=== PATIENT | female | born 1980 | race Caucasian/White ===

== ENCOUNTER → 2020-03-27 15:02 | Outpatient (BNVA) | payer MEDICAID, SELFPAY | PROVIDERS: PCP Registered Nurse; Referring Provider Registered Nurse; Visit Provider Surgery | DX: R22.31 Localized swelling, mass and lump, right upper limb (principal) | CPT/HCPCS: 99203 ==

== ENCOUNTER 2020-04-21 09:45 | Day surgery (SDC) | payer MEDICAID, SELFPAY ==
[2020-04-19 09:33] VITALS: BMI 31.5
--- NOTE | 2020-04-20 09:10 | HO.ANESPROP2 ---
Documented by User: Lakisha Haywood 04/20/20 09:10 HPI - Anesthesia Eval Consult details Narrative: 39yo F for RUE nodule excision PMFSH Past Medical History Medical History History of sleep disturbance Hx of anxiety disorder Surgical History Surgical History History of colposcopy History of tubal ligation Hx of dilation and curettage Hx of excision of mass Social History Social History Alcohol intake: current Alcohol intake frequency: a few times a month Smoking Status: Current every day smoker Advance Directives Information Provided: No Meds Allergies Allergy/AdvReac Type Severity Reaction Status Date / Time naproxen Allergy Intermediate nausea and Verified 04/19/20 09:37 vomiting Motrin Allergy Intermediate nausea and Uncoded 04/19/20 09:37 vomiting Home Medications Medication Instructions Recorded Confirmed Type gabapentin 100 mg capsule 100 mg PO TID 03/27/20 04/19/20 History hydroxyzine pamoate 25 mg capsule 25 mg PO TID 03/27/20 04/19/20 History tizanidine 2 mg capsule 2 mg PO TID PRN 03/27/20 04/19/20 History Exam Exam Date and Time: April 20, 2020 0910 Height,Weight and Vital Signs: Height 4 ft 11 in Weight 70.76 kg Assessment and Plan Assessment Anesthesia Assessment: Chart Reviewed Documented by User: Fara Ponce 04/21/20 09:54 PMFSH Past Medical History Medical History History of sleep disturbance Hx of anxiety disorder Surgical History Surgical History History of colposcopy History of tubal ligation Hx of dilation and curettage Hx of excision of mass Social History Social History Alcohol intake: current Alcohol intake frequency: a few times a month Smoking Status: Current every day smoker Advance Directives Information Provided: No Meds Allergies Allergy/AdvReac Type Severity Reaction Status Date / Time naproxen Allergy Intermediate nausea and Verified 04/19/20 09:37 vomiting Motrin Allergy Intermediate nausea and Uncoded 04/19/20 09:37 vomiting Home Medications Medication Instructions Recorded Confirmed Type gabapentin 100 mg capsule 100 mg PO TID 03/27/20 04/19/20 History hydroxyzine pamoate 25 mg capsule 25 mg PO TID 03/27/20 04/19/20 History tizanidine 2 mg capsule 2 mg PO TID PRN 03/27/20 04/19/20 History Assessment and Plan Final Anesthetic Review ASA Class: II Final Preanesthetic Review: No Changes in Pt Med Stat, Meds/Allgs Chart Reviewed and Consent Obtained/Reviewed Patient Risk: Low Procedure Risk: Low Anesthetic Plan Anesthetic Plan: MAC: Disposition: Standard PACU
[2020-04-21] VITALS (8 sets, daily range): BP systolic 121–144; BP diastolic 65–100; PULSE 81–102; RESP 16–20; TEMP 35.9–36.4; O2SAT 98–100
--- NOTE | 2020-04-21 09:54 | P.CONAN_ITS ---
[facility] Past Medical History Medical History History of sleep disturbance Hx of anxiety disorder Surgical History Surgical History History of colposcopy History of tubal ligation Hx of dilation and curettage Hx of excision of mass Social History Social History Alcohol intake: current Alcohol intake frequency: a few times a month Smoking Status: Current every day smoker Advance Directives Information Provided: No Meds Allergies Allergy/AdvReac Type Severity Reaction Status Date / Time naproxen Allergy Intermediate nausea and Verified 04/19/20 09:37 vomiting Motrin Allergy Intermediate nausea and Uncoded 04/19/20 09:37 vomiting Home Medications Medication Instructions Recorded Confirmed Type gabapentin 100 mg capsule 100 mg PO TID 03/27/20 04/19/20 History hydroxyzine pamoate 25 mg capsule 25 mg PO TID 03/27/20 04/19/20 History tizanidine 2 mg capsule 2 mg PO TID PRN 03/27/20 04/19/20 History Exam Exam Date and Time: April 21, 2020 0954 Height,Weight and Vital Signs: Height 4 ft 11 in Weight 70.76 kg Airway Mallampati Class: III TM Dist: >3cm Neck ROM: Full Heart: RRR Lungs: CTA
[2020-04-21] MEDS: Lactated Ringers 1,000 ML 100 ML IVCONT (10:12)
[2020-04-21] MEDS: ceFAZolin Sodium/Dextrose,Iso 2 GM/50 ML PIGGYBACK IV (10:12)
--- NOTE | 2020-04-21 10:12 | MHC.SHP ---
Pre-Procedural Eval Section B Chief Complaint: Localized Swelling, Mass and Lump, unspecified Allergies: Allergies Allergy/AdvReac Type Severity Reaction Status Date / Time naproxen Allergy Intermediate nausea and Verified 04/19/20 09:37 vomiting Motrin Allergy Intermediate nausea and Uncoded 04/19/20 09:37 vomiting Plan Patient has been examined and remains a candidate for the planned procedure
--- NOTE | 2020-04-21 11:06 | P.BOP_ITS ---
Brief Operative Note Date of procedure: 04/21/20 Pre-op diagnosis: subcutaneous nodules, right upper arm x 2 Post-op diagnosis: same Procedure: exc of subcutaneous nodules right upper arm x 2 Surgeon: Case Frias MD Anesthesia: MAC Insurance Adjuster: Soraida Bass Estimated blood loss (mL): 20 Pathology: other (subq nodules) Condition: stable Disposition: PACU
[2020-04-21] MEDS: oxyCODONE HCl Immed Release 5 MG TABLET 10 MG PO (11:39)
[2020-04-21] MEDS: Acetaminophen 325 MG TABLET 650 MG PO (11:39)
--- NOTE | 2020-04-21 12:12 | OP_ITS ---
SURGEON: Case Frias MD INDICATIONS: The patient is a 39-year-old female, with rheumatoid arthritis, referred to me because of 2 subcutaneous nodules in right upper arm. These were both about 1 cm in size. There were vague indurations and they were not well defined. However, in view of discomfort, she wanted to proceed with excision. She wanted this done under anesthesia because of severe anxiety. She understood the technique of the procedure as well as the risks, benefits, and alternatives and she had given consent. PREOPERATIVE DIAGNOSIS: Subcutaneous nodules x2, right upper arm. POSTOPERATIVE DIAGNOSIS: Subcutaneous nodules x2, right upper arm. PROCEDURE PERFORMED: Excision of subcutaneous nodules x2, right upper arm. ESTIMATED BLOOD LOSS: COMPLICATIONS: ANESTHESIA: ASSISTANTS: Soraida Bass PA-C. SPECIMENS: DESCRIPTION OF PROCEDURE: She was brought to the operating room, placed in supine position with the right arm abducted on an arm table. She was placed under monitored anesthesia care. The right upper arm was prepped and draped in usual sterile fashion. A surgical time-out was done. One nodule was on the anterior aspect of the right upper arm. The other one was on the posterior aspect. I infiltrated both areas with lidocaine 1%. I made an incision on the skin overlying the nodule on the right upper arm using blade #15, it was carried down to full-thickness skin and subcutaneous fat. We used Metzenbaum scissors to gently dissect the subcutaneous tissue away from this fully defined indurated nodule until it was completely delivered and sent as specimen. There was note of a small defect in the fascia of the muscle that was adherent to the nodule and we had to close this with a [id number] Dexon 3-0 sutures. We reapposed subcutaneous layer with Dexon 3-0 interrupted sutures. We observed for hemostasis. Once hemostasis was ensured, proceeded to then close the skin with subcuticular running 4-0 Dexon stitch. Dressings were applied. The same procedure was duplicated on the nodule in the posterior aspect of the upper arm. Again, this area was infiltrated with lidocaine 1%. A small incision was made in the skin overlying this using blade #15, it was extended down to this subcutaneous layer. We then proceeded to excise this vague induration with electrocautery as well as Metzenbaum scissors until this was delivered. We observed for hemostasis. We then closed the subcutaneous layer with Dexon 3-0 interrupted sutures. Skin closure was achieved with Dexon 4-0 subcuticular running stitch. Steri-Strips and dressings were applied. The patient tolerated procedure well. There were no complications noted. I wrapped the arm with Kerlix afterwards. She was given postop instructions. There was blood loss about 20 mL. MD HARMEET Albarado/RUTH / [id number]
--- NOTE | 2020-04-21 12:28 | HO.POSTANES ---
Post Anesthesia Evaluation Post Anesthesia Evaluation Vital Signs: Vital Signs Temp Pulse Resp BP Pulse Ox 04/21/20 11:51 98.1 F 84 18 139/88 100 04/21/20 11:36 81 19 124/98 H 99 04/21/20 11:34 90 16 124/98 H 100 04/21/20 11:24 99 16 144/100 H 100 04/21/20 11:19 93 16 132/65 100 04/21/20 11:14 92 16 127/77 99 04/21/20 11:09 96.7 F L 89 16 121/82 100 04/21/20 10:06 97.5 F 102 H 20 135/88 98 Anesthesia: General (TIVA) Mental Status: Awake Pain Control: Satisfactory Nausea/Vomiting: None Hydration: Adequate Anesthesia-Related Issues: No Anes. Related Issues
== END 2020-04-21 12:40 | disposition home or self-care (01) ==
PROVIDERS: PCP Registered Nurse; Visit Provider Surgery
PROC: (CPT 11403; principal; 2020-04-21 10:40)
DX: R22.31 Localized swelling, mass and lump, right upper limb (principal); M06.9 Rheumatoid arthritis, unspecified; M79.3 Panniculitis, unspecified; Z88.8 Allergy status to other drugs, medicaments and biological substances; Z79.899 Other long term (current) drug therapy
CPT/HCPCS: 11403; 11402; 12032; 88305; 88312; J0690; J2250; J3010

== ENCOUNTER → 2020-05-10 15:52 | Outpatient (BNVA) | payer MEDICAID, SELFPAY | PROVIDERS: PCP Registered Nurse; Visit Provider Surgery | DX: Z09 Encounter for follow-up examination after completed treatment for conditions other than malignant neoplasm (principal) | CPT/HCPCS: 99212 ==

== ENCOUNTER 2020-09-13 09:39 | Outpatient (REF) | payer MEDICAID, SELFPAY ==
--- NOTE | ~2020-09-13 | US_ITS ---
EXAMINATION: US ABDOMEN COMPLETE CLINICAL INFORMATION: GERD. COMPARISON: CT abdomen pelvis 11/19/2015. MR abdomen 04/19/2013. Ultrasound abdomen 04/13/2013. TECHNIQUE: Real-time imaging of the abdominal viscera. FINDINGS: PANCREAS: Normal. ABDOMINAL AORTA: The proximal, mid, and distal segments are normal in caliber. INFERIOR VENA CAVA: Visualized portions are normal. LIVER: There is a 2.6 x 1.5 x 1.5 cm hypoechoic lesion in the left lobe of the liver. This is stable from previous exams and when compared with previous MRI March 2013 likely corresponds to a hemangioma. Liver echotexture is increased. There is a hypoechoic area adjacent to the gallbladder, a characteristic location of focal fatty sparing. No other focal liver lesion is seen. The liver is normal in size and contour. There is no intrahepatic biliary duct dilatation. GALLBLADDER: Normal. The gallbladder is physiologically distended without evidence of stones, sludge, polyps, wall thickening or pericholecystic fluid. COMMON BILE DUCT: Normal in caliber measuring 0.4 cm in diameter. RIGHT KIDNEY: There are multiple small echogenic foci with twinkle artifact suggestive of small stones. No hydronephrosis or focal parenchymal lesions. The kidney measures 10.9 cm in maximum dimension. LEFT KIDNEY: There are multiple echogenic foci with twinkle artifact suggestive of small stones in No hydronephrosis or focal parenchymal lesions. The kidney measures 11.6 cm in maximum dimension. SPLEEN: Normal. The spleen measures 10.7 cm in maximum dimension. FREE FLUID: None. US/US abdomen complete IMPRESSION: Fatty liver. Stable lesion in the left lobe of the liver likely representing a benign hemangioma. Small bilateral renal stones.
== END 2020-09-13 09:40 | disposition home or self-care (01) ==
LOC: HO.US 09:39
PROVIDERS: PCP Registered Nurse; Visit Provider Registered Nurse
DX: R10.0 Acute abdomen (principal); K21.9 Gastro-esophageal reflux disease without esophagitis
CPT/HCPCS: 76700

== ENCOUNTER 2020-10-17 16:33 | Emergency (ER) | payer MEDICAID, SELFPAY ==
[2020-10-17 16:43] VITALS: BP 159/87; BP 200/110; PULSE 104; PULSE 130; RESP 18; TEMP 37.2; O2SAT 99; BMI 31.7
--- NOTE | 2020-10-17 16:46 | PC.NURSE ---
pt very animated and dramatic during triage, explaining long stories about calls with doctors offices of late, tearful.
--- NOTE | 2020-10-17 16:46 | ED.GENADULT ---
HPI - General Adult General Chief complaint: General Medical Stated complaint: STROKE ALERT/CVA Time Seen by Provider: 10/17/20 16:44 Source: patient Mode of arrival: EMS Limitations: no limitations History of Present Illness HPI narrative: Patient history of anxiety/panic attack met with EMS outside her house walking complaining of left-sided weakness to sting her face and his left hand is also weak started at 07:00 but able to ambulate well on arrival in the ER patient was able to use her left hand there is no facial asymmetry symmetric noticed but when she is trying to talk she tried to twist her lower lip to left side crying in the ER very anxious saying the left lower lip is numb and tingling Related Data Home Medications Medication Instructions Recorded Confirmed gabapentin 100 mg capsule 100 mg PO TID 03/27/20 04/19/20 hydroxyzine pamoate 25 mg capsule 25 mg PO TID 03/27/20 04/19/20 tizanidine 2 mg capsule 2 mg PO TID PRN 03/27/20 04/19/20 Previous Rx's Medication Instructions Recorded tramadol 50 mg PO Q6H PRN #20 tab 04/21/20 acetaminophen 300 mg-codeine 15 mg 1 tab PO BID PRN #10 tab 06/27/20 tablet prednisone 40 mg PO DAILY #10 tab 10/17/20 Allergies Allergy/AdvReac Type Severity Reaction Status Date / Time naproxen Allergy Intermediate nausea and Verified 04/19/20 09:37 vomiting Motrin Allergy Intermediate nausea and Uncoded 04/19/20 09:37 vomiting Review of Systems Review of Systems: Constitutional : No Weight loss, No Fever, No Chills ENT/Mouth : No sore throat, No Rhinorrhea Eyes: No Eye Pain, No Swelling Cardiovascular : No Chest Pain, no palpitations Respiratory : No Cough, No Sputum, no shortness of breath Gastrointestinal : no Nausea, No Vomiting, No Diarrhea, No abdominal Pain, no black stools Genitourinary : No Dysuria, No Urinary Frequency Musculoskeletal : No joint pain, No Myalgias, No Joint Swelling Skin : No Skin Lesions, No rash Neuro : No Weakness, No Numbness, No Dizziness, No Headache Psych : ++ Anxiety/Panic, ++ Depression Heme/Lymph: No Bruising, No Lymphadenopathy Endocrine : No Polyuria, No Polydipsia All other systems reviewed and are negative PMFSH Past Medical History Medical History History of sleep disturbance Hx of anxiety disorder Surgical History History of colposcopy History of tubal ligation Hx of dilation and curettage Hx of excision of mass Social History Social History Alcohol intake: current Alcohol intake frequency: a few times a month Smoking Status: Current every day smoker Advance Directives: No Advance Directives Information Provided: No Physical Exam Vital Signs: Vital Signs: Last Vital Signs Temp 99.0 F 10/17/20 16:43 Pulse 104 H 10/17/20 16:43 Resp 18 10/17/20 16:43 BP 159/87 H 10/17/20 16:43 Pulse Ox 99 10/17/20 16:43 Body Mass Index 31.7 Appearance: Alert. Oriented X3. No acute distress. Crying Eyes: PERRLA, No Nystagmus ENT: Pharynx normal. Oral Mucosa moist Neck: Normal inspection. Neck supple. CVS: Normal heart rate and rhythm. Pulses normal. Respiratory: No respiratory distress. Equal air entry bilateral, no wheezing/rales/rhonchi Abdomen: Soft and nontender. Bowel sounds are present, no mass palpable, no CVA tenderness Skin: Skin warm and dry. Normal skin color. Normal skin turgor. Extremities: No lower extremity edema. No calf tenderness Neuro: Oriented X 3. No motor deficit. No sensory deficit.No cerebellar signs , cranial nerves II-XII intact testing of left lower lip to the left side when patient tries to talk? Somatization?? patient complaining of tingling pain on the left face now seeing on the right lip also trigger-point negative for 8 days not spared able to close her eyes tight no other focal deficit Medical Decision Making MDM Narrative Medical decision making narrative: Patient very anxious on arrival just complaining of lower lip twisting to the left side which she does state when she tried to speak otherwise is back to normal. No other findings of any Roman's palsy noticed but patient showing her phone stating that she has Roman's palsy in asking for medication is possible she may have early Roman's palsy as there is no other findingseye can be well closed and there is no sparing of the forehead will give her a course of prednisone advised to follow with PCP Discharge Plan Discharge Clinical Impression: Roman's palsy, Anxiety Patient Disposition: Home, Self-Care Instructions: Roman Palsy (ED), Anxiety (ED) Additional Instructions: You do not have a typical findings of Roman's palsy at this time only lower lip is twisting which is possibly from somatization. Take prednisone as prescribed and follow with PCP Prescriptions: New prednisone 20 mg tablet 40 mg PO DAILY Qty: 10 RF: 0 No Action acetaminophen-codeine 300-15 mg tablet 1 tab PO BID PRN (Reason: pain) Qty: 10 RF: 0 tramadol 50 mg tablet 50 mg PO Q6H PRN (Reason: pain) Qty: 20 RF: 0 gabapentin 100 mg capsule 100 mg PO TID RF: 0 hydroxyzine pamoate 25 mg capsule 25 mg PO TID RF: 0 tizanidine 2 mg capsule 2 mg PO TID PRN (Reason: Muscle Spasm) RF: 0
[2020-10-17] MEDS: predniSONE 20 MG TABLET 40 MG PO (18:22)
--- NOTE | 2020-10-17 18:53 | PC.NURSE ---
PT UPRIGHT AMBULATING IN ROOM W/ EVEN STEADY GAIT. PT C/O L SIDED FACIAL DROOP STARTING OVER LAST 2-3 DAYS, NO NEURO DEFICITS NOTED. 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 PT HYPERVERBAL, C/O NUMEROUS CHRONIC ISSUES WHICH HAVE BEEN ADDRESSED BY PCP AND ER PROVIDERS. PT IN NAD, C/O INCREASED LIFE STRESSORS AND ANXIETY. PT DENIES SI/HI, NO SELF HARM THOUGHTS, REPORTS HAS RESOURCES WHICH SHE UTILIZES, STS SHE IS READY FOR D/C.
== END 2020-10-17 18:55 | disposition home or self-care (01) ==
PROVIDERS: Emergency Provider Internal Medicine
DX: G51.0 Bell's palsy (principal); F41.9 Anxiety disorder, unspecified; E78.5 Hyperlipidemia, unspecified
CPT/HCPCS: 96374; 99283; 99284

== ENCOUNTER 2021-02-13 09:59 | Outpatient (REF) | payer MEDICAID, SELFPAY ==
--- NOTE | ~2021-02-13 | XR_ITS ---
EXAMINATION: XR CHEST CLINICAL INFORMATION: Abnormal immunological findings. COMPARISON: Chest 04/29/2019 TECHNIQUE: 2 views of the chest were obtained. FINDINGS: No significant abnormality is noted involving the heart, lungs, mediastinum, bony thorax or soft tissues. XR/XR chest 2V IMPRESSION: Unremarkable chest examination.
[2021-02-13 12:16] LABS: MANUAL DIFF FLAG NO
[2021-02-13 12:19] LABS: Basophils Percent Auto 0.6 % (0-2); Eosinophils Absolute Auto 0.2 X10*3/uL (0.0-0.4); Eosinophils Percent Auto 2.8 % (0-4); Hematocrit 35.1 % (37-47); Hemoglobin 10.8 g/dl (12.0-16.0); Imm Gran Abs Auto 0.01 X10*3/uL (0.00-0.03); Imm Gran Pct Auto 0.2 % (0.0-0.4); Lymphocytes Absolute Auto 2.2 X10*3/uL (1.2-4.9); Lymphocytes Percent Auto 40.9 % (20-40); Mean Corpuscular HGB Conc 30.8 g/dl (31.0-35.0); Mean Corpuscular Hemoglobin 26.2 pg (27.0-33.0); Mean Platelet Volume 9.5 fL (9.4-12.3); Monocytes Absolute Auto 0.4 X10*3/uL (0.1-1.2); Monocytes Percent Auto 7.9 % (2-11); Neutrophils Absolute Auto 2.6 X10*3/uL (2.0-8.3); Neutrophils Percent Auto 47.6 % (45-73); Platelet Count 365 X10*3/uL (160-400); Red Blood Count 4.13 X10*6/uL (4.20-5.50); White Blood Count 5.4 X10*3/uL (4.8-10.8)
[2021-02-13 12:36] LABS: Anion Gap 10 (12-20); Blood Urea Nitrogen 7 mg/dL (9-16); Calcium 9.4 mg/dL (8.4-10.2); Carbon Dioxide 25 mmol/L (22-29); Chloride 107 mmol/L (96-108); Estimated Glomerular Filt Rate > 60; Glucose Random 105 mg/dL (60-115); Potassium 4.2 mmol/L (3.3-5.1); Sodium 138 mmol/L (135-145)
[2021-02-13 13:10] LABS: Erythrocyte Sedimentation Rate 38 MM/HR (0-20)
[2021-02-14 12:16] LABS: Anti DNA DS Antibody 10 IU/mL
[2021-02-15 15:57] LABS: Cyclic Citrullinated Peptide <16 UNITS
[2021-02-16 09:26] LABS: Immunoglobulin A 727
[2021-02-16 09:27] LABS: Transglutaminase IgA 1
[2021-02-16 13:06] LABS: Anti Nuclear Antibody Pattern Nuclear, Homogeneous; Anti Nuclear Antibody Screen POSITIVE (NEGATIVE)
[2021-02-18 22:11] LABS: Angiotensin Converting Enzyme 7 U/L (9-67)
== END 2021-02-13 10:00 | disposition home or self-care (01) ==
LOC: HO.XRAY 09:59
PROVIDERS: PCP Registered Nurse; Visit Provider Hospitalist
DX: R76.8 Other specified abnormal immunological findings in serum (principal); J45.909 Unspecified asthma, uncomplicated; R06.00 Dyspnea, unspecified
CPT/HCPCS: 36415; 71046; 80048; 82164; 82784; 82785; 83516; 85025; 85652; 86003; 86038; 86039; 86200; 86225; 99202

== ENCOUNTER → 2021-02-21 09:35 | Outpatient (REF) | payer MEDICAID, SELFPAY ==
--- NOTE | ~2021-02-21 | NM_ITS ---
Myocardial perfusion study Indication: Chest pain to evaluate for myocardial ischemia Technique: The patient was brought in for a Lexiscan perfusion study on 02/21/2021. Patient performed low-level exercise and was injected 0.4 mg of Lexiscan intravenously. Within a minute of injection, 25 mCi of sestamibi was given intravenously. Images were obtained using the SPECT gamma camera interlaced with the gating device. Images were obtained in supine position. Resting perfusion study was performed on 02/22/2021. Patient was administered 25 mCi of sestamibi intravenously at rest. Images were then obtained in supine position. Images obtained with and without CT attenuation. Total DLP 92 mGy-cm. Images were processed with the software and compared side to side in short axis, horizontal long axis and vertical long axis views. Findings: The stress perfusion study showed nonattenuated images show normal uptake of radiotracer in all segments of LV myocardium. Attenuation corrected images show mildly reduced uptake in the distal anterior and apical wall of the LV myocardium.. The gated study shows normal LV systolic function with visually estimated LVEF of greater than 60 %. LV cavity is normal in size. The gated study shows normal systolic wall thickening and contraction of segments. Resting study shows no change in perfusion pattern compared to stress perfusion study. Gating at rest reveals normal systolic wall motion with ejection fraction at greater than 60%. The findings are consistent with likely normal myocardial perfusion. NM/NM leonor perf SPECT rest & str Impression: 1. Myocardial perfusion imaging study shows likely normal myocardial perfusion 2. Gated LVEF is greater than 60% 3. Transient ischemic dilatation not present EKG is nondiagnostic for ischemia
--- NOTE | 2021-02-21 10:00 | CA_ITS ---
Acquisition Time: 2021-02-21 10:02:38 Total Exercise Time: 00:02:00 Test Indications: Dyspnea Medications: LISINOPRIL VERAPAMIL Protocol: LEXISCAN Max HR: 129 BPM 72% of Pred: 179 BPM Max BP: 130/070 mmHG Max Work Load: 1.0 METS [employer] stress test with Lexiscan injection, while sitting and kicking her legs, with report of sob, chest pressure post injection, without arrythmia, with normotensive response to injection, with nondiagnostic EKG for ischemia. In recovery she continued to have symptoms, including body tingling, that was treated with Aminophylline 75mg IVP to reverse Lesxiscan with resolution of symptoms. Nuclear images pending. Test reviewed with Dr Santa. Referred By: Leonardo Pastor Overread By: YFN DANIELS
== END ==
LOC: HO.CARD 09:35
PROVIDERS: Visit Provider Internal Medicine Cardiovascular Disease
DX: R07.9 Chest pain, unspecified (principal)
CPT/HCPCS: 78452; 93017; A9500; J0280; J2785

== ENCOUNTER 2021-03-06 08:22 | Outpatient (REF) | payer MEDICAID, SELFPAY ==
--- NOTE | 2021-03-06 | PFT_ITS ---
FLOWS: FEV1 96% of predicted at 2.41 L. FVC 92% of predicted at 2.81 L. FEV1 to FVC ratio of 0.86. No bronchodilator response. LUNG VOLUMES: Total lung capacity 86% of predicted at 3.72 L. Residual volume 72% of predicted at 1 L. Slow vital capacity 92% of predicted at 2.72 L. Expiratory reserve volume of predicted at 0.57 L. Diffusion capacity is mildly decreased, diffusion capacity adjusted to normal after correction for alveolar ventilation. In comparison to pulmonary function test in December of 2017, FEV1, FVC, SVC have been without significant changes; total lung capacity has increased by 0.30 L; residual volume has increased by 0.38 L; expiratory reserve volume has decreased by 0.24 L; diffusion capacity has decreased by 1.09 mL/minute per mmHg. IMPRESSION: No obstructive or restrictive ventilatory defect. No bronchodilator response. Decreased expiratory reserve volume suggests extrathoracic restriction, likely secondary to abdominal obesity. MD FLORINDA Cruz/MODL / [id number]
== END 2021-03-06 08:23 | disposition home or self-care (01) ==
LOC: HO.RESP 08:22
PROVIDERS: PCP Registered Nurse; Visit Provider Hospitalist
DX: J45.909 Unspecified asthma, uncomplicated (principal)
CPT/HCPCS: 94060; 94727; 94729

== ENCOUNTER → 2021-05-01 08:52 | Outpatient (BNVA) | payer MEDICAID, SELFPAY | PROVIDERS: PCP Registered Nurse; Referring Provider Registered Nurse; Visit Provider Nurse Practitioner | DX: R13.10 Dysphagia, unspecified (principal); K21.9 Gastro-esophageal reflux disease without esophagitis; R49.0 Dysphonia | CPT/HCPCS: 99202 ==

== ENCOUNTER 2021-06-06 20:51 | Emergency (ER) | payer MEDICAID, SELFPAY ==
[2021-06-06 21:01] VITALS: BP 145/72; PULSE 72; RESP 18; TEMP 36.6; O2SAT 99; BMI 35.4
--- NOTE | 2021-06-06 21:35 | ED.ANXIETY ---
HPI - Anxiety General Chief Complaint: Anxiety Stated Complaint: anxiety/drug use Time Seen by Provider: 06/06/21 21:25 Source: patient and EMS Mode of arrival: EMS Limitations: no limitations History of Present Illness HPI narrative: Patient comes to the emergency room complaining of anxiety. Patient is very tearful, states that she has a lot of family issues. Patient states that no one in her family cares about her when she has been caring about all of them. Patient states that she used to do drugs, stopped but today she started using heroin again. Patient requesting detox. Patient denies suicidal or homicidal ideation. Patient reporting depression and anxiety. Related Data Home Medications Medication Instructions Recorded Confirmed gabapentin 100 mg capsule 100 mg PO TID 03/27/20 05/01/21 hydroxyzine pamoate 25 mg capsule 25 mg PO TID 03/27/20 05/01/21 tizanidine 2 mg capsule 2 mg PO TID PRN 03/27/20 05/01/21 cholecalciferol (vitamin D3) 50 50 mcg PO DAILY 02/13/21 05/01/21 mcg (2,000 unit) capsule cyclobenzaprine 10 mg tablet 10 mg PO BEDTIME 02/13/21 05/01/21 lisinopril 5 mg tablet 5 mg PO DAILY 02/13/21 05/01/21 loratadine 10 mg tablet 10 mg PO DAILY 02/13/21 05/01/21 verapamil 120 mg 24 hr 120 mg PO DAILY 02/13/21 05/01/21 capsule,extended release pantoprazole 40 mg tablet,delayed 40 mg PO DAILY 05/01/21 05/01/21 release (Protonix) Previous Rx's Medication Instructions Recorded tramadol 50 mg tablet 50 mg PO Q6H PRN #20 tab 04/21/20 acetaminophen 300 mg-codeine 15 mg 1 tab PO BID PRN #10 tab 06/27/20 tablet fluticasone furoate 200 1 inh INHALATION DAILY 30 Days #60 02/13/21 mcg-vilanterol 25 mcg/dose ea inhalation powder (Breo Ellipta) budesonide-formoterol HFA 160 2 puff INHALATION BID 30 Days 03/05/21 mcg-4.5 mcg/actuation aerosol #10.2 g inhaler (Symbicort) Allergies Allergy/AdvReac Type Severity Reaction Status Date / Time naproxen Allergy Intermediate nausea and Verified 05/01/21 09:57 vomiting Motrin Allergy Intermediate nausea and Uncoded 02/13/21 10:20 vomiting Review of Systems Review of Systems: Constitutional : No Weight loss, No Fever, No Chills, No Night Sweats, No Fatigue, No Malaise ENT/Mouth : No Hearing loss, No Ear Pain, No Nasal Congestion, No Sinus Pain, No Hoarseness, No sore throat, No Rhinorrhea, No Swallowing Difficulty Eyes: No Eye Pain, No Swelling, No Redness, No Foreign Body, No Discharge, No Vision Changes Cardiovascular : No Chest Pain, No SOB, No Dyspnea on Exertion, No Orthopnea, No Edema, No Palpitations Respiratory : No Cough, No Sputum, No Wheezing, No Smoke Exposure, No Dyspnea Gastrointestinal : No Nausea, No Vomiting, No Diarrhea, No Constipation, No abdominal Pain, No Hematochezia, No Melena Genitourinary : no irregular bleeding, No Dysuria, No Urinary Frequency, No Hematuria, No Urinary Incontinence, No Urgency, No Flank Pain, No Urinary Flow Changes, No Hesitancy Musculoskeletal : No joint pain, No Myalgias, No Joint Swelling Skin : No Skin Lesions, No rash Neuro : No Weakness, No Numbness, No Paresthesias, No Loss of Consciousness, No Dizziness, No Headache Psych : Complaining of anxiety and depression No SI/HI/AH/VH, No Social Issues, Heme/Lymph: No Bruising, No Bleeding,No Lymphadenopathy Endocrine : No Polyuria, No Polydipsia, No Temperature Intolerance PMFSH Past Medical History Medical History BRIE positive Asthma Dyspnea History of sleep disturbance Hx of anxiety disorder Surgical History History of colposcopy History of tubal ligation Hx of dilation and curettage Hx of excision of mass Social History Social History Alcohol intake: current Alcohol intake frequency: a few times a month Patient Tobacco Use Status: Current someday Tobacco user Tobacco use type: Cigarette Cigarettes Per Day: 2 Physical Exam Vital Signs: Vital Signs: Last Vital Signs Temp 98 F 06/06/21 21:01 Pulse 72 06/06/21 21:01 Resp 18 06/06/21 21:01 BP 145/72 H 06/06/21 21:01 Pulse Ox 99 06/06/21 21:01 BMI result Body Mass Index 35.4 Const: Other: Appearance: Alert. Oriented X3. Tearful Eyes: Pupils equal, round and reactive to light. ENT: Pharynx normal. Neck: Normal inspection. Neck supple. No lymph nodes noted. No crepitus CVS: Normal heart rate and rhythm. Pulses normal. Normal S1 and S2 Respiratory: No respiratory distress. Breath sounds normal. No Wheezing. No rales Abdomen: Soft and nontender. No rigidity. No distention. good BS x4 Skin: Skin warm and dry. Normal skin color. Normal skin turgor. Extremities: No lower extremity edema. No lower extremity edema. No Lacerations. No Rash Neuro: Oriented X 3. No motor deficit. No sensory deficit. Moving all extermities. No slurred speech, cranial nerves 2-12 grossly intact Psych: Alert, tearful, throwing things at her nurse Course Course Course Narrative: Care team consult pending. Physician observation started at 21:40, vitals are stable. Discharge Plan Discharge Clinical Impression: Anxiety Prescriptions: No Action acetaminophen-codeine 300-15 mg tablet 1 tab PO BID PRN (Reason: pain) Qty: 10 RF: 0 budesonide-formoterol [Symbicort] 160-4.5 mcg/actuation HFA aerosol inhaler 2 puff inhalation BID 30 Days Qty: 10.2 RF: 11 tramadol 50 mg tablet 50 mg PO Q6H PRN (Reason: pain) Qty: 20 RF: 0 gabapentin 100 mg capsule 100 mg PO TID RF: 0 hydroxyzine pamoate 25 mg capsule 25 mg PO TID RF: 0 tizanidine 2 mg capsule 2 mg PO TID PRN (Reason: Muscle Spasm) RF: 0 verapamil 120 mg capsule,ext rel. pellets 24 hr 120 mg PO DAILY RF: 0 loratadine 10 mg tablet 10 mg PO DAILY RF: 0 cyclobenzaprine 10 mg tablet 10 mg PO BEDTIME RF: 0 lisinopril 5 mg tablet 5 mg PO DAILY RF: 0 cholecalciferol (vitamin D3) 50 mcg (2,000 unit) capsule 50 mcg PO DAILY RF: 0 Breo Ellipta 200-25 mcg/dose blister with device 1 inh inhalation DAILY 30 Days Qty: 60 RF: 11 pantoprazole [Protonix] 40 mg tablet,delayed release (DR/EC) 40 mg PO DAILY RF: 0
[2021-06-06 21:37] LABS: Appearance Urine CLEAR; Color Urine YELLOW; Glucose Urine UA NEG (NEG); Leukocyte Esterase Urine NEG (NEG); Nitrite Urine NEG (NEG); PH 6.5 (5.0-8.0); UACC Culture Trigger NO; Urine Blood TRACE (NEG); Urine Ketones NEG (NEG); Urine Protein TRACE MG/DL (NEG-TRACE)
[2021-06-06 21:39] LABS: UPreg QC Valid YES; Urine Pregnancy NEGATIVE (NEGATIVE)
[2021-06-06 21:42] LABS: Squamous Epithelial Cell Urine 2+ /LPF
[2021-06-06 21:43] LABS: Bacteria Urine 1+ /LPF
[2021-06-06 21:45] LABS: RBC Urine 0-2 /HPF (0); WBC Urine 0 /HPF (0-4)
[2021-06-06 21:46] LABS: COVID-19 Test Negative (Negative)
[2021-06-06] MEDS: LORazepam 1 MG TABLET 2 MG PO (21:46)
[2021-06-06 21:50] LABS: Amphetamine Screen Urine Not Detected (Not Detect); Barbiturates, Urine Not Detected (Not Detect); Benzodiazepines Screen Urine POSITIVE (Not Detect); Cannabinoid Screen Urine POSITIVE (Not Detect); Cocaine Screen Urine POSITIVE (Not Detect); Fentanyl, urine POSITIVE (Not Detect); Opiate Screen Urine POSITIVE (Not Detect); Phencyclidine Screen Urine Not Detected (Not Detect)
--- NOTE | 2021-06-06 22:44 | MHC.CARE ---
CARE team support requested for pt in the pod with complaints of anxiety secondary to substance use. Pt was distraught and ruminating on life experiences and relationships, her physical health, and her mental health. She endorsed passive thoughts of and reported that she used heroin today after having been in recovery. Unsure if her use today was a relapse. She denied other substance use. Given her current level of dysregulation and being under the influence of substances, she would benefit from a clinical assessment in the morning once she is more appropriate for evaluation. ED attending physician Harleen Garcia updated re: recommendation.
[2021-06-07 01:10] VITALS: BP 127/79; PULSE 96; RESP 16; TEMP 36.4; O2SAT 100
--- NOTE | 2021-06-07 06:56 | PC.NURSE ---
Patient did not sleep well, no distress observed/reported, care team evaluated briefly recommended full BHN evaluation, BHN evaluated the patient, disposition is d/c home and follow up with provider, vss, d/c paper work ready, will continue to monitor.
== END 2021-06-07 07:16 | disposition home or self-care (01) ==
PROVIDERS: Emergency Provider Emergency Medicine
DX: F41.9 Anxiety disorder, unspecified (principal); J45.909 Unspecified asthma, uncomplicated; Z20.822 Contact with and (suspected) exposure to COVID-19
CPT/HCPCS: 36415; 80307; 81001; 81025; 87635; 99283; 99284

== ENCOUNTER 2021-07-02 10:01 | Emergency (ER) | payer MEDICAID, SELFPAY ==
--- NOTE | ~2021-07-02 | XR_ITS ---
EXAMINATION: XR CHEST CLINICAL INFORMATION: Chest pain and shortness of breath COMPARISON: Previous chest x-ray January 2021 TECHNIQUE: 2 views of the chest were obtained. FINDINGS: No significant abnormality is noted involving the heart, lungs, mediastinum, bony thorax or soft tissues. XR/XR chest 2V IMPRESSION: Unremarkable examination.
[2021-07-02 10:57] VITALS: BP 175/96; PULSE 95; RESP 18; TEMP 36.6; O2SAT 100; BMI 30.2
[2021-07-02 16:45] LABS: COVID-19 Test Negative (Negative)
[2021-07-02 20:00] VITALS: BP 138/93; PULSE 84; RESP 20; TEMP 35.6; O2SAT 100
--- NOTE | 2021-07-02 22:36 | ED_ITS ---
HPI - General Adult General Chief complaint: Psychiatric Symptoms Stated complaint: dif breathing chest pain panic attacks Time Seen by Provider: 07/02/21 10:40 Source: patient Mode of arrival: ambulatory History of Present Illness HPI narrative: 41-year-old female with history hypertension, rheumatoid arthritis, prediabetes presents with having used cocaine and heroin yesterday and states she wants to stop doing the drugs, but the holidays are difficult. She denies suicidal ideation but is noticeably agitated. She complains of heada madhav, chest discomfort, and states that she is feeling very anxious. Related Data Home Medications Medication Instructions Recorded Confirmed cyclobenzaprine 5 mg tablet 1 tab PO TID PRN 06/06/21 07/02/21 gabapentin 100 mg capsule 100 mg PO TID 06/06/21 07/02/21 lisinopril 5 mg tablet 1 tab PO DAILY 06/06/21 07/02/21 pantoprazole 40 mg tablet,delayed 1 tab PO DAILY 06/06/21 07/02/21 release cholecalciferol (vitamin D3) 50 1 tab PO DAILY 07/02/21 07/02/21 mcg (2,000 unit) tablet verapamil 180 mg tablet,extended 1 tab PO DAILY 07/02/21 07/02/21 release Previous Rx's Medication Instructions Recorded clonidine HCl 0.1 mg tablet 0.1 mg PO TID PRN #6 tab 07/03/21 hydroxyzine HCl 25 mg tablet 25 mg PO TID PRN #7 tab 07/03/21 loperamide 2 mg capsule 2 mg PO Q6H PRN #6 cap 07/03/21 Allergies Allergy/AdvReac Type Severity Reaction Status Date / Time naproxen Allergy Intermediate nausea and Verified 05/01/21 09:57 vomiting Motrin Allergy Intermediate nausea and Uncoded 02/13/21 10:20 vomiting Review of Systems Review of Systems: Pertinent positives and negatives as stated in HPI 10 point review of systems is otherwise negative. [facility] Past Medical History Source: nursing notes reviewed Medical History BRIE positive Asthma Dyspnea History of sleep disturbance Hx of anxiety disorder Surgical History History of colposcopy History of tubal ligation Hx of dilation and curettage Hx of excision of mass Social History Social History Alcohol intake: current Alcohol intake frequency: a few times a month Patient Tobacco Use Status: Current someday Tobacco user Tobacco use type: Cigarette Cigarettes Per Day: 2 Advance Directives: No Advance Directives Information Provided: Yes Patient : No Physical Exam Vital Signs: Vital Signs: Last Vital Signs Temp 98.2 F 07/02/21 22:54 Pulse 88 07/02/21 22:54 Resp 16 07/02/21 22:54 BP 140/93 H 07/02/21 22:54 Pulse Ox 99 07/02/21 22:54 BMI result Body Mass Index 30.2 VITAL SIGNS: Reviewed. GENERAL: Well developed, well nourished, in no acute distress. HEAD: Normocephalic/atraumatic EYES: PERRLA, EOMI OROPHARYNX: no oral lesions noted, posterior pharynx clear LUNGS: Normal breath sounds. No adventitious sounds or accessory muscle use. SpO2<100> CARDIOVASCULAR: Regular rate and rhythm without noted murmurs ABDOMEN: Soft, non-tender, non-distended with bowel sounds. MUSCULOSKELETAL: No tenderness, deformities, or effusions noted on gross inspection. EXTREMITIES: No cyanosis, clubbing or edema, bruising across bilateral upper extremities at prior injection sites without noted erythema/induration SKIN: Inspection of the skin reveals no rashes, ulcerations, jaundice, pallor, or petechiae. NEUROLOGIC: Alert and oriented x 4. Strength and sensation to light touch were grossly intact x 4, cranial nerves 2-12 are grossly intact. PSYCH: Anxious, tremulous Course Course Course Narrative: 41-year-old female with history and clinical presentation consistent with substance use and dependence presenting for detox but otherwise denies suicidal ideation. Review of all investigations negative for acute findings other than noted elevated transaminases consistent with recent drug use. Patient reports her use was today, on COWs scoring she is a 6, she was provided with an anxiolytic, prescriptions for withdrawal were sent to her pharmacy, and she was provided with information regarding [place] withdrawal clinic. At this time, patient does not qualify for the 1 time dose of methadone. She was discharged with home Narcan. Medical Decision Making Lab Data Result diagrams: 07/02/21 22:38 07/02/21 22:38 Labs: Lab Results 07/02/21 07/02/21 07/02/21 Range/Units 16:03 22:38 22:38 WBC 5.9 (4.8-10.8) X10*3/uL RBC 4.26 (4.20-5.50) X10*6/uL Hgb 11.1 L (12.0-16.0) g/dl Hct 34.4 L (37.0-47.0) % MCV 80.8 (80.0-98.0) fL MCH 26.1 L (27.0-33.0) pg MCHC 32.3 (31.0-35.0) g/dl RDW 17.2 H (11.0-16.0) % Plt Count 371 (160-400) X10*3/uL MPV 10.0 (9.4-12.3) fL Immature Gran % (Auto) 0.2 (0.0-0.4) % Neut % (Auto) 35.5 L (45-73) % Lymph % (Auto) 54.2 H (20-40) % [place] % (Auto) 7.5 (2-11) % Eos % (Auto) 2.4 (0-4) % Baso % (Auto) 0.2 (0-2) % Lymph # (Auto) 3.2 (1.2-4.9) X10*3/uL [place] # (Auto) 0.4 (0.1-1.2) X10*3/uL Eos # (Auto) 0.1 (0.0-0.4) X10*3/uL Baso # (Auto) 0.0 (0.0-0.2) X10*3/uL Abs Immat Gran (auto) 0.01 (0.00-0.03) X10*3/uL Absolute Neuts (auto) 2.1 (2.0-8.3) x10*3/uL Absolute Nucleated RBC 0.000 (0.0-0.012) X10*3/uL Nucleated RBC % (auto) 0.0 (0.0-0.2) /100WBC Smear Tech's Comments VERIFIED Sodium 136 (135-145) mmol/L Potassium 3.7 (3.3-5.1) mmol/L Chloride 102 (96-108) mmol/L Carbon Dioxide 26 (22-29) mmol/L Anion Gap 12 (12-20) BUN 3 L (9-16) mg/dL Creatinine 0.74 (0.5-1.4) mg/dL Estim Creat Clear Calc 83.0 Estimated GFR > 60 Random Glucose 100 (60-115) mg/dL Calcium 9.5 (8.4-10.2) mg/dL Total Bilirubin 0.9 (0.0-1.0) mg/dL AST 157 H (5-31) U/L ALT 84 H (0-31) U/L Alkaline Phosphatase 125 H (39-117) U/L Total Protein 8.3 H (6.5-8.0) g/dL Albumin 3.9 (3.5-5.0) g/dL Urine Color Urine Appearance Urine pH (5.0-8.0) Ur Specific [place] (1.005-1.025) Urine Protein (NEG-TRACE) MG/DL Urine Glucose (UA) (NEG) MG/DL Urine Ketones (NEG) MG/DL Urine Blood (NEG) Urine Nitrite (NEG) Ur Leukocyte Esterase (NEG) Urine RBC (0) /HPF Urine WBC (0-4) /HPF Ur Squamous Epith Cells /LPF Urine Bacteria /LPF Urine Test (NEGATIVE) Urine Opiates Screen (Not Detect) Urine Fentanyl Screen (Not Detect) Ur Barbiturates Screen (Not Detect) Ur Phencyclidine Scrn (Not Detect) Ur Amphetamines Screen (Not Detect) U Benzodiazepines Scrn (Not Detect) Urine Cocaine Screen (Not Detect) U Marijuana (THC) Screen (Not Detect) Ethyl Alcohol mg/dL COVID-19 (JOE) Negative (Negative) COVID-19 Clin Com See Note 07/02/21 07/02/21 07/02/21 Range/Units 22:38 23:16 23:16 WBC (4.8-10.8) X10*3/uL RBC (4.20-5.50) X10*6/uL Hgb (12.0-16.0) g/dl Hct (37.0-47.0) % MCV (80.0-98.0) fL MCH (27.0-33.0) pg MCHC (31.0-35.0) g/dl RDW (11.0-16.0) % Plt Count (160-400) X10*3/uL MPV (9.4-12.3) fL Immature Gran % (Auto) (0.0-0.4) % Neut % (Auto) (45-73) % Lymph % (Auto) (20-40) % [place] % (Auto) (2-11) % Eos % (Auto) (0-4) % Baso % (Auto) (0-2) % Lymph # (Auto) (1.2-4.9) X10*3/uL [place] # (Auto) (0.1-1.2) X10*3/uL Eos # (Auto) (0.0-0.4) X10*3/uL Baso # (Auto) (0.0-0.2) X10*3/uL Abs Immat Gran (auto) (0.00-0.03) X10*3/uL Absolute Neuts (auto) (2.0-8.3) x10*3/uL Absolute Nucleated RBC (0.0-0.012) X10*3/uL Nucleated RBC % (auto) (0.0-0.2) /100WBC Smear Tech's Comments Sodium (135-145) mmol/L Potassium (3.3-5.1) mmol/L Chloride (96-108) mmol/L Carbon Dioxide (22-29) mmol/L Anion Gap (12-20) BUN (9-16) mg/dL Creatinine (0.5-1.4) mg/dL Estim Creat Clear Calc Estimated GFR Random Glucose (60-115) mg/dL Calcium (8.4-10.2) mg/dL Total Bilirubin (0.0-1.0) mg/dL AST (5-31) U/L ALT (0-31) U/L Alkaline Phosphatase (39-117) U/L Total Protein (6.5-8.0) g/dL Albumin (3.5-5.0) g/dL Urine Color YELLOW Urine Appearance CLEAR Urine pH 6.0 (5.0-8.0) Ur Specific [place] <= 1.005 (1.005-1.025) Urine Protein NEG (NEG-TRACE) MG/DL Urine Glucose (UA) NEG (NEG) MG/DL Urine Ketones NEG (NEG) MG/DL Urine Blood 3+ H (NEG) Urine Nitrite NEG (NEG) Ur Leukocyte Esterase NEG (NEG) Urine RBC 10-14 H (0) /HPF Urine WBC 0-2 (0-4) /HPF Ur Squamous Epith Cells 1+ /LPF Urine Bacteria TRACE /LPF Urine Test NEGATIVE (NEGATIVE) Urine Opiates Screen (Not Detect) Urine Fentanyl Screen (Not Detect) Ur Barbiturates Screen (Not Detect) Ur Phencyclidine Scrn (Not Detect) Ur Amphetamines Screen (Not Detect) U Benzodiazepines Scrn (Not Detect) Urine Cocaine Screen (Not Detect) U Marijuana (THC) Screen (Not Detect) Ethyl Alcohol < 10 mg/dL COVID-19 (JOE) (Negative) COVID-19 Clin Com 07/02/21 Range/Units 23:16 WBC (4.8-10.8) X10*3/uL RBC (4.20-5.50) X10*6/uL Hgb (12.0-16.0) g/dl Hct (37.0-47.0) % MCV (80.0-98.0) fL MCH (27.0-33.0) pg MCHC (31.0-35.0) g/dl RDW (11.0-16.0) % Plt Count (160-400) X10*3/uL MPV (9.4-12.3) fL Immature Gran % (Auto) (0.0-0.4) % Neut % (Auto) (45-73) % Lymph % (Auto) (20-40) % [place] % (Auto) (2-11) % Eos % (Auto) (0-4) % Baso % (Auto) (0-2) % Lymph # (Auto) (1.2-4.9) X10*3/uL [place] # (Auto) (0.1-1.2) X10*3/uL Eos # (Auto) (0.0-0.4) X10*3/uL Baso # (Auto) (0.0-0.2) X10*3/uL Abs Immat Gran (auto) (0.00-0.03) X10*3/uL Absolute Neuts (auto) (2.0-8.3) x10*3/uL Absolute Nucleated RBC (0.0-0.012) X10*3/uL Nucleated RBC % (auto) (0.0-0.2) /100WBC Smear Tech's Comments Sodium (135-145) mmol/L Potassium (3.3-5.1) mmol/L Chloride (96-108) mmol/L Carbon Dioxide (22-29) mmol/L Anion Gap (12-20) BUN (9-16) mg/dL Creatinine (0.5-1.4) mg/dL Estim Creat Clear Calc Estimated GFR Random Glucose (60-115) mg/dL Calcium (8.4-10.2) mg/dL Total Bilirubin (0.0-1.0) mg/dL AST (5-31) U/L ALT (0-31) U/L Alkaline Phosphatase (39-117) U/L Total Protein (6.5-8.0) g/dL Albumin (3.5-5.0) g/dL Urine Color Urine Appearance Urine pH (5.0-8.0) Ur Specific [place] (1.005-1.025) Urine Protein (NEG-TRACE) MG/DL Urine Glucose (UA) (NEG) MG/DL Urine Ketones (NEG) MG/DL Urine Blood (NEG) Urine Nitrite (NEG) Ur Leukocyte Esterase (NEG) Urine RBC (0) /HPF Urine WBC (0-4) /HPF Ur Squamous Epith Cells /LPF Urine Bacteria /LPF Urine Test (NEGATIVE) Urine Opiates Screen Not Detected (Not Detect) Urine Fentanyl Screen POSITIVE H (Not Detect) Ur Barbiturates Screen Not Detected (Not Detect) Ur Phencyclidine Scrn Not Detected (Not Detect) Ur Amphetamines Screen Not Detected (Not Detect) U Benzodiazepines Scrn Not Detected (Not Detect) Urine Cocaine Screen POSITIVE H (Not Detect) U Marijuana (THC) Screen POSITIVE H (Not Detect) Ethyl Alcohol mg/dL COVID-19 (JOE) (Negative) COVID-19 Clin Com Discharge Plan Discharge Clinical Impression: Substance use disorder, Anxiety Patient Disposition: Home, Self-Care Instructions: Polysubstance Abuse (ED) Additional Instructions: 1. Resume your home medications as prescribed. 2. Medications to help you with your withdrawal symptoms have been sent to your pharmacy. 3. You have been given paperwork for the detox programs that are available here at [facility]. Call the number in the morning and they have walk-in hours. 4. Also follow-up with your primary care provider. Return to the ER for worsening symptoms. Prescriptions: New clonidine HCl 0.1 mg tablet 0.1 mg PO TID PRN (Reason: Wihtdrawal) Qty: 6 RF: 0 hydroxyzine HCl 25 mg tablet 25 mg PO TID PRN (Reason: anxiety) Qty: 7 RF: 0 loperamide 2 mg capsule 2 mg PO Q6H PRN (Reason: loose stool) Qty: 6 RF: 0 No Action pantoprazole 40 mg tablet,delayed release (DR/EC) 1 tab PO DAILY RF: 0 gabapentin 100 mg capsule 100 mg PO TID RF: 0 cyclobenzaprine 5 mg tablet 1 tab PO TID PRN (Reason: Muscle Spasm) RF: 0 lisinopril 5 mg tablet 1 tab PO DAILY RF: 0 cholecalciferol (vitamin D3) 50 mcg (2,000 unit) tablet 1 tab PO DAILY RF: 0 verapamil 180 mg tablet extended release 1 tab PO DAILY RF: 0
[2021-07-02 22:45] LABS: Basophils Percent Auto 0.2 % (0-2); Eosinophils Absolute Auto 0.1 X10*3/uL (0.0-0.4); Eosinophils Percent Auto 2.4 % (0-4); Hematocrit 34.4 % (37.0-47.0); Hemoglobin 11.1 g/dl (12.0-16.0); Imm Gran Abs Auto 0.01 X10*3/uL (0.00-0.03); Imm Gran Pct Auto 0.2 % (0.0-0.4); Lymphocytes Absolute Auto 3.2 X10*3/uL (1.2-4.9); Lymphocytes Percent Auto 54.2 % (20-40); MANUAL DIFF FLAG SCAN; Mean Corpuscular HGB Conc 32.3 g/dl (31.0-35.0); Mean Corpuscular Hemoglobin 26.1 pg (27.0-33.0); Mean Corpuscular Volume 80.8 fL (80.0-98.0); Monocytes Absolute Auto 0.4 X10*3/uL (0.1-1.2); Monocytes Percent Auto 7.5 % (2-11); Neutrophils Absolute Auto 2.1 x10*3/uL (2.0-8.3); Neutrophils Percent Auto 35.5 % (45-73); Platelet Count 371 X10*3/uL (160-400); Red Blood Count 4.26 X10*6/uL (4.20-5.50); Red Cell Distribution Width 17.2 % (11.0-16.0); SCAN SMEAR FLAG 1; White Blood Count 5.9 X10*3/uL (4.8-10.8)
[2021-07-02 22:54] VITALS: BP 140/93; PULSE 88; RESP 16; TEMP 36.8; O2SAT 99
[2021-07-02 22:58] LABS: Ethanol < 10 mg/dL
[2021-07-02] MEDS: Acetaminophen 325 MG TABLET 975 MG PO (22:58)
[2021-07-02] MEDS: LORazepam 0.5 MG TABLET PO (22:58)
[2021-07-02 23:02] LABS: Alanine Aminotransferase 84 U/L (0-31); Albumin Level 3.9 g/dL (3.5-5.0); Alkaline Phosphatase 125 U/L (39-117); Anion Gap 12 (12-20); Aspartate Amino Transferase 157 U/L (5-31); Bilirubin Total 0.9 mg/dL (0.0-1.0); Blood Urea Nitrogen 3 mg/dL (9-16); Calcium 9.5 mg/dL (8.4-10.2); Carbon Dioxide 26 mmol/L (22-29); Chloride 102 mmol/L (96-108); Estimated Glomerular Filt Rate > 60; Glucose Random 100 mg/dL (60-115); Potassium 3.7 mmol/L (3.3-5.1); Sodium 136 mmol/L (135-145); Total Protein 8.3 g/dL (6.5-8.0)
[2021-07-02 23:04] LABS: SLIDE REVIEW VERIFIED
[2021-07-02 23:23] LABS: Appearance Urine CLEAR; Color Urine YELLOW; Glucose Urine UA NEG (NEG); Leukocyte Esterase Urine NEG (NEG); Nitrite Urine NEG (NEG); Specific Gravity - Urine <= 1.005 (1.005-1.025); UACC Culture Trigger NO; Urine Blood 3+ (NEG); Urine Ketones NEG (NEG); Urine Protein NEG (NEG-TRACE)
[2021-07-02 23:25] LABS: UPreg QC Valid YES; Urine Pregnancy NEGATIVE (NEGATIVE)
[2021-07-02 23:31] LABS: Bacteria Urine TRACE /LPF; Squamous Epithelial Cell Urine 1+ /LPF; WBC Urine 0-2 /HPF (0-4)
[2021-07-02 23:39] LABS: Amphetamine Screen Urine Not Detected (Not Detect); Barbiturates, Urine Not Detected (Not Detect); Benzodiazepines Screen Urine Not Detected (Not Detect); Cannabinoid Screen Urine POSITIVE (Not Detect); Cocaine Screen Urine POSITIVE (Not Detect); Fentanyl, urine POSITIVE (Not Detect); Opiate Screen Urine Not Detected (Not Detect); Phencyclidine Screen Urine Not Detected (Not Detect)
--- NOTE | 2021-07-03 01:23 | PC.NURSE ---
Reviewed Narcan education and proper use of medications. Reviewed discharge instructions. pt verbalized understanding.
[2021-07-03] MEDS: Naloxone HCl Nasal TAKE HOME 4 MG SPRAY NOSTRILALT (01:26)
== END 2021-07-03 01:30 | disposition home or self-care (01) ==
PROVIDERS: Emergency Provider Student in an Organized Health Care Education/Training Program
DX: F19.980 Other psychoactive substance use, unspecified with psychoactive substance-induced anxiety disorder (principal); R45.1 Restlessness and agitation; F14.90 Cocaine use, unspecified, uncomplicated; F19.90 Other psychoactive substance use, unspecified, uncomplicated; F12.90 Cannabis use, unspecified, uncomplicated; I10 Essential (primary) hypertension; F17.200 Nicotine dependence, unspecified, uncomplicated; Z20.822 Contact with and (suspected) exposure to COVID-19
CPT/HCPCS: 36415; 71046; 80053; 80307; 81001; 81025; 82077; 85025; 87635; 99285

== ENCOUNTER 2021-07-09 19:03 | Emergency (ER) | payer MEDICAID, SELFPAY ==
--- NOTE | 2021-07-09 | ECG_ITS ---
Test Reason : SOB Blood Pressure : / mmHG Vent. Rate : 099 BPM Atrial Rate : 099 BPM P-R Int : 132 ms QRS Dur : 080 ms QT Int : 354 ms P-R-T Axes : 062 043 048 degrees QTc Int : 454 ms Normal sinus rhythm Normal ECG When compared with ECG of 11-APR-2018 17:24, No significant change was found Referred By: Generic ED Physician Electronically Signed By:Herminio Santa
--- NOTE | ~2021-07-09 | XR_ITS ---
EXAMINATION: XR CHEST CLINICAL INFORMATION: Shortness of breath COMPARISON: 07/02/2021 TECHNIQUE: Frontal view of the chest was obtained. FINDINGS: The lungs are well expanded. There is no focal consolidation, edema, or effusion. No pneumothorax. The cardiomediastinal silhouette is within normal limits. No acute osseous abnormality. XR/XR chest 1V IMPRESSION: Clear lungs.
[2021-07-09 20:28] VITALS: BP 150/88; PULSE 90; RESP 20; TEMP 37; O2SAT 100; BMI 24.2
[2021-07-09 23:31] VITALS: BP 138/94; PULSE 92; RESP 20; O2SAT 98
[2021-07-09 23:44] LABS: Basophils Percent Auto 0.3 % (0-2); Eosinophils Percent Auto 0.7 % (0-4); Hematocrit 36.2 % (37.0-47.0); Hemoglobin 11.5 g/dl (12.0-16.0); Imm Gran Abs Auto 0.01 X10*3/uL (0.00-0.03); Imm Gran Pct Auto 0.2 % (0.0-0.4); Lymphocytes Absolute Auto 2.6 X10*3/uL (1.2-4.9); Lymphocytes Percent Auto 43.9 % (20-40); MANUAL DIFF FLAG NO; Mean Corpuscular HGB Conc 31.8 g/dl (31.0-35.0); Mean Corpuscular Hemoglobin 26.1 pg (27.0-33.0); Mean Corpuscular Volume 82.1 fL (80.0-98.0); Mean Platelet Volume 10.3 fL (9.4-12.3); Monocytes Absolute Auto 0.7 X10*3/uL (0.1-1.2); Monocytes Percent Auto 11.5 % (2-11); Neutrophils Absolute Auto 2.5 x10*3/uL (2.0-8.3); Neutrophils Percent Auto 43.4 % (45-73); Platelet Count 370 X10*3/uL (160-400); Red Blood Count 4.41 X10*6/uL (4.20-5.50); Red Cell Distribution Width 17.5 % (11.0-16.0); White Blood Count 5.9 X10*3/uL (4.8-10.8)
[2021-07-10 00:01] LABS: COVID-19 Test Negative (Negative); IDNOW Serial# 9DD0AD1C
[2021-07-10 00:02] LABS: Alanine Aminotransferase 78 U/L (0-31); Albumin Level 3.8 g/dL (3.5-5.0); Alkaline Phosphatase 106 U/L (39-117); Anion Gap 13 (12-20); Aspartate Amino Transferase 107 U/L (5-31); Bilirubin Total 0.7 mg/dL (0.0-1.0); Blood Urea Nitrogen 2 mg/dL (9-16); Calcium 9.5 mg/dL (8.4-10.2); Carbon Dioxide 26 mmol/L (22-29); Chloride 102 mmol/L (96-108); Creatinine Clr Calc Pharmacy 82.3; Estimated Glomerular Filt Rate > 60; Glucose Random 96 mg/dL (60-115); Potassium 3.8 mmol/L (3.3-5.1); Sodium 137 mmol/L (135-145); Total Protein 8.1 g/dL (6.5-8.0)
--- NOTE | 2021-07-10 01:24 | ED.GENADULT ---
HPI - General Adult General Chief complaint: General Medical Stated complaint: sob Time Seen by Provider: 07/09/21 19:57 History of Present Illness HPI narrative: Patient is a 41-year-old female with a history of heroin and Street methadone use. Complaining of generalized malaise. Complaining of weakness. Complaining of signs of withdrawal complaining of signs of potential panic attack. Patient has been trying to get in detox but was unable to get into detox. She stated she has all the phone numbers and she does not need any additional help to get into detox programs. Feels very achy all over. She is from home. Last used heroin and Street methadone early yesterday morning. Patient used cocaine in the past. Denies using cocaine since the last visit to the emergency department. Related Data Home Medications Medication Instructions Recorded Confirmed cyclobenzaprine 5 mg tablet 1 tab PO TID PRN 06/06/21 07/02/21 gabapentin 100 mg capsule 100 mg PO TID 06/06/21 07/02/21 lisinopril 5 mg tablet 1 tab PO DAILY 06/06/21 07/02/21 pantoprazole 40 mg tablet,delayed 1 tab PO DAILY 06/06/21 07/02/21 release cholecalciferol (vitamin D3) 50 1 tab PO DAILY 07/02/21 07/02/21 mcg (2,000 unit) tablet verapamil 180 mg tablet,extended 1 tab PO DAILY 07/02/21 07/02/21 release Previous Rx's Medication Instructions Recorded clonidine HCl 0.1 mg tablet 0.1 mg PO TID PRN #6 tab 07/03/21 hydroxyzine HCl 25 mg tablet 25 mg PO TID PRN #7 tab 07/03/21 loperamide 2 mg capsule 2 mg PO Q6H PRN #6 cap 07/03/21 clonidine HCl 0.1 mg tablet 0.1 mg PO Q8H #5 tab 07/10/21 ondansetron 4 mg disintegrating 4 mg PO TID PRN 5 Days #10 tab 07/10/21 tablet Allergies Allergy/AdvReac Type Severity Reaction Status Date / Time naproxen Allergy Intermediate nausea and Verified 05/01/21 09:57 vomiting Motrin Allergy Intermediate nausea and Uncoded 02/13/21 10:20 vomiting Review of Systems Review of Systems: Positive generalized malaise Positive diffuse body ache Positive palpitation All system reviewed otherwise negative PMFSH Past Medical History Attestation statement: The following information was validated with the patient. Medical History BRIE positive Asthma Dyspnea History of sleep disturbance Hx of anxiety disorder Surgical History History of colposcopy History of tubal ligation Hx of dilation and curettage Hx of excision of mass Social History Social History Alcohol intake: current Alcohol intake frequency: a few times a month Patient Tobacco Use Status: Current someday Tobacco user Tobacco use type: Cigarette Cigarettes Per Day: 2 Advance Directives: No Physical Exam Vital Signs: Vital Signs: Last Vital Signs Temp 98.6 F 07/09/21 20:28 Pulse 92 07/09/21 23:31 Resp 20 07/09/21 23:31 BP 138/94 H 07/09/21 23:31 Pulse Ox 98 07/09/21 23:31 BMI result Body Mass Index 24.2 Appearance: Alert. Oriented X3. No acute distress. Eyes: Pupils equal, round and reactive to light. ENT: Pharynx normal. Neck: Normal inspection. Neck supple. No lymph nodes noted. No crepitus CVS: Normal heart rate and rhythm. Pulses normal. Normal S1 and S2 Respiratory: No respiratory distress. Breath sounds normal. No Wheezing. No rales Abdomen: Soft and nontender. No rigidity. No distention. good BS x4 Skin: Skin warm and dry. Normal skin color. Normal skin turgor. Extremities: No lower extremity edema. Neurovascular intact to all extremities. No Lacerations. No Rash Neuro: Oriented X 3. No motor deficit. No sensory deficit. Moving all extermities. No slurred speech Medical Decision Making MDM Narrative Medical decision making narrative: Well-appearing no acute distress. Patient's EKG showed a sinus pattern heart rate was 120 ID QRS QTC within normal limits is no acute ST segment elevation. Patient's white count is normal. Hemoglobin is baseline. Electrolytes unremarkable. LFTs baseline. Patient's COVID test was negative. Chest x-ray showed no focal infiltrate. Discussed with patient at length the need to stop using heroin and also Street methadone. Will refer patient to [facility] for possible Suboxone treatment. Patient given clonidine. In stable condition. Lab Data Result diagrams: 07/09/21 23:36 07/09/21 23:36 Labs: Lab Results 07/09/21 07/09/21 07/09/21 Range/Units 23:36 23:36 23:36 WBC 5.9 (4.8-10.8) X10*3/uL RBC 4.41 (4.20-5.50) X10*6/uL Hgb 11.5 L (12.0-16.0) g/dl Hct 36.2 L (37.0-47.0) % MCV 82.1 (80.0-98.0) fL MCH 26.1 L (27.0-33.0) pg MCHC 31.8 (31.0-35.0) g/dl RDW 17.5 H (11.0-16.0) % Plt Count 370 (160-400) X10*3/uL MPV 10.3 (9.4-12.3) fL Immature Gran % (Auto) 0.2 (0.0-0.4) % Neut % (Auto) 43.4 L (45-73) % Lymph % (Auto) 43.9 H (20-40) % [place] % (Auto) 11.5 H (2-11) % Eos % (Auto) 0.7 (0-4) % Baso % (Auto) 0.3 (0-2) % Lymph # (Auto) 2.6 (1.2-4.9) X10*3/uL [place] # (Auto) 0.7 (0.1-1.2) X10*3/uL Eos # (Auto) 0.0 (0.0-0.4) X10*3/uL Baso # (Auto) 0.0 (0.0-0.2) X10*3/uL Abs Immat Gran (auto) 0.01 (0.00-0.03) X10*3/uL Absolute Neuts (auto) 2.5 (2.0-8.3) x10*3/uL Absolute Nucleated RBC 0.000 (0.0-0.012) X10*3/uL Nucleated RBC % (auto) 0.0 (0.0-0.2) /100WBC Sodium 137 (135-145) mmol/L Potassium 3.8 (3.3-5.1) mmol/L Chloride 102 (96-108) mmol/L Carbon Dioxide 26 (22-29) mmol/L Anion Gap 13 (12-20) BUN 2 L (9-16) mg/dL Creatinine 0.67 (0.5-1.4) mg/dL Estim Creat Clear Calc 82.3 Estimated GFR > 60 Random Glucose 96 (60-115) mg/dL Calcium 9.5 (8.4-10.2) mg/dL Total Bilirubin 0.7 (0.0-1.0) mg/dL AST 107 H (5-31) U/L ALT 78 H (0-31) U/L Alkaline Phosphatase 106 (39-117) U/L Total Protein 8.1 H (6.5-8.0) g/dL Albumin 3.8 (3.5-5.0) g/dL COVID-19 (JOE) Negative (Negative) COVID-19 Clin Com See Note Discharge Plan Discharge Clinical Impression: Anxiety, Heroin abuse Patient Disposition: Home, Self-Care Instructions: Anxiety (ED), Narcotic Use Disorder (ED) Prescriptions: New ondansetron 4 mg tablet,disintegrating 4 mg PO TID PRN (Reason: nausea and vomiting) 5 Days Qty: 10 RF: 0 clonidine HCl 0.1 mg tablet 0.1 mg PO Q8H Qty: 5 RF: 0 No Action pantoprazole 40 mg tablet,delayed release (DR/EC) 1 tab PO DAILY RF: 0 gabapentin 100 mg capsule 100 mg PO TID RF: 0 cyclobenzaprine 5 mg tablet 1 tab PO TID PRN (Reason: Muscle Spasm) RF: 0 lisinopril 5 mg tablet 1 tab PO DAILY RF: 0 cholecalciferol (vitamin D3) 50 mcg (2,000 unit) tablet 1 tab PO DAILY RF: 0 verapamil 180 mg tablet extended release 1 tab PO DAILY RF: 0 clonidine HCl 0.1 mg tablet 0.1 mg PO TID PRN (Reason: Wihtdrawal) Qty: 6 RF: 0 hydroxyzine HCl 25 mg tablet 25 mg PO TID PRN (Reason: anxiety) Qty: 7 RF: 0 loperamide 2 mg capsule 2 mg PO Q6H PRN (Reason: loose stool) Qty: 6 RF: 0 Referrals: [facility] Carty, SATURNINO [Nurse Practitioner] - 1 day
[2021-07-10] MEDS: Naloxone HCl Nasal TAKE HOME 4 MG SPRAY NOSTRILALT (02:17)
[2021-07-10] MEDS: cloNIDine HCL 0.1 MG TABLET PO (02:17)
--- NOTE | 2021-07-10 02:24 | PC.NURSE ---
pt is medicated per Mar, resourced given for out patient detox. Reviewed discharge instructions. Pt verbalized understanding. pt a&o, no sob or chest pain. pt able to ambulated well. No sign of distress at this time
[2021-07-10 02:27] VITALS: BP 147/79; PULSE 94; O2SAT 98
== END 2021-07-10 02:29 | disposition home or self-care (01) ==
PROVIDERS: Emergency Provider Emergency Medicine Emergency Medical Services
DX: F41.9 Anxiety disorder, unspecified (principal); F11.20 Opioid dependence, uncomplicated; Z20.822 Contact with and (suspected) exposure to COVID-19; F17.200 Nicotine dependence, unspecified, uncomplicated; Z79.899 Other long term (current) drug therapy
CPT/HCPCS: 36415; 71045; 80053; 85025; 87635; 93005; 99284

== ENCOUNTER → 2021-07-13 11:14 | Outpatient (BNVA) | payer MEDICAID, SELFPAY | PROVIDERS: Visit Provider Nurse Practitioner Psychiatric/Mental Health | DX: Z51.81 Encounter for therapeutic drug level monitoring (principal); F11.20 Opioid dependence, uncomplicated; F14.10 Cocaine abuse, uncomplicated | CPT/HCPCS: 80305; 99211 ==

== ENCOUNTER 2021-07-17 11:10 | Outpatient (REF) | payer MEDICAID, SELFPAY ==
[2021-07-17 17:51] LABS: Fentanyl, urine POSITIVE (Not Detect)
== END 2021-07-17 11:11 | disposition home or self-care (01) ==
LOC: HO.LNP 11:10
PROVIDERS: Visit Provider Internal Medicine
DX: F11.20 Opioid dependence, uncomplicated (principal); Z51.81 Encounter for therapeutic drug level monitoring; Z79.899 Other long term (current) drug therapy
CPT/HCPCS: 80305; 80307; 99212

== ENCOUNTER 2021-07-23 11:14 | Outpatient (REF) | payer MEDICAID, SELFPAY ==
[2021-07-23 17:48] LABS: Fentanyl, urine POSITIVE (Not Detect)
== END 2021-07-23 11:15 | disposition home or self-care (01) ==
LOC: HO.LNP 11:14
PROVIDERS: Visit Provider Internal Medicine
DX: F11.20 Opioid dependence, uncomplicated (principal); F17.200 Nicotine dependence, unspecified, uncomplicated; Z71.6 Tobacco abuse counseling; Z79.899 Other long term (current) drug therapy
CPT/HCPCS: 80305; 80307; 99212

== ENCOUNTER 2021-07-26 16:46 | Emergency (ER) | payer MEDICAID, SELFPAY ==
--- NOTE | ~2021-07-26 | XR_ITS ---
EXAMINATION: XR CHEST CLINICAL INFORMATION: Chest pain, cough, COVID negative. COMPARISON: Chest radiograph dated from 07/10/2021. TECHNIQUE: 2 views of the chest were obtained. FINDINGS: No significant abnormality is noted involving the heart, lungs, mediastinum, bony thorax or soft tissues. XR/XR chest 2V IMPRESSION: Unremarkable examination.
[2021-07-26 16:55] VITALS: BP 147/96; PULSE 116; RESP 16; TEMP 36.6; O2SAT 95; BMI 27.8
--- NOTE | 2021-07-26 17:01 | ECG_ITS ---
Test Reason : CHEST PAIN Blood Pressure : / mmHG Vent. Rate : 103 BPM Atrial Rate : 103 BPM P-R Int : 130 ms QRS Dur : 078 ms QT Int : 330 ms P-R-T Axes : 057 027 028 degrees QTc Int : 432 ms Sinus tachycardia Otherwise normal ECG When compared with ECG of 09-JUL-2021 23:26, No significant change was found Referred By: Generic ED Physician Electronically Signed By:TRENT COFFEY
[2021-07-26 17:30] LABS: COVID-19 Test Negative (Negative)
--- NOTE | 2021-07-26 20:12 | ED_ITS ---
HPI - General Adult General Chief complaint: General Medical Stated complaint: COVID?, withdrawal, increased pulse Time Seen by Provider: 07/26/21 18:37 Source: patient Mode of arrival: ambulatory Limitations: no limitations History of Present Illness HPI narrative: 41-year-old female who presents emergency department for evaluation headache, vomiting x1, myalgias, abdominal cramping, fever, chest pain, shortness of breath. The patient has a history heroin use. She states that she uses 4 bags of heroin day and she gives herself small doses every 2 hours. She has been injecting into her right arm. She states she last used several hours prior to coming to the emergency department. She states that her whole body hurts, she states that all of her muscles and joints are painful. She states that her she is having headache and abdominal cramping. She has had nausea with 1 episode of vomiting. She complains of fatigue and weakness. denied diarrhea. She states she has had no bowel movement in 4 days. The patient states that her son is COVID positive and she is concerned that she may have COVID. She states she has received the [place] vaccine x2 doses. The patient had similar complaints on an emergency department visit on 07/10/2021. Patient's laboratory evaluation was unremarkable. She states that she received clonidine and hydroxyzine with improvement. The patient's diagnosis at that time was heroin abuse and anxiety. She was referred to for Suboxone. She states she took 1 dose of Suboxone I did not make her feel well and she did not pursue further treatment. She does not want detox at this time. Related Data Home Medications Medication Instructions Recorded Confirmed cyclobenzaprine 5 mg tablet 1 tab PO TID PRN 06/06/21 07/02/21 gabapentin 100 mg capsule 100 mg PO TID 06/06/21 07/02/21 lisinopril 5 mg tablet 1 tab PO DAILY 06/06/21 07/02/21 pantoprazole 40 mg tablet,delayed 1 tab PO DAILY 06/06/21 07/02/21 release cholecalciferol (vitamin D3) 50 1 tab PO DAILY 07/02/21 07/02/21 mcg (2,000 unit) tablet verapamil 180 mg tablet,extended 1 tab PO DAILY 07/02/21 07/02/21 release Previous Rx's Medication Instructions Recorded clonidine HCl 0.1 mg tablet 0.1 mg PO TID PRN #6 tab 07/03/21 hydroxyzine HCl 25 mg tablet 25 mg PO TID PRN #7 tab 07/03/21 loperamide 2 mg capsule 2 mg PO Q6H PRN #6 cap 07/03/21 clonidine HCl 0.1 mg tablet 0.1 mg PO Q8H #5 tab 07/10/21 ondansetron 4 mg disintegrating 4 mg PO TID PRN 5 Days #10 tab 07/10/21 tablet buprenorphine 8 mg-naloxone 2 mg 1 film SUBLINGUAL DAILY 7 Days #7 07/23/21 sublingual film (Suboxone) ea ibuprofen 800 mg tablet 800 mg PO TID PRN 10 Days #30 tab 07/23/21 clonidine HCl 0.2 mg tablet 0.2 mg PO Q6H PRN #20 tab 07/26/21 omeprazole 20 mg capsule,delayed 20 mg PO DAILY 30 Days #30 cap 07/26/21 release sennosides 17.2 mg tablet (Senokot 17.2 mg PO BID PRN #20 tab 07/26/21 Extra Strength) Allergies Allergy/AdvReac Type Severity Reaction Status Date / Time naproxen Allergy Intermediate nausea and Verified 07/23/21 11:17 vomiting Motrin Allergy Intermediate nausea and Uncoded 02/13/21 10:20 vomiting Review of Systems Verdana 4l Review of Systems: Yes all other systems are reviewed and Verdana 4d are negative [facility] Past Medical History [facility] Narrative: Social history: She does smoke cigarettes, 1 pack per day times many years. She denies alcohol use. She states she uses 4 bags of heroin today, she states she gives herself small injections every 2 hours. Medical History BRIE positive Asthma Dyspnea History of sleep disturbance Hx of anxiety disorder Opioid use disorder Surgical History History of colposcopy History of tubal ligation Hx of dilation and curettage Hx of excision of mass Social History Social History Alcohol intake: current Alcohol intake frequency: a few times a month Patient Tobacco Use Status: Current someday Tobacco user Tobacco use type: Cigarette Cigarettes Per Day: 2 Advance Directives: No Advance Directives Information Provided: Yes Physical Exam Verdana 4l Vital Signs: Verdana 4d Verdana 4d Vital Signs: Verdana 4d Verdana 4Bd Last Vital Signs Verdana 4d [employer] New 4d [employer] New 4d Temp 97.6 F 07/26/21 20:59 [employer] New 4d Pulse 95 07/26/21 20:59 [employer] New 4d Resp 18 07/26/21 20:59 BP 133/85 07/26/21 20:59 Pulse Ox 97 07/26/21 20:59 BMI result Body Mass Index 27.8 Const: Other: Awake, alert, female patient, she appears to be very anxious, she appears to be upset, she does answer questions appropriately. HENMT: Head: Yes normal to inspection, Yes normocephalic and Yes atraumatic Ears: external ears normal General nose exam: Normal external nose present Face and sinus: Yes normal facial exam Mouth: Normal oral and palatal mucosa present Throat: Yes posterior oropharynx normal Eyes: General: appearance normal, both eyes and all related structures Pupils: Equal, round and reactive pupils present Neck: Neck: Yes normal visual inspection, Yes no lymphadenopathy, Yes trachea midline and Yes supple Chest: Chest palpation & inspection: normal inspection of the chest and normal palpation of entire chest wall Resp: Effort & Inspection: normal respiratory effort and able to speak in complete sentences Auscultation: clear to auscultation bilaterally Cardio: Rate: regular rate Rhythm: regular rhythm Heart sounds: S1 normal heart s ound present, S2 normal heart sound present and no murmurs GI: Inspection: Yes normal to inspection Palpation (GI): Soft to palpation, Tenderness to palpation present (GI) (Diffuse abdominal tenderness) and no guarding Auscultation: normal bowel sounds : General: Yes no CVA tenderness Back/Spine/Pelvis: Back: no CVA tenderness Skin: Other: The patient does have bruising to her right forearm in areas where she has injected, there is no erythema, increased warmth or evidence for an abscess over the injection sites General skin exam: no rashes or lesions noted Neuro: Cranial nerves: Yes CN's II-XII intact bilaterally and Yes Equal, round and reactive pupils present Cognition (Neuro): normal cognition Motor exam (neuro): 5/5 motor strength present throughout Extrem: General: Yes normal to inspection Psych: Appearance: grossly normal Speech and movement: Normal speech and movement present Affect: Sad affect present and Anxious affect present Attitude: cooperative Thought process: Normal thought process present Thought content: Normal thought content present Course Course Course Narrative: 41-year-old female who presents emergency department for evaluation of multiple complaints including headache, myalgias, nausea with vomiting x1, subjective fever, chest pain, shortness of breath. The patient has been exposed to COVID- 19 she has been vaccinated with 2 Pfizer vaccines. She continues to use 4 bags of heroin a day, injecting herself every 2 hours with small amounts. Initial vital signs revealed an elevated blood pressure of 147/96 and elevated pulse of 116. O2 saturation was 95% on room air and her temperature was normal at 97.9? F. the patient's examination did reveal that she was anxious and sad, she had diffuse abdominal tenderness and evidence IV injections into her right forearm which do not appear infected. The patient's COVID-19 test was negative. I did order laboratory evaluation to include CBC, CMP, lactate, blood cultures, urinalysis and urine test. A two view chest x-ray will also be obtained. The patient was ordered to get clonidine 0.2 mg orally and hydroxyzine 50 mg orally. Patient will also be treated with a GI cocktail of viscous lidocaine 10 mL, 10 mL and Maalox 30 mL orally. 2136: The patient did feel better after the above treatment. Patient's laboratory evaluation revealed a normal WBC with slight anemia with an H&H of 11 and 36.4, this is chronic. CMP revealed elevated AST and ALT of 74 in 40, she has had similar elevations in the past and she does have hepatitis C. urinalysis was negative. Chest x-ray was unremarkable. Patient's presentation is consistent with anxiety opiate withdrawal. She may also have gastritis and constipation. The patient was given another dose of clonidine 0.2 mg orally. Patient will be discharged home with a prescription for Senokot laxative, omeprazole and clonidine. The patient does not want crisis counseling and is not interested in getting into detox. I did offer to send her home with and intranasal Narcan spray but she states she has several at home and does not need anymore. Medical Decision Making Lab Data Result diagrams: 07/26/21 20:55 07/26/21 20:55 Labs: Lab Results 07/26/21 07/26/21 07/26/21 Range/Units 17:04 20:55 20:55 WBC 5.8 (4.8-10.8) X10*3/uL RBC 4.45 (4.20-5.50) X10*6/uL Hgb 11.6 L (12.0-16.0) g/dl Hct 36.4 L (37.0-47.0) % MCV 81.8 (80.0-98.0) fL MCH 26.1 L (27.0-33.0) pg MCHC 31.9 (31.0-35.0) g/dl RDW 17.2 H (11.0-16.0) % Plt Count 309 (160-400) X10*3/uL MPV 10.1 (9.4-12.3) fL Immature Gran % (Auto) 0.2 (0.0-0.4) % Neut % (Auto) 63.5 (45-73) % Lymph % (Auto) 28.8 (20-40) % [place] % (Auto) 7.0 (2-11) % Eos % (Auto) 0.3 (0-4) % Baso % (Auto) 0.2 (0-2) % Lymph # (Auto) 1.7 (1.2-4.9) X10*3/uL [place] # (Auto) 0.4 (0.1-1.2) X10*3/uL Eos # (Auto) 0.0 (0.0-0.4) X10*3/uL Baso # (Auto) 0.0 (0.0-0.2) X10*3/uL Abs Immat Gran (auto) 0.01 (0.00-0.03) X10*3/uL Absolute Neuts (auto) 3.7 (2.0-8.3) x10*3/uL Absolute Nucleated RBC 0.000 (0.0-0.012) X10*3/uL Nucleated RBC % (auto) 0.0 (0.0-0.2) /100WBC Sodium 134 L (135-145) mmol/L Potassium 4.0 (3.3-5.1) mmol/L Chloride 101 (96-108) mmol/L Carbon Dioxide 25 (22-29) mmol/L Anion Gap 12 (12-20) BUN 3 L (9-16) mg/dL Creatinine 0.69 (0.5-1.4) mg/dL Estim Creat Clear Calc 85.4 Estimated GFR > 60 Random Glucose 107 (60-115) mg/dL Lactic Acid (0.5-2.0) mmol/L Calcium 9.5 (8.4-10.2) mg/dL Total Bilirubin 0.7 (0.0-1.0) mg/dL AST 74 H (5-31) U/L ALT 40 H (0-31) U/L Alkaline Phosphatase 110 (39-117) U/L Troponin I High Sens (<3.5-17.0) ng/L Total Protein 8.4 H (6.5-8.0) g/dL Albumin 4.1 (3.5-5.0) g/dL Lipase 40 (8-78) U/L Urine Color Urine Appearance Urine pH (5.0-8.0) Ur Specific [place] (1.005-1.025) Urine Protein (NEG-TRACE) MG/DL Urine Glucose (UA) (NEG) MG/DL Urine Ketones (NEG) MG/DL Urine Blood (NEG) Urine Nitrite (NEG) Ur Leukocyte Esterase (NEG) Urine Test (NEGATIVE) COVID-19 (JOE) Negative (Negative) COVID-19 Clin Com See Note 07/26/21 07/26/21 07/26/21 Range/Units 20:55 20:55 20:55 WBC (4.8-10.8) X10*3/uL RBC (4.20-5.50) X10*6/uL Hgb (12.0-16.0) g/dl Hct (37.0-47.0) % MCV (80.0-98.0) fL MCH (27.0-33.0) pg MCHC (31.0-35.0) g/dl RDW (11.0-16.0) % Plt Count (160-400) X10*3/uL MPV (9.4-12.3) fL Immature Gran % (Auto) (0.0-0.4) % Neut % (Auto) (45-73) % Lymph % (Auto) (20-40) % [place] % (Auto) (2-11) % Eos % (Auto) (0-4) % Baso % (Auto) (0-2) % Lymph # (Auto) (1.2-4.9) X10*3/uL [place] # (Auto) (0.1-1.2) X10*3/uL Eos # (Auto) (0.0-0.4) X10*3/uL Baso # (Auto) (0.0-0.2) X10*3/uL Abs Immat Gran (auto) (0.00-0.03) X10*3/uL Absolute Neuts (auto) (2.0-8.3) x10*3/uL Absolute Nucleated RBC (0.0-0.012) X10*3/uL Nucleated RBC % (auto) (0.0-0.2) /100WBC Sodium (135-145) mmol/L Potassium (3.3-5.1) mmol/L Chloride (96-108) mmol/L Carbon Dioxide (22-29) mmol/L Anion Gap (12-20) BUN (9-16) mg/dL Creatinine (0.5-1.4) mg/dL Estim Creat Clear Calc Estimated GFR Random Glucose (60-115) mg/dL Lactic Acid 1.4 (0.5-2.0) mmol/L Calcium (8.4-10.2) mg/dL Total Bilirubin (0.0-1.0) mg/dL AST (5-31) U/L ALT (0-31) U/L Alkaline Phosphatase (39-117) U/L Troponin I High Sens < 3.5 (<3.5-17.0) ng/L Total Protein (6.5-8.0) g/dL Albumin (3.5-5.0) g/dL Lipase (8-78) U/L Urine Color STRAW Urine Appearance CLEAR Urine pH 6.5 (5.0-8.0) Ur Specific [place] <= 1.005 (1.005-1.025) Urine Protein NEG (NEG-TRACE) MG/DL Urine Glucose (UA) NEG (NEG) MG/DL Urine Ketones NEG (NEG) MG/DL Urine Blood NEG (NEG) Urine Nitrite NEG (NEG) Ur Leukocyte Esterase NEG (NEG) Urine Test (NEGATIVE) COVID-19 (JOE) (Negative) COVID-19 Clin Com 07/26/21 Range/Units 20:55 WBC (4.8-10.8) X10*3/uL RBC (4.20-5.50) X10*6/uL Hgb (12.0-16.0) g/dl Hct (37.0-47.0) % MCV (80.0-98.0) fL MCH (27.0-33.0) pg MCHC (31.0-35.0) g/dl RDW (11.0-16.0) % Plt Count (160-400) X10*3/uL MPV (9.4-12.3) fL Immature Gran % (Auto) (0.0-0.4) % Neut % (Auto) (45-73) % Lymph % (Auto) (20-40) % [place] % (Auto) (2-11) % Eos % (Auto) (0-4) % Baso % (Auto) (0-2) % Lymph # (Auto) (1.2-4.9) X10*3/uL [place] # (Auto) (0.1-1.2) X10*3/uL Eos # (Auto) (0.0-0.4) X10*3/uL Baso # (Auto) (0.0-0.2) X10*3/uL Abs Immat Gran (auto) (0.00-0.03) X10*3/uL Absolute Neuts (auto) (2.0-8.3) x10*3/uL Absolute Nucleated RBC (0.0-0.012) X10*3/uL Nucleated RBC % (auto) (0.0-0.2) /100WBC Sodium (135-145) mmol/L Potassium (3.3-5.1) mmol/L Chloride (96-108) mmol/L Carbon Dioxide (22-29) mmol/L Anion Gap (12-20) BUN (9-16) mg/dL Creatinine (0.5-1.4) mg/dL Estim Creat Clear Calc Estimated GFR Random Glucose (60-115) mg/dL Lactic Acid (0.5-2.0) mmol/L Calcium (8.4-10.2) mg/dL Total Bilirubin (0.0-1.0) mg/dL AST (5-31) U/L ALT (0-31) U/L Alkaline Phosphatase (39-117) U/L Troponin I High Sens (<3.5-17.0) ng/L Total Protein (6.5-8.0) g/dL Albumin (3.5-5.0) g/dL Lipase (8-78) U/L Urine Color Urine Appearance Urine pH (5.0-8.0) Ur Specific [place] (1.005-1.025) Urine Protein (NEG-TRACE) MG/DL Urine Glucose (UA) (NEG) MG/DL Urine Ketones (NEG) MG/DL Urine Blood (NEG) Urine Nitrite (NEG) Ur Leukocyte Esterase (NEG) Urine Test NEGATIVE (NEGATIVE) COVID-19 (JOE) (Negative) COVID-19 Clin Com ECG Data Attestation: I personally reviewed and interpreted this ECG as follows: Interpretation: 1704: Sinus tachycardia with a rate of 103, normal TN interval QRS duration and QTC interval, no ST segment elevation, no ST segment depression, inverted T-wave in V1, no PACs, no PVCs, except for the tachycardia this is a normal EKG Discharge Plan Discharge Clinical Impression: Anxiety, Opiate withdrawal, Constipation, Gastritis Patient Disposition: Home, Self-Care Instructions: Gastritis (DC), Constipation (DC), Narcotic Withdrawal (ED) Additional Instructions: Your chest x-ray was normal. Your COVID-19 test was negative. Your laboratory evaluation did reveal a slight elevation in your liver tests, you have had similar elevations in the past and this may be related to your hepatitis-C. Your stomach pain is most likely secondary to inflammation of your stomach (gastritis). I am prescribing a medication that shuts off your acid production called Prilosec (omeprazole) take 20 mg once a day for 1 month and that should help her stomach heal. I am also prescribing a medication for your constipation, extra-strength Senokot, take 1 pill twice a day for 4 days. Do not take this for more than 4 days in a row. You should increase your fluid intake in the amount of fiber that you eat in your diet while you taking this medication. I am also prescribing clonidine 0.2 mg, take 1 pill 3 times a day as needed for withdrawal symptoms. Follow-up with your doctor in 2 days. Please return to the emergency department if your symptoms get worse or if you develop any symptoms that are concerning to you. Prescriptions: New omeprazole 20 mg capsule,delayed release(DR/EC) 20 mg PO DAILY 30 Days Qty: 30 0RF clonidine HCl 0.2 mg tablet 0.2 mg PO Q6H PRN (Reason: opiate withdrawal) Qty: 20 0RF Senokot Extra Strength 17.2 mg tablet 17.2 mg PO BID PRN (Reason: constipation) Qty: 20 0RF No Action ibuprofen 800 mg tablet 800 mg PO TID PRN (Reason: pain) 10 Days Qty: 30 0RF buprenorphine-naloxone [Suboxone] 8-2 mg film 1 film sublingual DAILY 7 Days Qty: 7 0RF ondansetron 4 mg tablet,disintegrating 4 mg PO TID PRN (Reason: nausea and vomiting) 5 Days Qty: 10 0RF clonidine HCl 0.1 mg tablet 0.1 mg PO Q8H Qty: 5 0RF pantoprazole 40 mg tablet,delayed release (DR/EC) 1 tab PO DAILY 0RF gabapentin 100 mg capsule 100 mg PO TID 0RF cyclobenzaprine 5 mg tablet 1 tab PO TID PRN (Reason: Muscle Spasm) 0RF lisinopril 5 mg tablet 1 tab PO DAILY 0RF cholecalciferol (vitamin D3) 50 mcg (2,000 unit) tablet 1 tab PO DAILY 0RF verapamil 180 mg tablet extended release 1 tab PO DAILY 0RF clonidine HCl 0.1 mg tablet 0.1 mg PO TID PRN (Reason: Wihtdrawal) Qty: 6 0RF hydroxyzine HCl 25 mg tablet 25 mg PO TID PRN (Reason: anxiety) Qty: 7 0RF loperamide 2 mg capsule 2 mg PO Q6H PRN (Reason: loose stool) Qty: 6 0RF
[2021-07-26] MEDS: cloNIDine HCL 0.2 MG TABLET PO (20:23)
[2021-07-26] MEDS: hydrOXYzine HCL 50 MG TABLET PO (20:23)
[2021-07-26] MEDS: Magnesium Hydrox/Alum Hydrox 30 ML ORAL.SUSP PO (20:33)
[2021-07-26] MEDS: Lidocaine HCl Viscous 2 % 15 ML SOLUTION 10 ML PO (20:34)
[2021-07-26] MEDS: PHENobarb/Hyoscy/Atropine/Scop 10 ML ELIXIR PO (20:34)
[2021-07-26 20:59] VITALS: BP 133/85; PULSE 95; RESP 18; TEMP 36.4; O2SAT 97
[2021-07-26 21:02] LABS: MANUAL DIFF FLAG NO
[2021-07-26 21:04] LABS: Appearance Urine CLEAR; Basophils Percent Auto 0.2 % (0-2); Color Urine STRAW; Eosinophils Percent Auto 0.3 % (0-4); Glucose Urine UA NEG (NEG); Hematocrit 36.4 % (37.0-47.0); Hemoglobin 11.6 g/dl (12.0-16.0); Imm Gran Abs Auto 0.01 X10*3/uL (0.00-0.03); Imm Gran Pct Auto 0.2 % (0.0-0.4); Leukocyte Esterase Urine NEG (NEG); Lymphocytes Absolute Auto 1.7 X10*3/uL (1.2-4.9); Lymphocytes Percent Auto 28.8 % (20-40); Mean Corpuscular HGB Conc 31.9 g/dl (31.0-35.0); Mean Corpuscular Hemoglobin 26.1 pg (27.0-33.0); Mean Corpuscular Volume 81.8 fL (80.0-98.0); Mean Platelet Volume 10.1 fL (9.4-12.3); Monocytes Absolute Auto 0.4 X10*3/uL (0.1-1.2); Neutrophils Absolute Auto 3.7 x10*3/uL (2.0-8.3); Neutrophils Percent Auto 63.5 % (45-73); Nitrite Urine NEG (NEG); PH 6.5 (5.0-8.0); Platelet Count 309 X10*3/uL (160-400); Red Blood Count 4.45 X10*6/uL (4.20-5.50); Red Cell Distribution Width 17.2 % (11.0-16.0); Specific Gravity - Urine <= 1.005 (1.005-1.025); Urine Blood NEG (NEG); Urine Ketones NEG (NEG); Urine Protein NEG (NEG-TRACE); White Blood Count 5.8 X10*3/uL (4.8-10.8)
[2021-07-26 21:06] LABS: UPreg QC Valid YES; Urine Pregnancy NEGATIVE (NEGATIVE)
[2021-07-26 21:18] LABS: Lactic Acid 1.4 mmol/L (0.5-2.0)
[2021-07-26 21:23] LABS: Alanine Aminotransferase 40 U/L (0-31); Albumin Level 4.1 g/dL (3.5-5.0); Alkaline Phosphatase 110 U/L (39-117); Anion Gap 12 (12-20); Aspartate Amino Transferase 74 U/L (5-31); Bilirubin Total 0.7 mg/dL (0.0-1.0); Blood Urea Nitrogen 3 mg/dL (9-16); Calcium 9.5 mg/dL (8.4-10.2); Carbon Dioxide 25 mmol/L (22-29); Chloride 101 mmol/L (96-108); Creatinine Clr Calc Pharmacy 85.4; Estimated Glomerular Filt Rate > 60; Glucose Random 107 mg/dL (60-115); Lipase 40 U/L (8-78); Sodium 134 mmol/L (135-145); Total Protein 8.4 g/dL (6.5-8.0)
[2021-07-26 21:28] LABS: Troponin-I High Sensitivity < 3.5 ng/L (<3.5-17.0)
[2021-07-26 21:40] VITALS: BP 102/70; PULSE 103; RESP 16
== END 2021-07-26 22:01 | disposition home or self-care (01) ==
PROVIDERS: Emergency Provider Emergency Medicine Emergency Medical Services
DX: F41.9 Anxiety disorder, unspecified (principal); F11.93 Opioid use, unspecified with withdrawal; K59.00 Constipation, unspecified; K29.70 Gastritis, unspecified, without bleeding; F17.200 Nicotine dependence, unspecified, uncomplicated; Z20.822 Contact with and (suspected) exposure to COVID-19; Z79.899 Other long term (current) drug therapy
CPT/HCPCS: 36415; 71046; 80053; 81003; 81025; 83605; 83690; 84484; 85025; 87040; 87635; 93005; 99284

== ENCOUNTER 2021-07-28 03:52 | Emergency (ER) | payer MEDICAID, SELFPAY ==
--- NOTE | ~2021-07-28 | XR_ITS ---
EXAMINATION: XR CHEST XR KUB CLINICAL INFORMATION: Constipation. COMPARISON: Chest radiograph done on 07/26/2021. TECHNIQUE: 2 views of the chest and single frontal view of the abdomen and pelvis were obtained. FINDINGS: Chest: Both lungs are symmetrically expanded and are clear. The cardiac mediastinal silhouette is within normal limit. No evidence of pleural effusion or pneumothorax. No significant change. KUB: Multiple radiopaque stones densities are seen projecting over the inferior medial aspect of the left renal outline, the largest measures approximately 0.5 cm at its maximum dimension. Solitary tiny 2 mm radiopaque density is also noted in the mid outer aspect of the right renal outline. The findings are suspicious for bilateral renal calculi. Extensive fecal residual is noted within the rectum and the sigmoid:. No evidence of any bowel distention. XR/XR chest 2V IMPRESSION: 1. The chest radiograph shows no radiographic evidence of acute cardiopulmonary disease. 2. The radiograph of the abdomen shows features suspicious for bilateral radiopaque renal calculi, the largest seen on the left and measures 0.5 cm. 3. Extensive fecal residual is noted within the rectum and sigmoid colon.
--- NOTE | ~2021-07-28 | XR_ITS ---
EXAMINATION: XR CHEST XR KUB CLINICAL INFORMATION: Constipation. COMPARISON: Chest radiograph done on 07/26/2021. TECHNIQUE: 2 views of the chest and single frontal view of the abdomen and pelvis were obtained. FINDINGS: Chest: Both lungs are symmetrically expanded and are clear. The cardiac mediastinal silhouette is within normal limit. No evidence of pleural effusion or pneumothorax. No significant change. KUB: Multiple radiopaque stones densities are seen projecting over the inferior medial aspect of the left renal outline, the largest measures approximately 0.5 cm at its maximum dimension. Solitary tiny 2 mm radiopaque density is also noted in the mid outer aspect of the right renal outline. The findings are suspicious for bilateral renal calculi. Extensive fecal residual is noted within the rectum and the sigmoid:. No evidence of any bowel distention. XR/XR abdomen 1V IMPRESSION: 1. The chest radiograph shows no radiographic evidence of acute cardiopulmonary disease. 2. The radiograph of the abdomen shows features suspicious for bilateral radiopaque renal calculi, the largest seen on the left and measures 0.5 cm. 3. Extensive fecal residual is noted within the rectum and sigmoid colon.
[2021-07-28 03:58] VITALS: BP 115/67; PULSE 91; RESP 16; TEMP 36.7; O2SAT 99; BMI 27.8
--- NOTE | 2021-07-28 07:24 | ED_ITS ---
HPI - General Adult General Chief complaint: General Medical Stated complaint: body aches abd pain Time Seen by Provider: 07/28/21 07:17 Source: patient Limitations: no limitations History of Present Illness HPI narrative: this is a 41 years old of female with history of IVDA /opioid abuse disorder presented to the emergency department ambulatory with multiple somatic complaints which include nausea, body aches, constipation. She was seen in the emergency room 2 days ago as well. Patient is acting drug user she just uses heroin prior to the arrival. She denies any fever, chills, vomiting. Onset (ago): week(s) (1) Radiation: non-radiation Severity: moderate Quality: burning Pain Consistency: constant Relieving factors: none Related Data Home Medications Medication Instructions Recorded Confirmed cyclobenzaprine 5 mg tablet 1 tab PO TID PRN 06/06/21 07/02/21 gabapentin 100 mg capsule 100 mg PO TID 06/06/21 07/02/21 lisinopril 5 mg tablet 1 tab PO DAILY 06/06/21 07/02/21 pantoprazole 40 mg tablet,delayed 1 tab PO DAILY 06/06/21 07/02/21 release cholecalciferol (vitamin D3) 50 1 tab PO DAILY 07/02/21 07/02/21 mcg (2,000 unit) tablet verapamil 180 mg tablet,extended 1 tab PO DAILY 07/02/21 07/02/21 release Previous Rx's Medication Instructions Recorded clonidine HCl 0.1 mg tablet 0.1 mg PO TID PRN #6 tab 07/03/21 hydroxyzine HCl 25 mg tablet 25 mg PO TID PRN #7 tab 07/03/21 loperamide 2 mg capsule 2 mg PO Q6H PRN #6 cap 07/03/21 clonidine HCl 0.1 mg tablet 0.1 mg PO Q8H #5 tab 07/10/21 ondansetron 4 mg disintegrating 4 mg PO TID PRN 5 Days #10 tab 07/10/21 tablet buprenorphine 8 mg-naloxone 2 mg 1 film SUBLINGUAL DAILY 7 Days #7 07/23/21 sublingual film (Suboxone) ea ibuprofen 800 mg tablet 800 mg PO TID PRN 10 Days #30 tab 07/23/21 clonidine HCl 0.2 mg tablet 0.2 mg PO Q6H PRN #20 tab 07/26/21 omeprazole 20 mg capsule,delayed 20 mg PO DAILY 30 Days #30 cap 07/26/21 release sennosides 17.2 mg tablet (Senokot 17.2 mg PO BID PRN #20 tab 07/26/21 Extra Strength) polyethylene glycol 3350 17 17 g PO DAILY #119 g 07/28/21 gram/dose oral powder (Miralax) Allergies Allergy/AdvReac Type Severity Reaction Status Date / Time naproxen Allergy Intermediate nausea and Verified 07/23/21 11:17 vomiting Motrin Allergy Intermediate nausea and Uncoded 02/13/21 10:20 vomiting Review of Systems Verdana 4l Review of Systems: Yes all other systems are reviewed and Verdana 4d are negative Verdana 4l ENT: Verdana 4d Reports system reviewed and no additional complaints, except as documented Verdana 4l Cardiovascular: Verdana 4d Cardiovascular: Verdana 4d Verdana 4d Denies chest pain, Denies chest pain at rest and Denies chest pain with activity Verdana 4l Respiratory: Verdana 4d Verdana 4d Respiratory: Verdana 4d Reports no additional respiratory complaints Verdana 4l Musculoskeletal: Verdana 4d Musculoskeletal: Verdana 4d Verdana 4d Reports no additional musculoskeletal complaints Verdana 4l Neurologic: Verdana 4d Reports system reviewed and no additional complaints, except as documented PMFSH Past Medical History Medical History BRIE positive Asthma Dyspnea History of sleep disturbance Hx of anxiety disorder Opioid use disorder Surgical History History of colposcopy History of tubal ligation Hx of dilation and curettage Hx of excision of mass Social History Social History Alcohol intake: current Alcohol intake frequency: a few times a month Patient Tobacco Use Status: Current someday Tobacco user Tobacco use type: Cigarette Cigarettes Per Day: 2 Advance Directives: No Advance Directives Information Provided: Yes Patient : No Physical Exam Verdana 4l Vital Signs: Verdana 4d Verdana 4d Vital Signs: Verdana 4d Verdana 4Bd Last Vital Signs Verdana 4d Ski Guide New 4d Ski Guide New 4d Temp 98.1 F 07/28/21 03:58 Ski Guide New 4d Pulse 80 07/28/21 13:06 Ski Guide New 4d Resp 15 07/28/21 13:06 BP 138/78 07/28/21 13:06 Pulse Ox 97 07/28/21 13:06 BMI result Body Mass Index 27.8 Const: General: cooperative, no acute distress and well developed Nutritional Appearance: average body habitus Orientation/consciousness: patient oriented x3 Limitations: no limitations HENMT: Head: Yes normal to inspection Face and sinus: Yes normal facial exam Mouth: Normal oral and palatal mucosa present Neck: Neck: Yes normal visual inspection Chest: Chest palpation & inspection: normal inspection of the chest Resp: Effort & Inspection: normal respiratory effort Auscultation: clear to auscultation bilaterally Cardio: Rate: regular rate GI: Inspection: Yes normal to inspection Palpation (GI): Soft to palpation, nontender, no guarding and not rigid Percussion: Yes normal to percussion Auscultation: normal bowel sounds : General: Yes no CVA tenderness Back/Spine/Pelvis: Back: no CVA tenderness Thoracic/Lumbar Spine: thoracic and lumbar spine normal to inspection Skin: General skin exam: no rashes or lesions noted, elasticity normal and turgor normal Rashes: no rashes Neuro: General: patient oriented x3 Course Reevaluation(s) Reevaluation #1: labs are essentially normal, she is hemodynamically stable, she was seen in consultation by the care team appropriate referral for detox given to the patient Reevaluation #2: seen again by [facility] care team pt wants only local detox,she does not want to go far,local detox not available Today but she is detox waiting list and [facility] will call pt when detox available,pt does not want suboxome,she tried and states she had a reaction Medical Decision Making MDM Narrative Medical decision making narrative: This is a 41 years old patient seen 2 days ago history of IVDA she has stable vital signs she is afebrile and nontoxic identification as endocarditis but and were going to get some baseline blood work and do a couple of blood culture. I do not think these symptoms are due to withdrawal because she just use prior to the arrival Lab Data Result diagrams: 07/28/21 07:48 07/28/21 07:48 Labs: Lab Results 02/05/22 02/05/22 02/05/22 Range/Units 07:48 07:48 07:48 WBC 4.6 L (4.8-10.8) X10*3/uL RBC 3.99 L (4.20-5.50) X10*6/uL Hgb 10.3 L (12.0-16.0) g/dl Hct 32.5 L (37.0-47.0) % MCV 81.5 (80.0-98.0) fL MCH 25.8 L (27.0-33.0) pg MCHC 31.7 (31.0-35.0) g/dl RDW 17.1 H (11.0-16.0) % Plt Count 299 (160-400) X10*3/uL MPV 10.4 (9.4-12.3) fL Immature Gran % (Auto) 0.2 (0.0-0.4) % Neut % (Auto) 39.7 L (45-73) % Lymph % (Auto) 46.2 H (20-40) % [place] % (Auto) 11.3 H (2-11) % Eos % (Auto) 2.2 (0-4) % Baso % (Auto) 0.4 (0-2) % Lymph # (Auto) 2.1 (1.2-4.9) X10*3/uL [place] # (Auto) 0.5 (0.1-1.2) X10*3/uL Eos # (Auto) 0.1 (0.0-0.4) X10*3/uL Baso # (Auto) 0.0 (0.0-0.2) X10*3/uL Abs Immat Gran (auto) 0.01 (0.00-0.03) X10*3/uL Absolute Neuts (auto) 1.8 L (2.0-8.3) x10*3/uL Absolute Nucleated RBC 0.000 (0.0-0.012) X10*3/uL Nucleated RBC % (auto) 0.0 (0.0-0.2) /100WBC ESR 40 H (0-20) MM/HR Sodium 137 (135-145) mmol/L Potassium 4.6 (3.3-5.1) mmol/L Chloride 104 (96-108) mmol/L Carbon Dioxide 26 (22-29) mmol/L Anion Gap 12 (12-20) BUN 4 L (9-16) mg/dL Creatinine 0.63 (0.5-1.4) mg/dL Estim Creat Clear Calc 93.5 Estimated GFR > 60 Random Glucose 101 (60-115) mg/dL Calcium 9.3 (8.4-10.2) mg/dL Total Bilirubin 0.7 (0.0-1.0) mg/dL AST 78 H (5-31) U/L ALT 41 H (0-31) U/L Alkaline Phosphatase 97 (39-117) U/L Total Protein 7.3 (6.5-8.0) g/dL Albumin 3.5 (3.5-5.0) g/dL Urine Color Urine Appearance Urine pH (5.0-8.0) Ur Specific Morris (1.005-1.025) Urine Protein (NEG-TRACE) MG/DL Urine Glucose (UA) (NEG) MG/DL Urine Ketones (NEG) MG/DL Urine Blood (NEG) Urine Nitrite (NEG) Ur Leukocyte Esterase (NEG) Urine RBC (0) /HPF Urine WBC (0-4) /HPF Ur Squamous Epith Cells /LPF Urine Bacteria /LPF Urine Opiates Screen (Not Detect) Urine Fentanyl Screen (Not Detect) Ur Barbiturates Screen (Not Detect) Ur Phencyclidine Scrn (Not Detect) Ur Amphetamines Screen (Not Detect) U Benzodiazepines Scrn (Not Detect) Urine Cocaine Screen (Not Detect) U Marijuana (THC) Screen (Not Detect) COVID-19 (JOE) (Negative) COVID-19 Clin Com 07/28/21 07/28/21 07/28/21 Range/Units 07:48 08:42 08:42 WBC (4.8-10.8) X10*3/uL RBC (4.20-5.50) X10*6/uL Hgb (12.0-16.0) g/dl Hct (37.0-47.0) % MCV (80.0-98.0) fL MCH (27.0-33.0) pg MCHC (31.0-35.0) g/dl RDW (11.0-16.0) % Plt Count (160-400) X10*3/uL MPV (9.4-12.3) fL Immature Gran % (0.0-0.4) % (Auto) Neut % (Auto) (45-73) % Lymph % (Auto) (20-40) % [place] % (Auto) (2-11) % Eos % (Auto) (0-4) % Baso % (Auto) (0-2) % Lymph # (Auto) (1.2-4.9) X10*3/uL [place] # (Auto) (0.1-1.2) X10*3/uL Eos # (Auto) (0.0-0.4) X10*3/uL Baso # (Auto) (0.0-0.2) X10*3/uL Abs Immat Gran (auto) (0.00-0.03) X10*3/uL Absolute Neuts (auto) (2.0-8.3) x10*3/uL Absolute Nucleated (0.0-0.012) RBC X10*3/uL Nucleated RBC % (0.0-0.2) /100WBC (auto) ESR (0-20) MM/HR Sodium (135-145) mmol/L Potassium (3.3-5.1) mmol/L Chloride (96-108) mmol/L Carbon Dioxide (22-29) mmol/L Anion Gap (12-20) BUN (9-16) mg/dL Creatinine (0.5-1.4) mg/dL Estim Creat Clear Calc Estimated GFR Random Glucose (60-115) mg/dL Calcium (8.4-10.2) mg/dL Total Bilirubin (0.0-1.0) mg/dL AST (5-31) U/L ALT (0-31) U/L Alkaline Phosphatase (39-117) U/L Total Protein (6.5-8.0) g/dL Albumin (3.5-5.0) g/dL Urine Color STRAW Urine Appearance CLEAR Urine pH 8.0 (5.0-8.0) Ur Specific Morris 1.010 (1.005-1.025) Urine Protein NEG (NEG-TRACE) MG/DL Urine Glucose (UA) NEG (NEG) MG/DL Urine Ketones NEG (NEG) MG/DL Urine Blood 3+ H (NEG) Urine Nitrite NEG (NEG) Ur Leukocyte Esterase NEG (NEG) Urine RBC 5-9 H (0) /HPF Urine WBC 0 (0-4) /HPF Ur Squamous Epith TRACE /LPF Cells Urine Bacteria NONE /LPF Urine Opiates Screen POSITIVE H (Not Detect) Urine Fentanyl Screen POSITIVE H (Not Detect) Ur Barbiturates POSITIVE H (Not Detect) Screen Ur Phencyclidine Scrn Not Detected (Not Detect) Ur Amphetamines Not Detected (Not Detect) Screen U Benzodiazepines Not Detected (Not Detect) Scrn Urine Cocaine Screen Not Detected (Not Detect) U Marijuana (THC) Not Detected (Not Detect) Screen COVID-19 (JOE) Negative (Negative) COVID-19 Clin Com See Note Imaging Data Chest x-ray: Radiologist's impression: est measures approximately 0.5 cm at its maximum dimension. Solitary tiny 2 mm radiopaque density is also noted in the mid outer aspect of the right renal outline. The findings are suspicious for bilateral renal calculi. Extensive fecal residual is noted within the rectum and the sigmoid:. No evidence of any bowel distention. ? XR/XR chest 2V IMPRESSION: ? 1. The chest radiograph shows no radiographic evidence of acute cardiopulmonary disease. 2. The radiograph of the abdomen shows features suspicious for bilateral radiopaque renal calculi, the largest seen on the left and measures 0.5 cm. 3. Extensive fecal residual is noted within the rectum and sigmoid colon.? Dictated By: ANDRE CHAMBERS MD Signed By: <Electronically signed by ANDRE CHAMBERS MD in OV> 07/28/21 1134 Discharge Plan Discharge Clinical Impression: Opioid use disorder, Constipation Patient Disposition: Home, Self-Care Instructions: Constipation (ED), Opioid Use Disorder (ED) Additional Instructions: follow-up with your primary care physician and call detox as we discussed Prescriptions: New polyethylene glycol 3350 [Miralax] 17 gram/dose powder 17 g PO DAILY Qty: 119 0RF No Action ibuprofen 800 mg tablet 800 mg PO TID PRN (Reason: pain) 10 Days Qty: 30 0RF buprenorphine-naloxone [Suboxone] 8-2 mg film 1 film sublingual DAILY 7 Days Qty: 7 0RF ondansetron 4 mg tablet,disintegrating 4 mg PO TID PRN (Reason: nausea and vomiting) 5 Days Qty: 10 0RF clonidine HCl 0.1 mg tablet 0.1 mg PO Q8H Qty: 5 0RF pantoprazole 40 mg tablet,delayed release (DR/EC) 1 tab PO DAILY 0RF gabapentin 100 mg capsule 100 mg PO TID 0RF cyclobenzaprine 5 mg tablet 1 tab PO TID PRN (Reason: Muscle Spasm) 0RF lisinopril 5 mg tablet 1 tab PO DAILY 0RF cholecalciferol (vitamin D3) 50 mcg (2,000 unit) tablet 1 tab PO DAILY 0RF verapamil 180 mg tablet extended release 1 tab PO DAILY 0RF clonidine HCl 0.1 mg tablet 0.1 mg PO TID PRN (Reason: Wihtdrawal) Qty: 6 0RF hydroxyzine HCl 25 mg tablet 25 mg PO TID PRN (Reason: anxiety) Qty: 7 0RF loperamide 2 mg capsule 2 mg PO Q6H PRN (Reason: loose stool) Qty: 6 0RF omeprazole 20 mg capsule,delayed release(DR/EC) 20 mg PO DAILY 30 Days Qty: 30 0RF clonidine HCl 0.2 mg tablet 0.2 mg PO Q6H PRN (Reason: opiate withdrawal) Qty: 20 0RF Senokot Extra Strength 17.2 mg tablet 17.2 mg PO BID PRN (Reason: constipation) Qty: 20 0RF
[2021-07-28 07:54] LABS: MANUAL DIFF FLAG NO
[2021-07-28] MEDS: LORazepam 1 MG TABLET 2 MG PO (07:54)
[2021-07-28 07:59] LABS: Basophils Percent Auto 0.4 % (0-2); Eosinophils Absolute Auto 0.1 X10*3/uL (0.0-0.4); Eosinophils Percent Auto 2.2 % (0-4); Hematocrit 32.5 % (37.0-47.0); Hemoglobin 10.3 g/dl (12.0-16.0); Imm Gran Abs Auto 0.01 X10*3/uL (0.00-0.03); Imm Gran Pct Auto 0.2 % (0.0-0.4); Lymphocytes Absolute Auto 2.1 X10*3/uL (1.2-4.9); Lymphocytes Percent Auto 46.2 % (20-40); Mean Corpuscular HGB Conc 31.7 g/dl (31.0-35.0); Mean Corpuscular Hemoglobin 25.8 pg (27.0-33.0); Mean Corpuscular Volume 81.5 fL (80.0-98.0); Mean Platelet Volume 10.4 fL (9.4-12.3); Monocytes Absolute Auto 0.5 X10*3/uL (0.1-1.2); Monocytes Percent Auto 11.3 % (2-11); Neutrophils Absolute Auto 1.8 x10*3/uL (2.0-8.3); Neutrophils Percent Auto 39.7 % (45-73); Platelet Count 299 X10*3/uL (160-400); Red Blood Count 3.99 X10*6/uL (4.20-5.50); Red Cell Distribution Width 17.1 % (11.0-16.0); White Blood Count 4.6 X10*3/uL (4.8-10.8)
[2021-07-28 08:23] LABS: COVID-19 Test Negative (Negative); IDNOW Serial# 9DD0AD1C
[2021-07-28 08:25] LABS: Alanine Aminotransferase 41 U/L (0-31); Albumin Level 3.5 g/dL (3.5-5.0); Alkaline Phosphatase 97 U/L (39-117); Anion Gap 12 (12-20); Aspartate Amino Transferase 78 U/L (5-31); Bilirubin Total 0.7 mg/dL (0.0-1.0); Blood Urea Nitrogen 4 mg/dL (9-16); Calcium 9.3 mg/dL (8.4-10.2); Carbon Dioxide 26 mmol/L (22-29); Chloride 104 mmol/L (96-108); Creatinine Clr Calc Pharmacy 93.5; Estimated Glomerular Filt Rate > 60; Glucose Random 101 mg/dL (60-115); Potassium 4.6 mmol/L (3.3-5.1); Sodium 137 mmol/L (135-145); Total Protein 7.3 g/dL (6.5-8.0)
[2021-07-28 08:51] LABS: Appearance Urine CLEAR; Color Urine STRAW; Glucose Urine UA NEG (NEG); Leukocyte Esterase Urine NEG (NEG); Nitrite Urine NEG (NEG); UACC Culture Trigger NO; Urine Blood 3+ (NEG); Urine Ketones NEG (NEG); Urine Protein NEG (NEG-TRACE)
[2021-07-28 09:02] LABS: Squamous Epithelial Cell Urine TRACE /LPF; WBC Urine 0 /HPF (0-4)
[2021-07-28 09:05] LABS: Erythrocyte Sedimentation Rate 40 MM/HR (0-20)
[2021-07-28 09:14] LABS: Amphetamine Screen Urine Not Detected (Not Detect); Barbiturates, Urine POSITIVE (Not Detect); Benzodiazepines Screen Urine Not Detected (Not Detect); Cannabinoid Screen Urine Not Detected (Not Detect); Cocaine Screen Urine Not Detected (Not Detect); Fentanyl, urine POSITIVE (Not Detect); Opiate Screen Urine POSITIVE (Not Detect); Phencyclidine Screen Urine Not Detected (Not Detect)
--- NOTE | 2021-07-28 10:52 | MHC.RECOVSUP ---
Recovery Support note: Patient is a 41 year old Sammarinese speaking female who presented to [facility] due to body aches and heroin use. This customs entry writer met with patient to discuss recovery and treatment options. Patient reports using heroin daily, IV, about 4 bags a day. Patient states she does not want to keep using and feels trapped in a cycle of using to prevent feeling sick. Patient reports she does not think her body can handle withdrawal and that she has panic attacks. Discuss medications for opiate use disorder and withdrawal management with patient. Patient reports she tried Suboxone however stated she had a bad reaction and that she felt a tingling sensation going up her face and she spit it out. Patient expressed interest in going to detox however would like to stay locally. Plan for patient to be referred to [facility] ATS to be placed on waitlist. Patient will follow up with [facility] after discharge and they will contact patient directly if a bed becomes available. Explained ATS and informed patient of what to expect. Patient provided with information to contact [facility] and contact information for this customs entry writer. Discussed case with ED provider.
[2021-07-28] MEDS: Lactulose 20 GM/30 ML SOLUTION PO (12:11)
[2021-07-28] MEDS: polyethylene glycoL 3350 17 GM POWD.PACK PO (12:11)
[2021-07-28 13:06] VITALS: BP 138/78; PULSE 80; RESP 15; O2SAT 97
[2021-07-28] MEDS: Sodium Phosphate,Mono-Dibasic 133 ML ENEMA PR (13:35)
== END 2021-07-28 14:20 | disposition home or self-care (01) ==
PROVIDERS: Emergency Provider Emergency Medicine
DX: F11.188 Opioid abuse with other opioid-induced disorder (principal); K59.03 Drug induced constipation; Z20.822 Contact with and (suspected) exposure to COVID-19; F19.10 Other psychoactive substance abuse, uncomplicated; F11.10 Opioid abuse, uncomplicated; F17.200 Nicotine dependence, unspecified, uncomplicated
CPT/HCPCS: 36415; 71046; 74018; 80053; 80307; 81001; 85025; 85652; 87040; 87635; 96361; 96374; 96375; 99284

== ENCOUNTER 2021-07-30 18:55 | Emergency (ER) | payer MEDICAID, SELFPAY ==
[2021-07-30 19:55] VITALS: BP 120/93; PULSE 100; RESP 18; TEMP 36.6; O2SAT 97; BMI 27.8
[2021-07-30 20:38] LABS: COVID-19 Test Negative (Negative); IDNOW Serial# 08D9AD1C
--- NOTE | 2021-07-30 21:02 | ED_ITS ---
HPI - General Adult General Chief complaint: General Medical Stated complaint: COVID symptoms Time Seen by Provider: 07/30/21 21:02 Source: patient Mode of arrival: ambulatory Limitations: no limitations History of Present Illness HPI narrative: Patient IVDA heroin user with anxiety been followed by detox department at [facility] tried Suboxone in work came with her boyfriend who drove her to the hospital for COVID like symptoms along with her kids patient does not drive and by friend drives patient been he had 2 more times 2/3 and 2/ which were negative for COVID her kids are positive with COVID patient vaccinated against COVID has not taken the booster Patient was drowsy had to repeat the questions for answers at this time patient is alert and awake and making sense Related Data Home Medications Medication Instructions Recorded Confirmed cyclobenzaprine 5 mg tablet 1 tab PO TID PRN 06/06/21 07/02/21 gabapentin 100 mg capsule 100 mg PO TID 06/06/21 07/02/21 lisinopril 5 mg tablet 1 tab PO DAILY 06/06/21 07/02/21 pantoprazole 40 mg tablet,delayed 1 tab PO DAILY 06/06/21 07/02/21 release cholecalciferol (vitamin D3) 50 1 tab PO DAILY 07/02/21 07/02/21 mcg (2,000 unit) tablet verapamil 180 mg tablet,extended 1 tab PO DAILY 07/02/21 07/02/21 release Previous Rx's Medication Instructions Recorded clonidine HCl 0.1 mg tablet 0.1 mg PO TID PRN #6 tab 07/03/21 hydroxyzine HCl 25 mg tablet 25 mg PO TID PRN #7 tab 07/03/21 loperamide 2 mg capsule 2 mg PO Q6H PRN #6 cap 07/03/21 clonidine HCl 0.1 mg tablet 0.1 mg PO Q8H #5 tab 07/10/21 ondansetron 4 mg disintegrating 4 mg PO TID PRN 5 Days #10 tab 07/10/21 tablet buprenorphine 8 mg-naloxone 2 mg 1 film SUBLINGUAL DAILY 7 Days #7 07/23/21 sublingual film (Suboxone) ea ibuprofen 800 mg tablet 800 mg PO TID PRN 10 Days #30 tab 07/23/21 clonidine HCl 0.2 mg tablet 0.2 mg PO Q6H PRN #20 tab 07/26/21 omeprazole 20 mg capsule,delayed 20 mg PO DAILY 30 Days #30 cap 07/26/21 release sennosides 17.2 mg tablet (Senokot 17.2 mg PO BID PRN #20 tab 07/26/21 Extra Strength) polyethylene glycol 3350 17 17 g PO DAILY #119 g 07/28/21 gram/dose oral powder (Miralax) Allergies Allergy/AdvReac Type Severity Reaction Status Date / Time naproxen Allergy Intermediate nausea and Verified 07/30/21 19:55 vomiting Motrin Allergy Intermediate nausea and Uncoded 07/30/21 19:55 vomiting PMFSH Past Medical History Medical History BRIE positive Asthma Dyspnea History of sleep disturbance Hx of anxiety disorder Opioid use disorder Surgical History History of colposcopy History of tubal ligation Hx of dilation and curettage Hx of excision of mass Social History Social History Alcohol intake: current Alcohol intake frequency: a few times a month Patient Tobacco Use Status: Current someday Tobacco user Tobacco use type: Cigarette Cigarettes Per Day: 2 Advance Directives: No Advance Directives Information Provided: Yes Physical Exam Vital Signs: Vital Signs: Last Vital Signs Temp 98 F 07/30/21 19:55 Pulse 100 07/30/21 19:55 Resp 18 07/30/21 19:55 BP 120/93 H 07/30/21 19:55 Pulse Ox 97 07/30/21 19:55 BMI result Body Mass Index 27.8 Appearance: Alert. Oriented X3. No acute distress. Anxious Eyes: PERRLA, No Nystagmus ENT: Pharynx normal. Oral Mucosa moist Neck: Normal inspection. Neck supple. CVS: Normal heart rate and rhythm. Pulses normal. Respiratory: No respiratory distress. Equal air entry bilateral, no wheezing/rales/rhonchi Abdomen: Soft and nontender. Bowel sounds are present, no mass palpable, no CVA tenderness Skin: Skin warm and dry. Normal skin color. Normal skin turgor. Extremities: No lower extremity edema. No calf tenderness Neuro: Oriented X 3. No motor deficit. No sensory deficit.No cerebellar signs , cranial nerves II-XII intact Medical Decision Making MDM Narrative Medical decision making narrative: Patient gets were positive for COVID at this time patient alert awake but when was triaged was sleepy and tired says that she took Ativan and she took heroin also but came with her boyfriend would drove them to the hospital DCF case was filed by the nurse. Patient eloped from the ER without waiting for the discharge paper Lab Data Lab results reviewed: Yes I reviewed the patient's lab results. Labs: Lab Results 07/30/21 Range/Units 20:01 COVID-19 (JOE) Negative (Negative) COVID-19 Clin Com See Note Discharge Plan Discharge Clinical Impression: Close exposure to COVID-19 virus, Heroin abuse Patient Disposition: Home, Self-Care Instructions: Opioid Use Disorder (ED), COVID-19 (Coronavirus Disease 2019) (ED) Additional Instructions: Stop using heroin Follow with detox as planned Prescriptions: No Action ibuprofen 800 mg tablet 800 mg PO TID PRN (Reason: pain) 10 Days Qty: 30 0RF buprenorphine-naloxone [Suboxone] 8-2 mg film 1 film sublingual DAILY 7 Days Qty: 7 0RF ondansetron 4 mg tablet,disintegrating 4 mg PO TID PRN (Reason: nausea and vomiting) 5 Days Qty: 10 0RF clonidine HCl 0.1 mg tablet 0.1 mg PO Q8H Qty: 5 0RF pantoprazole 40 mg tablet,delayed release (DR/EC) 1 tab PO DAILY 0RF gabapentin 100 mg capsule 100 mg PO TID 0RF cyclobenzaprine 5 mg tablet 1 tab PO TID PRN (Reason: Muscle Spasm) 0RF lisinopril 5 mg tablet 1 tab PO DAILY 0RF cholecalciferol (vitamin D3) 50 mcg (2,000 unit) tablet 1 tab PO DAILY 0RF verapamil 180 mg tablet extended release 1 tab PO DAILY 0RF clonidine HCl 0.1 mg tablet 0.1 mg PO TID PRN (Reason: Wihtdrawal) Qty: 6 0RF hydroxyzine HCl 25 mg tablet 25 mg PO TID PRN (Reason: anxiety) Qty: 7 0RF loperamide 2 mg capsule 2 mg PO Q6H PRN (Reason: loose stool) Qty: 6 0RF omeprazole 20 mg capsule,delayed release(DR/EC) 20 mg PO DAILY 30 Days Qty: 30 0RF clonidine HCl 0.2 mg tablet 0.2 mg PO Q6H PRN (Reason: opiate withdrawal) Qty: 20 0RF Senokot Extra Strength 17.2 mg tablet 17.2 mg PO BID PRN (Reason: constipation) Qty: 20 0RF polyethylene glycol 3350 [Miralax] 17 gram/dose powder 17 g PO DAILY Qty: 119 0RF Interventions: ED Discharge Assessment Last Done: 07/30/21 21:15 Discharge Date/Time: 07/30/21 21:15
== END 2021-07-30 21:15 | disposition home or self-care (01) ==
PROVIDERS: Emergency Provider Internal Medicine; PCP Nurse Practitioner Primary Care
DX: F19.10 Other psychoactive substance abuse, uncomplicated (principal); Z20.822 Contact with and (suspected) exposure to COVID-19; F17.200 Nicotine dependence, unspecified, uncomplicated
CPT/HCPCS: 87635; 99283

== ENCOUNTER 2021-08-07 03:51 | Emergency (ER) | payer MEDICAID, SELFPAY ==
--- NOTE | ~2021-08-07 | XR_ITS ---
EXAMINATION: XR CHEST CLINICAL INFORMATION: Fever COMPARISON: Previous chest x-ray 07/28/2021 TECHNIQUE: Frontal view of the chest was obtained. FINDINGS: No significant abnormality is noted involving the heart, lungs, mediastinum, bony thorax or soft tissues. XR/XR chest 1V IMPRESSION: Unremarkable examination.
[2021-08-07 03:56] VITALS: BP 120/80; PULSE 109; RESP 18; TEMP 37.4; O2SAT 100; BMI 27.8
[2021-08-07 04:32] LABS: COVID-19 Test Negative (Negative); IDNOW Serial# 9DD0AD1C
--- NOTE | 2021-08-07 04:44 | PC.NURSE ---
security informed pt has used herion prior to arrival and that she has a backpack with her. pt states she has been using just enough herion so that she can get into detox. pt visable
[2021-08-07 05:33] VITALS: BP 129/91; PULSE 122; RESP 20; TEMP 38.1; O2SAT 100
--- NOTE | 2021-08-07 05:42 | ECG_ITS ---
Test Reason : PALPITATIONS Blood Pressure : / mmHG Vent. Rate : 101 BPM Atrial Rate : 101 BPM P-R Int : 136 ms QRS Dur : 080 ms QT Int : 308 ms P-R-T Axes : 056 022 027 degrees QTc Int : 399 ms Sinus tachycardia Otherwise normal ECG When compared with ECG of 26-JUL-2021 17:04, No significant change was found Referred By: Isaias Del Rosario Electronically Signed By:JOI FOX MD
[2021-08-07 06:09] LABS: Basophils Percent Auto 0.1 % (0-2); Eosinophils Absolute Auto 0.1 X10*3/uL (0.0-0.4); Hematocrit 31.7 % (37.0-47.0); Hemoglobin 10.3 g/dl (12.0-16.0); Imm Gran Abs Auto 0.02 X10*3/uL (0.00-0.03); Imm Gran Pct Auto 0.3 % (0.0-0.4); Lymphocytes Absolute Auto 1.5 X10*3/uL (1.2-4.9); Lymphocytes Percent Auto 20.8 % (20-40); MANUAL DIFF FLAG NO; Mean Corpuscular HGB Conc 32.5 g/dl (31.0-35.0); Mean Corpuscular Hemoglobin 26.4 pg (27.0-33.0); Mean Corpuscular Volume 81.3 fL (80.0-98.0); Mean Platelet Volume 9.7 fL (9.4-12.3); Monocytes Absolute Auto 0.6 X10*3/uL (0.1-1.2); Monocytes Percent Auto 8.1 % (2-11); Neutrophils Absolute Auto 4.9 x10*3/uL (2.0-8.3); Neutrophils Percent Auto 69.7 % (45-73); Platelet Count 340 X10*3/uL (160-400); Red Cell Distribution Width 17.2 % (11.0-16.0); White Blood Count 7.1 X10*3/uL (4.8-10.8)
--- NOTE | 2021-08-07 06:24 | ED_ITS ---
HPI - General Adult General Chief complaint: General Medical Stated complaint: HR 186? fever, heroine withdrawal Time Seen by Provider: 08/07/21 05:42 Source: patient Mode of arrival: ambulatory Limitations: no limitations History of Present Illness HPI narrative: 41 years old female IV drug abuser came in for evaluation of chest pain , palpitation, and generalized body ache. patient last use heroin IV at 01:00 today then shortly after patient started feel palpitation and anterior chest discomfort, pain is localized to the anterior chest with no radiation, pain is associated with generalized body ache and fever and palpitation, no relieving factor, no aggravating factor. No SI or HI. Patient also seeking detox from heroin, patient declined Suboxone offer because she did not like it in the past. Related Data Home Medications Medication Instructions Recorded Confirmed cyclobenzaprine 5 mg tablet 1 tab PO TID PRN 06/06/21 07/02/21 gabapentin 100 mg capsule 100 mg PO TID 06/06/21 07/02/21 lisinopril 5 mg tablet 1 tab PO DAILY 06/06/21 07/02/21 pantoprazole 40 mg tablet,delayed 1 tab PO DAILY 06/06/21 07/02/21 release cholecalciferol (vitamin D3) 50 1 tab PO DAILY 07/02/21 07/02/21 mcg (2,000 unit) tablet verapamil 180 mg tablet,extended 1 tab PO DAILY 07/02/21 07/02/21 release Previous Rx's Medication Instructions Recorded clonidine HCl 0.1 mg tablet 0.1 mg PO TID PRN #6 tab 07/03/21 hydroxyzine HCl 25 mg tablet 25 mg PO TID PRN #7 tab 07/03/21 loperamide 2 mg capsule 2 mg PO Q6H PRN #6 cap 07/03/21 clonidine HCl 0.1 mg tablet 0.1 mg PO Q8H #5 tab 07/10/21 ondansetron 4 mg disintegrating 4 mg PO TID PRN 5 Days #10 tab 07/10/21 tablet buprenorphine 8 mg-naloxone 2 mg 1 film SUBLINGUAL DAILY 7 Days #7 07/23/21 sublingual film (Suboxone) ea ibuprofen 800 mg tablet 800 mg PO TID PRN 10 Days #30 tab 07/23/21 clonidine HCl 0.2 mg tablet 0.2 mg PO Q6H PRN #20 tab 07/26/21 omeprazole 20 mg capsule,delayed 20 mg PO DAILY 30 Days #30 cap 07/26/21 release sennosides 17.2 mg tablet (Senokot 17.2 mg PO BID PRN #20 tab 07/26/21 Extra Strength) polyethylene glycol 3350 17 17 g PO DAILY #119 g 07/28/21 gram/dose oral powder (Miralax) Allergies Allergy/AdvReac Type Severity Reaction Status Date / Time naproxen Allergy Intermediate nausea and Verified 07/30/21 19:55 vomiting Motrin Allergy Intermediate nausea and Uncoded 07/30/21 19:55 vomiting Review of Systems Review of Systems: All other systems are reviewed and are negative Constitutional: Reports as per HPI and Reports no additional constitutional complaints Eyes: Reports as per HPI and Reports no additional eye complaints Reports system reviewed and no additional complaints, except as documented Cardiovascular: Reports as per HPI and Reports no additional cardiovascular complaints Respiratory: Reports as per HPI and Reports no additional respiratory complaints Gastrointestinal: Reports as per HPI and Reports no additional gastrointestinal complaints Genitourinary: Reports no additional female genitourinary complaints Musculoskeletal: Reports no additional musculoskeletal complaints Skin/Breast: Reports system reviewed and no additional complaints, except as docu Psychiatric: Reports no additional psychiatric complaints Endocrine: Reports no additional endocrine complaints Hematologic/Lymphatic: Reports no additional hematologic/lymphatic complaints Allergic/Immunologic: Reports no additional allergic/immunologic complaints Reports system reviewed and no additional complaints, except as documented and Reports Abnormal speech present [facility] Past Medical History Medical History BRIE positive Asthma Dyspnea History of sleep disturbance Hx of anxiety disorder Opioid use disorder Surgical History History of colposcopy History of tubal ligation Hx of dilation and curettage Hx of excision of mass Social History Social History Alcohol intake: current Alcohol intake frequency: a few times a month Patient Tobacco Use Status: Current someday Tobacco user Tobacco use type: Cigarette Cigarettes Per Day: 2 Advance Directives: No Patient : No Physical Exam ED Vital Signs: Vital Signs - 24 hr 08/07/21 03:56 08/07/21 05:33 Temperature 99.3 F 100.6 F H Pulse Rate 109 H 122 H Respiratory Rate 18 20 Blood Pressure 120/80 129/91 H Pulse Oximetry 100 100 BMI result Body Mass Index 27.8 vital signs have been reviewed as appeared to be correct. Blood pressure normal. Heart rate normal. Respiration rate normal. Temperature normal. Oxygen saturation normal. Appearance: Alert. Oriented X3. No acute distress. anxious Head: Normal external exam. Normocephalic. Atraumatic. No Lopez signs noted. No raccoon eyes noted Eyes: PERRLA. EOMI. Conjunctiva and sclera normal. Eyelids normal. ENT: TM's Normal. Pharynx normal. Uvula midline. Moist mucous membranes. No tr ismus noted. No drooling noted. No muffled voice noted. Neck: Normal inspection. Neck supple. FROM. No adenopathy. Thyroid Normal. No meningeal signs. No neck mass noted. CVS: Normal heart rate and rhythm. Heart sound normal. No murmurs noted. Pulses normal throughout. Respiratory: No respiratory distress. Painless inspiration. Breath sounds normal. No wheezes/rales/rhonchi noted. Chest nontender. No accessory muscle usage noted or decreased air movement noted. Abdomen: Soft and nontender. Bowel sounds normal in all 4 quadrants. No distention noted. No organomegaly noted. No visible injury noted. Back: No CVA tenderness. Full range of motion noted. Skin: diffuse IV mariah scars, no area of cellulitis or infection is appreciated. Extremities: No lower extremity edema. Extremities exhibit normal range of motion. Extremities nontender. Neuro: Oriented X 3. Cranial nerve exam: II-XII are grossly intact No motor deficit. No sensory deficit. Reflexes normal. Course Course Course Narrative: Assessment and plan. 41 years old female history of IV drug abuser came in with chest pain and seeking detox. Case signed out to Dr. Koo to check labs and troponin x2, care team consultation for rehab Medical Decision Making Lab Data Result diagrams: 08/07/21 06:04 08/07/21 06:04 Labs: Lab Results 08/07/21 08/07/21 08/07/21 Range/Units 04:09 06:04 06:04 WBC 7.1 (4.8-10.8) X10*3/uL RBC 3.90 L (4.20-5.50) X10*6/uL Hgb 10.3 L (12.0-16.0) g/dl Hct 31.7 L (37.0-47.0) % MCV 81.3 (80.0-98.0) fL MCH 26.4 L (27.0-33.0) pg MCHC 32.5 (31.0-35.0) g/dl RDW 17.2 H (11.0-16.0) % Plt Count 340 (160-400) X10*3/uL MPV 9.7 (9.4-12.3) fL Immature Gran % (Auto) 0.3 (0.0-0.4) % Neut % (Auto) 69.7 (45-73) % Lymph % (Auto) 20.8 (20-40) % [place] % (Auto) 8.1 (2-11) % Eos % (Auto) 1.0 (0-4) % Baso % (Auto) 0.1 (0-2) % Lymph # (Auto) 1.5 (1.2-4.9) X10*3/uL [place] # (Auto) 0.6 (0.1-1.2) X10*3/uL Eos # (Auto) 0.1 (0.0-0.4) X10*3/uL Baso # (Auto) 0.0 (0.0-0.2) X10*3/uL Abs Immat Gran (auto) 0.02 (0.00-0.03) X10*3/uL Absolute Neuts (auto) 4.9 (2.0-8.3) x10*3/uL Absolute Nucleated RBC 0.000 (0.0-0.012) X10*3/uL Nucleated RBC % (auto) 0.0 (0.0-0.2) /100WBC Sodium 132 L (135-145) mmol/L Potassium 4.2 (3.3-5.1) mmol/L Chloride 99 (96-108) mmol/L Carbon Dioxide 25 (22-29) mmol/L Anion Gap 12 (12-20) BUN 3 L (9-16) mg/dL Creatinine 0.69 (0.5-1.4) mg/dL Estim Creat Clear Calc 85.4 Estimated GFR > 60 Random Glucose 111 (60-115) mg/dL Calcium 9.5 (8.4-10.2) mg/dL Total Bilirubin 0.6 (0.0-1.0) mg/dL Direct Bilirubin 0.3 (0.0-0.5) mg/dL AST 40 H D (5-31) U/L ALT 28 (0-31) U/L Alkaline Phosphatase 100 (39-117) U/L Troponin I High Sens (<3.5-17.0) ng/L Total Protein 8.0 (6.5-8.0) g/dL Albumin 3.8 (3.5-5.0) g/dL Lipase 66 (8-78) U/L COVID-19 (JOE) Negative (Negative) COVID-19 Clin Com See Note 08/07/21 Range/Units 06:04 WBC (4.8-10.8) X10*3/uL RBC (4.20-5.50) X10*6/uL Hgb (12.0-16.0) g/dl Hct (37.0-47.0) % MCV (80.0-98.0) fL MCH (27.0-33.0) pg MCHC (31.0-35.0) g/dl RDW (11.0-16.0) % Plt Count (160-400) X10*3/uL MPV (9.4-12.3) fL Immature Gran % (Auto) (0.0-0.4) % Neut % (Auto) (45-73) % Lymph % (Auto) (20-40) % [place] % (Auto) (2-11) % Eos % (Auto) (0-4) % Baso % (Auto) (0-2) % Lymph # (Auto) (1.2-4.9) X10*3/uL [place] # (Auto) (0.1-1.2) X10*3/uL Eos # (Auto) (0.0-0.4) X10*3/uL Baso # (Auto) (0.0-0.2) X10*3/uL Abs Immat Gran (auto) (0.00-0.03) X10*3/uL Absolute Neuts (auto) (2.0-8.3) x10*3/uL Absolute Nucleated RBC (0.0-0.012) X10*3/uL Nucleated RBC % (auto) (0.0-0.2) /100WBC Sodium (135-145) mmol/L Potassium (3.3-5.1) mmol/L Chloride (96-108) mmol/L Carbon Dioxide (22-29) mmol/L Anion Gap (12-20) BUN (9-16) mg/dL Creatinine (0.5-1.4) mg/dL Estim Creat Clear Calc Estimated GFR Random Glucose (60-115) mg/dL Calcium (8.4-10.2) mg/dL Total Bilirubin (0.0-1.0) mg/dL Direct Bilirubin (0.0-0.5) mg/dL AST (5-31) U/L ALT (0-31) U/L Alkaline Phosphatase (39-117) U/L Troponin I High Sens < 3.5 (<3.5-17.0) ng/L Total Protein (6.5-8.0) g/dL Albumin (3.5-5.0) g/dL Lipase (8-78) U/L COVID-19 (JOE) (Negative) COVID-19 Clin Com Discharge Plan Discharge Clinical Impression: Substance abuse, Palpitation Prescriptions: No Action ibuprofen 800 mg tablet 800 mg PO TID PRN (Reason: pain) 10 Days Qty: 30 0RF buprenorphine-naloxone [Suboxone] 8-2 mg film 1 film sublingual DAILY 7 Days Qty: 7 0RF ondansetron 4 mg tablet,disintegrating 4 mg PO TID PRN (Reason: nausea and vomiting) 5 Days Qty: 10 0RF clonidine HCl 0.1 mg tablet 0.1 mg PO Q8H Qty: 5 0RF pantoprazole 40 mg tablet,delayed release (DR/EC) 1 tab PO DAILY 0RF gabapentin 100 mg capsule 100 mg PO TID 0RF cyclobenzaprine 5 mg tablet 1 tab PO TID PRN (Reason: Muscle Spasm) 0RF lisinopril 5 mg tablet 1 tab PO DAILY 0RF cholecalciferol (vitamin D3) 50 mcg (2,000 unit) tablet 1 tab PO DAILY 0RF verapamil 180 mg tablet extended release 1 tab PO DAILY 0RF clonidine HCl 0.1 mg tablet 0.1 mg PO TID PRN (Reason: Wihtdrawal) Qty: 6 0RF hydroxyzine HCl 25 mg tablet 25 mg PO TID PRN (Reason: anxiety) Qty: 7 0RF loperamide 2 mg capsule 2 mg PO Q6H PRN (Reason: loose stool) Qty: 6 0RF omeprazole 20 mg capsule,delayed release(DR/EC) 20 mg PO DAILY 30 Days Qty: 30 0RF clonidine HCl 0.2 mg tablet 0.2 mg PO Q6H PRN (Reason: opiate withdrawal) Qty: 20 0RF Senokot Extra Strength 17.2 mg tablet 17.2 mg PO BID PRN (Reason: constipation) Qty: 20 0RF polyethylene glycol 3350 [Miralax] 17 gram/dose powder 17 g PO DAILY Qty: 119 0RF
[2021-08-07 06:28] LABS: Troponin-I High Sensitivity < 3.5 ng/L (<3.5-17.0)
[2021-08-07 06:29] LABS: Alanine Aminotransferase 28 U/L (0-31); Albumin Level 3.8 g/dL (3.5-5.0); Alkaline Phosphatase 100 U/L (39-117); Anion Gap 12 (12-20); Aspartate Amino Transferase 40 U/L (5-31); Bilirubin Direct 0.3 mg/dL (0.0-0.5); Bilirubin Total 0.6 mg/dL (0.0-1.0); Blood Urea Nitrogen 3 mg/dL (9-16); Calcium 9.5 mg/dL (8.4-10.2); Carbon Dioxide 25 mmol/L (22-29); Chloride 99 mmol/L (96-108); Creatinine Clr Calc Pharmacy 85.4; Estimated Glomerular Filt Rate > 60; Glucose Random 111 mg/dL (60-115); Lipase 66 U/L (8-78); Potassium 4.2 mmol/L (3.3-5.1); Sodium 132 mmol/L (135-145)
[2021-08-07] MEDS: Ketorolac Tromethamine 30 MG/ML VIAL IVPUSH (07:56)
[2021-08-07 08:05] LABS: Lactic Acid 1.4 mmol/L (0.5-2.0)
--- NOTE | 2021-08-07 08:11 | PC.NURSE ---
report taken from lance mckeon pt here for potential detox, found to have a fever and generalized aches. has admitted ivda hx. vss, no obvious distress. iv established, cultures and labs obtained and sent. medicated per emar. awaiting cxr. wctm for dc needs.
[2021-08-07 08:12] LABS: Appearance Urine CLEAR; Color Urine YELLOW; Glucose Urine UA NEG (NEG); Leukocyte Esterase Urine NEG (NEG); Nitrite Urine NEG (NEG); Specific Gravity - Urine <= 1.005 (1.005-1.025); Urine Blood NEG (NEG); Urine Ketones NEG (NEG); Urine Protein NEG (NEG-TRACE)
[2021-08-07 08:14] LABS: UPreg QC Valid YES; Urine Pregnancy NEGATIVE (NEGATIVE)
[2021-08-07 08:18] LABS: C Reactive Protein 3.66 mg/dL (< or = 0.50)
[2021-08-07 08:20] LABS: Amphetamine Screen Urine Not Detected (Not Detect); Barbiturates, Urine Not Detected (Not Detect); Benzodiazepines Screen Urine Not Detected (Not Detect); Cannabinoid Screen Urine Not Detected (Not Detect); Cocaine Screen Urine Not Detected (Not Detect); Fentanyl, urine POSITIVE (Not Detect); Opiate Screen Urine POSITIVE (Not Detect); Phencyclidine Screen Urine Not Detected (Not Detect)
[2021-08-07 08:26] LABS: Troponin-I High Sensitivity < 3.5 ng/L (<3.5-17.0)
[2021-08-07 08:36] VITALS: BP 113/68; PULSE 88; RESP 14; O2SAT 97
[2021-08-07 08:50] LABS: IDNOW Serial# 08D9AD1C; Influenza A Negative (Negative); Influenza B2 Negative (Negative)
[2021-08-07] MEDS: Acetaminophen 325 MG TABLET 650 MG PO (09:36)
--- NOTE | 2021-08-07 09:52 | PC.NURSE ---
recovery team consulting w pt att.
--- NOTE | 2021-08-07 10:44 | MHC.RECOVSUP ---
? Reason for consult:Recovery Support o Current location: ED-12 o Identified substance use concern:Heroin - Withdrawal - Seeking ATS (detox) - Support ? Intervention: o ATS bed search started/completed/in process o MAT started or to be started o Community resources provided o Harm reduction discussion ? Plan: o Patient to follow up with HF after discharge ? Additional information:Patient seeking detox locally, unable to procure a bed locally. Patient refused to go to [place]. Gave patient community resources.
== END 2021-08-07 10:59 | disposition home or self-care (01) ==
PROVIDERS: Emergency Medicine; Emergency Provider Emergency Medicine; PCP Nurse Practitioner Primary Care
DX: F11.23 Opioid dependence with withdrawal (principal); R50.9 Fever, unspecified; R07.89 Other chest pain; R00.2 Palpitations; F17.210 Nicotine dependence, cigarettes, uncomplicated; Z71.6 Tobacco abuse counseling; Z20.822 Contact with and (suspected) exposure to COVID-19; Z79.899 Other long term (current) drug therapy
CPT/HCPCS: 36415; 71045; 80048; 80076; 80307; 81003; 81025; 83605; 83690; 84484; 85025; 86140; 87040; 87502; 87635; 93005; 96374; 99284; 99285; J1885

== ENCOUNTER 2021-08-08 01:21 | Emergency (ER) | payer MEDICAID, SELFPAY ==
[2021-08-08 01:26] VITALS: BP 149/93; PULSE 107; RESP 20; TEMP 37.2; O2SAT 98; BMI 27.2
--- NOTE | 2021-08-08 01:46 | ED.GENADULT ---
HPI - General Adult General Chief complaint: General Medical Stated complaint: withdrawal? sob, fever, lips tingling Time Seen by Provider: 08/08/21 01:27 Source: patient Mode of arrival: ambulatory Limitations: no limitations History of Present Illness HPI narrative: Patient comes to the emergency room seeking detox. Patient was seen here yesterday, August 07. Patient refused detox, TRAINING AND DEVELOPMENT OFFICER Guerline Carty attempted speaking to the patient as well. Patient did not want to stay and left. Patient is here again seeking detox. Patient states that she refuses blood work done. Patient is agreeable for urine test and COVID test. Patient states that she feels that she is withdrawing from opiates, however her last dose of heroin per patient was approximately 2 hours ago. Patient denies suicidal or homicidal ideation. Related Data Home Medications Medication Instructions Recorded Confirmed cyclobenzaprine 5 mg tablet 1 tab PO TID PRN 06/06/21 07/02/21 gabapentin 100 mg capsule 100 mg PO TID 06/06/21 07/02/21 lisinopril 5 mg tablet 1 tab PO DAILY 06/06/21 07/02/21 pantoprazole 40 mg tablet,delayed 1 tab PO DAILY 06/06/21 07/02/21 release cholecalciferol (vitamin D3) 50 1 tab PO DAILY 07/02/21 07/02/21 mcg (2,000 unit) tablet verapamil 180 mg tablet,extended 1 tab PO DAILY 07/02/21 07/02/21 release Previous Rx's Medication Instructions Recorded clonidine HCl 0.1 mg tablet 0.1 mg PO TID PRN #6 tab 07/03/21 hydroxyzine HCl 25 mg tablet 25 mg PO TID PRN #7 tab 07/03/21 loperamide 2 mg capsule 2 mg PO Q6H PRN #6 cap 07/03/21 clonidine HCl 0.1 mg tablet 0.1 mg PO Q8H #5 tab 07/10/21 ondansetron 4 mg disintegrating 4 mg PO TID PRN 5 Days #10 tab 07/10/21 tablet buprenorphine 8 mg-naloxone 2 mg 1 film SUBLINGUAL DAILY 7 Days #7 07/23/21 sublingual film (Suboxone) ea ibuprofen 800 mg tablet 800 mg PO TID PRN 10 Days #30 tab 07/23/21 clonidine HCl 0.2 mg tablet 0.2 mg PO Q6H PRN #20 tab 02/03/22 omeprazole 20 mg capsule,delayed 20 mg PO DAILY 30 Days #30 cap 07/26/21 release sennosides 17.2 mg tablet (Senokot 17.2 mg PO BID PRN #20 tab 07/26/21 Extra Strength) polyethylene glycol 3350 17 17 g PO DAILY #119 g 07/28/21 gram/dose oral powder (Miralax) lactulose 20 gram/30 mL oral 20 g (30 mL) PO DAILY PRN #120 ml 08/07/21 solution Allergies Allergy/AdvReac Type Severity Reaction Status Date / Time naproxen Allergy Intermediate nausea and Verified 08/08/21 01:33 vomiting Motrin Allergy Intermediate nausea and Uncoded 08/08/21 01:33 vomiting Review of Systems Review of Systems: Constitutional : Complaining of diffuse body aches ENT/Mouth : No Hearing loss, No Ear Pain, No Nasal Congestion, No Sinus Pain, No Hoarseness, No sore throat, No Rhinorrhea, No Swallowing Difficulty Eyes: No Eye Pain, No Swelling, No Redness, No Foreign Body, No Discharge, No Vision Changes Cardiovascular : No Chest Pain, No SOB, No Dyspnea on Exertion, No Orthopnea, No Edema, No Palpitations Respiratory : No Cough, No Sputum, No Wheezing, No Smoke Exposure, No Dyspnea Gastrointestinal : No Nausea, No Vomiting, No Diarrhea, No Constipation, No abdominal Pain, No Hematochezia, No Melena Genitourinary : no irregular bleeding, No Dysuria, No Urinary Frequency, No Hematuria, No Urinary Incontinence, No Urgency, No Flank Pain, No Urinary Flow Changes, No Hesitancy Musculoskeletal : No joint pain, No Myalgias, No Joint Swelling Skin : No Skin Lesions, No rash Neuro : No Weakness, No Numbness, No Paresthesias, No Loss of Consciousness, No Dizziness, No Headache Psych : Denies SI or HI, seeking detox Heme/Lymph: No Bruising, No Bleeding,No Lymphadenopathy Endocrine : No Polyuria, No Polydipsia, No Temperature Intolerance PMFSH Past Medical History Medical History BRIE positive Asthma Dyspnea History of sleep disturbance Hx of anxiety disorder Opioid use disorder Surgical History History of colposcopy History of tubal ligation Hx of dilation and curettage Hx of excision of mass Social History Social History Alcohol intake: never Patient Tobacco Use Status: Current someday Tobacco user Tobacco use type: Cigarette Cigarettes Per Day: 2 Substance Use Type: Heroin Advance Directives: No Patient : No Physical Exam ED Vital Signs: Vital Signs - 24 hr 08/08/21 01:26 Temperature 98.9 F Pulse Rate 107 H Respiratory Rate 20 Blood Pressure 149/93 H Pulse Oximetry 98 BMI result Body Mass Index 27.2 Const Other: Appearance: Alert. Oriented X3. Eyes: Pupils equal, round and reactive to light. ENT: Pharynx normal. Neck: Normal inspection. Neck supple. No lymph nodes noted. No crepitus CVS: Normal heart rate and rhythm. Pulses normal. Normal S1 and S2 Respiratory: No respiratory distress. Breath sounds normal. No Wheezing. No rales Abdomen: Soft and nontender. No rigidity. No distention. Skin: Skin warm and dry. Normal skin color. Normal skin turgor. Extremities: No lower extremity edema. Neuro: Oriented X 3. No motor deficit. No sensory deficit. Moving all extermities. No slurred speech. Cranial nerves 2-12 grossly intact Psych: Angry, belligerent to triage nurse Course Course Course Narrative: Patient refuses blood work. Patient had blood work done yesterday. Patient complaining chest pain. Patient declined EKG. Troponin from yesterday negative. Patient already had chest pain since the time she was evaluated yesterday. Pain is reproducible. Care team has been consulted. Physician of starvation started at 01:52 CARE team evaluated the patient, pt was given information for detox facilities Medical Decision Making Lab Data Labs: Lab Results 08/08/21 08/08/21 08/08/21 Range/Units 01:50 01:55 01:55 Urine Test NEGATIVE (NEGATIVE) Urine Opiates Screen POSITIVE H (Not Detect) Urine Fentanyl Screen POSITIVE H (Not Detect) Ur Barbiturates Screen Not Detected (Not Detect) Ur Phencyclidine Scrn Not Detected (Not Detect) Ur Amphetamines Screen Not Detected (Not Detect) U Benzodiazepines Scrn Not Detected (Not Detect) Urine Cocaine Screen POSITIVE H (Not Detect) U Marijuana (THC) Screen Not Detected (Not Detect) COVID-19 (JOE) Negative (Negative) COVID-19 Clin Com See Note Discharge Plan Discharge Clinical Impression: Opioid use disorder Patient Disposition: Home, Self-Care Instructions: Narcotic Use Disorder (ED) Additional Instructions: Please follow-up with your primary care physician tomorrow. If you have any worsening or new symptoms, please return to the emergency room or call 911 Prescriptions: No Action ibuprofen 800 mg tablet 800 mg PO TID PRN (Reason: pain) 10 Days Qty: 30 0RF buprenorphine-naloxone [Suboxone] 8-2 mg film 1 film sublingual DAILY 7 Days Qty: 7 0RF ondansetron 4 mg tablet,disintegrating 4 mg PO TID PRN (Reason: nausea and vomiting) 5 Days Qty: 10 0RF clonidine HCl 0.1 mg tablet 0.1 mg PO Q8H Qty: 5 0RF lactulose 20 gram/30 mL solution 20 g PO DAILY PRN (Reason: constipation) Qty: 120 0RF pantoprazole 40 mg tablet,delayed release (DR/EC) 1 tab PO DAILY 0RF gabapentin 100 mg capsule 100 mg PO TID 0RF cyclobenzaprine 5 mg tablet 1 tab PO TID PRN (Reason: Muscle Spasm) 0RF lisinopril 5 mg tablet 1 tab PO DAILY 0RF cholecalciferol (vitamin D3) 50 mcg (2,000 unit) tablet 1 tab PO DAILY 0RF verapamil 180 mg tablet extended release 1 tab PO DAILY 0RF clonidine HCl 0.1 mg tablet 0.1 mg PO TID PRN (Reason: Wihtdrawal) Qty: 6 0RF hydroxyzine HCl 25 mg tablet 25 mg PO TID PRN (Reason: anxiety) Qty: 7 0RF loperamide 2 mg capsule 2 mg PO Q6H PRN (Reason: loose stool) Qty: 6 0RF omeprazole 20 mg capsule,delayed release(DR/EC) 20 mg PO DAILY 30 Days Qty: 30 0RF clonidine HCl 0.2 mg tablet 0.2 mg PO Q6H PRN (Reason: opiate withdrawal) Qty: 20 0RF Senokot Extra Strength 17.2 mg tablet 17.2 mg PO BID PRN (Reason: constipation) Qty: 20 0RF polyethylene glycol 3350 [Miralax] 17 gram/dose powder 17 g PO DAILY Qty: 119 0RF
[2021-08-08] MEDS: cloNIDine HCL 0.2 MG TABLET PO (02:08)
[2021-08-08] MEDS: Ondansetron ODT 4 MG TAB.RAPDIS TRANSLINGU (02:08)
[2021-08-08] MEDS: Loperamide HCl 2 MG CAPSULE PO (02:08)
[2021-08-08 02:10] LABS: UPreg QC Valid YES; Urine Pregnancy NEGATIVE (NEGATIVE)
[2021-08-08 02:15] LABS: COVID-19 Test Negative (Negative)
[2021-08-08 02:24] LABS: Amphetamine Screen Urine Not Detected (Not Detect); Barbiturates, Urine Not Detected (Not Detect); Benzodiazepines Screen Urine Not Detected (Not Detect); Cannabinoid Screen Urine Not Detected (Not Detect); Cocaine Screen Urine POSITIVE (Not Detect); Fentanyl, urine POSITIVE (Not Detect); Opiate Screen Urine POSITIVE (Not Detect); Phencyclidine Screen Urine Not Detected (Not Detect)
--- NOTE | 2021-08-08 02:35 | MHC.CARE ---
CARE team consult received for pt who self presented to the ED requesting detox placement. Pt was seen in the ED < 24 hrs ago for same. Pt was difficult to redirect in conversation. She expressed her concerns about a heart condition that she has and how going through withdrawal may impact this heart condition. Pt stated that she doesn't want to be put in a room and not be checked on at a detox. Despite several attempts at reassuring the pt that detox facilities are staffed with nurses and other vice president medical affairs that are trained in how to support individuals through withdrawal, she continued to insist that she needs to go through the hospital first because of her condition. This medical technical writer reviewed pt's recent visits with her, discussing when she came, which hospital/recovery staff she met with, and what the treatment recommendations have been. Pt reported that she is not willing to go to a detox that isn't local and that she doesn't want to go unless she is able to walk right in and not have to wait for a bed to be available. This medical technical writer discussed with pt that the ED staff are only able to do so much to help her and that she will need to accept what we can offer to her. She was given information for [facility] and the list of detox facilities and was encouraged to either call [facility] first thing in the morning or to present to [facility] by 7am.
--- NOTE | 2021-08-08 02:42 | PC.NURSE ---
living coach in room with pt. pt medicated as per emar. pt d/c with instructions given to pt. pt to ed wr in nad.
== END 2021-08-08 03:02 | disposition home or self-care (01) ==
PROVIDERS: Emergency Provider Emergency Medicine; PCP Nurse Practitioner Primary Care
DX: F11.29 Opioid dependence with unspecified opioid-induced disorder (principal); Z20.822 Contact with and (suspected) exposure to COVID-19
CPT/HCPCS: 80307; 81025; 87635; 99283

== ENCOUNTER 2021-08-18 01:21 | Emergency (ER) | payer MEDICAID, SELFPAY ==
--- NOTE | ~2021-08-18 | XR_ITS ---
EXAMINATION: XR CHEST CLINICAL INFORMATION: Rule out pneumonia COMPARISON: 08/07/2021 TECHNIQUE: Frontal view of the chest was obtained. FINDINGS: The lungs are well expanded. There is no focal consolidation, edema, or effusion. No pneumothorax. The cardiomediastinal silhouette is within normal limits. No acute osseous abnormality. XR/XR chest 1V IMPRESSION: No acute pulmonary finding.
[2021-08-18 01:28] VITALS: BP 125/77; PULSE 109; RESP 24; TEMP 37.3; O2SAT 98; BMI 27.2
--- NOTE | 2021-08-18 02:21 | ECG_ITS ---
Test Reason : CP Blood Pressure : / mmHG Vent. Rate : 097 BPM Atrial Rate : 097 BPM P-R Int : 140 ms QRS Dur : 080 ms QT Int : 342 ms P-R-T Axes : 054 022 028 degrees QTc Int : 434 ms Normal sinus rhythm Normal ECG When compared with ECG of 07-AUG-2021 05:46, No significant change was found Referred By: Harleen Garcia Electronically Signed By:TRENT COFFEY
--- NOTE | 2021-08-18 02:23 | ED.GENADULT ---
HPI - General Adult General Chief complaint: General Medical Stated complaint: chest pain, SoB Time Seen by Provider: 08/18/21 01:42 Source: patient Mode of arrival: ambulatory Limitations: no limitations History of Present Illness HPI narrative: Patient comes to the emergency room with multiple complaints including diffuse body ache, intermittent episodes of vomiting, constipation, headache, cough with nasal discharge, sore throat, subjective fever. Patient admits to using drugs prior to coming to the emergency room. Related Data Home Medications Medication Instructions Recorded Confirmed cyclobenzaprine 5 mg tablet 1 tab PO TID PRN 06/06/21 07/02/21 gabapentin 100 mg capsule 100 mg PO TID 06/06/21 07/02/21 lisinopril 5 mg tablet 1 tab PO DAILY 06/06/21 07/02/21 pantoprazole 40 mg tablet,delayed 1 tab PO DAILY 06/06/21 07/02/21 release cholecalciferol (vitamin D3) 50 1 tab PO DAILY 07/02/21 07/02/21 mcg (2,000 unit) tablet verapamil 180 mg tablet,extended 1 tab PO DAILY 07/02/21 07/02/21 release Previous Rx's Medication Instructions Recorded clonidine HCl 0.1 mg tablet 0.1 mg PO TID PRN #6 tab 07/03/21 hydroxyzine HCl 25 mg tablet 25 mg PO TID PRN #7 tab 07/03/21 loperamide 2 mg capsule 2 mg PO Q6H PRN #6 cap 07/03/21 clonidine HCl 0.1 mg tablet 0.1 mg PO Q8H #5 tab 07/10/21 ondansetron 4 mg disintegrating 4 mg PO TID PRN 5 Days #10 tab 07/10/21 tablet buprenorphine 8 mg-naloxone 2 mg 1 film SUBLINGUAL DAILY 7 Days #7 07/23/21 sublingual film (Suboxone) ea ibuprofen 800 mg tablet 800 mg PO TID PRN 10 Days #30 tab 07/23/21 clonidine HCl 0.2 mg tablet 0.2 mg PO Q6H PRN #20 tab 07/26/21 omeprazole 20 mg capsule,delayed 20 mg PO DAILY 30 Days #30 cap 07/26/21 release sennosides 17.2 mg tablet (Senokot 17.2 mg PO BID PRN #20 tab 07/26/21 Extra Strength) polyethylene glycol 3350 17 17 g PO DAILY #119 g 07/28/21 gram/dose oral powder (Miralax) lactulose 20 gram/30 mL oral 20 g (30 mL) PO DAILY PRN #120 ml 08/07/21 solution Allergies Allergy/AdvReac Type Severity Reaction Status Date / Time naproxen Allergy Intermediate nausea and Verified 08/08/21 01:33 vomiting Motrin Allergy Intermediate nausea and Uncoded 08/08/21 01:33 vomiting Review of Systems Review of Systems: Constitutional : No Weight loss, complaining of subjective fever, No Chills, No Night Sweats, complaining of fatigue and generalized malaise ENT/Mouth : No Hearing loss, No Ear Pain, complaining of nasal congestion, sinus pain, green mucousy nasal discharge Eyes: No Eye Pain, No Swelling, No Redness, No Foreign Body, No Discharge, No Vision Changes Cardiovascular : Complaining of chronic Chest Pain, No SOB, No Dyspnea on Exertion, No Orthopnea, No Edema, No Palpitations Respiratory : Complaining of Cough, No Sputum, No Wheezing, No Smoke Exposure, No Dyspnea Gastrointestinal : Complaining of intermittent episodes of vomiting, No Diarrhea, complaining of Constipation, No abdominal Pain, No Hematochezia, No Melena Genitourinary : no irregular bleeding, No Dysuria, No Urinary Frequency, No Hematuria, No Urinary Incontinence, No Urgency, No Flank Pain, No Urinary Flow Changes, No Hesitancy Musculoskeletal : No joint pain, complaining of diffuse myalgias No Joint Swelling Skin : No Skin Lesions, No rash Neuro : No Weakness, No Numbness, No Paresthesias, No Loss of Consciousness, No Dizziness, No Headache Psych : No Anxiety/Panic, No Depression, No SI/HI/AH/VH, No Social Issues, Heme/Lymph: No Bruising, No Bleeding,No Lymphadenopathy Endocrine : No Polyuria, No Polydipsia, No Temperature Intolerance PMFSH Past Medical History Medical History BRIE positive Asthma Dyspnea History of sleep disturbance Hx of anxiety disorder Opioid use disorder Surgical History History of colposcopy History of tubal ligation Hx of dilation and curettage Hx of excision of mass Social History Social History Alcohol intake: never Patient Tobacco Use Status: Current someday Tobacco user Tobacco use type: Cigarette Cigarettes Per Day: 2 Substance Use Type: Heroin Advance Directives: No Advance Directives Information Provided: Yes Physical Exam ED Vital Signs: Vital Signs - 24 hr 08/18/21 01:28 Temperature 99.1 F Pulse Rate 109 H Respiratory Rate 24 H Blood Pressure 125/77 Pulse Oximetry 98 BMI result Body Mass Index 27.2 Const Other: Appearance: Alert. Oriented X3. No acute distress. Patient is sleeping but when waking up she gets very anxious Eyes: Pupils equal, round and reactive to light. ENT: Pharynx normal. No exudates, no abscess is visualized Neck: Normal inspection. Neck supple. No lymph nodes noted. No crepitus CVS: Tachycardic approximately 110, Pulses normal. Normal S1 and S2, no murmurs Respiratory: No respiratory distress. Breath sounds normal. No Wheezing. No rales Abdomen: Soft and nontender. No rigidity. No distention. Skin: Skin warm and dry. Multiple needle track hardin in upper extremities Extremities: No lower extremity edema. Normal gait Neuro: Oriented X 3. No motor deficit. No sensory deficit. Moving all extermities. No slurred speech. No tremor visualized when the patient is talking and distracted, when the patient talks about her tremors they become obvious Course Course Course Narrative: I discussed labs patient opted follows with at this time, patient is resting comfortably, no tremors. Patient likely has a viral syndrome. However, if gentle patient's complains a very similar to her last visit. Possibly related to opiate withdrawal. Medical Decision Making Lab Data Result diagrams: 08/18/21 02:55 08/18/21 03:37 Labs: Lab Results 08/18/21 08/18/21 08/18/21 Range/Units 02:55 02:55 02:55 WBC 6.6 (4.8-10.8) X10*3/uL RBC 3.97 L (4.20-5.50) X10*6/uL Hgb 10.2 L (12.0-16.0) g/dl Hct 32.5 L (37.0-47.0) % MCV 81.9 (80.0-98.0) fL MCH 25.7 L (27.0-33.0) pg MCHC 31.4 (31.0-35.0) g/dl RDW 16.6 H (11.0-16.0) % Plt Count 386 (160-400) X10*3/uL MPV 9.6 (9.4-12.3) fL Immature Gran % (Auto) 0.5 H (0.0-0.4) % Neut % (Auto) 60.6 (45-73) % Lymph % (Auto) 30.5 (20-40) % [place] % (Auto) 5.8 (2-11) % Eos % (Auto) 2.1 (0-4) % Baso % (Auto) 0.5 (0-2) % Lymph # (Auto) 2.0 (1.2-4.9) X10*3/uL [place] # (Auto) 0.4 (0.1-1.2) X10*3/uL Eos # (Auto) 0.1 (0.0-0.4) X10*3/uL Baso # (Auto) 0.0 (0.0-0.2) X10*3/uL Abs Immat Gran (auto) 0.03 (0.00-0.03) X10*3/uL Absolute Neuts (auto) 4.0 (2.0-8.3) x10*3/uL Absolute Nucleated RBC 0.000 (0.0-0.012) X10*3/uL Nucleated RBC % (auto) 0.0 (0.0-0.2) /100WBC Sodium (135-145) mmol/L Potassium (3.3-5.1) mmol/L Chloride (96-108) mmol/L Carbon Dioxide (22-29) mmol/L Anion Gap (12-20) BUN (9-16) mg/dL Creatinine (0.5-1.4) mg/dL Estim Creat Clear Calc Estimated GFR Random Glucose (60-115) mg/dL Lactic Acid 0.7 (0.5-2.0) mmol/L Calcium (8.4-10.2) mg/dL Magnesium (1.6-2.6) mg/dL Total Bilirubin (0.0-1.0) mg/dL Direct Bilirubin (0.0-0.5) mg/dL AST (5-31) U/L ALT (0-31) U/L Alkaline Phosphatase (39-117) U/L Troponin I High Sens < 3.5 (<3.5-17.0) ng/L Total Protein (6.5-8.0) g/dL Albumin (3.5-5.0) g/dL Urine Color Urine Appearance Urine pH (5.0-8.0) Ur Specific [place] (1.005-1.025) Urine Protein (NEG-TRACE) MG/DL Urine Glucose (UA) (NEG) MG/DL Urine Ketones (NEG) MG/DL Urine Blood (NEG) Urine Nitrite (NEG) Ur Leukocyte Esterase (NEG) Urine Opiates Screen (Not Detect) Urine Fentanyl Screen (Not Detect) Ur Barbiturates Screen (Not Detect) Ur Phencyclidine Scrn (Not Detect) Ur Amphetamines Screen (Not Detect) U Benzodiazepines Scrn (Not Detect) Urine Cocaine Screen (Not Detect) U Marijuana (THC) Screen (Not Detect) Ethyl Alcohol mg/dL COVID-19 (JOE) (Negative) COVID-19 Clin Com S. pyogenes GrpA TONIA (Negative) 08/18/21 08/18/21 08/18/21 Range/Units 02:58 02:58 03:37 WBC (4.8-10.8) X10*3/uL RBC (4.20-5.50) X10*6/uL Hgb (12.0-16.0) g/dl Hct (37.0-47.0) % MCV (80.0-98.0) fL MCH (27.0-33.0) pg MCHC (31.0-35.0) g/dl RDW (11.0-16.0) % Plt Count (160-400) X10*3/uL MPV (9.4-12.3) fL Immature Gran % (Auto) (0.0-0.4) % Neut % (Auto) (45-73) % Lymph % (Auto) (20-40) % [place] % (Auto) (2-11) % Eos % (Auto) (0-4) % Baso % (Auto) (0-2) % Lymph # (Auto) (1.2-4.9) X10*3/uL [place] # (Auto) (0.1-1.2) X10*3/uL Eos # (Auto) (0.0-0.4) X10*3/uL Baso # (Auto) (0.0-0.2) X10*3/uL Abs Immat Gran (auto) (0.00-0.03) X10*3/uL Absolute Neuts (auto) (2.0-8.3) x10*3/uL Absolute Nucleated RBC (0.0-0.012) X10*3/uL Nucleated RBC % (auto) (0.0-0.2) /100WBC Sodium 136 (135-145) mmol/L Potassium 3.7 (3.3-5.1) mmol/L Chloride 103 (96-108) mmol/L Carbon Dioxide 27 (22-29) mmol/L Anion Gap 10 L (12-20) BUN 4 L (9-16) mg/dL Creatinine 0.65 (0.5-1.4) mg/dL Estim Creat Clear Calc 89.7 Estimated GFR > 60 Random Glucose 94 (60-115) mg/dL Lactic Acid (0.5-2.0) mmol/L Calcium 9.1 (8.4-10.2) mg/dL Magnesium 2.1 (1.6-2.6) mg/dL Total Bilirubin 0.6 (0.0-1.0) mg/dL Direct Bilirubin 0.2 (0.0-0.5) mg/dL AST 63 H (5-31) U/L ALT 36 H (0-31) U/L Alkaline Phosphatase 93 (39-117) U/L Troponin I High Sens (<3.5-17.0) ng/L Total Protein 7.6 (6.5-8.0) g/dL Albumin 3.5 (3.5-5.0) g/dL Urine Color Urine Appearance Urine pH (5.0-8.0) Ur Specific [place] (1.005-1.025) Urine Protein (NEG-TRACE) MG/DL Urine Glucose (UA) (NEG) MG/DL Urine Ketones (NEG) MG/DL Urine Blood (NEG) Urine Nitrite (NEG) Ur Leukocyte Esterase (NEG) Urine Opiates Screen (Not Detect) Urine Fentanyl Screen (Not Detect) Ur Barbiturates Screen (Not Detect) Ur Phencyclidine Scrn (Not Detect) Ur Amphetamines Screen (Not Detect) U Benzodiazepines Scrn (Not Detect) Urine Cocaine Screen (Not Detect) U Marijuana (THC) Screen (Not Detect) Ethyl Alcohol mg/dL COVID-19 (JOE) Negative (Negative) COVID-19 Clin Com See Note S. pyogenes GrpA TONIA Negative (Negative) 08/18/21 08/18/21 08/18/21 Range/Units 03:37 04:26 04:26 WBC (4.8-10.8) X10*3/uL RBC (4.20-5.50) X10*6/uL Hgb (12.0-16.0) g/dl Hct (37.0-47.0) % MCV (80.0-98.0) fL MCH (27.0-33.0) pg MCHC (31.0-35.0) g/dl RDW (11.0-16.0) % Plt Count (160-400) X10*3/uL MPV (9.4-12.3) fL Immature Gran % (Auto) (0.0-0.4) % Neut % (Auto) (45-73) % Lymph % (Auto) (20-40) % [place] % (Auto) (2-11) % Eos % (Auto) (0-4) % Baso % (Auto) (0-2) % Lymph # (Auto) (1.2-4.9) X10*3/uL [place] # (Auto) (0.1-1.2) X10*3/uL Eos # (Auto) (0.0-0.4) X10*3/uL Baso # (Auto) (0.0-0.2) X10*3/uL Abs Immat Gran (auto) (0.00-0.03) X10*3/uL Absolute Neuts (auto) (2.0-8.3) x10*3/uL Absolute Nucleated RBC (0.0-0.012) X10*3/uL Nucleated RBC % (auto) (0.0-0.2) /100WBC Sodium (135-145) mmol/L Potassium (3.3-5.1) mmol/L Chloride (96-108) mmol/L Carbon Dioxide (22-29) mmol/L Anion Gap (12-20) BUN (9-16) mg/dL Creatinine (0.5-1.4) mg/dL Estim Creat Clear Calc Estimated GFR Random Glucose (60-115) mg/dL Lactic Acid (0.5-2.0) mmol/L Calcium (8.4-10.2) mg/dL Magnesium (1.6-2.6) mg/dL Total Bilirubin (0.0-1.0) mg/dL Direct Bilirubin (0.0-0.5) mg/dL AST (5-31) U/L ALT (0-31) U/L Alkaline Phosphatase (39-117) U/L Troponin I High Sens (<3.5-17.0) ng/L Total Protein (6.5-8.0) g/dL Albumin (3.5-5.0) g/dL Urine Color STRAW Urine Appearance CLEAR Urine pH 7.0 (5.0-8.0) Ur Specific [place] <= 1.005 (1.005-1.025) Urine Protein NEG (NEG-TRACE) MG/DL Urine Glucose (UA) NEG (NEG) MG/DL Urine Ketones NEG (NEG) MG/DL Urine Blood NEG (NEG) Urine Nitrite NEG (NEG) Ur Leukocyte Esterase NEG (NEG) Urine Opiates Screen POSITIVE H (Not Detect) Urine Fentanyl Screen POSITIVE H (Not Detect) Ur Barbiturates Screen Not Detected (Not Detect) Ur Phencyclidine Scrn Not Detected (Not Detect) Ur Amphetamines Screen Not Detected (Not Detect) U Benzodiazepines Scrn Not Detected (Not Detect) Urine Cocaine Screen Not Detected (Not Detect) U Marijuana (THC) Screen Not Detected (Not Detect) Ethyl Alcohol < 10 mg/dL COVID-19 (JOE) (Negative) COVID-19 Clin Com S. pyogenes GrpA TONIA (Negative) Imaging Data Chest x-ray: Radiologist's impression: The lungs are well expanded. There is no focal consolidation, edema, or effusion. No pneumothorax. The cardiomediastinal silhouette is within normal limits. No acute osseous abnormality. XR/XR chest 1V IMPRESSION: No acute pulmonary finding. Discharge Plan Discharge Clinical Impression: Acute viral syndrome Patient Disposition: Home, Self-Care Instructions: Acute Nausea and Vomiting (ED) Additional Instructions: Please follow-up with your primary care physician tomorrow. If you have any worsening or new symptoms, please return to the emergency room or call 911 Prescriptions: No Action ibuprofen 800 mg tablet 800 mg PO TID PRN (Reason: pain) 10 Days Qty: 30 0RF buprenorphine-naloxone [Suboxone] 8-2 mg film 1 film sublingual DAILY 7 Days Qty: 7 0RF ondansetron 4 mg tablet,disintegrating 4 mg PO TID PRN (Reason: nausea and vomiting) 5 Days Qty: 10 0RF clonidine HCl 0.1 mg tablet 0.1 mg PO Q8H Qty: 5 0RF lactulose 20 gram/30 mL solution 20 g PO DAILY PRN (Reason: constipation) Qty: 120 0RF pantoprazole 40 mg tablet,delayed release (DR/EC) 1 tab PO DAILY 0RF gabapentin 100 mg capsule 100 mg PO TID 0RF cyclobenzaprine 5 mg tablet 1 tab PO TID PRN (Reason: Muscle Spasm) 0RF lisinopril 5 mg tablet 1 tab PO DAILY 0RF cholecalciferol (vitamin D3) 50 mcg (2,000 unit) tablet 1 tab PO DAILY 0RF verapamil 180 mg tablet extended release 1 tab PO DAILY 0RF clonidine HCl 0.1 mg tablet 0.1 mg PO TID PRN (Reason: Wihtdrawal) Qty: 6 0RF hydroxyzine HCl 25 mg tablet 25 mg PO TID PRN (Reason: anxiety) Qty: 7 0RF loperamide 2 mg capsule 2 mg PO Q6H PRN (Reason: loose stool) Qty: 6 0RF omeprazole 20 mg capsule,delayed release(DR/EC) 20 mg PO DAILY 30 Days Qty: 30 0RF clonidine HCl 0.2 mg tablet 0.2 mg PO Q6H PRN (Reason: opiate withdrawal) Qty: 20 0RF Senokot Extra Strength 17.2 mg tablet 17.2 mg PO BID PRN (Reason: constipation) Qty: 20 0RF polyethylene glycol 3350 [Miralax] 17 gram/dose powder 17 g PO DAILY Qty: 119 0RF
[2021-08-18] MEDS: 0.9 % Sodium Chloride 1,000 ML 999 ML IVCONT (03:04)
[2021-08-18 03:05] LABS: MANUAL DIFF FLAG NO
[2021-08-18 03:08] LABS: Basophils Percent Auto 0.5 % (0-2); Eosinophils Absolute Auto 0.1 X10*3/uL (0.0-0.4); Eosinophils Percent Auto 2.1 % (0-4); Hematocrit 32.5 % (37.0-47.0); Hemoglobin 10.2 g/dl (12.0-16.0); Imm Gran Abs Auto 0.03 X10*3/uL (0.00-0.03); Imm Gran Pct Auto 0.5 % (0.0-0.4); Lymphocytes Percent Auto 30.5 % (20-40); Mean Corpuscular HGB Conc 31.4 g/dl (31.0-35.0); Mean Corpuscular Hemoglobin 25.7 pg (27.0-33.0); Mean Corpuscular Volume 81.9 fL (80.0-98.0); Mean Platelet Volume 9.6 fL (9.4-12.3); Monocytes Absolute Auto 0.4 X10*3/uL (0.1-1.2); Monocytes Percent Auto 5.8 % (2-11); Neutrophils Percent Auto 60.6 % (45-73); Platelet Count 386 X10*3/uL (160-400); Red Blood Count 3.97 X10*6/uL (4.20-5.50); Red Cell Distribution Width 16.6 % (11.0-16.0); White Blood Count 6.6 X10*3/uL (4.8-10.8)
[2021-08-18 03:16] LABS: IDNOW Serial# 55D5AD1C; Strep A Nucleic Acid Negative (Negative)
[2021-08-18 03:23] LABS: COVID-19 Test Negative (Negative)
[2021-08-18 03:36] LABS: Lactic Acid 0.7 mmol/L (0.5-2.0)
--- NOTE | 2021-08-18 03:39 | PC.NURSE ---
in room for eval. pt refusing to chg into gown and wants to leave on shirt. IV inserted to LAC, labs drawn. Pt c/o pain to LAC and insisted IV be removed. IV inserted to RAC, NS up and running w/o site intact.
[2021-08-18 03:45] LABS: Troponin-I High Sensitivity < 3.5 ng/L (<3.5-17.0)
[2021-08-18 03:56] LABS: Ethanol < 10 mg/dL
[2021-08-18 04:05] LABS: Alanine Aminotransferase 36 U/L (0-31); Albumin Level 3.5 g/dL (3.5-5.0); Alkaline Phosphatase 93 U/L (39-117); Anion Gap 10 (12-20); Aspartate Amino Transferase 63 U/L (5-31); Bilirubin Direct 0.2 mg/dL (0.0-0.5); Bilirubin Total 0.6 mg/dL (0.0-1.0); Blood Urea Nitrogen 4 mg/dL (9-16); Calcium 9.1 mg/dL (8.4-10.2); Carbon Dioxide 27 mmol/L (22-29); Chloride 103 mmol/L (96-108); Creatinine Clr Calc Pharmacy 89.7; Estimated Glomerular Filt Rate > 60; Glucose Random 94 mg/dL (60-115); Magnesium 2.1 mg/dL (1.6-2.6); Potassium 3.7 mmol/L (3.3-5.1); Sodium 136 mmol/L (135-145); Total Protein 7.6 g/dL (6.5-8.0)
--- NOTE | 2021-08-18 04:24 | PC.NURSE ---
pt up to restroom with steady even gait.
[2021-08-18 04:31] LABS: Appearance Urine CLEAR; Color Urine STRAW; Glucose Urine UA NEG (NEG); Leukocyte Esterase Urine NEG (NEG); Nitrite Urine NEG (NEG); Specific Gravity - Urine <= 1.005 (1.005-1.025); Urine Blood NEG (NEG); Urine Ketones NEG (NEG); Urine Protein NEG (NEG-TRACE)
[2021-08-18 04:46] LABS: Amphetamine Screen Urine Not Detected (Not Detect); Barbiturates, Urine Not Detected (Not Detect); Benzodiazepines Screen Urine Not Detected (Not Detect); Cannabinoid Screen Urine Not Detected (Not Detect); Cocaine Screen Urine Not Detected (Not Detect); Fentanyl, urine POSITIVE (Not Detect); Opiate Screen Urine POSITIVE (Not Detect); Phencyclidine Screen Urine Not Detected (Not Detect)
== END 2021-08-18 05:17 | disposition home or self-care (01) ==
PROVIDERS: Emergency Provider Emergency Medicine
DX: B34.9 Viral infection, unspecified (principal); Z20.822 Contact with and (suspected) exposure to COVID-19; M79.10 Myalgia, unspecified site; F17.200 Nicotine dependence, unspecified, uncomplicated; F11.20 Opioid dependence, uncomplicated
CPT/HCPCS: 36415; 71045; 80048; 80076; 80307; 81003; 82077; 83605; 83735; 84484; 85025; 87040; 87635; 87651; 93005; 96360; 99283; 99284

== ENCOUNTER 2021-08-26 13:35 | Emergency (ER) | payer MEDICAID, SELFPAY ==
--- NOTE | 2021-08-26 | ECG_ITS ---
Test Reason : chest pain/ diff swallowing Blood Pressure : / mmHG Vent. Rate : 089 BPM Atrial Rate : 089 BPM P-R Int : 136 ms QRS Dur : 086 ms QT Int : 370 ms P-R-T Axes : 055 027 019 degrees QTc Int : 450 ms Normal sinus rhythm Normal ECG When compared with ECG of 18-AUG-2021 03:07, No significant change was found Referred By: Generic ED Physician Electronically Signed By:JOI FOX MD
--- NOTE | ~2021-08-26 | XR_ITS ---
EXAMINATION: XR CHEST CLINICAL INFORMATION: Chest pain COMPARISON: 08/18/2021 TECHNIQUE: Frontal view of the chest was obtained. FINDINGS: No significant abnormality is noted involving the heart, lungs, mediastinum, bony thorax or soft tissues. XR/XR chest 1V IMPRESSION: Unremarkable examination.
--- NOTE | ~2021-08-26 | XR_ITS ---
EXAMINATION: XR SOFT TISSUE NECK CLINICAL INDICATION: Difficulty swallowing. COMPARISON: Radiograph dated 12/10/2017 TECHNIQUE: 2 views of the soft tissue neck were obtained. FINDINGS: Soft tissue films of the neck demonstrate a normal larynx, pharynx and upper trachea. Epiglottis is normal in appearance. No soft tissue swelling or opaque foreign body is demonstrated. Prevertebral soft tissues are normal. Degenerative disc disease is evident at C5-C6. XR/XR soft tissue neck IMPRESSION: Normal radiographic assessment of the cervical soft tissues.
[2021-08-26 13:40] VITALS: BP 121/80; PULSE 104; RESP 22; TEMP 36.8; O2SAT 100; BMI 26.3
[2021-08-26 15:20] LABS: MANUAL DIFF FLAG NO
[2021-08-26 15:21] LABS: Basophils Percent Auto 0.3 % (0-2); Eosinophils Absolute Auto 0.1 X10*3/uL (0.0-0.4); Hematocrit 30.5 % (37.0-47.0); Hemoglobin 9.5 g/dl (12.0-16.0); Imm Gran Abs Auto 0.02 X10*3/uL (0.00-0.03); Imm Gran Pct Auto 0.3 % (0.0-0.4); Lymphocytes Absolute Auto 2.1 X10*3/uL (1.2-4.9); Lymphocytes Percent Auto 36.4 % (20-40); Mean Corpuscular HGB Conc 31.1 g/dl (31.0-35.0); Mean Corpuscular Volume 83.3 fL (80.0-98.0); Mean Platelet Volume 9.1 fL (9.4-12.3); Monocytes Absolute Auto 0.5 X10*3/uL (0.1-1.2); Monocytes Percent Auto 8.8 % (2-11); Neutrophils Absolute Auto 3.1 x10*3/uL (2.0-8.3); Neutrophils Percent Auto 53.2 % (45-73); Platelet Count 311 X10*3/uL (160-400); Red Blood Count 3.66 X10*6/uL (4.20-5.50); Red Cell Distribution Width 16.9 % (11.0-16.0); White Blood Count 5.8 X10*3/uL (4.8-10.8)
[2021-08-26 15:34] LABS: Anion Gap 10 (12-20); Blood Urea Nitrogen 5 mg/dL (9-16); Calcium 9.3 mg/dL (8.4-10.2); Carbon Dioxide 30 mmol/L (22-29); Chloride 100 mmol/L (96-108); Creatinine Clr Calc Pharmacy 76.4; Estimated Glomerular Filt Rate > 60; Glucose Random 92 mg/dL (60-115); Potassium 4.2 mmol/L (3.3-5.1); Sodium 136 mmol/L (135-145)
[2021-08-26 15:41] LABS: Troponin-I High Sensitivity < 3.5 ng/L (<3.5-17.0)
--- NOTE | 2021-08-26 20:10 | ED_ITS ---
HPI - Chest Pain General Chief Complaint: Chest Pain Stated Complaint: FEVER DIFF SWALLOWING Time Seen by Provider: 08/26/21 20:10 Source: patient Mode of arrival: ambulatory Limitations: no limitations History of Present Illness HPI narrative: This is a 41-year-old female past medical history significant for asthma, opiate use disorder presenting to the emergency department with multiple complaints. Today she is complaining of body aches and pains chest pain x1 day and difficulty swallowing x1 year. Patient tells me she feels slightly jittery. She has substernal chest pain that is intermittent lasting a few seconds, nonradiating, described as sharp. She tells me it is very uncomfortable. She also tells me that she is on methadone in today she used 2 bags of heroin IV. She tells me that chest pain started after she has the heroin. She tells me she feels terrible. She denies shortness of breath, nausea, vomiting, abdominal pain, fevers, chills. MD complaint: chest pain Onset (ago): day(s) (1) Timing of current episode: episodic Prior episodes: No Onset: associated with drug use (Her own) Pain location: substernal Pain radiation: none Severity: severe Quality: other ( stabbing ) Relieving factors: nothing Exacerbating factors: nothing Treatment prior to arrival: none Related Data Home Medications Medication Instructions Recorded Confirmed cholecalciferol (vitamin D3) 50 1 tab PO DAILY 07/02/21 08/26/21 mcg (2,000 unit) tablet ascorbic acid (vitamin C) 500 mg 1 tab PO DAILY 08/26/21 08/26/21 tablet (Vitamin C) clonidine HCl 0.1 mg tablet 1 tab PO BEDTIME PRN 08/26/21 08/26/21 cyclobenzaprine 5 mg tablet 1 tab PO TID PRN 08/26/21 08/26/21 docusate sodium 100 mg capsule 1 cap PO BID 08/26/21 08/26/21 ferrous sulfate 325 mg (65 mg 1 tab PO DAILY 08/26/21 08/26/21 iron) tablet nicotine (polacrilex) 4 mg gum 2 mg PO Q2H PRN 08/26/21 08/26/21 Previous Rx's Medication Instructions Recorded hydroxyzine HCl 25 mg tablet 25 mg PO TID PRN #7 tab 07/03/21 sennosides 17.2 mg tablet (Senokot 17.2 mg PO BID PRN #20 tab 07/26/21 Extra Strength) Allergies Allergy/AdvReac Type Severity Reaction Status Date / Time naproxen Allergy Intermediate nausea and Verified 08/08/21 01:33 vomiting Motrin Allergy Intermediate nausea and Uncoded 08/08/21 01:33 vomiting Review of Systems 2 Review of Systems: Constitutional : No Weight loss, No Fever, No Chills, No Fatigue, No Malaise ENT/Mouth : No sore throat, No Rhinorrhea, + difficulty swallowing Eyes: No Eye Pain, No Swelling, No Redness Cardiovascular : + Chest Pain, No SOB, No Dyspnea on Exertion, No Orthopnea, No Edema, No Palpitations Respiratory : No Cough, No Sputum, No Wheezing Gastrointestinal : No Nausea, No Vomiting, No Diarrhea, No Constipation, No abdominal Pain, No Hematochezia, No Melena Genitourinary : No Dysuria, No Urinary Frequency, No Hematuria, Musculoskeletal : No joint pain, No Myalgias, No Joint Swelling Skin : No Skin Lesions, No rash Neuro : No Weakness, No Numbness, No Dizziness, No Headache Psych : No Anxiety/Panic, No Depression All other systems reviewed and are negative Yes all other systems are reviewed and are negative [facility] Past Medical History Attestation statement: The following information was validated with the patient. Source: old records reviewed and nursing notes reviewed Medical History BRIE positive Asthma Dyspnea History of sleep disturbance Hx of anxiety disorder Opioid use disorder Surgical History History of colposcopy History of tubal ligation Hx of dilation and curettage Hx of excision of mass Social History Social History Alcohol intake: never Patient Tobacco Use Status: Current someday Tobacco user Tobacco use type: Cigarette Cigarettes Per Day: 2 Substance Use Type: Heroin Advance Directives: No Advance Directives Information Provided: No Patient : No Physical Exam 2 Vital Signs: Vital Signs: Last Vital Signs Temp 98.2 F 08/26/21 13:40 Pulse 95 08/26/21 20:18 Resp 16 08/26/21 20:18 BP 139/85 08/26/21 20:18 Pulse Ox 98 08/26/21 20:18 BMI result Body Mass Index 26.3 VSS Appearance: Alert.? Oriented X3.? No acute distress.? Head: Normocephalic, atraumatic, no step-offs or deformities Eyes: Pupils equal, round and reactive to light.? ENT: Pharynx normal.? Neck: Normal inspection.? Neck supple.? CVS: Normal heart rate and rhythm.? Pulses normal.? Respiratory: No respiratory distress.? Breath sounds normal.? Abdomen: Soft and nontender.? Skin: Skin warm and dry.? Normal skin color.? Normal skin turgor.? Extremities: No lower extremity edema.? No calf ttp. 5/5 strength to bilateral upper and lower extremities Back: No midline tenderness, no C-spine tenderness, full range of motion, no CVA tenderness bilaterally Neuro: Oriented X 3.? No motor deficit.? No sensory deficit. CN 2-12 intact Course Reevaluation(s) Reevaluation #1: Patient's CBC at baseline. No acute electrolyte abnormalities. Trop negative x2, ekg non ischmic. Ethanol negative. UA and urine tox pending. COVID pending. Time: 00:09 Reevaluation #2: Urine toxicology positive for opiates and fentanyl. Patient reports using opiates and methadone likely precipitated withdrawal. Patient also reported to pharmacy that she has not been taking her rapid [place] lisinopril in months and was asking if she could start taking them. They advised her to follow-up with her PCP since she has not been taking them for such a long time. I agree with this. Patient has been drinking fluids with no issues. Will have her follow-up with GI. At this time patient will be placed in physician observation to allow more time to be evaluated by the behavioral health team. At time the observation was started patient, cooperative no acute distress. Vital signs are stable. Time: 00:11 MDM - Chest Pain MDM Narrative Medical decision making narrative: 2021 41 yo female presents w/ chest pain, body ache x1 day and difficulty swallowing x1 year. To know while obtaining patient's history she is drinking orange juice with no issues. Physical examination benign Plan at this time is basic labs, imaging. Medical Records Data Attestation: I reviewed the patient's medical records. Lab Data Attestation: I reviewed the patient's lab results. Result diagrams: 08/26/21 15:14 08/26/21 15:14 Labs: Lab Results 08/26/21 08/26/21 08/26/21 Range/Units 15:14 15:14 15:14 WBC 5.8 (4.8-10.8) X10*3/uL RBC 3.66 L (4.20-5.50) X10*6/uL Hgb 9.5 L (12.0-16.0) g/dl Hct 30.5 L (37.0-47.0) % MCV 83.3 (80.0-98.0) fL MCH 26.0 L (27.0-33.0) pg MCHC 31.1 (31.0-35.0) g/dl RDW 16.9 H (11.0-16.0) % Plt Count 311 (160-400) X10*3/uL MPV 9.1 L (9.4-12.3) fL Immature Gran % (Auto) 0.3 (0.0-0.4) % Neut % (Auto) 53.2 (45-73) % Lymph % (Auto) 36.4 (20-40) % [place] % (Auto) 8.8 (2-11) % Eos % (Auto) 1.0 (0-4) % Baso % (Auto) 0.3 (0-2) % Lymph # (Auto) 2.1 (1.2-4.9) X10*3/uL [place] # (Auto) 0.5 (0.1-1.2) X10*3/uL Eos # (Auto) 0.1 (0.0-0.4) X10*3/uL Baso # (Auto) 0.0 (0.0-0.2) X10*3/uL Abs Immat Gran (auto) 0.02 (0.00-0.03) X10*3/uL Absolute Neuts (auto) 3.1 (2.0-8.3) x10*3/uL Absolute Nucleated RBC 0.000 (0.0-0.012) X10*3/uL Nucleated RBC % (auto) 0.0 (0.0-0.2) /100WBC Sodium 136 (135-145) mmol/L Potassium 4.2 (3.3-5.1) mmol/L Chloride 100 (96-108) mmol/L Carbon Dioxide 30 H (22-29) mmol/L Anion Gap 10 L (12-20) BUN 5 L (9-16) mg/dL Creatinine 0.75 (0.5-1.4) mg/dL Estim Creat Clear Calc 76.4 Estimated GFR > 60 Random Glucose 92 (60-115) mg/dL Calcium 9.3 (8.4-10.2) mg/dL Troponin I High Sens < 3.5 (<3.5-17.0) ng/L Urine Opiates Screen (Not Detect) Urine Fentanyl Screen (Not Detect) Ur Barbiturates Screen (Not Detect) Ur Phencyclidine Scrn (Not Detect) Ur Amphetamines Screen (Not Detect) U Benzodiazepines Scrn (Not Detect) Urine Cocaine Screen (Not Detect) U Marijuana (THC) Screen (Not Detect) Ethyl Alcohol mg/dL 08/26/21 08/26/21 08/26/21 Range/Units 20:26 20:46 23:16 WBC (4.8-10.8) X10*3/uL RBC (4.20-5.50) X10*6/uL Hgb (12.0-16.0) g/dl Hct (37.0-47.0) % MCV (80.0-98.0) fL MCH (27.0-33.0) pg MCHC (31.0-35.0) g/dl RDW (11.0-16.0) % Plt Count (160-400) X10*3/uL MPV (9.4-12.3) fL Immature Gran % (Auto) (0.0-0.4) % Neut % (Auto) (45-73) % Lymph % (Auto) (20-40) % [place] % (Auto) (2-11) % Eos % (Auto) (0-4) % Baso % (Auto) (0-2) % Lymph # (Auto) (1.2-4.9) X10*3/uL [place] # (Auto) (0.1-1.2) X10*3/uL Eos # (Auto) (0.0-0.4) X10*3/uL Baso # (Auto) (0.0-0.2) X10*3/uL Abs Immat Gran (auto) (0.00-0.03) X10*3/uL Absolute Neuts (auto) (2.0-8.3) x10*3/uL Absolute Nucleated RBC (0.0-0.012) X10*3/uL Nucleated RBC % (auto) (0.0-0.2) /100WBC Sodium (135-145) mmol/L Potassium (3.3-5.1) mmol/L Chloride (96-108) mmol/L Carbon Dioxide (22-29) mmol/L Anion Gap (12-20) BUN (9-16) mg/dL Creatinine (0.5-1.4) mg/dL Estim Creat Clear Calc Estimated GFR Random Glucose (60-115) mg/dL Calcium (8.4-10.2) mg/dL Troponin I High Sens < 3.5 (<3.5-17.0) ng/L Urine Opiates Screen POSITIVE H (Not Detect) Urine Fentanyl Screen POSITIVE H (Not Detect) Ur Barbiturates Screen Not Detected (Not Detect) Ur Phencyclidine Scrn Not Detected (Not Detect) Ur Amphetamines Screen Not Detected (Not Detect) U Benzodiazepines Scrn Not Detected (Not Detect) Urine Cocaine Screen Not Detected (Not Detect) U Marijuana (THC) Screen Not Detected (Not Detect) Ethyl Alcohol < 10 mg/dL ECG Data ECG #1: Attestation: I personally reviewed and interpreted this ECG as follows: ECG interpretation date: 08/27/21 ECG interpretation time: 00:09 Prior ECG tracings: available for review Interpretation: Ventricular rate of 89 WA normal, QRS normal, QT/QTC normal. EKG shows normal sinus rhythm no ST elevations or inversions concerning for ischemia. No changes when compared to 08/18/2021. Critical Care Time Critical Care Time Critical Care Time: No Discharge Plan Discharge Clinical Impression: Opiate dependence, Anxiety, Depression, Chest pain not due to acute coronary syndrome Patient Disposition: Still a Patient Prescriptions: No Action clonidine HCl 0.1 mg tablet 1 tab PO BEDTIME PRN (Reason: Insomnia) 0RF ascorbic acid (vitamin C) [Vitamin C] 500 mg tablet 1 tab PO DAILY 0RF nicotine (polacrilex) 4 mg gum 2 mg PO Q2H PRN (Reason: Nicotine Cravings) 0RF ferrous sulfate 325 mg (65 mg iron) tablet 1 tab PO DAILY 0RF docusate sodium 100 mg capsule 1 cap PO BID 0RF cyclobenzaprine 5 mg tablet 1 tab PO TID PRN (Reason: muscle pain) 0RF cholecalciferol (vitamin D3) 50 mcg (2,000 unit) tablet 1 tab PO DAILY 0RF hydroxyzine HCl 25 mg tablet 25 mg PO TID PRN (Reason: anxiety) Qty: 7 0RF Senokot Extra Strength 17.2 mg tablet 17.2 mg PO BID PRN (Reason: constipation) Qty: 20 0RF Referrals: Wan Cisneros [Physician] - 2 days Physician,Cheko Holloway [Primary Care Provider] - 2 days
[2021-08-26 20:18] VITALS: BP 139/85; PULSE 95; RESP 16; O2SAT 98
[2021-08-26 21:04] LABS: Ethanol < 10 mg/dL
[2021-08-26 21:06] LABS: Troponin-I High Sensitivity < 3.5 ng/L (<3.5-17.0)
[2021-08-26] MEDS: LORazepam 0.5 MG TABLET PO (21:36)
[2021-08-26] MEDS: diphenhydrAMINE HCL 25 MG TABLET PO (21:36)
--- NOTE | 2021-08-26 22:35 | PHA.MEDREC ---
Pharmacy Consult ? Medication Reconciliation Pharmacy has completed the medication reconciliation. Reviewed medications with patient. She hasnt taken her verapamil or lisinopril in months. I suggested following up with PCP tomorrow to figure out if she should still be taking those as well as sorting out her other medications. I also suggested once her meds are sorted out to visit her closest pharmacy and they can help her with best administration times and managing side effects.
[2021-08-26 23:37] LABS: Amphetamine Screen Urine Not Detected (Not Detect); Barbiturates, Urine Not Detected (Not Detect); Benzodiazepines Screen Urine Not Detected (Not Detect); Cannabinoid Screen Urine Not Detected (Not Detect); Cocaine Screen Urine Not Detected (Not Detect); Fentanyl, urine POSITIVE (Not Detect); Opiate Screen Urine POSITIVE (Not Detect); Phencyclidine Screen Urine Not Detected (Not Detect)
[2021-08-27] VITALS: RESP 16
--- NOTE | 2021-08-27 06:13 | PC.NURSE ---
Patient did not want to be woken up for vitals in the hours of 2am, 4am and 6am. Staff did attempt to take vitals.
[2021-08-27 07:36] VITALS: BP 127/83; PULSE 84; RESP 16; O2SAT 96
--- NOTE | 2021-08-27 08:01 | PC.NURSE ---
OK FOR DC PER PRIMARY RN. [PT AWAKE, ALERT AND ORIENTED X 3. SKIN WARM AND DRY. RESP UNLABORED. DENIES PAIN. WATCHING TV, TOLERATING PO FLUIDS/FOOD. PLAN IS FOR DC HOME.
== END 2021-08-27 08:02 | disposition home or self-care (01) ==
PROVIDERS: Physician Assistant; Emergency Provider Internal Medicine
DX: F11.24 Opioid dependence with opioid-induced mood disorder (principal); R07.89 Other chest pain; R50.9 Fever, unspecified; F41.1 Generalized anxiety disorder; R13.10 Dysphagia, unspecified; F43.0 Acute stress reaction; F17.210 Nicotine dependence, cigarettes, uncomplicated; Z71.6 Tobacco abuse counseling; Z79.899 Other long term (current) drug therapy; Z71.89 Other specified counseling
CPT/HCPCS: 36415; 70360; 71045; 80048; 80307; 82077; 84484; 85025; 93005; 99284; 99285; Q0163

== ENCOUNTER 2021-08-31 17:58 | Emergency (ER) | payer MEDICAID, SELFPAY ==
--- NOTE | 2021-08-31 | ECG_ITS ---
Test Reason : CHEST PAIN Blood Pressure : / mmHG Vent. Rate : 096 BPM Atrial Rate : 096 BPM P-R Int : 134 ms QRS Dur : 082 ms QT Int : 370 ms P-R-T Axes : 058 041 035 degrees QTc Int : 467 ms Normal sinus rhythm Normal ECG When compared with ECG of 26-AUG-2021 13:44, No significant change was found Referred By: Generic ED Physician Electronically Signed By:JOI FOX MD
--- NOTE | ~2021-08-31 | XR_ITS ---
EXAMINATION: PORTABLE CHEST 1 VIEW CLINICAL INFORMATION: CP/SOB . COMPARISON: 08/26/2021. TECHNIQUE: Portable frontal view of the chest was obtained. FINDINGS: The lungs are well expanded. No focal infiltrate, effusion, edema, or pneumothorax. Cardiac and mediastinal silhouettes are within normal limits for technique. No acute bony abnormality seen. XR/XR chest 1V IMPRESSION: No evidence of acute disease.
[2021-08-31 18:45] VITALS: BP 128/78; BP 140/92; PULSE 100; PULSE 97; RESP 18; TEMP 37.3; O2SAT 97; O2SAT 98; BMI 25.2
[2021-08-31 19:12] LABS: Hemoglobin 9.7 g/dl (12.0-16.0); Lymphocytes Absolute Auto 1.5 X10*3/uL (1.2-4.9); Mean Corpuscular Volume 82.6 fL (80.0-98.0); SCAN SMEAR FLAG 1
[2021-08-31 19:29] LABS: Anion Gap 11 (12-20); Blood Urea Nitrogen 4 mg/dL (9-16); Calcium 9.3 mg/dL (8.4-10.2); Carbon Dioxide 30 mmol/L (22-29); Chloride 98 mmol/L (96-108); Creatinine Clr Calc Pharmacy 82.6; Estimated Glomerular Filt Rate > 60; Glucose Random 75 mg/dL (60-115); Potassium 4.4 mmol/L (3.3-5.1); Sodium 135 mmol/L (135-145)
[2021-08-31 19:32] LABS: Basophils Percent Auto 0.2 % (0-2); Eosinophils Percent Auto 0.7 % (0-4); Hematocrit 31.3 % (37.0-47.0); Imm Gran Abs Auto 0.03 X10*3/uL (0.00-0.03); Imm Gran Pct Auto 0.5 % (0.0-0.4); Lymphocytes Percent Auto 26.2 % (20-40); MANUAL DIFF FLAG SCAN; Mean Corpuscular Hemoglobin 25.6 pg (27.0-33.0); Mean Platelet Volume 10.1 fL (9.4-12.3); Monocytes Absolute Auto 0.4 X10*3/uL (0.1-1.2); Monocytes Percent Auto 7.1 % (2-11); Neutrophils Absolute Auto 3.6 x10*3/uL (2.0-8.3); Neutrophils Percent Auto 65.3 % (45-73); Platelet Count 292 X10*3/uL (160-400); Red Blood Count 3.79 X10*6/uL (4.20-5.50); Red Cell Distribution Width 16.9 % (11.0-16.0); White Blood Count 5.5 X10*3/uL (4.8-10.8)
[2021-08-31 19:35] LABS: SLIDE REVIEW VERIFIED
--- NOTE | 2021-08-31 20:44 | HO.SUDE ---
CARE Team met with pt to offer SUDE and pt declined. Pt indicated that she would be interested in detox, substance use resources, and meeting with a call or contact centre coach.
[2021-08-31 20:51] LABS: Troponin-I High Sensitivity < 3.5 ng/L (<3.5-17.0)
[2021-08-31 23:09] VITALS: BP 137/87; PULSE 102; RESP 16; TEMP 36.8; O2SAT 98
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
[2021-08-31] MEDS: LORazepam 2 MG/ML VIAL 1 MG IVPUSH (23:26)
[2021-08-31] MEDS: ondansetron HCL 4 MG/2 ML VIAL IVPUSH (23:26)
[2021-08-31] MEDS: cloNIDine HCL 0.1 MG TABLET PO (23:26)
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
[2021-09-01 00:16] VITALS: BP 96/57; PULSE 87; RESP 14; O2SAT 94
[2021-09-01 01:30] VITALS: BP 100/62; PULSE 91; RESP 16; O2SAT 98
== END 2021-09-01 01:53 | disposition home or self-care (01) ==
PROVIDERS: Emergency Provider Emergency Medicine
DX: F41.9 Anxiety disorder, unspecified (principal); F11.20 Opioid dependence, uncomplicated; F17.200 Nicotine dependence, unspecified, uncomplicated
CPT/HCPCS: 36415; 71045; 80048; 84484; 85025; 93005; 96374; 96375; 99284; 99285; J2060; J2405

== ENCOUNTER 2021-09-02 15:55 | Emergency (ER) | payer MEDICAID, SELFPAY ==
--- NOTE | 2021-09-02 | ECG_ITS ---
Test Reason : CHEST PAIN Blood Pressure : / mmHG Vent. Rate : 095 BPM Atrial Rate : 095 BPM P-R Int : 134 ms QRS Dur : 080 ms QT Int : 362 ms P-R-T Axes : 063 032 020 degrees QTc Int : 454 ms Normal sinus rhythm Possible Left atrial enlargement Borderline ECG When compared with ECG of 31-AUG-2021 18:50, No significant change was found Referred By: Generic ED Physician Electronically Signed By:TRENT COFFEY
[2021-09-02 15:56] VITALS: BP 134/87; PULSE 100; RESP 19; TEMP 37.6; O2SAT 98; BMI 25.2
--- NOTE | 2021-09-02 18:53 | ED.GENADULT ---
HPI - General Adult General Chief complaint: ETOH/Substance Use Stated complaint: withdraw Time Seen by Provider: 09/02/21 18:45 History of Present Illness HPI narrative: Patient is a 41-year-old female with a history of heroin abuse. Patient is also on methadone program. She elected to stop using the heroin 2 days ago. Now as she is exclusively getting her methadone. Patient claims she is on 35 mg. She feels palpitation. No fever no chills is able to tolerate fluids. Patient claims she is now going through withdrawal and wants help. Patient also wants detox. No cough no congestion or upper respiratory symptoms no diaphoresis. Related Data Home Medications Medication Instructions Recorded Confirmed cholecalciferol (vitamin D3) 50 1 tab PO DAILY 07/02/21 08/26/21 mcg (2,000 unit) tablet ascorbic acid (vitamin C) 500 mg 1 tab PO DAILY 08/26/21 08/26/21 tablet (Vitamin C) clonidine HCl 0.1 mg tablet 1 tab PO BEDTIME PRN 08/26/21 08/26/21 cyclobenzaprine 5 mg tablet 1 tab PO TID PRN 08/26/21 08/26/21 docusate sodium 100 mg capsule 1 cap PO BID 08/26/21 08/26/21 ferrous sulfate 325 mg (65 mg 1 tab PO DAILY 08/26/21 08/26/21 iron) tablet nicotine (polacrilex) 4 mg gum 2 mg PO Q2H PRN 08/26/21 08/26/21 Previous Rx's Medication Instructions Recorded hydroxyzine HCl 25 mg tablet 25 mg PO TID PRN #7 tab 07/03/21 sennosides 17.2 mg tablet (Senokot 17.2 mg PO BID PRN #20 tab 07/26/21 Extra Strength) naloxone 4 mg/actuation nasal 4 mg INTRANASAL Q2M PRN #2 ea 09/01/21 spray (Narcan) Allergies Allergy/AdvReac Type Severity Reaction Status Date / Time naproxen Allergy Intermediate nausea and Verified 08/31/21 18:45 vomiting Motrin Allergy Intermediate nausea and Uncoded 08/08/21 01:33 vomiting Review of Systems Review of Systems: Positive achy all over No fever no chills No vomiting tolerating fluid Yes all other systems are reviewed and are negative [facility] Past Medical History Attestation statement: The following information was validated with the patient. Medical History BRIE positive Asthma Dyspnea History of sleep disturbance Hx of anxiety disorder Opioid use disorder Surgical History History of colposcopy History of tubal ligation Hx of dilation and curettage Hx of excision of mass Social History Social History Alcohol intake: never Patient Tobacco Use Status: Current someday Tobacco user Tobacco use type: Cigarette Cigarettes Per Day: 2 Substance Use Type: Opiates Advance Directives: No Advance Directives Information Provided: No Physical Exam ED Vital Signs: Vital Signs - 24 hr 09/02/21 15:56 Temperature 99.6 F Pulse Rate 100 Respiratory Rate 19 Blood Pressure 134/87 Pulse Oximetry 98 BMI result Body Mass Index 25.2 Appearance: Alert. Oriented X3. No acute distress. Eyes: Pupils equal, round and reactive to light. ENT: Pharynx normal. Neck: Normal inspection. Neck supple. No lymph nodes noted. No crepitus CVS: Normal heart rate and rhythm. Pulses normal. Normal S1 and S2 Respiratory: No respiratory distress. Breath sounds normal. No Wheezing. No rales Abdomen: Soft and nontender. No rigidity. No distention. good BS x4 Skin: Skin warm and dry. Normal skin color. Normal skin turgor. Extremities: No lower extremity edema. Neurovascular intact to all extremities. No Lacerations. No Rash Neuro: Oriented X 3. No motor deficit. No sensory deficit. Moving all extermities. No slurred speech Medical Decision Making MDM Narrative Medical decision making narrative: Patient's EKG showed a sinus pattern heart rate was 100 RI QRS QT within normal limits there is no acute ST segment elevation noted. She has a long history of heroin abuse now is on methadone. Periodically still using heroin despite being on the methadone. Patient claims she did not skip her dose of methadone. Will as substance abuse project manager/team coach to evaluate patient for possible detox program. Explained to patient the need to stop using heroin encourage sugar and acknowledges fact that she stopped for 2 days which is a good start. However she needs to continually stop using heroin. The fact that she is on methadone will alleviate some of the withdrawal symptoms. Patient is currently in stable condition. Patient evaluated by care team and also substance abuse coaching. Will discharge patient home. She is in stable condition. Discharge Plan Discharge Clinical Impression: Opioid use disorder Patient Disposition: Home, Self-Care Instructions: Narcotic Withdrawal (ED), Opioid Use Disorder (ED) Prescriptions: No Action clonidine HCl 0.1 mg tablet 1 tab PO BEDTIME PRN (Reason: Insomnia) 0RF ascorbic acid (vitamin C) [Vitamin C] 500 mg tablet 1 tab PO DAILY 0RF nicotine (polacrilex) 4 mg gum 2 mg PO Q2H PRN (Reason: Nicotine Cravings) 0RF ferrous sulfate 325 mg (65 mg iron) tablet 1 tab PO DAILY 0RF docusate sodium 100 mg capsule 1 cap PO BID 0RF cyclobenzaprine 5 mg tablet 1 tab PO TID PRN (Reason: muscle pain) 0RF naloxone [Narcan] 4 mg/actuation spray,non-aerosol 4 mg intranasal Q2M PRN (Reason: opioid overdose) Qty: 2 0RF Rx Instructions: spray 1 dose into ONE nostril; alternate nostrils w each dose until help arrives cholecalciferol (vitamin D3) 50 mcg (2,000 unit) tablet 1 tab PO DAILY 0RF hydroxyzine HCl 25 mg tablet 25 mg PO TID PRN (Reason: anxiety) Qty: 7 0RF Senokot Extra Strength 17.2 mg tablet 17.2 mg PO BID PRN (Reason: constipation) Qty: 20 0RF Referrals: Physician,Unknown J [Primary Care Provider] - 2 days (Please go to detox. Please stop using heroin. Using heroin can kill you.)
--- NOTE | 2021-09-02 19:15 | MHC.RECOVSUP ---
? Reason for consult Recovery Support o Current location: [facility]04 o Identified substance use concern: Heroin - Withdrawal - Seeking ATS (detox) - Support ? Intervention: <del>o</del> <del>ATS</del> <del>bed</del> <del>search</del> <del>started/completed/in</del> <del>process</del> <del>o</del> <del>MAT</del> <del>started</del> <del>or</del> <del>to</del> <del>be</del> <del>started</del> o Community resources provided o Harm reduction discussion ? Plan: o <del>Referral</del> <del>to</del> <del>[facility]</del> <del>o</del> <del>Bed</del> <del>search</del> <del>in</del> <del>progress</del> <del>to</del> <del>o</del> <del>Follow</del> <del>up</del> <del>tomorrow</del> <del>o</del> <del>Patient</del> <del>awaiting</del> <del>crisis</del> <del>evaluation</del> o Patient to follow up with [facility] after discharge ? Additional information: Met with patient and she ask for Help.. When I ask her what can i do to help her.. She stated that Her Chest Hurts, and that she is depressed.. Checked Detox just in case and there are no beds at the moment.. They said([facility] and [facility]) in the morning..Patient is asking for comfort meds
[2021-09-02 19:32] VITALS: BP 134/87; PULSE 100; RESP 19; TEMP 37; O2SAT 98
== END 2021-09-02 19:50 | disposition home or self-care (01) ==
PROVIDERS: Emergency Provider Emergency Medicine Emergency Medical Services
DX: F11.13 Opioid abuse with withdrawal (principal); R00.2 Palpitations; F17.210 Nicotine dependence, cigarettes, uncomplicated; Z71.6 Tobacco abuse counseling; Z71.51 Drug abuse counseling and surveillance of drug abuser; Z79.899 Other long term (current) drug therapy
CPT/HCPCS: 93005; 99285

== ENCOUNTER 2021-09-08 19:43 | Emergency (ER) | payer MEDICAID, SELFPAY ==
--- NOTE | 2021-09-08 | ECG_ITS ---
Test Reason : chest pain Blood Pressure : / mmHG Vent. Rate : 094 BPM Atrial Rate : 094 BPM P-R Int : 134 ms QRS Dur : 084 ms QT Int : 364 ms P-R-T Axes : 053 018 023 degrees QTc Int : 455 ms Normal sinus rhythm Normal ECG When compared with ECG of 02-SEP-2021 16:03, No significant change was found Referred By: Generic ED Physician Electronically Signed By:TRENT COFFEY
[2021-09-08 20:34] VITALS: BP 139/96; PULSE 114; RESP 20; TEMP 37.1; O2SAT 99; BMI 25.2
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
[2021-09-08] MEDS: LORazepam 1 MG TABLET 2 MG PO (21:36)
[2021-09-08 21:42] LABS: COVID-19 Test Negative (Negative); IDNOW Serial# 16C4AD1C
[2021-09-08 21:50] LABS: MANUAL DIFF FLAG NO
[2021-09-08 21:52] LABS: Basophils Percent Auto 0.5 % (0-2); Eosinophils Absolute Auto 0.2 X10*3/uL (0.0-0.4); Eosinophils Percent Auto 2.9 % (0-4); Imm Gran Abs Auto 0.02 X10*3/uL (0.00-0.03); Imm Gran Pct Auto 0.2 % (0.0-0.4); Lymphocytes Absolute Auto 2.9 X10*3/uL (1.2-4.9); Lymphocytes Percent Auto 36.4 % (20-40); Mean Corpuscular HGB Conc 30.6 g/dl (31.0-35.0); Mean Corpuscular Hemoglobin 25.9 pg (27.0-33.0); Mean Corpuscular Volume 84.7 fL (80.0-98.0); Mean Platelet Volume 9.5 fL (9.4-12.3); Monocytes Absolute Auto 0.6 X10*3/uL (0.1-1.2); Monocytes Percent Auto 7.6 % (2-11); Neutrophils Absolute Auto 4.2 x10*3/uL (2.0-8.3); Neutrophils Percent Auto 52.4 % (45-73); Platelet Count 406 X10*3/uL (160-400); Red Blood Count 4.25 X10*6/uL (4.20-5.50); Red Cell Distribution Width 17.4 % (11.0-16.0); SCAN SMEAR FLAG 1; White Blood Count 8.1 X10*3/uL (4.8-10.8)
[2021-09-08 21:53] LABS: Appearance Urine HAZY; Color Urine YELLOW; Glucose Urine UA NEG (NEG); Leukocyte Esterase Urine NEG (NEG); Nitrite Urine NEG (NEG); PH 6.5 (5.0-8.0); Specific Gravity - Urine <= 1.005 (1.005-1.025); Urine Blood NEG (NEG); Urine Ketones NEG (NEG); Urine Protein NEG (NEG-TRACE)
[2021-09-08 21:55] LABS: UPreg QC Valid YES; Urine Pregnancy NEGATIVE (NEGATIVE)
[2021-09-08 22:02] LABS: Amphetamine Screen Urine Not Detected (Not Detect); Barbiturates, Urine Not Detected (Not Detect); Benzodiazepines Screen Urine Not Detected (Not Detect); Cannabinoid Screen Urine Not Detected (Not Detect); Cocaine Screen Urine POSITIVE (Not Detect); Fentanyl, urine POSITIVE (Not Detect); Opiate Screen Urine POSITIVE (Not Detect); Phencyclidine Screen Urine Not Detected (Not Detect)
[2021-09-08 22:04] LABS: Ethanol < 10 mg/dL
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
[2021-09-08 22:06] LABS: Alanine Aminotransferase 45 U/L (0-31); Albumin Level 4.2 g/dL (3.5-5.0); Alkaline Phosphatase 96 U/L (39-117); Anion Gap 13 (12-20); Aspartate Amino Transferase 56 U/L (5-31); Bilirubin Direct 0.2 mg/dL (0.0-0.5); Bilirubin Total 0.4 mg/dL (0.0-1.0); Blood Urea Nitrogen 7 mg/dL (9-16); Calcium 9.8 mg/dL (8.4-10.2); Carbon Dioxide 28 mmol/L (22-29); Chloride 101 mmol/L (96-108); Estimated Glomerular Filt Rate > 60; Glucose Random 82 mg/dL (60-115); Magnesium 2.3 mg/dL (1.6-2.6); Potassium 4.5 mmol/L (3.3-5.1); Sodium 137 mmol/L (135-145); Total Protein 8.9 g/dL (6.5-8.0)
[2021-09-08 22:11] LABS: Troponin-I High Sensitivity 3.9 ng/L (<3.5-17.0)
[2021-09-09 00:20] VITALS: BP 130/83; PULSE 91; RESP 15; TEMP 37.4; O2SAT 100
[2021-09-09] MEDS: Cyclobenzaprine HCl 5 MG TABLET PO (01:43)
[2021-09-09] MEDS: diphenhydrAMINE HCL 25 MG TABLET 50 MG PO (01:44)
[2021-09-09] MEDS: Acetaminophen 325 MG TABLET 975 MG PO (01:44)
--- NOTE | 2021-09-09 05:14 | PC.NURSE ---
Patient slept through the night, patient was up once due to back pain, Tylenol 975 mg po administered with positive effect, patient met with classroom technology coach expressed disinterest for detox help, no disposition at this time, care team will see the patient in the morning, behavior non concerning, med rec completed/pending provider's approval, will continue to monitor
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
== END 2021-09-09 08:28 | disposition home or self-care (01) ==
PROVIDERS: Emergency Provider Emergency Medicine
DX: F41.9 Anxiety disorder, unspecified (principal); F19.10 Other psychoactive substance abuse, uncomplicated; F11.20 Opioid dependence, uncomplicated; F17.200 Nicotine dependence, unspecified, uncomplicated; Z20.822 Contact with and (suspected) exposure to COVID-19; Z72.89 Other problems related to lifestyle; Z69.11 Encounter for mental health services for victim of spousal or partner abuse; Z79.899 Other long term (current) drug therapy
CPT/HCPCS: 36415; 80048; 80076; 80307; 81003; 81025; 82077; 83735; 84484; 85025; 87635; 93005; 99284; Q0163

== ENCOUNTER 2021-09-09 20:26 | Emergency (ER) | payer MEDICAID, SELFPAY ==
[2021-09-09 20:39] VITALS: BP 130/100; PULSE 110; RESP 20; TEMP 36.8; O2SAT 99; BMI 25.2
--- NOTE | 2021-09-10 06:05 | PC.NURSE ---
pt checked on in the waiting room and is ambulating with steady gait, tremors to hands noted, pt used herion 9.30 hours ago. (pt used prior to arrival) nausea no vomiting.
[2021-09-10 06:28] VITALS: BP 136/103; PULSE 108; RESP 14; TEMP 36.8; O2SAT 97
--- NOTE | 2021-09-10 06:58 | ED.GENADULT ---
HPI - General Adult General Chief complaint: ETOH/Substance Use Stated complaint: crisis and detox Time Seen by Provider: 09/09/21 20:37 Source: patient Mode of arrival: ambulatory Limitations: no limitations History of Present Illness HPI narrative: 41-year-old female who presents emergency department requesting evaluation for detox and for chills, rhinorrhea, sore throat, chest pain, shortness of breath and abdominal pain. The patient states that she uses heroin daily. She states that he injects 1 bag up to 8 times a day. She last used yesterday at 18:00. She states that she is in a methadone program and gets 40 mg of methadone daily. She believes that the dose is not high not because she feels like she withdraws in the afternoon and has to use heroin. She states that this morning prior to coming to the emergency department she felt like she was withdrawing but she did get her methadone dose at 05:30 hours. She states that when she arrived in the emergency room she had 1 episode of vomiting. She had chills, body aches, rhinorrhea, sore throat, chest pain and shortness of breath. She denied diarrhea and states she has not moved her bowels in 2 days. She is not certain if the symptoms were secondary to her withdrawal were she was getting sick. She states that she is expecting her menstrual period and has been having lower abdominal cramping in the suprapubic area which is been intermittent, mild to moderate intensity for approximately 2-3 days. The patient was seen here in the emergency department on 09/08/2021. She states that she was having difficulty with her relationship, she had passive suicidal ideation at that time she was evaluated by crisis and the care team. She states that the care team advised her to continue with her outpatient methadone treatment program but she believes that this is not enough and is requesting re-evaluation for further assistance with her heroin use disorder. Related Data Home Medications Medication Instructions Recorded Confirmed ascorbic acid (vitamin C) 500 mg 1 tab PO DAILY 09/08/21 09/08/21 tablet (Vitamin C) clonidine HCl 0.1 mg tablet 1 tab PO BEDTIME PRN 09/08/21 09/08/21 cyclobenzaprine 5 mg tablet 1 tab PO TID PRN 09/08/21 09/08/21 docusate sodium 100 mg capsule 1 cap PO BID 09/08/21 09/08/21 ferrous sulfate 325 mg (65 mg 1 tab PO DAILY 09/08/21 09/08/21 iron) tablet gabapentin 100 mg capsule 2 cap PO TID 09/08/21 09/08/21 sennosides 8.6 mg tablet (senna) 2 tab PO DAILY PRN 09/08/21 09/08/21 verapamil 180 mg tablet,extended 1 tab PO DAILY 09/08/21 09/08/21 release Allergies Allergy/AdvReac Type Severity Reaction Status Date / Time naproxen Allergy Intermediate nausea and Verified 09/09/21 20:46 vomiting Motrin Allergy Intermediate nausea and Uncoded 09/09/21 20:46 vomiting Review of Systems Review of Systems: Yes all other systems are reviewed and are negative [facility] Past Medical History [facility] Narrative: Social history: Patient smokes 1 pack of cigarettes per day times 20 years. She denies alcohol use. She uses heroin daily, she is in a methadone treatment program. Medical History BRIE positive Asthma Dyspnea History of sleep disturbance Hx of anxiety disorder Opioid use disorder Surgical History History of colposcopy History of tubal ligation Hx of dilation and curettage Hx of excision of mass Social History Social History Alcohol intake: never Patient Tobacco Use Status: Current everyday Tobacco user Tobacco use type: Cigarette Cigarettes Per Day: 2 Use of substances other than those prescribed or required for medical reasons: Yes Substance Use Type: Heroin Substance Use Frequency: Daily Substance Use Frequency Other:: last used was yesterday at 1700 Advance Directives: No Advance Directives Information Provided: No Physical Exam ED Vital Signs: Vital Signs - 24 hr 09/09/21 20:39 09/10/21 06:28 09/10/21 08:13 Temperature 98.3 F 98.3 F Pulse Rate 110 H 108 H 91 Respiratory Rate 20 14 18 Blood Pressure 130/100 H 136/103 H 135/93 H Pulse Oximetry 99 97 97 BMI result Body Mass Index 25.2 Const General: cooperative and no acute distress Orientation/consciousness: oriented to person and oriented to place Limitations: no limitations HENMT Head: Yes normal to inspection, Yes normocephalic and Yes atraumatic Ears: external ears normal General nose exam: Normal external nose present Face and sinus: Yes normal facial exam Mouth: Normal oral and palatal mucosa present Throat: Yes posterior oropharynx normal Eyes General: appearance normal, both eyes and all related structures Pupils: Equal, round and reactive pupils present Neck Neck: Yes normal visual inspection, Yes no lymphadenopathy, Yes trachea midline and Yes supple Chest Chest palpation & inspection: normal inspection of the chest and normal palpation of entire chest wall Resp Effort & Inspection: normal respiratory effort and able to speak in complete sentences Auscultation: clear to auscultation bilaterally Cardio Rate: regular rate Rhythm: regular rhythm Heart sounds: S1 normal heart sound present, S2 normal heart sound present and no murmurs GI Inspection: Yes normal to inspection Palpation (GI): Soft to palpation, nontender and no guarding Auscultation: normal bowel sounds General: Yes no CVA tenderness Back/Spine/Pelvis Back: no CVA tenderness Skin General skin exam: no rashes or lesions noted Neuro General: oriented to person and oriented to place Cranial nerves: Yes CN's II-XII intact bilaterally and Yes Equal, round and reactive pupils present Cognition (Neuro): normal cognition Motor exam (neuro): 5/5 motor strength present throughout Extrem General: Yes normal to inspection Psych Appearance: grossly normal Speech and movement: Normal speech and movement present Affect: normal affect Attitude: cooperative Thought process: Normal thought process present Thought content: Normal thought content present Course Course Course Narrative: 41-year-old female who presents emergency department for evaluation for continue wound opiate use disorder. Patient is in a methadone program and she believes that her dose may not be high enough since she gets withdrawal symptoms in the afternoon and she states that she is continuing to use heroin 1 bag 8 times a day. The patient states that she she felt like she was withdrawing prior to coming to the emergency department but did get her methadone dose at 05:30 hours. Her symptoms included chills, rhinorrhea, sore throat, chest pain, shortness of breath, body aches, abdominal pain. She had 1 episode of vomiting in the emergency department she states she is currently feeling better. Vital signs on presentation revealed an elevated blood pressure of 130/100 and elevated pulse of 110 otherwise were unremarkable. Physical examination was unremarkable. I did order laboratory evaluation includes CBC, CMP, lipase, U tox, alcohol level, urinalysis and urine test. Patient will be treated with Toradol 30 mg IV, Zofran 4 mg IV and normal saline x1 L. will get a care team consult on the patient. 0940: Laboratory evaluation: Anemia with an H&H of 10.7 and 34.3, low sodium 138, elevated glucose 116, elevated AST and ALT 4135, elevated lipase 91, COVID was negative. Urine tox screen was not obtained since patient did not give us a urine sample. Patient is feeling better after the above treatment. She was seen by our care team provider, Lucius who states that he knows the patient well. The patient does have significant anxiety and his opinion was that the patient is not need any further treatment for her substance use disorder since she is currently receiving methadone. I did discuss this with the patient I told her she should discuss increasing her methadone dose with the methadone clinic since she is continuing to use opiates. The patient was discharged with a intranasal Narcan pack. Medical Decision Making Lab Data Result diagrams: 09/10/21 07:42 09/10/21 07:42 Labs: Lab Results 09/10/21 09/10/21 09/10/21 Range/Units 07:42 07:42 07:42 WBC 7.0 (4.8-10.8) X10*3/uL RBC 4.10 L (4.20-5.50) X10*6/uL Hgb 10.7 L (12.0-16.0) g/dl Hct 34.3 L (37.0-47.0) % MCV 83.7 (80.0-98.0) fL MCH 26.1 L (27.0-33.0) pg MCHC 31.2 (31.0-35.0) g/dl RDW 17.1 H (11.0-16.0) % Plt Count 366 (160-400) X10*3/uL MPV 9.2 L (9.4-12.3) fL Immature Gran % (Auto) 0.4 (0.0-0.4) % Neut % (Auto) 59.4 (45-73) % Lymph % (Auto) 30.2 (20-40) % [place] % (Auto) 6.3 (2-11) % Eos % (Auto) 3.1 (0-4) % Baso % (Auto) 0.6 (0-2) % Lymph # (Auto) 2.1 (1.2-4.9) X10*3/uL [place] # (Auto) 0.4 (0.1-1.2) X10*3/uL Eos # (Auto) 0.2 (0.0-0.4) X10*3/uL Baso # (Auto) 0.0 (0.0-0.2) X10*3/uL Abs Immat Gran (auto) 0.03 (0.00-0.03) X10*3/uL Absolute Neuts (auto) 4.2 (2.0-8.3) x10*3/uL Absolute Nucleated RBC 0.000 (0.0-0.012) X10*3/uL Nucleated RBC % (auto) 0.0 (0.0-0.2) /100WBC Smear Tech's Comments VERIFIED Sodium 134 L (135-145) mmol/L Potassium 4.1 (3.3-5.1) mmol/L Chloride 101 (96-108) mmol/L Carbon Dioxide 23 (22-29) mmol/L Anion Gap 14 (12-20) BUN 5 L (9-16) mg/dL Creatinine 0.69 (0.5-1.4) mg/dL Estim Creat Clear Calc 81.4 Estimated GFR > 60 Random Glucose 116 H (60-115) mg/dL Calcium 9.5 (8.4-10.2) mg/dL Total Bilirubin 0.5 (0.0-1.0) mg/dL AST 41 H (5-31) U/L ALT 35 H (0-31) U/L Alkaline Phosphatase 88 (39-117) U/L Total Protein 8.3 H (6.5-8.0) g/dL Albumin 3.9 (3.5-5.0) g/dL Lipase 91 H (8-78) U/L Ethyl Alcohol mg/dL COVID-19 (JOE) Negative (Negative) COVID-19 Clin Com See Note 09/10/21 Range/Units 07:42 WBC (4.8-10.8) X10*3/uL RBC (4.20-5.50) X10*6/uL Hgb (12.0-16.0) g/dl Hct (37.0-47.0) % MCV (80.0-98.0) fL MCH (27.0-33.0) pg MCHC (31.0-35.0) g/dl RDW (11.0-16.0) % Plt Count (160-400) X10*3/uL MPV (9.4-12.3) fL Immature Gran % (Auto) (0.0-0.4) % Neut % (Auto) (45-73) % Lymph % (Auto) (20-40) % [place] % (Auto) (2-11) % Eos % (Auto) (0-4) % Baso % (Auto) (0-2) % Lymph # (Auto) (1.2-4.9) X10*3/uL [place] # (Auto) (0.1-1.2) X10*3/uL Eos # (Auto) (0.0-0.4) X10*3/uL Baso # (Auto) (0.0-0.2) X10*3/uL Abs Immat Gran (auto) (0.00-0.03) X10*3/uL Absolute Neuts (auto) (2.0-8.3) x10*3/uL Absolute Nucleated RBC (0.0-0.012) X10*3/uL Nucleated RBC % (auto) (0.0-0.2) /100WBC Smear Tech's Comments Sodium (135-145) mmol/L Potassium (3.3-5.1) mmol/L Chloride (96-108) mmol/L Carbon Dioxide (22-29) mmol/L Anion Gap (12-20) BUN (9-16) mg/dL Creatinine (0.5-1.4) mg/dL Estim Creat Clear Calc Estimated GFR Random Glucose (60-115) mg/dL Calcium (8.4-10.2) mg/dL Total Bilirubin (0.0-1.0) mg/dL AST (5-31) U/L ALT (0-31) U/L Alkaline Phosphatase (39-117) U/L Total Protein (6.5-8.0) g/dL Albumin (3.5-5.0) g/dL Lipase (8-78) U/L Ethyl Alcohol < 10 mg/dL COVID-19 ([facility]) (Negative) COVID-19 Clin Com Discharge Plan Discharge Clinical Impression: Substance use disorder, Anxiety, Viral syndrome Patient Disposition: Home, Self-Care Instructions: Polysubstance Abuse (ED), Viral Syndrome (ED) Additional Instructions: Your blood work was unremarkable. You were evaluated by our care team counselor who recommended that you continue with your outpatient methadone treatment program. You should discuss increasing your methadone dose with the methadone clinic since you continue to use opiates (heroin/fentanyl) to see if if a higher dose well helps reduce your continued use. Your are being discharged home with intranasal Narcan. If you are going to continue to use heroin, you should make sure that there is a sober person with you that is not using drugs and that this person can administer intranasal Narcan in the event that you stop breathing. Follow-up with your doctor in 2 days. Please return to the emergency department if your symptoms get worse or if you develop any symptoms that are concerning to you. Prescriptions: No Action verapamil 180 mg tablet extended release 1 tab PO DAILY 0RF ascorbic acid (vitamin C) [Vitamin C] 500 mg tablet 1 tab PO DAILY 0RF ferrous sulfate 325 mg (65 mg iron) tablet 1 tab PO DAILY 0RF gabapentin 100 mg capsule 2 cap PO TID 0RF clonidine HCl 0.1 mg tablet 1 tab PO BEDTIME PRN (Reason: Anxiety) 0RF sennosides [senna] 8.6 mg tablet 2 tab PO DAILY PRN (Reason: constipation) 0RF cyclobenzaprine 5 mg tablet 1 tab PO TID PRN (Reason: muscle pain) 0RF docusate sodium 100 mg capsule 1 cap PO BID 0RF
[2021-09-10 07:50] LABS: Basophils Percent Auto 0.6 % (0-2); Eosinophils Absolute Auto 0.2 X10*3/uL (0.0-0.4); Eosinophils Percent Auto 3.1 % (0-4); Hematocrit 34.3 % (37.0-47.0); Hemoglobin 10.7 g/dl (12.0-16.0); Imm Gran Abs Auto 0.03 X10*3/uL (0.00-0.03); Imm Gran Pct Auto 0.4 % (0.0-0.4); Lymphocytes Absolute Auto 2.1 X10*3/uL (1.2-4.9); Lymphocytes Percent Auto 30.2 % (20-40); MANUAL DIFF FLAG SCAN; Mean Corpuscular HGB Conc 31.2 g/dl (31.0-35.0); Mean Corpuscular Hemoglobin 26.1 pg (27.0-33.0); Mean Corpuscular Volume 83.7 fL (80.0-98.0); Mean Platelet Volume 9.2 fL (9.4-12.3); Monocytes Absolute Auto 0.4 X10*3/uL (0.1-1.2); Monocytes Percent Auto 6.3 % (2-11); Neutrophils Absolute Auto 4.2 x10*3/uL (2.0-8.3); Neutrophils Percent Auto 59.4 % (45-73); Platelet Count 366 X10*3/uL (160-400); Red Cell Distribution Width 17.1 % (11.0-16.0); SCAN SMEAR FLAG 1
[2021-09-10 08:06] LABS: Ethanol < 10 mg/dL
[2021-09-10 08:10] LABS: Alanine Aminotransferase 35 U/L (0-31); Albumin Level 3.9 g/dL (3.5-5.0); Alkaline Phosphatase 88 U/L (39-117); Anion Gap 14 (12-20); Aspartate Amino Transferase 41 U/L (5-31); Bilirubin Total 0.5 mg/dL (0.0-1.0); Blood Urea Nitrogen 5 mg/dL (9-16); Calcium 9.5 mg/dL (8.4-10.2); Carbon Dioxide 23 mmol/L (22-29); Chloride 101 mmol/L (96-108); Creatinine Clr Calc Pharmacy 81.4; Estimated Glomerular Filt Rate > 60; Glucose Random 116 mg/dL (60-115); Lipase 91 U/L (8-78); Potassium 4.1 mmol/L (3.3-5.1); Sodium 134 mmol/L (135-145); Total Protein 8.3 g/dL (6.5-8.0)
[2021-09-10 08:12] LABS: SLIDE REVIEW VERIFIED
[2021-09-10 08:13] VITALS: BP 135/93; PULSE 91; RESP 18; O2SAT 97
[2021-09-10 08:14] LABS: COVID-19 Test Negative (Negative)
[2021-09-10] MEDS: Ondansetron ODT 4 MG TAB.RAPDIS TRANSLINGU (08:26)
[2021-09-10] MEDS: Ketorolac Tromethamine 15 MG/ML VIAL IVPUSH (08:32)
[2021-09-10] MEDS: 0.9 % Sodium Chloride 1,000 ML 999 ML IV (08:32)
--- NOTE | 2021-09-10 08:40 | PC.NURSE ---
hardeep at bedside speaking to pt
[2021-09-10] MEDS: Naloxone HCl Nasal TAKE HOME 4 MG SPRAY NOSTRILALT (10:02)
--- NOTE | 2021-09-10 10:02 | MHC.RECOVSUP ---
Recovery Support note: Patient is a 41 year old Maltese speaking female who presented to [facility] ED reporting heroin use and interest in detox. Patient is known to this verse writer from previous consultations. Patient reported to this verse writer that she does not want to go to detox due to not wanting to be away from home and having too many things to do in the near future. Patient is currently receiving methadone, 40mg, through [facility]. Education provided regarding methadone maintenance. Patient reports she is still experiencing cravings and is still using while on the methadone. Patient reports that her boyfriend is very controlling and that she is struggling with her anxiety and depression and panic attacks. Patient reports she recently reconnected with [facility] and that she hopes to get connected with a psychiatrist there as she feels her current anxiety medication is not helping. Discussed outpatient supports including [facility]. Patient accepted calendar of meetings for [facility]. Patient also provided with the contact number for this verse writer in the event that she has additional questions after discharge. Discussed case with ED physician and CARE Team.
== END 2021-09-10 10:07 | disposition home or self-care (01) ==
PROVIDERS: Emergency Provider Emergency Medicine Emergency Medical Services
DX: F11.23 Opioid dependence with withdrawal (principal); R45.851 Suicidal ideations; R06.02 Shortness of breath; J34.89 Other specified disorders of nose and nasal sinuses; R10.9 Unspecified abdominal pain; F17.210 Nicotine dependence, cigarettes, uncomplicated; Z20.822 Contact with and (suspected) exposure to COVID-19; Z71.6 Tobacco abuse counseling; Z79.899 Other long term (current) drug therapy
CPT/HCPCS: 80053; 82077; 83690; 85025; 87635; 96365; 96366; 99285; J1885

== ENCOUNTER 2021-09-12 20:55 | Emergency (ER) | payer MEDICAID, SELFPAY ==
--- NOTE | 2021-09-12 | ECG_ITS ---
Test Reason : CHEST PAIN Blood Pressure : / mmHG Vent. Rate : 086 BPM Atrial Rate : 086 BPM P-R Int : 136 ms QRS Dur : 080 ms QT Int : 380 ms P-R-T Axes : 049 025 025 degrees QTc Int : 454 ms Normal sinus rhythm Normal ECG When compared with ECG of 08-SEP-2021 20:37, No significant change was found Referred By: Generic ED Physician Electronically Signed By:JOI FOX MD
[2021-09-12 21:16] VITALS: BP 145/102; PULSE 110; RESP 20; TEMP 36.9; O2SAT 99; BMI 25.6
[2021-09-12 21:41] LABS: MANUAL DIFF FLAG NO
[2021-09-12 21:43] LABS: Basophils Percent Auto 0.6 % (0-2); Eosinophils Absolute Auto 0.2 X10*3/uL (0.0-0.4); Eosinophils Percent Auto 2.5 % (0-4); Hematocrit 31.9 % (37.0-47.0); Hemoglobin 9.9 g/dl (12.0-16.0); Imm Gran Abs Auto 0.01 X10*3/uL (0.00-0.03); Imm Gran Pct Auto 0.1 % (0.0-0.4); Lymphocytes Absolute Auto 2.6 X10*3/uL (1.2-4.9); Lymphocytes Percent Auto 37.3 % (20-40); Mean Corpuscular Hemoglobin 25.8 pg (27.0-33.0); Mean Corpuscular Volume 83.1 fL (80.0-98.0); Mean Platelet Volume 9.2 fL (9.4-12.3); Monocytes Absolute Auto 0.6 X10*3/uL (0.1-1.2); Monocytes Percent Auto 8.8 % (2-11); Neutrophils Absolute Auto 3.6 x10*3/uL (2.0-8.3); Neutrophils Percent Auto 50.7 % (45-73); Platelet Count 325 X10*3/uL (160-400); Red Blood Count 3.84 X10*6/uL (4.20-5.50); Red Cell Distribution Width 16.8 % (11.0-16.0); White Blood Count 7.1 X10*3/uL (4.8-10.8)
[2021-09-12 22:02] LABS: Alanine Aminotransferase 28 U/L (0-31); Albumin Level 3.8 g/dL (3.5-5.0); Alkaline Phosphatase 87 U/L (39-117); Anion Gap 13 (12-20); Aspartate Amino Transferase 31 U/L (5-31); Bilirubin Total 0.6 mg/dL (0.0-1.0); Blood Urea Nitrogen 5 mg/dL (9-16); Calcium 9.3 mg/dL (8.4-10.2); Carbon Dioxide 25 mmol/L (22-29); Chloride 99 mmol/L (96-108); Creatinine Clr Calc Pharmacy 76.5; Estimated Glomerular Filt Rate > 60; Glucose Random 106 mg/dL (60-115); Potassium 4.2 mmol/L (3.3-5.1); Sodium 133 mmol/L (135-145); Total Protein 7.9 g/dL (6.5-8.0)
[2021-09-12 22:08] LABS: Troponin-I High Sensitivity < 3.5 ng/L (<3.5-17.0)
--- NOTE | 2021-09-12 23:35 | ED.GENADULT ---
HPI - General Adult General Chief complaint: General Medical Stated complaint: Crisis, chest tightness Time Seen by Provider: 09/12/21 22:09 Source: patient Mode of arrival: ambulatory Limitations: no limitations History of Present Illness HPI narrative: Patient comes to the emergency room requesting to be seen by the care team. Initially, patient reports sore throat, chest pain, bowel problems, patient states they are all chronic, ongoing for several months. Patient states that she needs help and cannot live like this. However, patient denies suicidal or homicidal ideation. Patient has been evaluated multiple times in the emergency room for similar reasons. Patient is currently on methadone, unable to stop using heroin, states she is trying. Related Data Home Medications Medication Instructions Recorded Confirmed ascorbic acid (vitamin C) 500 mg 1 tab PO DAILY 09/08/21 09/13/21 tablet (Vitamin C) clonidine HCl 0.1 mg tablet 1 tab PO BEDTIME PRN 09/08/21 09/13/21 cyclobenzaprine 5 mg tablet 1 tab PO TID PRN 09/08/21 09/13/21 docusate sodium 100 mg capsule 1 cap PO BID 09/08/21 09/13/21 ferrous sulfate 325 mg (65 mg 1 tab PO DAILY 09/08/21 09/13/21 iron) tablet gabapentin 100 mg capsule 2 cap PO TID 09/08/21 09/13/21 sennosides 8.6 mg tablet (senna) 2 tab PO DAILY PRN 09/08/21 09/13/21 verapamil 180 mg tablet,extended 1 tab PO DAILY 09/08/21 09/13/21 release Allergies Allergy/AdvReac Type Severity Reaction Status Date / Time naproxen Allergy Intermediate nausea and Verified 09/09/21 20:46 vomiting Motrin Allergy Intermediate nausea and Uncoded 09/09/21 20:46 vomiting Review of Systems Review of Systems: Constitutional : Denies fever chills, complaining of generalized malaise chronically ENT/Mouth : No Hearing loss, No Ear Pain, complaining of chronic nasal congestion, chronic hoarseness Eyes: No Eye Pain, No Swelling, No Redness, No Foreign Body, No Discharge, No Vision Changes Cardiovascular : Complaining of chronic Chest Pain, No SOB, No Dyspnea on Exertion, No Orthopnea, No Edema, No Palpitations Respiratory : No Cough, No Sputum, No Wheezing, No Smoke Exposure, No Dyspnea Gastrointestinal : No Nausea, No Vomiting, No Diarrhea, No Constipation, complaining of chronic abdominal discomfort Genitourinary : no irregular bleeding, No Dysuria, No Urinary Frequency, No Hematuria, No Urinary Incontinence, No Urgency, No Flank Pain, No Urinary Flow Changes, No Hesitancy Musculoskeletal : No joint pain, No Myalgias, No Joint Swelling Skin : No Skin Lesions, No rash Neuro : No Weakness, No Numbness, No Paresthesias, No Loss of Consciousness, No Dizziness, No Headache Psych : No Anxiety/Panic, No Depression, No SI/HI/AH/VH, No Social Issues, Heme/Lymph: No Bruising, No Bleeding,No Lymphadenopathy Endocrine : No Polyuria, No Polydipsia, No Temperature Intolerance PMFSH Past Medical History Medical History BRIE positive Asthma Dyspnea History of sleep disturbance Hx of anxiety disorder Opioid use disorder Surgical History History of colposcopy History of tubal ligation Hx of dilation and curettage Hx of excision of mass Social History Social History Alcohol intake: never Patient Tobacco Use Status: Current everyday Tobacco user Tobacco use type: Cigarette Cigarettes Per Day: 2 Substance Use Type: Heroin Advance Directives: No Advance Directives Information Provided: Yes Physical Exam ED Vital Signs: Vital Signs - 24 hr 09/12/21 21:16 09/13/21 05:31 Temperature 98.4 F 98.6 F Pulse Rate 110 H 108 H Respiratory Rate 20 18 Blood Pressure 145/102 H 118/85 Pulse Oximetry 99 98 BMI result Body Mass Index 25.6 Course Course Course Narrative: At this time, all of medicals present complaints are chronic. Patient was offered a crisis evaluation, which she accepted. Patient will be taking to the behavior Health pod. Patient agreeable. Urinalysis pending. Physician observationally started at 23:[address] out [address] Dr[address] Koo Medical Decision Making Lab Data Result diagrams: 09/12/21 21:35 09/12/21 21:35 Labs: Lab Results 09/12/21 09/12/21 09/12/21 Range/Units 21:35 21:35 21:35 WBC 7.1 (4.8-10.8) X10*3/uL RBC 3.84 L (4.20-5.50) X10*6/uL Hgb 9.9 L (12.0-16.0) g/dl Hct 31.9 L (37.0-47.0) % MCV 83.1 (80.0-98.0) fL MCH 25.8 L (27.0-33.0) pg MCHC 31.0 (31.0-35.0) g/dl RDW 16.8 H (11.0-16.0) % Plt Count 325 (160-400) X10*3/uL MPV 9.2 L (9.4-12.3) fL Immature Gran % (Auto) 0.1 (0.0-0.4) % Neut % (Auto) 50.7 (45-73) % Lymph % (Auto) 37.3 (20-40) % [place] % (Auto) 8.8 (2-11) % Eos % (Auto) 2.5 (0-4) % Baso % (Auto) 0.6 (0-2) % Lymph # (Auto) 2.6 (1.2-4.9) X10*3/uL [place] # (Auto) 0.6 (0.1-1.2) X10*3/uL Eos # (Auto) 0.2 (0.0-0.4) X10*3/uL Baso # (Auto) 0.0 (0.0-0.2) X10*3/uL Abs Immat Gran (auto) 0.01 (0.00-0.03) X10*3/uL Absolute Neuts (auto) 3.6 (2.0-8.3) x10*3/uL Absolute Nucleated RBC 0.000 (0.0-0.012) X10*3/uL Nucleated RBC % (auto) 0.0 (0.0-0.2) /100WBC Sodium 133 L (135-145) mmol/L Potassium 4.2 (3.3-5.1) mmol/L Chloride 99 (96-108) mmol/L Carbon Dioxide 25 (22-29) mmol/L Anion Gap 13 (12-20) BUN 5 L (9-16) mg/dL Creatinine 0.74 (0.5-1.4) mg/dL Estim Creat Clear Calc 76.5 Estimated GFR > 60 Random Glucose 106 (60-115) mg/dL Calcium 9.3 (8.4-10.2) mg/dL Total Bilirubin 0.6 (0.0-1.0) mg/dL AST 31 (5-31) U/L ALT 28 (0-31) U/L Alkaline Phosphatase 87 (39-117) U/L Troponin I High Sens < 3.5 (<3.5-17.0) ng/L Total Protein 7.9 (6.5-8.0) g/dL Albumin 3.8 (3.5-5.0) g/dL Urine Color Urine Appearance Urine pH (5.0-8.0) Ur Specific [place] (1.005-1.025) Urine Protein (NEG-TRACE) MG/DL Urine Glucose (UA) (NEG) MG/DL Urine Ketones (NEG) MG/DL Urine Blood (NEG) Urine Nitrite (NEG) Ur Leukocyte Esterase (NEG) Urine RBC (0) /HPF Urine WBC (0-4) /HPF Ur Squamous Epith Cells /LPF Urine Bacteria /LPF Urine Test (NEGATIVE) Urine Opiates Screen (Not Detect) Urine Fentanyl Screen (Not Detect) Ur Barbiturates Screen (Not Detect) Ur Phencyclidine Scrn (Not Detect) Ur Amphetamines Screen (Not Detect) U Benzodiazepines Scrn (Not Detect) Urine Cocaine Screen (Not Detect) U Marijuana (THC) Screen (Not Detect) COVID-19 (JOE) (Negative) COVID-19 Clin Com 09/12/21 09/13/21 09/13/21 Range/Units 23:57 00:04 00:04 WBC (4.8-10.8) X10*3/uL RBC (4.20-5.50) X10*6/uL Hgb (12.0-16.0) g/dl Hct (37.0-47.0) % MCV (80.0-98.0) fL MCH (27.0-33.0) pg MCHC (31.0-35.0) g/dl RDW (11.0-16.0) % Plt Count (160-400) X10*3/uL MPV (9.4-12.3) fL Immature Gran % (Auto) (0.0-0.4) % Neut % (Auto) (45-73) % Lymph % (Auto) (20-40) % [place] % (Auto) (2-11) % Eos % (Auto) (0-4) % Baso % (Auto) (0-2) % Lymph # (Auto) (1.2-4.9) X10*3/uL [place] # (Auto) (0.1-1.2) X10*3/uL Eos # (Auto) (0.0-0.4) X10*3/uL Baso # (Auto) (0.0-0.2) X10*3/uL Abs Immat Gran (auto) (0.00-0.03) X10*3/uL Absolute Neuts (auto) (2.0-8.3) x10*3/uL Absolute Nucleated RBC (0.0-0.012) X10*3/uL Nucleated RBC % (auto) (0.0-0.2) /100WBC Sodium (135-145) mmol/L Potassium (3.3-5.1) mmol/L Chloride (96-108) mmol/L Carbon Dioxide (22-29) mmol/L Anion Gap (12-20) BUN (9-16) mg/dL Creatinine (0.5-1.4) mg/dL Estim Creat Clear Calc Estimated GFR Random Glucose (60-115) mg/dL Calcium (8.4-10.2) mg/dL Total Bilirubin (0.0-1.0) mg/dL AST (5-31) U/L ALT (0-31) U/L Alkaline Phosphatase (39-117) U/L Troponin I High Sens (<3.5-17.0) ng/L Total Protein (6.5-8.0) g/dL Albumin (3.5-5.0) g/dL Urine Color STRAW Urine Appearance HAZY Urine pH 5.5 (5.0-8.0) Ur Specific [place] <= 1.005 (1.005-1.025) Urine Protein NEG (NEG-TRACE) MG/DL Urine Glucose (UA) NEG (NEG) MG/DL Urine Ketones NEG (NEG) MG/DL Urine Blood 2+ H (NEG) Urine Nitrite NEG (NEG) Ur Leukocyte Esterase NEG (NEG) Urine RBC 1-4 (0) /HPF Urine WBC 0-2 (0-4) /HPF Ur Squamous Epith Cells 3+ /LPF Urine Bacteria 1+ /LPF Urine Test (NEGATIVE) Urine Opiates Screen POSITIVE H (Not Detect) Urine Fentanyl Screen POSITIVE H (Not Detect) Ur Barbiturates Screen Not Detected (Not Detect) Ur Phencyclidine Scrn Not Detected (Not Detect) Ur Amphetamines Screen Not Detected (Not Detect) U Benzodiazepines Scrn Not Detected (Not Detect) Urine Cocaine Screen POSITIVE H (Not Detect) U Marijuana (THC) Screen Not Detected (Not Detect) COVID-19 (JOE) Negative (Negative) COVID-19 Clin Com See Note 09/13/21 Range/Units 00:04 WBC (4.8-10.8) X10*3/uL RBC (4.20-5.50) X10*6/uL Hgb (12.0-16.0) g/dl Hct (37.0-47.0) % MCV (80.0-98.0) fL MCH (27.0-33.0) pg MCHC (31.0-35.0) g/dl RDW (11.0-16.0) % Plt Count (160-400) X10*3/uL MPV (9.4-12.3) fL Immature Gran % (Auto) (0.0-0.4) % Neut % (Auto) (45-73) % Lymph % (Auto) (20-40) % [place] % (Auto) (2-11) % Eos % (Auto) (0-4) % Baso % (Auto) (0-2) % Lymph # (Auto) (1.2-4.9) X10*3/uL [place] # (Auto) (0.1-1.2) X10*3/uL Eos # (Auto) (0.0-0.4) X10*3/uL Baso # (Auto) (0.0-0.2) X10*3/uL Abs Immat Gran (auto) (0.00-0.03) X10*3/uL Absolute Neuts (auto) (2.0-8.3) x10*3/uL Absolute Nucleated RBC (0.0-0.012) X10*3/uL Nucleated RBC % (auto) (0.0-0.2) /100WBC Sodium (135-145) mmol/L Potassium (3.3-5.1) mmol/L Chloride (96-108) mmol/L Carbon Dioxide (22-29) mmol/L Anion Gap (12-20) BUN (9-16) mg/dL Creatinine (0.5-1.4) mg/dL Estim Creat Clear Calc Estimated GFR Random Glucose (60-115) mg/dL Calcium (8.4-10.2) mg/dL Total Bilirubin (0.0-1.0) mg/dL AST (5-31) U/L ALT (0-31) U/L Alkaline Phosphatase (39-117) U/L Troponin I High Sens (<3.5-17.0) ng/L Total Protein (6.5-8.0) g/dL Albumin (3.5-5.0) g/dL Urine Color Urine Appearance Urine pH (5.0-8.0) Ur Specific [place] (1.005-1.025) Urine Protein (NEG-TRACE) MG/DL Urine Glucose (UA) (NEG) MG/DL Urine Ketones (NEG) MG/DL Urine Blood (NEG) Urine Nitrite (NEG) Ur Leukocyte Esterase (NEG) Urine RBC (0) /HPF Urine WBC (0-4) /HPF Ur Squamous Epith Cells /LPF Urine Bacteria /LPF Urine Test NEGATIVE (NEGATIVE) Urine Opiates Screen (Not Detect) Urine Fentanyl Screen (Not Detect) Ur Barbiturates Screen (Not Detect) Ur Phencyclidine Scrn (Not Detect) Ur Amphetamines Screen (Not Detect) U Benzodiazepines Scrn (Not Detect) Urine Cocaine Screen (Not Detect) U Marijuana (THC) Screen (Not Detect) COVID-19 (JOE) (Negative) COVID-19 Clin Com Discharge Plan Discharge Clinical Impression: Anxiety Patient Disposition: Still a Patient Prescriptions: No Action verapamil 180 mg tablet extended release 1 tab PO DAILY 0RF ascorbic acid (vitamin C) [Vitamin C] 500 mg tablet 1 tab PO DAILY 0RF ferrous sulfate 325 mg (65 mg iron) tablet 1 tab PO DAILY 0RF gabapentin 100 mg capsule 2 cap PO TID 0RF clonidine HCl 0.1 mg tablet 1 tab PO BEDTIME PRN (Reason: Anxiety) 0RF sennosides [senna] 8.6 mg tablet 2 tab PO DAILY PRN (Reason: constipation) 0RF cyclobenzaprine 5 mg tablet 1 tab PO TID PRN (Reason: muscle pain) 0RF docusate sodium 100 mg capsule 1 cap PO BID 0RF
[2021-09-13] MEDS: polyethylene glycoL 3350 17 GM POWD.PACK PO (00:09)
[2021-09-13 00:13] LABS: Appearance Urine HAZY; Color Urine STRAW; Glucose Urine UA NEG (NEG); Leukocyte Esterase Urine NEG (NEG); Nitrite Urine NEG (NEG); PH 5.5 (5.0-8.0); Specific Gravity - Urine <= 1.005 (1.005-1.025); UACC Culture Trigger NO; Urine Blood 2+ (NEG); Urine Ketones NEG (NEG); Urine Protein NEG (NEG-TRACE)
[2021-09-13 00:14] LABS: UPreg QC Valid YES; Urine Pregnancy NEGATIVE (NEGATIVE)
[2021-09-13 00:25] LABS: COVID-19 Test Negative (Negative); IDNOW Serial# 08D9AD1C
[2021-09-13 00:27] LABS: Bacteria Urine 1+ /LPF; Squamous Epithelial Cell Urine 3+ /LPF; WBC Urine 0-2 /HPF (0-4)
[2021-09-13 00:30] LABS: Amphetamine Screen Urine Not Detected (Not Detect); Barbiturates, Urine Not Detected (Not Detect); Benzodiazepines Screen Urine Not Detected (Not Detect); Cannabinoid Screen Urine Not Detected (Not Detect); Cocaine Screen Urine POSITIVE (Not Detect); Fentanyl, urine POSITIVE (Not Detect); Opiate Screen Urine POSITIVE (Not Detect); Phencyclidine Screen Urine Not Detected (Not Detect)
[2021-09-13] MEDS: LORazepam 1 MG TABLET 2 MG PO (01:08)
[2021-09-13 05:31] VITALS: BP 118/85; PULSE 108; RESP 18; TEMP 37; O2SAT 98
--- NOTE | 2021-09-13 05:33 | PC.NURSE ---
Patient slept through the night, administered Ativan 2 mg PO at 0108 for comfort with + effect, compliant of constipation, Miralax administered pending effect, behavior appropriate, med rec completed/pending provider's approval, patient will be assessed by pyridine recovery operator for detox help, VSS, will continue to monitor.
--- NOTE | 2021-09-13 07:10 | PC.NURSE ---
Care assumed at this time, report from Carlos CHAUDHARY. Pt sleeping at this time, resp reg and even, NAD. Awaiting CARE team eval.
[2021-09-13 08:15] VITALS: BP 123/83; PULSE 83; RESP 12; TEMP 36.7; O2SAT 98
--- NOTE | 2021-09-13 08:45 | MHC.CARE ---
Risk Assessment: Pt is requesting to be referred to detox. Pt denies current SI/HI/VH/AH. Pt is advocating for treatment for her substance use. CARE Team discussed plan with Dr. Koo Plan for Pt to be referred to Recovery Team for placement into detox.
[2021-09-13] MEDS: methADONE HCl 20 MG/2 ML ORAL.CONC 50 MG PO (10:02)
--- NOTE | 2021-09-13 14:41 | MHC.RECOVRN ---
Pt declined bed at [facility]. Pt was not accepted to [facility]. [facility] declined pt due to MOUD.
[2021-09-13] MEDS: hydrOXYzine HCL 25 MG TABLET PO ×2 (15:06→20:43)
[2021-09-13] MEDS: Cyclobenzaprine HCl 5 MG TABLET PO (15:34)
[2021-09-13] MEDS: Acetaminophen 325 MG TABLET 650 MG PO (15:34)
--- NOTE | 2021-09-13 16:47 | PC.NURSE ---
Detox bedsearch exhausted, plan to resume in the morning.
[2021-09-13] MEDS: cloNIDine HCL 0.1 MG TABLET PO (20:43)
== END 2021-09-13 20:49 | disposition home or self-care (01) ==
PROVIDERS: Emergency Provider Emergency Medicine
DX: R07.89 Other chest pain (principal); J02.8 Acute pharyngitis due to other specified organisms; F41.1 Generalized anxiety disorder; F43.0 Acute stress reaction; F11.90 Opioid use, unspecified, uncomplicated; F17.210 Nicotine dependence, cigarettes, uncomplicated; Z20.822 Contact with and (suspected) exposure to COVID-19; Z79.899 Other long term (current) drug therapy; Z71.6 Tobacco abuse counseling
CPT/HCPCS: 36415; 80053; 80307; 81001; 81025; 84484; 85025; 87635; 93005; 99284

== ENCOUNTER 2021-09-14 23:57 | Emergency (ER) | payer MEDICAID, SELFPAY ==
[2021-09-14 23:59] VITALS: BP 141/90; PULSE 107; RESP 20; TEMP 37.5; O2SAT 100; BMI 25.2
[2021-09-15 03:23] VITALS: BP 120/74; PULSE 95; RESP 18; O2SAT 98
--- NOTE | 2021-09-15 03:57 | ED.PSYCH ---
HPI - Psych General Chief Complaint: ETOH/Substance Use Stated Complaint: detox; chest & neck pain Time Seen by Provider: 09/15/21 03:53 Source: patient Mode of arrival: ambulatory Limitations: no limitations History of Present Illness HPI Narrative: Patient comes to the emergency room requesting detox. Patient has been seen multiple times by the care team. Less than 24 hours ago, patient was offered a detox bed, patient refused and wanted to go home. Today, patient is in the emergency room stating that she is here to relax . Patient denies SI or HI. Prior to discharge, patient was given information to make her own phone calls for detox facilities. Related Data Home Medications Medication Instructions Recorded Confirmed ascorbic acid (vitamin C) 500 mg 1 tab PO DAILY 09/08/21 09/13/21 tablet (Vitamin C) clonidine HCl 0.1 mg tablet 1 tab PO BEDTIME PRN 09/08/21 09/13/21 cyclobenzaprine 5 mg tablet 1 tab PO TID PRN 09/08/21 09/13/21 hydroxyzine HCl 25 mg tablet 25 mg PO TID PRN 09/13/21 09/13/21 Allergies Allergy/AdvReac Type Severity Reaction Status Date / Time naproxen Allergy Intermediate nausea and Verified 09/14/21 23:59 vomiting Motrin Allergy Intermediate nausea and Uncoded 09/14/21 23:59 vomiting Review of Systems Review of Systems: Constitutional : No Weight loss, No Fever, No Chills, No Night Sweats, No Fatigue, No Malaise ENT/Mouth : No Hearing loss, No Ear Pain, No Nasal Congestion, No Sinus Pain, No Hoarseness, No sore throat, No Rhinorrhea, No Swallowing Difficulty Eyes: No Eye Pain, No Swelling, No Redness, No Foreign Body, No Discharge, No Vision Changes Cardiovascular : No Chest Pain, No SOB, No Dyspnea on Exertion, No Orthopnea, No Edema, No Palpitations Respiratory : No Cough, No Sputum, No Wheezing, No Smoke Exposure, No Dyspnea Gastrointestinal : No Nausea, No Vomiting, No Diarrhea, No Constipation, No abdominal Pain, No Hematochezia, No Melena Genitourinary : no irregular bleeding, No Dysuria, No Urinary Frequency, No Hematuria, No Urinary Incontinence, No Urgency, No Flank Pain, No Urinary Flow Changes, No Hesitancy Musculoskeletal : No joint pain, No Myalgias, No Joint Swelling Skin : No Skin Lesions, No rash Neuro : No Weakness, No Numbness, No Paresthesias, No Loss of Consciousness, No Dizziness, No Headache Psych : No Anxiety/Panic, No Depression, No SI/HI Heme/Lymph: No Bruising, No Bleeding,No Lymphadenopathy Endocrine : No Polyuria, No Polydipsia, No Temperature Intolerance PMFSH Past Medical History Medical History BRIE positive Asthma Dyspnea History of sleep disturbance Hx of anxiety disorder Opioid use disorder Surgical History History of colposcopy History of tubal ligation Hx of dilation and curettage Hx of excision of mass Social History Social History Alcohol intake: never Patient Tobacco Use Status: Current everyday Tobacco user Tobacco use type: Cigarette Cigarettes Per Day: 2 Substance Use Type: Heroin Advance Directives: No Physical Exam Vital Signs: Vital Signs: Last Vital Signs Temp 99.5 F 09/14/21 23:59 Pulse 95 09/15/21 03:23 Resp 18 09/15/21 03:23 BP 120/74 09/15/21 03:23 Pulse Ox 98 09/15/21 03:23 BMI result Body Mass Index 25.2 Const: Other: Appearance: Alert. Oriented X3. No acute distress. Eyes: Pupils equal, round and reactive to light. ENT: Pharynx normal. Neck: Normal inspection. Neck supple. No lymph nodes noted. No crepitus CVS: Normal heart rate and rhythm. Pulses normal. Normal S1 and S2 Respiratory: No respiratory distress. Breath sounds normal. No Wheezing. No rales Abdomen: Soft and nontender. No rigidity. No distention. Skin: Skin warm and dry. Normal skin color. Normal skin turgor. Extremities: No lower extremity edema. No Lacerations. No Rash Neuro: Oriented X 3. No motor deficit. No sensory deficit. Moving all extremities. No slurred speech. CN 2 through 12 grossly intact Psych: calm, cooperative, normal affect Course Course Course Narrative: patient already has multiple resources that she can call. Patient states that she will file a complain because we can't fix her drug problem. unfortunately, we have attempted numerous times to help the patient but she refuses care. Patient usually comes in at night, sleeps here, then in the morning leaves refusing all services. Discharge Plan Discharge Clinical Impression: Substance abuse Patient Disposition: Home, Self-Care Instructions: Polysubstance Abuse (ED) Additional Instructions: You have been evaluated multiple times for substance abuse. Detox was offered to you history morning and declined. Care team gave you all informations to make your own phone calls for detox facilities. Please follow-up with your primary care physician tomorrow. If you have any worsening or new symptoms, please return to the emergency room or call 911 Prescriptions: No Action ascorbic acid (vitamin C) [Vitamin C] 500 mg tablet 1 tab PO DAILY 0RF clonidine HCl 0.1 mg tablet 1 tab PO BEDTIME PRN (Reason: Anxiety) 0RF cyclobenzaprine 5 mg tablet 1 tab PO TID PRN (Reason: muscle pain) 0RF hydroxyzine HCl 25 mg Tablet 25 mg PO TID PRN (Reason: Anxiety) 0RF
== END 2021-09-15 04:35 | disposition home or self-care (01) ==
PROVIDERS: Emergency Provider Emergency Medicine; PCP Nurse Practitioner Primary Care
DX: F19.10 Other psychoactive substance abuse, uncomplicated (principal); F17.200 Nicotine dependence, unspecified, uncomplicated
CPT/HCPCS: 99282; 99283; 99284

== ENCOUNTER 2021-09-19 20:59 | Emergency (ER) | payer MEDICAID, SELFPAY ==
[2021-09-19 21:09] VITALS: BP 150/98; PULSE 115; RESP 20; TEMP 37.2; O2SAT 100; BMI 20.6
--- NOTE | 2021-09-19 21:25 | ED_ITS ---
HPI - General Adult General Chief complaint: General Medical Stated complaint: abd pain, bodyaches Time Seen by Provider: 09/19/21 21:20 Source: patient Mode of arrival: ambulatory Limitations: no limitations History of Present Illness HPI narrative: Patient is a 41 year old female presenting to the emergency department today with multiple complaints. Patient states that she initially wanted to be seen for a dry tongue but now she is concerned she is just too stressed out and needs to be evaluated by the CARE team. Patient denies any dizziness, lightheadedness, abdominal pain, nausea, vomiting, fever, chills, blurry vision, double vision, loss of vision, chest pain, difficulty breathing, shortness of breath, back pain, night sweats, pain with urination, increased urinary frequency, increased urinary urgency, blood in her urine or stool, syncope or a near syncopal episode, recent trauma or falls, bowel incontinence, bladder incontinence, bowel retention, bladder retention, or any other complaints at this time. Onset (ago): hour(s) Treatments prior to arrival: none Related Data Home Medications Medication Instructions Recorded Confirmed ascorbic acid (vitamin C) 500 mg 1 tab PO DAILY 09/08/21 09/19/21 tablet (Vitamin C) clonidine HCl 0.1 mg tablet 1 tab PO BEDTIME PRN 09/08/21 09/19/21 cyclobenzaprine 5 mg tablet 1 tab PO TID PRN 09/08/21 09/19/21 hydroxyzine HCl 25 mg tablet 25 mg PO TID PRN 09/13/21 09/19/21 Allergies Allergy/AdvReac Type Severity Reaction Status Date / Time naproxen Allergy Intermediate nausea and Verified 09/14/21 23:59 vomiting Motrin Allergy Intermediate nausea and Uncoded 09/14/21 23:59 vomiting Review of Systems Constitutional: Constitutional: Reports no additional constitutional complaints, Denies chills, Denies fever(s) and Denies night sweats Eyes: Eyes: Reports no additional eye complaints, Denies blurry vision, Denies change in vision, Denies diplopia, Denies eye discharge, Denies loss of vision and Denies eye pain ENT: Denies dizziness Cardiovascular: Cardiovascular: Reports no additional cardiovascular complaints, Denies chest pain, Denies lightheadedness, Denies Loss of Consciousness and Denies dyspnea Respiratory: Respiratory: Reports no additional respiratory complaints and Denies dyspnea Gastrointestinal: Gastrointestinal: Reports no additional gastrointestinal complaints, Denies abdominal pain, Denies melena, Denies hematochezia, Denies change in bowel habits and Denies change in stool character Genitourinary: Genitourinary: Denies hematuria, Denies urinary frequency, Denies dysuria, Denies urinary incontinence, Denies urinary hesitancy and Denies urinary urgency Musculoskeletal: Musculoskeletal: Reports no additional musculoskeletal complaints, Denies numbness and Denies tingling Neurologic: Denies dizziness, Denies loss of vision, Denies numbness and Denies tingling Psychiatric: Psychiatric: Reports no additional psychiatric complaints and Reports anxiety Endocrine: Endocrine: Reports no additional endocrine complaints Hematologic/Lymphatic: Hematologic/Lymphatic: Reports no additional hematologic/lymphatic complaints Allergic/Immunologic: Allergic/Immunologic: Reports no additional allergic/immunologic complaints PMFSH Past Medical History Attestation statement: The following information was validated with the patient. Source: old records reviewed Medical History BRIE positive Asthma Dyspnea History of sleep disturbance Hx of anxiety disorder Opioid use disorder Surgical History History of colposcopy History of tubal ligation Hx of dilation and curettage Hx of excision of mass Social History Social History Alcohol intake: never Patient Tobacco Use Status: Current everyday Tobacco user Tobacco use type: Cigarette Cigarettes Per Day: 2 Substance Use Type: Heroin Advance Directives: No Advance Directives Information Provided: No Physical Exam ED Vital Signs: Vital Signs - 24 hr 09/19/21 21:09 Temperature 98.9 F Pulse Rate 115 H Respiratory Rate 20 Blood Pressure 150/98 H Pulse Oximetry 100 BMI result Body Mass Index 20.6 Const General: cooperative, no acute distress, alert and awake Nutritional Appearance: well nourished Orientation/consciousness: patient oriented x3 Limitations: no limitations HENMT Head: Yes normal to inspection and Yes atraumatic Ears: hearing grossly normal bilaterally and external ears normal General nose exam: Normal external nose present, no nasal discharge noted and no epistaxis Face and sinus: Yes normal facial exam, No abrasion and No laceration Mouth: Normal oral and palatal mucosa present, no drooling and no muffled voice Eyes General: appearance normal, both eyes and all related structures Periorbital: periorbital findings normal Eyelids: Yes eyelids normal Conjunctivae: conjunctivae normal Pupils: Equal, round and reactive pupils present EOM: EOMs intact bilaterally Neck Neck: Yes normal visual inspection, Yes full ROM and Yes no lymphadenopathy Chest Chest palpation & inspection: normal inspection of the chest Resp Effort & Inspection: normal respiratory effort and able to speak in complete sentences Auscultation: clear to auscultation bilaterally Cardio Rate: regular rate Rhythm: regular rhythm GI Inspection: Yes normal to inspection Neuro General: patient oriented x3 and moves all extremities Cranial nerves: Yes Equal, round and reactive pupils present Cognition (Neuro): normal cognition Motor exam (neuro): 5/5 motor strength present throughout Sensory Exam: Normal double simultaneous stimulation for sensation Coordination: [id number] test normal Extrem General: Yes normal to inspection, Yes full ROM and Yes capillary refill normal Psych Appearance: grossly normal Mental Status: mental status grossly normal Affect: Anxious affect present Attitude: cooperative Thought process: Flight of ideas present and Illogical thought process present Thought content: Normal thought content present Insight: Good insight present (Psych) Medical Decision Making MDM Narrative Medical decision making narrative: Patient is a 41 year old female presenting to the emergency department today with anxiety and a dry tongue. Patient's physical exam included a normal HENT exam and a 41 year old female with an anxious affect. I explained my physical examination to the patient. Patient was transitioned to the Pod, cleared medically, and is now awaiting CARE team consult in the morning. Patient was given 2mg of PO Ativan which she stated helped calm her down significantly. Differential Diagnosis Differential Diagnosis: anxiety Medical Records Medical records reviewed: Yes I reviewed the patient's medical records. Discharge Plan Discharge Clinical Impression: Anxiety Patient Disposition: Still a Patient Instructions: Anxiety (ED) Additional Instructions: Follow up with your primary care provider. Return to the emergency department immediately if your symptoms worsen or if you develop any dizziness, shortness of breath, difficulty breathing, chest pain, blurry vision, loss of vision, nausea, vomiting, abdominal pain, fever, chills, back pain, or any other complaints. Prescriptions: No Action ascorbic acid (vitamin C) [Vitamin C] 500 mg tablet 1 tab PO DAILY 0RF clonidine HCl 0.1 mg tablet 1 tab PO BEDTIME PRN (Reason: Anxiety) 0RF cyclobenzaprine 5 mg tablet 1 tab PO TID PRN (Reason: muscle pain) 0RF hydroxyzine HCl 25 mg Tablet 25 mg PO TID PRN (Reason: Anxiety) 0RF Referrals: [place] [Primary Care Provider] - 2 days Print Language: Ukrainian
[2021-09-19] MEDS: LORazepam 1 MG TABLET 2 MG PO (22:01)
[2021-09-20 05:50] VITALS: BP 107/72; PULSE 107; RESP 16; TEMP 37.3; O2SAT 97
--- NOTE | 2021-09-20 07:10 | PC.NURSE ---
Patient slept through the night, no distress observed/reported, patient requested discharge/care team made aware, patient received ativan 2 mg po with positive effect, will continue to monitor.
--- NOTE | 2021-09-20 08:57 | PC.NURSE ---
PT REQUESTING TO LEAVE TO GET DOSED WITH METHADONE.
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
== END 2021-09-20 08:59 | disposition home or self-care (01) ==
PROVIDERS: Emergency Provider Student in an Organized Health Care Education/Training Program
DX: F41.9 Anxiety disorder, unspecified (principal); R68.2 Dry mouth, unspecified; E78.5 Hyperlipidemia, unspecified; F17.200 Nicotine dependence, unspecified, uncomplicated
CPT/HCPCS: 99284

== ENCOUNTER 2021-09-27 10:08 | Outpatient (REF) | payer MEDICAID, SELFPAY ==
[2021-09-28 03:59] LABS: CT PCR NOT DETECTED (Not Detect.); NG PCR NOT DETECTED (Not Detect.)
[2021-09-28 10:58] LABS: BV Int Neg Control Negative (Negative); BV Int Pos Control Positive (Positive)
== END 2021-09-27 10:09 | disposition home or self-care (01) ==
LOC: HO.LAB 10:08
PROVIDERS: Visit Provider Advanced Practice Midwife
DX: Z01.411 Encounter for gynecological examination (general) (routine) with abnormal findings (principal); F41.9 Anxiety disorder, unspecified; Z20.2 Contact with and (suspected) exposure to infections with a predominantly sexual mode of transmission; K59.01 Slow transit constipation; F19.10 Other psychoactive substance abuse, uncomplicated
CPT/HCPCS: 81025; 87480; 87491; 87510; 87591; 87660; 99202

== ENCOUNTER → 2021-09-28 12:14 | Day surgery (SDC) | payer MEDICAID, SELFPAY ==
--- NOTE | 2021-09-27 09:41 | HO.ANESPROP2 ---
HPI - Anesthesia Eval Consult details Narrative: +utox DOS. Cancelled per anesthesia 41yo F for Upper Endoscopy Polysubstance use disorder PMFSH Active Problems Active Problems: All Active Problems (Updated 09/21/21 @ 12:20 by Yasmeen Sullivan RN) Rheumatoid arthritis (Acute) Hyperlipidemia (Acute) Subcutaneous nodules (Acute) Anxiety (Acute) Dysphagia (Acute) GERD (gastroesophageal reflux disease) (Acute) Hoarseness of voice (Acute) Close exposure to COVID-19 virus (Acute) Opioid use disorder (Acute) BRIE positive (Acute) Asthma (Acute) Dyspnea (Acute) Past Medical History Medical History (Updated 09/28/21 @ 12:50 by Jessenia Palomares RN) BRIE positive Asthma Dyspnea History of prediabetes History of sleep disturbance Hx of anxiety disorder Opioid use disorder Polysubstance abuse Surgical History Surgical History History of colposcopy History of surgery on arm History of tubal ligation Hx of dilation and curettage Hx of excision of mass Social History Social History Alcohol intake: never Patient Tobacco Use Status: Current everyday Tobacco user Tobacco use type: Cigarette Cigarettes Per Day: 20 Use of substances other than those prescribed or required for medical reasons: Yes Substance Use Type: Crack/Cocaine and Heroin Substance Use Frequency: Daily Are you DNR?: No Advance Directives: No Advance Directives Information Provided: Yes Meds Allergies Allergy/AdvReac Type Severity Reaction Status Date / Time naproxen Allergy Intermediate nausea and Verified 09/28/21 12:35 vomiting Motrin Allergy Intermediate nausea and Uncoded 09/14/21 23:59 vomiting Home Medications Medication Instructions Recorded Confirmed Last Taken Type ascorbic acid (vitamin C) 500 mg 1 tab PO DAILY 09/08/21 09/27/21 Unknown History tablet (Vitamin C) clonidine HCl 0.1 mg tablet 1 tab PO BEDTIME PRN 09/08/21 09/27/21 09/28/21 07:00 History cyclobenzaprine 5 mg tablet 1 tab PO TID PRN 09/08/21 09/27/21 Unknown History hydroxyzine HCl 25 mg tablet 25 mg PO TID PRN 09/13/21 09/27/21 Unknown History buprenorphine 8 mg-naloxone 2 mg 1 strip SUBLINGUAL DAILY 09/21/21 09/27/21 Unknown History sublingual film clotrimazole 1 % topical cream appl TOPICAL 09/21/21 09/27/21 Unknown History docusate sodium 100 mg capsule 1 cap PO BID 09/21/21 09/27/21 Unknown History ferrous sulfate 325 mg (65 mg 1 tab PO DAILY 09/21/21 09/27/21 Unknown History iron) tablet fluticasone furoate 200 1 puff PO DAILY 09/21/21 09/27/21 Unknown History mcg-vilanterol 25 mcg/dose inhalation powder (Breo Ellipta) naloxone 4 mg/actuation nasal INTRANASAL 09/21/21 09/27/21 Unknown History spray (Narcan) omeprazole 20 mg capsule,delayed 1 cap PO DAILY 09/21/21 09/27/21 Unknown History release Exam Exam Date and Time: September 27, 2021 0941 Pertinent Lab Results Pertinent Lab Results: Laboratory Tests 09/12/21 09/12/21 21:35 21:35 WBC 7.1 Hgb 9.9 L Hct 31.9 L Plt Count 325 Sodium 133 L Potassium 4.2 Chloride 99 Carbon Dioxide 25 BUN 5 L Creatinine 0.74 Narrative Narrative: EKG 08/2021 Vent. Rate : 086 BPM ? ? Atrial Rate : 086 BPM ?? P-R Int : 136 ms? QRS Dur : 080 ms ? ? QT Int : 380 ms ? ? ? P-R-T Axes : 049 025 025 degrees ?? QTc Int : 454 ms ? Normal sinus rhythm Normal ECG When compared with ECG of 08-SEP-2021 20:37, No significant change was found Assessment and Plan Assessment Anesthesia Assessment: Chart Reviewed
[2021-09-28 12:47] VITALS: BMI 24.2
[2021-09-28 12:52] VITALS: BP 122/74; PULSE 91; RESP 16; TEMP 37.2; O2SAT 98
[2021-09-28 13:03] LABS: Amphetamine Screen Urine Not Detected (Not Detect); Barbiturates, Urine Not Detected (Not Detect); Benzodiazepines Screen Urine Not Detected (Not Detect); Cannabinoid Screen Urine Not Detected (Not Detect); Cocaine Screen Urine POSITIVE (Not Detect); Fentanyl, urine POSITIVE (Not Detect); Opiate Screen Urine POSITIVE (Not Detect); Phencyclidine Screen Urine Not Detected (Not Detect)
--- NOTE | 2021-09-28 13:08 | PC.NURSE ---
urine showed positive for heroin, cocaine also. procedure cancelled per anesthesia.
== END ==
PROVIDERS: Nurse Practitioner; Visit Provider Internal Medicine Gastroenterology
DX: R13.10 Dysphagia, unspecified (principal); Z53.09 Procedure and treatment not carried out because of other contraindication
CPT/HCPCS: 80307

== ENCOUNTER 2021-10-16 17:41 | Emergency (ER) | payer MEDICAID, SELFPAY ==
--- NOTE | ~2021-10-16 | XR_ITS ---
EXAMINATION: XR CHEST CLINICAL INFORMATION: Chest pain COMPARISON: 08/31/2021 TECHNIQUE: Frontal view of the chest was obtained. FINDINGS: No significant abnormality is noted involving the heart, lungs, mediastinum, bony thorax or soft tissues. XR/XR chest 1V IMPRESSION: Unremarkable examination.
--- NOTE | 2021-10-16 17:44 | ECG_ITS ---
Test Reason : cp Blood Pressure : / mmHG Vent. Rate : 085 BPM Atrial Rate : 085 BPM P-R Int : 136 ms QRS Dur : 082 ms QT Int : 382 ms P-R-T Axes : 045 018 022 degrees QTc Int : 454 ms Normal sinus rhythm Normal ECG When compared with ECG of 12-SEP-2021 21:21, No significant change was found Referred By: Generic ED Physician Electronically Signed By:TRENT COFFEY
[2021-10-16 18:00] LABS: MANUAL DIFF FLAG NO
[2021-10-16 18:01] VITALS: BP 152/90; PULSE 100; RESP 19; TEMP 36.6; O2SAT 98; BMI 23.3
[2021-10-16 18:10] LABS: Basophils Percent Auto 0.4 % (0-2); Eosinophils Percent Auto 0.4 % (0-4); Hematocrit 34.2 % (37.0-47.0); Hemoglobin 10.7 g/dl (12.0-16.0); Imm Gran Abs Auto 0.03 X10*3/uL (0.00-0.03); Imm Gran Pct Auto 0.4 % (0.0-0.4); Lymphocytes Absolute Auto 1.6 X10*3/uL (1.2-4.9); Lymphocytes Percent Auto 22.7 % (20-40); Mean Corpuscular HGB Conc 31.3 g/dl (31.0-35.0); Mean Corpuscular Hemoglobin 26.4 pg (27.0-33.0); Mean Corpuscular Volume 84.2 fL (80.0-98.0); Mean Platelet Volume 9.6 fL (9.4-12.3); Monocytes Absolute Auto 0.4 X10*3/uL (0.1-1.2); Monocytes Percent Auto 5.3 % (2-11); Neutrophils Absolute Auto 4.9 x10*3/uL (2.0-8.3); Neutrophils Percent Auto 70.8 % (45-73); Platelet Count 400 X10*3/uL (160-400); Red Blood Count 4.06 X10*6/uL (4.20-5.50); Red Cell Distribution Width 15.9 % (11.0-16.0)
[2021-10-16 18:18] LABS: Anion Gap 10 (12-20); Blood Urea Nitrogen 8 mg/dL (9-16); Calcium 9.2 mg/dL (8.4-10.2); Carbon Dioxide 27 mmol/L (22-29); Chloride 102 mmol/L (96-108); Creatinine Clr Calc Pharmacy 92.8; Estimated Glomerular Filt Rate > 60; Glucose Random 100 mg/dL (60-115); Potassium 4.3 mmol/L (3.3-5.1); Sodium 135 mmol/L (135-145)
[2021-10-16 18:24] LABS: Troponin-I High Sensitivity < 3.5 ng/L (<3.5-17.0)
--- NOTE | 2021-10-16 20:02 | ED.CHESTPAIN ---
HPI - Chest Pain General Chief Complaint: Chest Pain Stated Complaint: cp Source: patient Mode of arrival: ambulatory Limitations: no limitations History of Present Illness HPI narrative: 41-year-old female presents with left-sided and substernal chest pain that started this morning. States the pain is sharp, burning, and increases in intensity. Also states that she is withdrawing from methadone. Patient is well-known to this facility. MD complaint: chest pain Pertinent past history: other (Polysubstance abuse) Onset (ago): day(s) (1) Timing of current episode: episodic Prior episodes: Yes Onset: during rest Pain location: substernal and left chest Pain radiation: none Severity: moderate Quality: sharp and burning Relieving factors: nothing Exacerbating factors: exertion, palpation and movement Treatment prior to arrival: aspirin Risk Factors Coronary artery disease risk factors: none Thoracic aortic dissection risk factors: none Related Data On Oral Contraceptives: No Home Medications Medication Instructions Recorded Confirmed ascorbic acid (vitamin C) 500 mg 1 tab PO DAILY 09/08/21 09/27/21 tablet (Vitamin C) clonidine HCl 0.1 mg tablet 1 tab PO BEDTIME PRN 09/08/21 09/27/21 cyclobenzaprine 5 mg tablet 1 tab PO TID PRN 09/08/21 09/27/21 hydroxyzine HCl 25 mg tablet 25 mg PO TID PRN 09/13/21 09/27/21 buprenorphine 8 mg-naloxone 2 mg 1 strip SUBLINGUAL DAILY 09/21/21 09/27/21 sublingual film clotrimazole 1 % topical cream appl TOPICAL 09/21/21 09/27/21 docusate sodium 100 mg capsule 1 cap PO BID 09/21/21 09/27/21 ferrous sulfate 325 mg (65 mg 1 tab PO DAILY 09/21/21 09/27/21 iron) tablet fluticasone furoate 200 1 puff PO DAILY 09/21/21 09/27/21 mcg-vilanterol 25 mcg/dose inhalation powder (Breo Ellipta) naloxone 4 mg/actuation nasal INTRANASAL 09/21/21 09/27/21 spray (Narcan) omeprazole 20 mg capsule,delayed 1 cap PO DAILY 09/21/21 09/27/21 release Previous Rx's Medication Instructions Recorded terconazole 0.8 % vaginal cream 1 appful VAGINAL BEDTIME 3 Days 10/13/21 #20 g Allergies Allergy/AdvReac Type Severity Reaction Status Date / Time naproxen Allergy Intermediate nausea and Verified 09/28/21 12:35 vomiting Motrin Allergy Intermediate nausea and Uncoded 09/14/21 23:59 vomiting Review of Systems Review of Systems: Constitutional: No Weight loss, No Fever, No Chills, No Night Sweats, No Fatigue, No Malaise ENT/Mouth: No Hearing loss, No Ear Pain, No Nasal Congestion, No Sinus Pain, No Hoarseness, No sore throat, No Rhinorrhea, No Swallowing Difficulty Eyes: No Eye Pain, No Swelling, No Redness, No Foreign Body, No Discharge, No Vision Changes Cardiovascular: Positive Chest Pain, no SOB, no Dyspnea on Exertion, No Orthopnea, No Edema, No Palpitations Respiratory: No Cough, No Sputum, No Wheezing, No Smoke Exposure, No Dyspnea Gastrointestinal: pos Nausea, No Vomiting, No Diarrhea, No abdominal Pain, No Hematochezia, No Melena Genitourinary: No irregular bleeding, No Dysuria, No Urinary Frequency, No Hematuria, No Urinary Incontinence, No Urgency, No Flank Pain, No Urinary Flow Changes, No Hesitancy Musculoskeletal: No joint pain, No Myalgias, No Joint Swelling Skin: No Skin Lesions, No rash Neuro: No Weakness, No Numbness, No Paresthesias, No Loss of Consciousness, No Dizziness, No Headache Psych: No Anxiety/Panic, No Depression, No SI/HI/AH/VH Heme/Lymph: No Bruising, No Bleeding,No Lymphadenopathy Endocrine: No Polyuria, No Polydipsia, No Temperature Intolerance Yes all other systems are reviewed and are negative [facility] Past Medical History Attestation statement: The following information was validated with the patient. Source: old records reviewed Medical History BRIE positive Asthma Dyspnea History of prediabetes History of sleep disturbance Hx of anxiety disorder Opioid use disorder Polysubstance abuse Surgical History History of colposcopy History of surgery on arm History of tubal ligation Hx of dilation and curettage Hx of excision of mass Social History Social History Alcohol intake: never Patient Tobacco Use Status: Current everyday Tobacco user Tobacco use type: Cigarette Cigarettes Per Day: 20 Substance Use Type: Crack/Cocaine and Heroin Advance Directives: No Advance Directives Information Provided: No Physical Exam Vital Signs: Vital Signs: Last Vital Signs Temp 98 F 10/16/21 18:01 Pulse 100 10/16/21 18:01 Resp 19 10/16/21 18:01 BP 152/90 H 10/16/21 18:01 Pulse Ox 98 10/16/21 18:01 BMI result Body Mass Index 23.3 Appearance: Alert. Oriented X3. No acute distress. Eyes: Pupils equal, round and reactive to light. ENT: Pharynx normal. Neck: Normal inspection. Neck supple. CVS: Normal heart rate and rhythm. Pulses normal. Respiratory: No respiratory distress. Breath sounds normal. Abdomen: Soft and nontender. Skin: Skin warm and dry. Normal skin color. Normal skin turgor. Extremities: No lower extremity edema. Gait well-balanced well coordinated. Neuro: No motor deficit. No sensory deficit. Cranial nerves 2-12 intact. Course Course Course Narrative: 41-year-old female presents with substernal chest pain radiating to left side. Also states to be withdrawing from methadone. This patient is well-known to this facility and presents several times a week. I did ask her if she was interested in detox, she stated no. Labs drawn while patient was in the emergency department waiting room. Labs are unremarkable, chest x-ray is negative, EKG is normal sinus. H&H is her baseline 10.7/34.2. Patient's vital signs are stable and within normal limits. Patient is alert oriented, answering questions curtly. 20:22 patient not interested in waiting for her discharge instructions. Workup is negative so far, patient is not interested in detox as well. Patient walked out prior to receiving her printed discharge instructions because her ride was waiting for her. MDM - Chest Pain Differential Diagnosis Differential diagnosis: Likely fracture of rib, pneumothorax, stable angina, unstable angina pectoris, atypical chest pain, st elevation myocardial infarction, costochondritis and chest pain Medical Records Data Attestation: I reviewed the patient's medical records. Lab Data Attestation: I reviewed the patient's lab results. Result diagrams: 10/16/21 17:55 10/16/21 17:55 Labs: Lab Results 10/16/21 10/16/21 10/16/21 Range/Units 17:55 17:55 17:55 WBC 7.0 (4.8-10.8) X10*3/uL RBC 4.06 L (4.20-5.50) X10*6/uL Hgb 10.7 L (12.0-16.0) g/dl Hct 34.2 L (37.0-47.0) % MCV 84.2 (80.0-98.0) fL MCH 26.4 L (27.0-33.0) pg MCHC 31.3 (31.0-35.0) g/dl RDW 15.9 (11.0-16.0) % Plt Count 400 (160-400) X10*3/uL MPV 9.6 (9.4-12.3) fL Immature Gran % (Auto) 0.4 (0.0-0.4) % Neut % (Auto) 70.8 (45-73) % Lymph % (Auto) 22.7 (20-40) % Maury % (Auto) 5.3 (2-11) % Eos % (Auto) 0.4 (0-4) % Baso % (Auto) 0.4 (0-2) % Lymph # (Auto) 1.6 (1.2-4.9) X10*3/uL Maury # (Auto) 0.4 (0.1-1.2) X10*3/uL Eos # (Auto) 0.0 (0.0-0.4) X10*3/uL Baso # (Auto) 0.0 (0.0-0.2) X10*3/uL Abs Immat Gran (auto) 0.03 (0.00-0.03) X10*3/uL Absolute Neuts (auto) 4.9 (2.0-8.3) x10*3/uL Absolute Nucleated RBC 0.000 (0.0-0.012) X10*3/uL Nucleated RBC % (auto) 0.0 (0.0-0.2) /100WBC Sodium 135 (135-145) mmol/L Potassium 4.3 (3.3-5.1) mmol/L Chloride 102 (96-108) mmol/L Carbon Dioxide 27 (22-29) mmol/L Anion Gap 10 L (12-20) BUN 8 L D (9-16) mg/dL Creatinine 0.71 (0.5-1.4) mg/dL Estim Creat Clear Calc 92.8 Estimated GFR > 60 Random Glucose 100 (60-115) mg/dL Calcium 9.2 (8.4-10.2) mg/dL Troponin I High Sens < 3.5 (<3.5-17.0) ng/L Imaging Data Chest x-ray: Attestation: I personally reviewed and interpreted this imaging study as follows: Radiologist's impression: EXAMINATION: XR CHEST CLINICAL INFORMATION: Chest pain COMPARISON: 08/31/2021 TECHNIQUE: Frontal view of the chest was obtained. FINDINGS: No significant abnormality is noted involving the heart, lungs, mediastinum, bony thorax or soft tissues. XR/XR chest 1V IMPRESSION: Unremarkable examination. ? ECG Data ECG #1: Attestation: I personally reviewed and interpreted this ECG as follows: ECG interpretation date: 10/16/21 ECG interpretation time: 17:45 Prior ECG tracings: available for review Interpretation: Vent. rate 85 BPM TX interval 136 ms QRS duration 82 ms QT/QTc 382/454 ms P-R-T axes 45 18 22 Normal sinus rhythm Normal ECG When compared with ECG of 12-SEP-2021 21:21, No significant change was found Scores Heart Score History: -0- slightly suspicious ECG: -0- normal Age: -0- < or = 45 Risk factory: -0- no risk factors known Troponin: -0- < or = normal limit Score: 0 Risk: 1.7% Discharge Plan Discharge Clinical Impression: Anxiety, Non-cardiac chest pain Patient Disposition: Home, Self-Care Instructions: Noncardiac Chest Pain (ED) Additional Instructions: Consider detox. Your evaluated for chest pain. Chest x-ray is negative. EKG is normal. Cardiac enzymes are negative. Thank you for choosing this emergency department for evaluation. Please follow-up with primary care physician as needed. Return to the emergency department for any new, concerning, or worsening symptoms. Prescriptions: No Action terconazole 0.8 % cream 1 appful vaginal BEDTIME 3 Days Qty: 20 0RF ascorbic acid (vitamin C) [Vitamin C] 500 mg tablet 1 tab PO DAILY 0RF clonidine HCl 0.1 mg tablet 1 tab PO BEDTIME PRN (Reason: Anxiety) 0RF cyclobenzaprine 5 mg tablet 1 tab PO TID PRN (Reason: muscle pain) 0RF hydroxyzine HCl 25 mg Tablet 25 mg PO TID PRN (Reason: Anxiety) 0RF ferrous sulfate 325 mg (65 mg iron) tablet 1 tab PO DAILY 0RF docusate sodium 100 mg capsule 1 cap PO BID 0RF omeprazole 20 mg capsule,delayed release(DR/EC) 1 cap PO DAILY 0RF clotrimazole 1 % cream TOPICAL 0RF buprenorphine-naloxone 8-2 mg film 1 strip sublingual DAILY 0RF Breo Ellipta 200-25 mcg/dose blister with device 1 puff PO DAILY 0RF naloxone [Narcan] 4 mg/actuation spray,non-aerosol INTRANASAL 0RF Interventions: ED Discharge Assessment Last Done: 10/16/21 20:28 Discharge Date/Time: 10/16/21 20:37
--- NOTE | 2021-10-16 20:25 | PC.NURSE ---
PT was upset because she keeps returning to the hospital for CP and SOB with repeated negative results for cardiac and respiratory work up. PT explained that she recently started methadone for her addiction to opiates. This RN then explained to the PT that a lot of her symptoms were similar to withdrawal symptoms (i.e. body aches, fever, nausea) and that it might start to improve over time. PT was understanding and expressed that she wanted to go home now. Provider made aware.
== END 2021-10-16 20:37 | disposition home or self-care (01) ==
PROVIDERS: Emergency Provider Emergency Medicine
DX: R07.89 Other chest pain (principal); F41.9 Anxiety disorder, unspecified; J45.909 Unspecified asthma, uncomplicated; F11.90 Opioid use, unspecified, uncomplicated; F17.210 Nicotine dependence, cigarettes, uncomplicated
CPT/HCPCS: 36415; 71045; 80048; 84484; 85025; 93005; 99283

== ENCOUNTER → 2021-10-25 15:12 | Outpatient (BNVA) | payer MEDICAID, SELFPAY | PROVIDERS: Visit Provider Nurse Practitioner | DX: K21.9 Gastro-esophageal reflux disease without esophagitis (principal); R13.10 Dysphagia, unspecified; R49.0 Dysphonia; F19.10 Other psychoactive substance abuse, uncomplicated | CPT/HCPCS: 99212 ==

== ENCOUNTER 2021-11-03 22:09 | Emergency (ER) | payer MEDICAID, SELFPAY ==
[2021-11-03 22:15] VITALS: BP 138/70; BP 138/74; PULSE 90; RESP 18; TEMP 36.7; O2SAT 100; BMI 24.2
--- NOTE | 2021-11-03 22:22 | ECG_ITS ---
Test Reason : CHEST PAIN Blood Pressure : / mmHG Vent. Rate : 084 BPM Atrial Rate : 084 BPM P-R Int : 142 ms QRS Dur : 086 ms QT Int : 394 ms P-R-T Axes : 059 032 027 degrees QTc Int : 465 ms Normal sinus rhythm Nonspecific T wave abnormality Prolonged QT Abnormal ECG When compared with ECG of 16-OCT-2021 17:45, No significant change was found Referred By: Roxanna Caceres Electronically Signed By:JOI FOX MD
--- NOTE | 2021-11-03 22:37 | PC.NURSE ---
Pt is known substance abuse disorder per Roxanna dental laboratory technician. Pt is in hallway, complains of anxiety and chest pain. ECG being done currently. Will continue to monitor.
--- NOTE | 2021-11-03 22:55 | ED_ITS ---
HPI - General Adult General Chief complaint: Anxiety Stated complaint: Anxiety Time Seen by Provider: 11/03/21 22:16 Source: patient Mode of arrival: EMS History of Present Illness HPI narrative: 41-year-old female, known to this emergency room who arrives via ambulance for complaints regarding anxiety and then further endorses that she has been using cocaine all day and then injected 2 bags of heroin and states she is now having a panic attack. Patient describes feeling short of breath and chest tightness. Otherwise, she endorses that she wants to go into detox. Related Data Home Medications Medication Instructions Recorded Confirmed ascorbic acid (vitamin C) 500 mg 1 tab PO DAILY 09/08/21 09/27/21 tablet (Vitamin C) clonidine HCl 0.1 mg tablet 1 tab PO BEDTIME PRN 09/08/21 09/27/21 cyclobenzaprine 5 mg tablet 1 tab PO TID PRN 09/08/21 09/27/21 hydroxyzine HCl 25 mg tablet 25 mg PO TID PRN 09/13/21 09/27/21 clotrimazole 1 % topical cream appl TOPICAL 09/21/21 09/27/21 docusate sodium 100 mg capsule 1 cap PO BID 09/21/21 09/27/21 ferrous sulfate 325 mg (65 mg 1 tab PO DAILY 09/21/21 09/27/21 iron) tablet naloxone 4 mg/actuation nasal INTRANASAL 09/21/21 09/27/21 spray (Narcan) omeprazole 20 mg capsule,delayed 1 cap PO DAILY 09/21/21 09/27/21 release fluticasone propionate 50 1 spray INTRANASAL DAILY 10/25/21 mcg/actuation nasal spray,suspension (Flonase Allergy Relief) loratadine 10 mg tablet 10 mg PO DAILY 10/25/21 propranolol 10 mg tablet 10 mg PO BID PRN 10/25/21 sennosides 8.6 mg capsule (senna) 8.6 mg PO BEDTIME 10/25/21 Previous Rx's Medication Instructions Recorded terconazole 0.8 % vaginal cream 1 appful VAGINAL BEDTIME 3 Days 10/13/21 #20 g nitrofurantoin 100 mg PO Q12H 5 Days #10 cap 11/04/21 monohydrate/macrocrystals 100 mg capsule (Macrobid) Allergies Allergy/AdvReac Type Severity Reaction Status Date / Time naproxen Allergy Intermediate nausea and Verified 10/25/21 15:21 vomiting Motrin Allergy Intermediate nausea and Uncoded 10/25/21 15:21 vomiting Review of Systems Review of Systems: Pertinent positives and negatives as stated in HPI 10 point review of systems is otherwise negative. [facility] Past Medical History Source: nursing notes reviewed Medical History BRIE positive Asthma Dyspnea History of prediabetes History of sleep disturbance Hx of anxiety disorder Opioid use disorder Polysubstance abuse Surgical History History of colposcopy History of surgery on arm History of tubal ligation Hx of dilation and curettage Hx of excision of mass Social History Social History Alcohol intake: never Patient Tobacco Use Status: Current everyday Tobacco user Tobacco use type: Cigarette Cigarettes Per Day: 20 Substance Use Type: Crack/Cocaine and Heroin Advance Directives: No Advance Directives Information Provided: No Physical Exam ED Vital Signs: Vital Signs - 24 hr 11/03/21 22:15 Temperature 98.0 F Pulse Rate 90 Respiratory Rate 18 Blood Pressure 138/74 Pulse Oximetry 100 BMI result Body Mass Index 24.2 VITAL SIGNS: Reviewed. GENERAL: Well developed, well nourished, anxious HEAD: Normocephalic/atraumatic EYES: PERRLA, EOMI EARS: Ext canals without abnormality OROPHARYNX: no oral lesions noted, posterior pharynx clear LUNGS: Normal breath sounds. No adventitious sounds or accessory muscle use. SpO2<100> CARDIOVASCULAR: Regular rate and rhythm without noted murmurs ABDOMEN: Soft, non-tender, non-distended with bowel sounds. MUSCULOSKELETAL: No tenderness, deformities, or effusions noted on gross inspection. EXTREMITIES: No cyanosis, clubbing or edema, consistent track hardin all over on bilateral upper extremities without evidence of acute infection SKIN: Inspection of the skin reveals no rashes NEUROLOGIC: Alert and oriented x 4. Strength and sensation to light touch were grossly intact x 4. Course Course Course Narrative: 41-year-old female with history and clinical presentation consistent with substance use that is likely contributed to her current complaints and conditi on. Review of all investigations otherwise negative for acute findings other than UTI for which she received initial antibiotics. Patient is noted to be oxygenating well on room air, she is neither tachypneic nor tachycardic. She is otherwise medically cleared for evaluation by the care team for detox as indicated. Reevaluation(s) Reevaluation #1: Patient placed in physician observation because the patient needed more time for evaluation by the control and recovery special tactics. At the time observation was started the patient's vital signs were stable, patient is alert and oriented, neuro: Nonfocal, CV RRR, lungs clear Time: 02:12 Medical Decision Making Lab Data Result diagrams: 11/04/21 00:20 11/04/21 00:20 Labs: Lab Results 11/03/21 11/03/21 11/04/21 Range/Units 23:57 23:57 00:20 WBC 9.7 (4.8-10.8) X10*3/uL RBC 3.88 L (4.20-5.50) X10*6/uL Hgb 10.2 L (12.0-16.0) g/dl Hct 31.8 L (37.0-47.0) % MCV 82.0 (80.0-98.0) fL MCH 26.3 L (27.0-33.0) pg MCHC 32.1 (31.0-35.0) g/dl RDW 16.8 H (11.0-16.0) % Plt Count 282 D (160-400) X10*3/uL MPV 9.4 (9.4-12.3) fL Immature Gran % (Auto) 0.5 H (0.0-0.4) % Neut % (Auto) 74.8 H (45-73) % Lymph % (Auto) 15.2 L (20-40) % [place] % (Auto) 7.9 (2-11) % Eos % (Auto) 1.4 (0-4) % Baso % (Auto) 0.2 (0-2) % Lymph # (Auto) 1.5 (1.2-4.9) X10*3/uL [place] # (Auto) 0.8 (0.1-1.2) X10*3/uL Eos # (Auto) 0.1 (0.0-0.4) X10*3/uL Baso # (Auto) 0.0 (0.0-0.2) X10*3/uL Abs Immat Gran (auto) 0.05 H (0.00-0.03) X10*3/uL Absolute Neuts (auto) 7.3 (2.0-8.3) x10*3/uL Absolute Nucleated RBC 0.000 (0.0-0.012) X10*3/uL Nucleated RBC % (auto) 0.0 (0.0-0.2) /100WBC Sodium (135-145) mmol/L Potassium (3.3-5.1) mmol/L Chloride (96-108) mmol/L Carbon Dioxide (22-29) mmol/L Anion Gap (12-20) BUN (9-16) mg/dL Creatinine (0.5-1.4) mg/dL Estim Creat Clear Calc Estimated GFR Random Glucose (60-115) mg/dL Calcium (8.4-10.2) mg/dL Total Bilirubin (0.0-1.0) mg/dL AST (5-31) U/L ALT (0-31) U/L Alkaline Phosphatase (39-117) U/L Total Protein (6.5-8.0) g/dL Albumin (3.5-5.0) g/dL Urine Color STRAW Urine Appearance CLEAR Urine pH 6.5 (5.0-8.0) Ur Specific [place] <= 1.005 (1.005-1.025) Urine Protein NEG (NEG-TRACE) MG/DL Urine Glucose (UA) NEG (NEG) MG/DL Urine Ketones NEG (NEG) MG/DL Urine Blood TRACE (NEG) Urine Nitrite NEG (NEG) Ur Leukocyte Esterase 2+ H (NEG) Urine RBC 0-2 (0) /HPF Urine WBC 10-14 H (0-4) /HPF Ur Squamous Epith Cells 3+ /LPF Urine Bacteria 1+ /LPF Urine Opiates Screen POSITIVE H (Not Detect) Urine Fentanyl Screen POSITIVE H (Not Detect) Ur Barbiturates Screen Not Detected (Not Detect) Ur Phencyclidine Scrn Not Detected (Not Detect) Ur Amphetamines Screen Not Detected (Not Detect) U Benzodiazepines Scrn Not Detected (Not Detect) Urine Cocaine Screen POSITIVE H (Not Detect) U Marijuana (THC) Screen Not Detected (Not Detect) Ethyl Alcohol mg/dL 11/04/21 11/04/21 Range/Units 00:20 00:20 WBC (4.8-10.8) X10*3/uL RBC (4.20-5.50) X10*6/uL Hgb (12.0-16.0) g/dl Hct (37.0-47.0) % MCV (80.0-98.0) fL MCH (27.0-33.0) pg MCHC (31.0-35.0) g/dl RDW (11.0-16.0) % Plt Count (160-400) X10*3/uL MPV (9.4-12.3) fL Immature Gran % (Auto) (0.0-0.4) % Neut % (Auto) (45-73) % Lymph % (Auto) (20-40) % [place] % (Auto) (2-11) % Eos % (Auto) (0-4) % Baso % (Auto) (0-2) % Lymph # (Auto) (1.2-4.9) X10*3/uL [place] # (Auto) (0.1-1.2) X10*3/uL Eos # (Auto) (0.0-0.4) X10*3/uL Baso # (Auto) (0.0-0.2) X10*3/uL Abs Immat Gran (auto) (0.00-0.03) X10*3/uL Absolute Neuts (auto) (2.0-8.3) x10*3/uL Absolute Nucleated RBC (0.0-0.012) X10*3/uL Nucleated RBC % (auto) (0.0-0.2) /100WBC Sodium 137 (135-145) mmol/L Potassium 3.5 (3.3-5.1) mmol/L Chloride 105 (96-108) mmol/L Carbon Dioxide 23 (22-29) mmol/L Anion Gap 13 (12-20) BUN 9 (9-16) mg/dL Creatinine 0.77 (0.5-1.4) mg/dL Estim Creat Clear Calc 71.7 Estimated GFR > 60 Random Glucose 105 (60-115) mg/dL Calcium 9.1 (8.4-10.2) mg/dL Total Bilirubin 0.4 (0.0-1.0) mg/dL AST 42 H (5-31) U/L ALT 30 (0-31) U/L Alkaline Phosphatase 98 (39-117) U/L Total Protein 7.6 (6.5-8.0) g/dL Albumin 3.4 L (3.5-5.0) g/dL Urine Color Urine Appearance Urine pH (5.0-8.0) Ur Specific [place] (1.005-1.025) Urine Protein (NEG-TRACE) MG/DL Urine Glucose (UA) (NEG) MG/DL Urine Ketones (NEG) MG/DL Urine Blood (NEG) Urine Nitrite (NEG) Ur Leukocyte Esterase (NEG) Urine RBC (0) /HPF Urine WBC (0-4) /HPF Ur Squamous Epith Cells /LPF Urine Bacteria /LPF Urine Opiates Screen (Not Detect) Urine Fentanyl Screen (Not Detect) Ur Barbiturates Screen (Not Detect) Ur Phencyclidine Scrn (Not Detect) Ur Amphetamines Screen (Not Detect) U Benzodiazepines Scrn (Not Detect) Urine Cocaine Screen (Not Detect) U Marijuana (THC) Screen (Not Detect) Ethyl Alcohol < 10 mg/dL ECG Data Attestation: I personally reviewed and interpreted this ECG as follows: Prior ECG tracings: available for review Interpretation: NSR, HR-84, no STEMI, DE/QRS/QTC are within normal limits. Discharge Plan Discharge Clinical Impression: Polysubstance (including opioids) dependence, daily use, UTI (urinary tract infection) Patient Disposition: Still a Patient Instructions: Urinary Tract Infection in Women (DC), Opioid Use Disorder (ED) Prescriptions: New nitrofurantoin monohyd/m-cryst [Macrobid] 100 mg capsule 100 mg PO Q12H 5 Days Qty: 10 0RF Rx Instructions: must administer with a meal/food No Action terconazole 0.8 % cream 1 appful vaginal BEDTIME 3 Days Qty: 20 0RF ascorbic acid (vitamin C) [Vitamin C] 500 mg tablet 1 tab PO DAILY 0RF clonidine HCl 0.1 mg tablet 1 tab PO BEDTIME PRN (Reason: Anxiety) 0RF cyclobenzaprine 5 mg tablet 1 tab PO TID PRN (Reason: muscle pain) 0RF hydroxyzine HCl 25 mg Tablet 25 mg PO TID PRN (Reason: Anxiety) 0RF ferrous sulfate 325 mg (65 mg iron) tablet 1 tab PO DAILY 0RF docusate sodium 100 mg capsule 1 cap PO BID 0RF omeprazole 20 mg capsule,delayed release(DR/EC) 1 cap PO DAILY 0RF clotrimazole 1 % cream TOPICAL 0RF naloxone [Narcan] 4 mg/actuation spray,non-aerosol INTRANASAL 0RF propranolol 10 mg tablet 10 mg PO BID PRN (Reason: anxiety) 0RF loratadine 10 mg tablet 10 mg PO DAILY 0RF senna 8.6 mg capsule 8.6 mg PO BEDTIME 0RF fluticasone propionate [Flonase Allergy Relief] 50 mcg/actuation spray,suspension 1 spray intranasal DAILY 0RF Rx Instructions: administer into each nostril
--- NOTE | 2021-11-03 23:40 | PC.NURSE ---
Pt came back from bathroom saying that she wanted to leave, Marine sepulveda and Sujey RN convinced pt to stay and to give her urine sample for testing. Pt now laying on stretcher in Hallway across from Rm 13. Pt seems to be muttering and talking to herself while trying to sleep.
--- NOTE | 2021-11-03 23:52 | PC.NURSE ---
Patient refusing to give ERT her urine cup and has it hiding in her pocket. Patient also refusing to let ERT take blood. Patient states that her throat is closing. Patient's throat is not swollen or edemetous.
[2021-11-04 00:08] LABS: Appearance Urine CLEAR; Color Urine STRAW; Glucose Urine UA NEG (NEG); Leukocyte Esterase Urine 2+ (NEG); Nitrite Urine NEG (NEG); PH 6.5 (5.0-8.0); Specific Gravity - Urine <= 1.005 (1.005-1.025); UACC Culture Trigger YES; Urine Blood TRACE (NEG); Urine Ketones NEG (NEG); Urine Protein NEG (NEG-TRACE)
[2021-11-04 00:15] LABS: Bacteria Urine 1+ /LPF; RBC Urine 0-2 /HPF (0); Squamous Epithelial Cell Urine 3+ /LPF
[2021-11-04 00:22] LABS: Amphetamine Screen Urine Not Detected (Not Detect); Barbiturates, Urine Not Detected (Not Detect); Benzodiazepines Screen Urine Not Detected (Not Detect); Cannabinoid Screen Urine Not Detected (Not Detect); Cocaine Screen Urine POSITIVE (Not Detect); Fentanyl, urine POSITIVE (Not Detect); Opiate Screen Urine POSITIVE (Not Detect); Phencyclidine Screen Urine Not Detected (Not Detect)
[2021-11-04 00:24] LABS: Basophils Percent Auto 0.2 % (0-2); Eosinophils Absolute Auto 0.1 X10*3/uL (0.0-0.4); Eosinophils Percent Auto 1.4 % (0-4); Hematocrit 31.8 % (37.0-47.0); Hemoglobin 10.2 g/dl (12.0-16.0); Imm Gran Abs Auto 0.05 X10*3/uL (0.00-0.03); Imm Gran Pct Auto 0.5 % (0.0-0.4); Lymphocytes Absolute Auto 1.5 X10*3/uL (1.2-4.9); Lymphocytes Percent Auto 15.2 % (20-40); MANUAL DIFF FLAG NO; Mean Corpuscular HGB Conc 32.1 g/dl (31.0-35.0); Mean Corpuscular Hemoglobin 26.3 pg (27.0-33.0); Mean Platelet Volume 9.4 fL (9.4-12.3); Monocytes Absolute Auto 0.8 X10*3/uL (0.1-1.2); Monocytes Percent Auto 7.9 % (2-11); Neutrophils Absolute Auto 7.3 x10*3/uL (2.0-8.3); Neutrophils Percent Auto 74.8 % (45-73); Platelet Count 282 X10*3/uL (160-400); Red Blood Count 3.88 X10*6/uL (4.20-5.50); Red Cell Distribution Width 16.8 % (11.0-16.0); White Blood Count 9.7 X10*3/uL (4.8-10.8)
[2021-11-04 00:37] LABS: Ethanol < 10 mg/dL
[2021-11-04 00:40] LABS: Alanine Aminotransferase 30 U/L (0-31); Albumin Level 3.4 g/dL (3.5-5.0); Alkaline Phosphatase 98 U/L (39-117); Anion Gap 13 (12-20); Aspartate Amino Transferase 42 U/L (5-31); Bilirubin Total 0.4 mg/dL (0.0-1.0); Blood Urea Nitrogen 9 mg/dL (9-16); Calcium 9.1 mg/dL (8.4-10.2); Carbon Dioxide 23 mmol/L (22-29); Chloride 105 mmol/L (96-108); Creatinine Clr Calc Pharmacy 71.7; Estimated Glomerular Filt Rate > 60; Glucose Random 105 mg/dL (60-115); Potassium 3.5 mmol/L (3.3-5.1); Sodium 137 mmol/L (135-145); Total Protein 7.6 g/dL (6.5-8.0)
--- NOTE | 2021-11-04 00:40 | PC.NURSE ---
Pt sleeping in hallway bed, chest rise noted, will defer vitals signs until later in the morning to promote rest for pt.
[2021-11-04] MEDS: Nitrofurantoin Monohyd/M-Cryst 100 MG CAPSULE PO (02:19)
[2021-11-04 02:20] VITALS: BP 100/68; PULSE 82; RESP 12; O2SAT 92
--- NOTE | 2021-11-04 02:41 | PC.NURSE ---
Nora CHAUDHARY noticed that the pt was not in her bed in the hallway across from rm 13. Parish and Clotilde technicians remember that the pt had gone to the bathroom. Miguel natural resource technician that he remembered seeing the pt leave the ER about 20 minutes ago. Rusty CHAUDHARY searched the ER to find the pt, but pt was unable to be located so pt eloped.
--- NOTE | 2021-11-04 02:44 | PC.NURSE ---
Sandy mosher RN informed that pt eloped from ER.
== END 2021-11-04 02:44 | disposition still patient (30) ==
PROVIDERS: Emergency Provider Student in an Organized Health Care Education/Training Program
DX: F11.20 Opioid dependence, uncomplicated (principal); F19.20 Other psychoactive substance dependence, uncomplicated; N39.0 Urinary tract infection, site not specified; J45.909 Unspecified asthma, uncomplicated; F17.210 Nicotine dependence, cigarettes, uncomplicated
CPT/HCPCS: 36415; 80053; 80307; 81001; 82077; 85025; 87086; 93005; 99284

== ENCOUNTER 2021-11-25 11:18 | Emergency (ER) | payer MEDICAID, SELFPAY ==
--- NOTE | ~2021-11-25 | XR_ITS ---
EXAMINATION: XR CHEST CLINICAL INFORMATION: Weakness. COMPARISON: 10/16/2021 chest radiographs. TECHNIQUE: 2 views of the chest were obtained. FINDINGS: No significant abnormality is noted involving the heart, lungs, mediastinum, bony thorax or soft tissues. XR/XR chest 2V IMPRESSION: No acute cardiopulmonary process.
[2021-11-25 11:21] VITALS: BP 121/84; PULSE 78; RESP 20; TEMP 36.8; O2SAT 99; BMI 22.4
[2021-11-25 12:52] VITALS: BP 118/95; PULSE 83; RESP 24; O2SAT 99
--- NOTE | 2021-11-25 12:57 | ECG_ITS ---
Test Reason : CP Blood Pressure : / mmHG Vent. Rate : 074 BPM Atrial Rate : 074 BPM P-R Int : 148 ms QRS Dur : 080 ms QT Int : 406 ms P-R-T Axes : 046 028 031 degrees QTc Int : 450 ms Normal sinus rhythm Nonspecific T wave abnormality Abnormal ECG When compared with ECG of 03-NOV-2021 22:34, No significant change was found Referred By: Ana María Begum Electronically Signed By:TRENT COFFEY
[2021-11-25 13:27] LABS: MANUAL DIFF FLAG NO
[2021-11-25 13:28] LABS: Basophils Percent Auto 0.4 % (0-2); Eosinophils Percent Auto 0.8 % (0-4); Hematocrit 37.5 % (37.0-47.0); Hemoglobin 11.7 g/dl (12.0-16.0); Imm Gran Abs Auto 0.02 X10*3/uL (0.00-0.03); Imm Gran Pct Auto 0.4 % (0.0-0.4); Lymphocytes Absolute Auto 1.9 X10*3/uL (1.2-4.9); Mean Corpuscular HGB Conc 31.2 g/dl (31.0-35.0); Mean Corpuscular Hemoglobin 26.5 pg (27.0-33.0); Mean Platelet Volume 10.2 fL (9.4-12.3); Monocytes Absolute Auto 0.3 X10*3/uL (0.1-1.2); Monocytes Percent Auto 6.2 % (2-11); Neutrophils Absolute Auto 2.6 x10*3/uL (2.0-8.3); Neutrophils Percent Auto 53.2 % (45-73); Platelet Count 430 X10*3/uL (160-400); Red Blood Count 4.41 X10*6/uL (4.20-5.50); Red Cell Distribution Width 17.2 % (11.0-16.0); White Blood Count 4.9 X10*3/uL (4.8-10.8)
[2021-11-25 13:32] LABS: INTERNATIONAL NORM RATIO 1.2 (0.9-1.1); Prothrombin Time 13.1 SEC (9.9-13.0)
[2021-11-25 13:36] LABS: Lactic Acid 0.7 mmol/L (0.5-2.0)
[2021-11-25 13:40] LABS: Ethanol < 10 mg/dL
[2021-11-25 13:43] LABS: Alanine Aminotransferase 32 U/L (0-31); Albumin Level 3.8 g/dL (3.5-5.0); Alkaline Phosphatase 115 U/L (39-117); Anion Gap 15 (12-20); Aspartate Amino Transferase 51 U/L (5-31); Bilirubin Total 0.4 mg/dL (0.0-1.0); Blood Urea Nitrogen 8 mg/dL (9-16); C Reactive Protein 1.14 mg/dL (< or = 0.50); Calcium 9.7 mg/dL (8.4-10.2); Carbon Dioxide 24 mmol/L (22-29); Chloride 100 mmol/L (96-108); Creatinine Clr Calc Pharmacy 64.9; Estimated Glomerular Filt Rate > 60; Glucose Random 116 mg/dL (60-115); Lipase 28 U/L (8-78); Magnesium 2.2 mg/dL (1.6-2.6); Potassium 4.8 mmol/L (3.3-5.1); Sodium 134 mmol/L (135-145); Total Protein 9.2 g/dL (6.5-8.0)
[2021-11-25 13:49] LABS: B Type Natriuretic Peptide 26 pg/mL (<100); HCG Quantitative < 2 mIU/mL; Troponin-I High Sensitivity < 3.5 ng/L (<3.5-17.0)
[2021-11-25 14:11] LABS: Erythrocyte Sedimentation Rate 72 MM/HR (0-20)
[2021-11-25 14:29] LABS: COVID-19 Test Negative (Negative); IDNOW Serial# 16C4AD1C; Influenza A Negative (Negative); Influenza B2 Negative (Negative)
[2021-11-25 16:00] VITALS: BP 110/75; PULSE 77; RESP 19; O2SAT 97
--- NOTE | 2021-11-25 16:10 | ED.GENADULT ---
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 Bacteria /LPF Urine Mucus /LPF Urine Opiates Screen (Not Detect) Urine Fentanyl Screen (Not Detect) Ur Barbiturates Screen (Not Detect) Ur Phencyclidine Scrn (Not Detect) Ur Amphetamines Screen (Not Detect) U Benzodiazepines Scrn (Not Detect) Urine Cocaine Screen (Not Detect) U Marijuana (THC) Screen (Not Detect) Ethyl Alcohol mg/dL COVID-19 (JOE) (Negative) COVID-19 Clin Com Influenza Type A (TONIA) (Negative) Influenza Type B (TONIA) (Negative) Influenza A & B Note 11/25/21 11/25/21 11/25/21 Range/Units 13:20 13:20 13:20 WBC (4.8-10.8) X10*3/uL RBC (4.20-5.50) X10*6/uL Hgb (12.0-16.0) g/dl Hct (37.0-47.0) % MCV (80.0-98.0) fL MCH (27.0-33.0) pg MCHC (31.0-35.0) g/dl RDW (11.0-16.0) % Plt Count (160-400) X10*3/uL MPV (9.4-12.3) fL Immature Gran % (Auto) (0.0-0.4) % Neut % (Auto) (45-73) % Lymph % (Auto) (20-40) % [place] % (Auto) (2-11) % Eos % (Auto) (0-4) % Baso % (Auto) (0-2) % Lymph # (Auto) (1.2-4.9) X10*3/uL [place] # (Auto) (0.1-1.2) X10*3/uL Eos # (Auto) (0.0-0.4) X10*3/uL Baso # (Auto) (0.0-0.2) X10*3/uL Abs Immat Gran (auto) (0.00-0.03) X10*3/uL Absolute Neuts (auto) (2.0-8.3) x10*3/uL Absolute Nucleated RBC (0.0-0.012) X10*3/uL Nucleated RBC % (auto) (0.0-0.2) /100WBC ESR 72 H (0-20) MM/HR PT (9.9-13.0) SEC INR (0.9-1.1) Sodium (135-145) mmol/L Potassium (3.3-5.1) mmol/L Chloride (96-108) mmol/L Carbon Dioxide (22-29) mmol/L Anion Gap (12-20) BUN (9-16) mg/dL Creatinine (0.5-1.4) mg/dL Estim Creat Clear Calc Estimated GFR Random Glucose (60-115) mg/dL Lactic Acid (0.5-2.0) mmol/L Calcium (8.4-10.2) mg/dL Magnesium (1.6-2.6) mg/dL Total Bilirubin (0.0-1.0) mg/dL AST (5-31) U/L ALT (0-31) U/L Alkaline Phosphatase (39-117) U/L Troponin I High Sens < 3.5 (<3.5-17.0) ng/L C-Reactive Protein (< or = 0.50) mg/dL B-Natriuretic Peptide 26 (<100) pg/mL Total Protein (6.5-8.0) g/dL Albumin (3.5-5.0) g/dL Lipase (8-78) U/L Beta HCG, Quant < 2 mIU/mL Urine Color Urine Appearance Urine pH (5.0-8.0) Ur Specific Neon (1.005-1.025) Urine Protein (NEG-TRACE) MG/DL Urine Glucose (UA) (NEG) MG/DL Urine Ketones (NEG) MG/DL Urine Blood (NEG) Urine Nitrite (NEG) Ur Leukocyte Esterase (NEG) Urine RBC (0) /HPF Urine WBC (0-4) /HPF Ur Squamous Epith Cells /LPF Urine Bacteria /LPF Urine Mucus /LPF Urine Opiates Screen (Not Detect) Urine Fentanyl Screen (Not Detect) Ur Barbiturates Screen (Not Detect) Ur Phencyclidine Scrn (Not Detect) Ur Amphetamines Screen (Not Detect) U Benzodiazepines Scrn (Not Detect) Urine Cocaine Screen (Not Detect) U Marijuana (THC) Screen (Not Detect) Ethyl Alcohol mg/dL COVID-19 (JOE) (Negative) COVID-19 Clin Com Influenza Type A (TONIA) (Negative) Influenza Type B (TONIA) (Negative) Influenza A & B Note 11/25/21 11/25/21 11/25/21 Range/Units 13:20 13:20 13:20 WBC (4.8-10.8) X10*3/uL RBC (4.20-5.50) X10*6/uL Hgb (12.0-16.0) g/dl Hct (37.0-47.0) % MCV (80.0-98.0) fL MCH (27.0-33.0) pg MCHC (31.0-35.0) g/dl RDW (11.0-16.0) % Plt Count (160-400) X10*3/uL MPV (9.4-12.3) fL Immature Gran % (Auto) (0.0-0.4) % Neut % (Auto) (45-73) % Lymph % (Auto) (20-40) % [place] % (Auto) (2-11) % Eos % (Auto) (0-4) % Baso % (Auto) (0-2) % Lymph # (Auto) (1.2-4.9) X10*3/uL [place] # (Auto) (0.1-1.2) X10*3/uL Eos # (Auto) (0.0-0.4) X10*3/uL Baso # (Auto) (0.0-0.2) X10*3/uL Abs Immat Gran (auto) (0.00-0.03) X10*3/uL Absolute Neuts (auto) (2.0-8.3) x10*3/uL Absolute Nucleated RBC (0.0-0.012) X10*3/uL Nucleated RBC % (auto) (0.0-0.2) /100WBC ESR (0-20) MM/HR PT (9.9-13.0) SEC INR (0.9-1.1) Sodium (135-145) mmol/L Potassium (3.3-5.1) mmol/L Chloride (96-108) mmol/L Carbon Dioxide (22-29) mmol/L Anion Gap (12-20) BUN (9-16) mg/dL Creatinine (0.5-1.4) mg/dL Estim Creat Clear Calc Estimated GFR Random Glucose (60-115) mg/dL Lactic Acid 0.7 (0.5-2.0) mmol/L Calcium (8.4-10.2) mg/dL Magnesium (1.6-2.6) mg/dL Total Bilirubin (0.0-1.0) mg/dL AST (5-31) U/L ALT (0-31) U/L Alkaline Phosphatase (39-117) U/L Troponin I High Sens (<3.5-17.0) ng/L C-Reactive Protein (< or = 0.50) mg/dL B-Natriuretic Peptide (<100) pg/mL Total Protein (6.5-8.0) g/dL Albumin (3.5-5.0) g/dL Lipase (8-78) U/L Beta HCG, Quant mIU/mL Urine Color Urine Appearance Urine pH (5.0-8.0) Ur Specific Neon (1.005-1.025) Urine Protein (NEG-TRACE) MG/DL Urine Glucose (UA) (NEG) MG/DL Urine Ketones (NEG) MG/DL Urine Blood (NEG) Urine Nitrite (NEG) Ur Leukocyte Esterase (NEG) Urine RBC (0) /HPF Urine WBC (0-4) /HPF Ur Squamous Epith Cells /LPF Urine Bacteria /LPF Urine Mucus /LPF Urine Opiates Screen (Not Detect) Urine Fentanyl Screen (Not Detect) Ur Barbiturates Screen (Not Detect) Ur Phencyclidine Scrn (Not Detect) Ur Amphetamines Screen (Not Detect) U Benzodiazepines Scrn (Not Detect) Urine Cocaine Screen (Not Detect) U Marijuana (THC) Screen (Not Detect) Ethyl Alcohol < 10 mg/dL COVID-19 (JOE) (Negative) COVID-19 Clin Com Influenza Type A (TONIA) Negative (Negative) Influenza Type B (TONIA) Negative (Negative) Influenza A & B Note See Note 11/25/21 11/25/21 11/25/21 Range/Units 13:20 16:46 16:47 WBC (4.8-10.8) X10*3/uL RBC (4.20-5.50) X10*6/uL Hgb (12.0-16.0) g/dl Hct (37.0-47.0) % MCV (80.0-98.0) fL MCH (27.0-33.0) pg MCHC (31.0-35.0) g/dl RDW (11.0-16.0) % Plt Count (160-400) X10*3/uL MPV (9.4-12.3) fL Immature Gran % (Auto) (0.0-0.4) % Neut % (Auto) (45-73) % Lymph % (Auto) (20-40) % [place] % (Auto) (2-11) % Eos % (Auto) (0-4) % Baso % (Auto) (0-2) % Lymph # (Auto) (1.2-4.9) X10*3/uL [place] # (Auto) (0.1-1.2) X10*3/uL Eos # (Auto) (0.0-0.4) X10*3/uL Baso # (Auto) (0.0-0.2) X10*3/uL Abs Immat Gran (auto) (0.00-0.03) X10*3/uL Absolute Neuts (auto) (2.0-8.3) x10*3/uL Absolute Nucleated RBC (0.0-0.012) X10*3/uL Nucleated RBC % (auto) (0.0-0.2) /100WBC ESR (0-20) MM/HR PT (9.9-13.0) SEC INR (0.9-1.1) Sodium (135-145) mmol/L Potassium (3.3-5.1) mmol/L Chloride (96-108) mmol/L Carbon Dioxide (22-29) mmol/L Anion Gap (12-20) BUN (9-16) mg/dL Creatinine (0.5-1.4) mg/dL Estim Creat Clear Calc Estimated GFR Random Glucose (60-115) mg/dL Lactic Acid (0.5-2.0) mmol/L Calcium (8.4-10.2) mg/dL Magnesium (1.6-2.6) mg/dL Total Bilirubin (0.0-1.0) mg/dL AST (5-31) U/L ALT (0-31) U/L Alkaline Phosphatase (39-117) U/L Troponin I High Sens (<3.5-17.0) ng/L C-Reactive Protein (< or = 0.50) mg/dL B-Natriuretic Peptide (<100) pg/mL Total Protein (6.5-8.0) g/dL Albumin (3.5-5.0) g/dL Lipase (8-78) U/L Beta HCG, Quant mIU/mL Urine Color YELLOW Urine Appearance HAZY Urine pH 6.5 (5.0-8.0) Ur Specific Neon <= 1.005 (1.005-1.025) Urine Protein NEG (NEG-TRACE) MG/DL Urine Glucose (UA) NEG (NEG) MG/DL Urine Ketones NEG (NEG) MG/DL Urine Blood 3+ H (NEG) Urine Nitrite NEG (NEG) Ur Leukocyte Esterase 1+ H (NEG) Urine RBC TNTC H (0) /HPF Urine WBC 5-9 H (0-4) /HPF Ur Squamous Epith Cells 2+ /LPF Urine Bacteria 2+ /LPF Urine Mucus 1+ /LPF Urine Opiates Screen POSITIVE H (Not Detect) Urine Fentanyl Screen POSITIVE H (Not Detect) Ur Barbiturates Screen Not Detected (Not Detect) Ur Phencyclidine Scrn Not Detected (Not Detect) Ur Amphetamines Screen Not Detected (Not Detect) U Benzodiazepines Scrn Not Detected (Not Detect) Urine Cocaine Screen POSITIVE H (Not Detect) U Marijuana (THC) Screen Not Detected (Not Detect) Ethyl Alcohol mg/dL COVID-19 (JOE) Negative (Negative) COVID-19 Clin Com See Note Influenza Type A (TONIA) (Negative) Influenza Type B (TONIA) (Negative) Influenza A & B Note <MAYELIN Guzman - Last Filed: 11/26/21 02:07> Imaging Data Chest x-ray: Attestation: I personally reviewed and interpreted this imaging study as follows: <MAYELIN Grey - Last Filed: 11/25/21 17:42> Radiologist's impression: FINDINGS: No significant abnormality is noted involving the heart, lungs, mediastinum, bony thorax or soft tissues. XR/XR chest 2V IMPRESSION: No acute cardiopulmonary process. <MAYELIN Grey - Last Filed: 11/25/21 17:42> ECG Data Attestation: I personally reviewed and interpreted this ECG as follows: <MAYELIN Grey - Last Filed: 11/25/21 17:42> Interpretation: Normal sinus rhythm with ventricular rate of 74 with nonspecific T-wave abnormalities no acute ischemic change are noted. Similar compared to prior EKG on 11/03/2021 <MAYELIN Grey Last Filed: 11/25/21 17:42> Discharge Plan Discharge Clinical Impression: Polysubstance abuse, Herpes genitalia, Anxiety, UTI (urinary tract infection), Depression <MAYELIN Grey Last Filed: 11/25/21 17:42> Patient Disposition: Still a Patient <MAYELIN Grey - Last Filed: 11/25/21 17:42> Instructions: Polysubstance Abuse (ED) <MAYELIN Grey - Last Filed: 11/25/21 17:42> Prescriptions: New doxycycline monohydrate 100 mg tablet 100 mg PO BID 10 Days Qty: 20 0RF valacyclovir [Valtrex] 1 gram tablet 1,000 mg PO DAILY 5 Days Qty: 5 0RF No Action terconazole 0.8 % cream 1 appful vaginal BEDTIME 3 Days Qty: 20 0RF ascorbic acid (vitamin C) [Vitamin C] 500 mg tablet 1 tab PO DAILY 0RF clonidine HCl 0.1 mg tablet 1 tab PO BEDTIME PRN (Reason: Anxiety) 0RF cyclobenzaprine 5 mg tablet 1 tab PO TID PRN (Reason: muscle pain) 0RF hydroxyzine HCl 25 mg Tablet 25 mg PO TID PRN (Reason: Anxiety) 0RF nitrofurantoin monohyd/m-cryst [Macrobid] 100 mg capsule 100 mg PO Q12H 5 Days Qty: 10 0RF Rx Instructions: must administer with a meal/food ferrous sulfate 325 mg (65 mg iron) tablet 1 tab PO DAILY 0RF docusate sodium 100 mg capsule 1 cap PO BID 0RF omeprazole 20 mg capsule,delayed release(DR/EC) 1 cap PO DAILY 0RF clotrimazole 1 % cream TOPICAL 0RF naloxone [Narcan] 4 mg/actuation spray,non-aerosol INTRANASAL 0RF propranolol 10 mg tablet 10 mg PO BID PRN (Reason: anxiety) 0RF loratadine 10 mg tablet 10 mg PO DAILY 0RF senna 8.6 mg capsule 8.6 mg PO BEDTIME 0RF fluticasone propionate [Flonase Allergy Relief] 50 mcg/actuation spray,suspension 1 spray intranasal DAILY 0RF Rx Instructions: administer into each nostril <MAYELIN Grey - Last Filed: 11/25/21 17:42> Referrals: [facility] [Primary Care Provider] - 2 days <MAYELIN Grey - Last Filed: 11/25/21 17:42>
[2021-11-25] MEDS: hydrOXYzine HCL 50 MG TABLET PO (16:50)
[2021-11-25 17:02] LABS: Appearance Urine HAZY; Color Urine YELLOW; Glucose Urine UA NEG (NEG); Leukocyte Esterase Urine 1+ (NEG); Nitrite Urine NEG (NEG); PH 6.5 (5.0-8.0); Specific Gravity - Urine <= 1.005 (1.005-1.025); UACC Culture Trigger YES; Urine Blood 3+ (NEG); Urine Ketones NEG (NEG); Urine Protein NEG (NEG-TRACE)
[2021-11-25] MEDS: cefTRIAXone sodium 500 MG, Lidocaine HCl 1 % MPF 1 ML IM (17:13)
[2021-11-25 17:17] LABS: Amphetamine Screen Urine Not Detected (Not Detect); Barbiturates, Urine Not Detected (Not Detect); Benzodiazepines Screen Urine Not Detected (Not Detect); Cannabinoid Screen Urine Not Detected (Not Detect); Cocaine Screen Urine POSITIVE (Not Detect); Fentanyl, urine POSITIVE (Not Detect); Opiate Screen Urine POSITIVE (Not Detect); Phencyclidine Screen Urine Not Detected (Not Detect)
--- NOTE | 2021-11-25 17:18 | PC.NURSE ---
medicated per provider order.
[2021-11-25 17:19] LABS: Bacteria Urine 2+ /LPF; Mucus Urine 1+ /LPF; RBC Urine TNTC /HPF (0); Squamous Epithelial Cell Urine 2+ /LPF
--- NOTE | 2021-11-25 17:30 | MHC.RECOVSUP ---
? Reason for consult Recovery support o Current location: [id number] o Identified substance use concern: Cocaine & Heroin - Withdrawal - Seeking ATS (detox) - Support ? Intervention: o Community resources provided o Harm reduction discussion ? Plan: o Patient awaiting crisis evaluation o Patient to follow up with [facility] after discharge ? Additional information: Met with Patient and we had a long recovery Talk.. She stated that he needs to go somewhere where Patient could get her meds right, and detox.. Patient stated that she wants to move forward in recovery..We talk about [facility] as a place where she could go to be in a safe place and keep busy and be around People in recovery..
--- NOTE | 2021-11-25 18:53 | MHC.CARE ---
CARE team consult received for pt who presented to ED with multiple medical concerns who also endorsed symptoms of depression secondary to ongoing substance use and difficulty with sustaining recovery. This telegraphic typewriter mechanic met with pt in ED room 7. Pt presented with depressed mood and flat affect, hygiene and grooming were within normal limits, and she was overdressed for the weather today. She denied experiencing active thoughts of suicide, rather endorsing that she feels sensations in her chest and head that feel like zaps and make her want to be so they stop. Pt reported understanding that the drugs are the root cause to the somatic symptoms that she is experiencing and expressed that she needs to go to detox so she can stop using and have her methadone dose adjusted to better manage cravings. CARE team discussed consult with disaster recovery consultant and plan is for pt to be a bedsearch pending placement in an EATS bed. ED provider updated re: plan of care for pt to remain in ED overnight pending placement in the morning.
[2021-11-25 21:09] VITALS: BP 106/69; PULSE 73; RESP 16; TEMP 36.7; O2SAT 98
[2021-11-26 01:14] VITALS: BP 120/81; PULSE 69; RESP 16; TEMP 36.6; O2SAT 98
[2021-11-26] MEDS: LORazepam 1 MG TABLET PO (02:00)
--- NOTE | 2021-11-26 02:08 | PC.NURSE ---
pt requesting medication for sleep, provider notified, medicated per provider order. med rec completed w pt.
[2021-11-26 04:47] VITALS: BP 110/73; PULSE 74; RESP 16; TEMP 36.6; O2SAT 97
[2021-11-26 07:18] VITALS: BP 102/61; PULSE 71; RESP 14; TEMP 36.8; O2SAT 98
[2021-11-26 08:37] LABS: Syphilis Screen Nonreactive (Nonreactive)
--- NOTE | 2021-11-26 09:04 | MHC.RECOVSUP ---
Addendum entered by Lucius Bangura, [facility] 11/26/21 13:58: Patient accepted to [facility] and transported via [employer]. Last dose letter sent to facility. Original Note: Recovery Support note: Patient is a 41 year old Kiswahili speaking female who presented to [facility] due to multiple complaints including substance use. Patient was seen by recovery engineer and CARE Team and the plan is for patient to be referred to [facility] facilities. I met with patient on 11/26 to confirm patient was still interested in treatment and she reports that she is. Meghan at [facility] reports patient last dosed on 11/25 and received 35mg. Pharmacy and provider aware. This caption writer will refer patient to [facility] facilities.
[2021-11-26 09:24] LABS: CT PCR NOT DETECTED (Not Detect.); NG PCR NOT DETECTED (Not Detect.)
[2021-11-26] MEDS: methADONE HCl 20 MG/2 ML ORAL.CONC 35 MG PO (09:35)
[2021-11-26 09:47] LABS: BV Int Neg Control Negative (Negative); BV Int Pos Control Positive (Positive)
== END 2021-11-26 13:09 | disposition home or self-care (01) ==
PROVIDERS: Physician Assistant Medical; Emergency Provider Student in an Organized Health Care Education/Training Program
DX: F19.10 Other psychoactive substance abuse, uncomplicated (principal); A60.04 Herpesviral vulvovaginitis; N39.0 Urinary tract infection, site not specified; F41.9 Anxiety disorder, unspecified; F32.A Depression, unspecified; R13.10 Dysphagia, unspecified; R06.02 Shortness of breath; M79.10 Myalgia, unspecified site; R07.9 Chest pain, unspecified; Z20.822 Contact with and (suspected) exposure to COVID-19; F11.10 Opioid abuse, uncomplicated; F17.200 Nicotine dependence, unspecified, uncomplicated
CPT/HCPCS: 36415; 71046; 80053; 80307; 81001; 81003; 82077; 83605; 83690; 83735; 83880; 84484; 84702; 85025; 85610; 85652; 86140; 86780; 87040; 87086; 87255; 87480; 87491; 87502; 87510; 87591; 87635; 87660; 93005; 96372; 99284; 99285; J0696

== ENCOUNTER 2021-12-03 09:32 | Emergency (ER) | payer MEDICAID, SELFPAY ==
[2021-12-03 09:36] VITALS: BP 132/93; PULSE 76; RESP 18; TEMP 36.6; O2SAT 99; BMI 24.2
--- NOTE | 2021-12-03 09:46 | ED.GENADULT ---
HPI - General Adult General Chief complaint: Psychiatric Symptoms <MAYELIN Zeng - Last Filed: 12/03/21 16:21> Stated complaint: crisis <MAYELIN Zeng - Last Filed: 12/03/21 16:21> Time Seen by Provider: 12/03/21 09:46 <MAYELIN Zeng - Last Filed: 12/03/21 16:21> Source: patient <MAYELIN eZng - Last Filed: 12/03/21 16:21> Mode of arrival: ambulatory <MAYELIN Zeng - Last Filed: 12/03/21 16:21> Limitations: no limitations <MAYELIN Zeng - Last Filed: 12/03/21 16:21> History of Present Illness HPI narrative: Patient is a 41 year old female presenting to the emergency department today with suicidal thoughts. Patient states that she used cocaine and heroin yesterday and today, she is having thoughts of killing herself. Patient denies any dizziness, lightheadedness, abdominal pain, nausea, vomiting, fever, chills, blurry vision, double vision, loss of vision, chest pain, difficulty breathing, shortness of breath, back pain, night sweats, pain with urination, increased urinary frequency, increased urinary urgency, blood in her urine or stool, syncope or a near syncopal episode, recent trauma or falls, bowel incontinence, bladder incontinence, bowel retention, bladder retention, or any other complaints at this time. <MAYELIN Zeng - Last Filed: 12/03/21 16:21> Onset (ago): hour(s) <MAYELIN Zeng - Last Filed: 12/03/21 16:21> Severity: mild <MAYELIN Zeng - Last Filed: 12/03/21 16:21> Severity scale (1-10): 4 <MAYELIN Zeng - Last Filed: 12/03/21 16:21> Relieving factors: none <MAYELIN Zeng - Last Filed: 12/03/21 16:21> Exacerbating factors: none <MAYELIN Zeng Last Filed: 12/03/21 16:21> Associated symptoms: denies other symptoms <MAYELIN Zeng - Last Filed: 12/03/21 16:21> Treatments prior to arrival: none <MAYELIN Zeng - Last Filed: 12/03/21 16:21> Related Data Home medications: Home Medications Medication Instructions Recorded Confirmed ascorbic acid (vitamin C) 500 mg 1 tab PO DAILY 09/08/21 11/26/21 tablet (Vitamin C) clonidine HCl 0.1 mg tablet 1 tab PO BEDTIME PRN Anxiety 09/08/21 11/26/21 cyclobenzaprine 5 mg tablet 1 tab PO TID PRN muscle pain 09/08/21 09/27/21 hydroxyzine HCl 25 mg tablet 25 mg PO TID PRN Anxiety 09/13/21 11/26/21 clotrimazole 1 % topical cream appl topical 09/21/21 09/27/21 docusate sodium 100 mg capsule 1 cap PO BID constipation 09/21/21 09/27/21 ferrous sulfate 325 mg (65 mg 1 tab PO DAILY 09/21/21 09/27/21 iron) tablet naloxone 4 mg/actuation nasal intranasal 09/21/21 09/27/21 spray (Narcan) omeprazole 20 mg capsule,delayed 1 cap PO DAILY 09/21/21 11/26/21 release fluticasone propionate 50 1 spray intranasal DAILY 10/25/21 11/26/21 mcg/actuation nasal spray,suspension (Flonase Allergy Relief) loratadine 10 mg tablet 10 mg PO DAILY 10/25/21 11/26/21 propranolol 10 mg tablet 10 mg PO BID PRN anxiety 10/25/21 11/26/21 sennosides 8.6 mg capsule (senna) 8.6 mg PO BEDTIME 10/25/21 methadone 10 mg/mL oral syringe 35 mg PO DAILY 12/03/21 12/03/21 (FOR ORAL USE ONLY) Previous Rx's Medication Instructions Recorded terconazole 0.8 % vaginal cream 1 appful vaginal BEDTIME 3 days 10/13/21 #20 grams nitrofurantoin 100 mg PO Q12H 5 days #10 caps 11/04/21 monohydrate/macrocrystals 100 mg capsule (Macrobid) doxycycline monohydrate 100 mg 100 mg PO BID std 10 days #20 tabs 11/25/21 tablet valacyclovir 1 gram tablet 1,000 mg PO DAILY 5 days #5 tabs 11/25/21 (Valtrex) <MAYELIN Zeng Last Filed: 12/03/21 16:21> Allergies/adverse reactions: Allergies Allergy/AdvReac Type Severity Reaction Status Date / Time naproxen Allergy Intermediate nausea and Verified 11/25/21 11:21 vomiting Motrin Allergy Intermediate nausea and Uncoded 10/25/21 15:21 vomiting <MAYELIN Zeng Last Filed: 12/03/21 16:21> Review of Systems Constitutional: Constitutional: Reports no additional constitutional complaints, Denies chills, Denies fever(s) and Denies night sweats <MAYELIN Zeng Last Filed: 12/03/21 16:21> Eyes: Eyes: Reports no additional eye complaints, Denies blurry vision, Denies change in vision, Denies diplopia, Denies eye discharge, Denies loss of vision and Denies eye pain <MAYELIN Zeng Last Filed: 12/03/21 16:21> ENT: Denies dizziness <MAYELIN Zeng Last Filed: 12/03/21 16:21> Cardiovascular: Cardiovascular: Reports no additional cardiovascular complaints, Denies chest pain, Denies lightheadedness, Denies Loss of Consciousness and Denies dyspnea <MAYELIN Zeng Last Filed: 12/03/21 16:21> Respiratory: Respiratory: Reports no additional respiratory complaints and Denies dyspnea <MAYELIN Zeng Last Filed: 12/03/21 16:21> Gastrointestinal: Gastrointestinal: Reports no additional gastrointestinal complaints, Denies abdominal pain, Denies melena, Denies hematochezia, Denies change in bowel habits and Denies change in stool character <MAYELIN Zeng Last Filed: 12/03/21 16:21> Genitourinary: Genitourinary: Denies hematuria, Denies urinary frequency, Denies dysuria, Denies urinary incontinence, Denies urinary hesitancy and Denies urinary urgency <MAYELIN Zeng Last Filed: 12/03/21 16:21> Musculoskeletal: Musculoskeletal: Reports no additional musculoskeletal complaints, Denies numbness and Denies tingling <MAYELIN Zeng Last Filed: 12/03/21 16:21> Neurologic: Denies dizziness, Denies loss of vision, Denies numbness and Denies tingling <MAYELIN Zeng - Last Filed: 12/03/21 16:21> Psychiatric: Psychiatric: Reports suicidal ideation <MAYELIN Zneg - Last Filed: 12/03/21 16:21> Endocrine: Endocrine: Reports no additional endocrine complaints <MAYELIN Zeng - Last Filed: 12/03/21 16:21> Hematologic/Lymphatic: Hematologic/Lymphatic: Reports no additional hematologic/lymphatic complaints <MAYELIN Zeng - Last Filed: 12/03/21 16:21> Allergic/Immunologic: Allergic/Immunologic: Reports no additional allergic/immunologic complaints <MAYELIN Zeng - Last Filed: 12/03/21 16:21> PMFSH Past Medical History Attestation statement: The following information was validated with the patient. <MAYELIN Zeng - Last Filed: 12/03/21 16:21> Source: old records reviewed <MAYELIN Zeng - Last Filed: 12/03/21 16:21> Medical History: Medical History BRIE positive Asthma Dyspnea History of prediabetes History of sleep disturbance Hx of anxiety disorder Opioid use disorder Polysubstance abuse <MAYELIN Zeng - Last Filed: 12/03/21 16:21> Surgical History: Surgical History History of colposcopy History of surgery on arm History of tubal ligation Hx of dilation and curettage Hx of excision of mass <MAYELIN Zeng - Last Filed: 12/03/21 16:21> Social History Social History: Social History Alcohol intake: never Patient Tobacco Use Status: Current everyday Tobacco user Tobacco use type: Cigarette Cigarettes Per Day: 20 Substance Use Type: Crack/Cocaine and Heroin Advance Directives: No Advance Directives Information Provided: No <MAYELIN Zeng - Last Filed: 12/03/21 16:21> Physical Exam ED Vital Signs: Vital Signs - 24 hr 12/03/21 09:36 Temperature 98 F Pulse Rate 76 Respiratory Rate 18 Blood Pressure 132/93 H Pulse Oximetry 99 Oxygen Delivery Method Room Air BMI result Body Mass Index 24.2 <MAYELIN Zeng - Last Filed: 12/03/21 16:21> Vital Signs - 24 hr 12/03/21 09:36 Temperature 98 F Pulse Rate 76 Respiratory Rate 18 Blood Pressure 132/93 H Pulse Oximetry 99 Oxygen Delivery Method Room Air BMI result Body Mass Index 24.2 <Obinna Zafar [place] - Last Filed: 12/03/21 20:55> Const General: cooperative, no acute distress, alert and awake <MAYELIN Zeng - Last Filed: 12/03/21 16:21> Nutritional Appearance: well nourished <MAYELIN Zeng - Last Filed: 12/03/21 16:21> Orientation/consciousness: patient oriented x3 <MAYELIN Zeng - Last Filed: 12/03/21 16:21> Limitations: no limitations <MAYELIN Zeng - Last Filed: 12/03/21 16:21> HENMT Head: Yes normal to inspection and Yes atraumatic <MAYELIN Zeng - Last Filed: 12/03/21 16:21> Ears: hearing grossly normal bilaterally and external ears normal <MAYELIN Zeng - Last Filed: 12/03/21 16:21> General nose exam: Normal external nose present, no nasal discharge noted and no epistaxis <MAYELIN Zeng - Last Filed: 12/03/21 16:21> Face and sinus: Yes normal facial exam, No abrasion and No laceration <MAYELIN Zeng - Last Filed: 12/03/21 16:21> Mouth: Normal oral and palatal mucosa present, no drooling and no muffled voice <MAYELIN Zeng - Last Filed: 12/03/21 16:21> Eyes General: appearance normal, both eyes and all related structures <MAYELIN Zeng - Last Filed: 12/03/21 16:21> Periorbital: periorbital findings normal <MAYELIN Zeng - Last Filed: 12/03/21 16:21> Eyelids: Yes eyelids normal <MAYELIN Zeng - Last Filed: 12/03/21 16:21> Conjunctivae: conjunctivae normal <MAYELIN Zeng - Last Filed: 12/03/21 16:21> Pupils: Equal, round and reactive pupils present <Erica Mar PA - Last Filed: 12/03/21 16:21> EOM: EOMs intact bilaterally <Erica Mar PA - Last Filed: 12/03/21 16:21> Neck Neck: Yes normal visual inspection, Yes full ROM and Yes no lymphadenopathy <Erica Spicermaurice PA - Last Filed: 12/03/21 16:21> Chest Chest palpation & inspection: normal inspection of the chest <Erica Mar PA - Last Filed: 12/03/21 16:21> Resp Effort & Inspection: normal respiratory effort and able to speak in complete sentences <Erica Spicermaurice PA - Last Filed: 12/03/21 16:21> Auscultation: clear to auscultation bilaterally <Erica Spicermaurice PA - Last Filed: 12/03/21 16:21> Cardio Rate: regular rate <Erica Spicermaurice PA - Last Filed: 12/03/21 16:21> Rhythm: regular rhythm <Erica Mar PA - Last Filed: 12/03/21 16:21> GI Inspection: Yes normal to inspection <Erica Spicermaurice PA - Last Filed: 12/03/21 16:21> Neuro General: patient oriented x3 and moves all extremities <Erica Spicermaurice PA - Last Filed: 12/03/21 16:21> Cranial nerves: Yes Equal, round and reactive pupils present <Erica Spicermaurice PA - Last Filed: 12/03/21 16:21> Cognition (Neuro): normal cognition <Erica Spicermaurice PA - Last Filed: 12/03/21 16:21> Motor exam (neuro): 5/5 motor strength present throughout <Erica Spicermaurice PA - Last Filed: 12/03/21 16:21> Sensory Exam: Normal double simultaneous stimulation for sensation <Erica Spicermaurice PA - Last Filed: 12/03/21 16:21> Coordination: [id number] test normal <Erica Spicermaurice PA - Last Filed: 12/03/21 16:21> Extrem General: Yes normal to inspection, Yes full ROM and Yes capillary refill normal <Erica Spicermaurice PA - Last Filed: 12/03/21 16:21> Psych Appearance: grossly normal <MAYELIN Zeng - Last Filed: 12/03/21 16:21> Mental Status: mental status grossly normal <MAYELIN Zeng - Last Filed: 12/03/21 16:21> Affect: Sad affect present and Anxious affect present <MAYELIN Zeng - Last Filed: 12/03/21 16:21> Attitude: cooperative <MAYELIN Zeng - Last Filed: 12/03/21 16:21> Thought process: Normal thought process present <MAYELIN Zeng - Last Filed: 12/03/21 16:21> Thought content: Suicidality present <MAYELIN Zeng - Last Filed: 12/03/21 16:21> Insight: Good insight present (Psych) <MAYELIN Zeng - Last Filed: 12/03/21 16:21> Course Reevaluation(s) Reevaluation #1: Voluntary inpatient bedsearch dx. depression with anxiety spoke to Dieudonne MORRIS. Agree w/ plan <MAYELIN Camacho - Last Filed: 12/03/21 20:55> Time: 20:55 <MAYELIN Camacho - Last Filed: 12/03/21 20:55> Medical Decision Making MDM Narrative Medical decision making narrative: Patient is a 41 year old female presenting to the emergency department today with suicidal ideation. Patient's physical exam was unremarkable. Patient is awaiting behavioral health consult. <MAYELIN Zeng - Last Filed: 12/03/21 16:21> Differential Diagnosis Differential Diagnosis: suicidal ideation, polysubstance abuse <MAYELIN Zeng - Last Filed: 12/03/21 16:21> Medical Records Medical records reviewed: Yes I reviewed the patient's medical records. <MAYELIN Zeng Last Filed: 12/03/21 16:21> Lab Data Lab results reviewed: Yes I reviewed the patient's lab results. <MAYELIN Zeng Last Filed: 12/03/21 16:21> Result diagrams: : 12/03/21 10:37 12/03/21 10:37 <MAYELIN Zeng - Last Filed: 12/03/21 16:21> Labs: Lab Results 12/03/21 12/03/21 12/03/21 Range/Units 10:37 10:37 10:37 WBC 4.9 (4.8-10.8) X10*3/uL RBC 3.98 L (4.20-5.50) X10*6/uL Hgb 10.4 L (12.0-16.0) g/dl Hct 33.1 L (37.0-47.0) % MCV 83.2 (80.0-98.0) fL MCH 26.1 L (27.0-33.0) pg MCHC 31.4 (31.0-35.0) g/dl RDW 17.2 H (11.0-16.0) % Plt Count 380 (160-400) X10*3/uL MPV 10.0 (9.4-12.3) fL Immature Gran % (Auto) 0.2 (0.0-0.4) % Neut % (Auto) 47.2 (45-73) % Lymph % (Auto) 40.2 H (20-40) % Boyd % (Auto) 11.0 (2-11) % Eos % (Auto) 1.0 (0-4) % Baso % (Auto) 0.4 (0-2) % Lymph # (Auto) 2.0 (1.2-4.9) X10*3/uL Boyd # (Auto) 0.5 (0.1-1.2) X10*3/uL Eos # (Auto) 0.1 (0.0-0.4) X10*3/uL Baso # (Auto) 0.0 (0.0-0.2) X10*3/uL Abs Immat Gran (auto) 0.01 (0.00-0.03) X10*3/uL Absolute Neuts (auto) 2.3 (2.0-8.3) x10*3/uL Absolute Nucleated RBC 0.000 (0.0-0.012) X10*3/uL Nucleated RBC % (auto) 0.0 (0.0-0.2) /100WBC Sodium 135 (135-145) mmol/L Potassium 4.2 (3.3-5.1) mmol/L Chloride 101 (96-108) mmol/L Carbon Dioxide 27 (22-29) mmol/L Anion Gap 11 L (12-20) BUN 9 (9-16) mg/dL Creatinine 0.75 (0.5-1.4) mg/dL Estim Creat Clear Calc 73.5 Estimated GFR > 60 Random Glucose 111 (60-115) mg/dL Calcium 9.0 D (8.4-10.2) mg/dL Total Bilirubin 0.5 (0.0-1.0) mg/dL AST 29 D (5-31) U/L ALT 24 (0-31) U/L Alkaline Phosphatase 99 (39-117) U/L Total Protein 8.1 H (6.5-8.0) g/dL Albumin 3.6 (3.5-5.0) g/dL COVID-19 (JOE) Negative (Negative) COVID-19 Clin Com See Note <MAYELIN Zeng - Last Filed: 12/03/21 16:21> Lab Results 12/03/21 12/03/21 12/03/21 Range/Units 10:37 10:37 10:37 WBC 4.9 (4.8-10.8) X10*3/uL RBC 3.98 L (4.20-5.50) X10*6/uL Hgb 10.4 L (12.0-16.0) g/dl Hct 33.1 L (37.0-47.0) % MCV 83.2 (80.0-98.0) fL MCH 26.1 L (27.0-33.0) pg MCHC 31.4 (31.0-35.0) g/dl RDW 17.2 H (11.0-16.0) % Plt Count 380 (160-400) X10*3/uL MPV 10.0 (9.4-12.3) fL Immature Gran % (Auto) 0.2 (0.0-0.4) % Neut % (Auto) 47.2 (45-73) % Lymph % (Auto) 40.2 H (20-40) % Boyd % (Auto) 11.0 (2-11) % Eos % (Auto) 1.0 (0-4) % Baso % (Auto) 0.4 (0-2) % Lymph # (Auto) 2.0 (1.2-4.9) X10*3/uL Boyd # (Auto) 0.5 (0.1-1.2) X10*3/uL Eos # (Auto) 0.1 (0.0-0.4) X10*3/uL Baso # (Auto) 0.0 (0.0-0.2) X10*3/uL Abs Immat Gran (auto) 0.01 (0.00-0.03) X10*3/uL Absolute Neuts (auto) 2.3 (2.0-8.3) x10*3/uL Absolute Nucleated RBC 0.000 (0.0-0.012) X10*3/uL Nucleated RBC % (auto) 0.0 (0.0-0.2) /100WBC Sodium 135 (135-145) mmol/L Potassium 4.2 (3.3-5.1) mmol/L Chloride 101 (96-108) mmol/L Carbon Dioxide 27 (22-29) mmol/L Anion Gap 11 L (12-20) BUN 9 (9-16) mg/dL Creatinine 0.75 (0.5-1.4) mg/dL Estim Creat Clear Calc 73.5 Estimated GFR > 60 Random Glucose 111 (60-115) mg/dL Calcium 9.0 D (8.4-10.2) mg/dL Total Bilirubin 0.5 (0.0-1.0) mg/dL AST 29 D (5-31) U/L ALT 24 (0-31) U/L Alkaline Phosphatase 99 (39-117) U/L Total Protein 8.1 H (6.5-8.0) g/dL Albumin 3.6 (3.5-5.0) g/dL COVID-19 (JOE) Negative (Negative) COVID-19 Clin Com See Note <MAYELIN Camacho - Last Filed: 12/03/21 20:55> Discharge Plan Discharge Clinical Impression: Polysubstance abuse, Suicidal ideation <MAYELIN Zeng - Last Filed: 12/03/21 16:21> Patient Disposition: Still a Patient <MAYELIN Zeng - Last Filed: 12/03/21 16:21> Prescriptions: No Action terconazole 0.8 % cream 1 appful vaginal BEDTIME 3 Days Qty: 20 0RF ascorbic acid (vitamin C) [Vitamin C] 500 mg tablet 1 tab PO DAILY clonidine HCl 0.1 mg tablet 1 tab PO BEDTIME PRN (Reason: Anxiety) cyclobenzaprine 5 mg tablet 1 tab PO TID PRN (Reason: muscle pain) hydroxyzine HCl 25 mg Tablet 25 mg PO TID PRN (Reason: Anxiety) nitrofurantoin monohyd/m-cryst [Macrobid] 100 mg capsule 100 mg PO Q12H 5 Days Qty: 10 0RF Rx Instructions: must administer with a meal/food doxycycline monohydrate 100 mg tablet 100 mg PO BID 10 Days Qty: 20 0RF valacyclovir [Valtrex] 1 gram tablet 1,000 mg PO DAILY 5 Days Qty: 5 0RF methadone 10 mg/mL Syringe 35 mg PO DAILY ferrous sulfate 325 mg (65 mg iron) tablet 1 tab PO DAILY docusate sodium 100 mg capsule 1 cap PO BID omeprazole 20 mg capsule,delayed release(DR/EC) 1 cap PO DAILY clotrimazole 1 % cream TOPICAL naloxone [Narcan] 4 mg/actuation spray,non-aerosol INTRANASAL propranolol 10 mg tablet 10 mg PO BID PRN (Reason: anxiety) loratadine 10 mg tablet 10 mg PO DAILY senna 8.6 mg capsule 8.6 mg PO BEDTIME fluticasone propionate [Flonase Allergy Relief] 50 mcg/actuation spray,suspension 1 spray intranasal DAILY Rx Instructions: administer into each nostril <MAYELIN Zeng - Last Filed: 12/03/21 16:21> Print Language: Maori <MAYELIN Zeng - Last Filed: 12/03/21 16:21>
[2021-12-03 10:43] LABS: MANUAL DIFF FLAG NO
[2021-12-03 10:46] LABS: Basophils Percent Auto 0.4 % (0-2); Eosinophils Absolute Auto 0.1 X10*3/uL (0.0-0.4); Hematocrit 33.1 % (37.0-47.0); Hemoglobin 10.4 g/dl (12.0-16.0); Imm Gran Abs Auto 0.01 X10*3/uL (0.00-0.03); Imm Gran Pct Auto 0.2 % (0.0-0.4); Lymphocytes Percent Auto 40.2 % (20-40); Mean Corpuscular HGB Conc 31.4 g/dl (31.0-35.0); Mean Corpuscular Hemoglobin 26.1 pg (27.0-33.0); Mean Corpuscular Volume 83.2 fL (80.0-98.0); Monocytes Absolute Auto 0.5 X10*3/uL (0.1-1.2); Neutrophils Absolute Auto 2.3 x10*3/uL (2.0-8.3); Neutrophils Percent Auto 47.2 % (45-73); Platelet Count 380 X10*3/uL (160-400); Red Blood Count 3.98 X10*6/uL (4.20-5.50); Red Cell Distribution Width 17.2 % (11.0-16.0); White Blood Count 4.9 X10*3/uL (4.8-10.8)
[2021-12-03 11:01] LABS: COVID-19 Test Negative (Negative)
[2021-12-03 11:03] LABS: Alanine Aminotransferase 24 U/L (0-31); Albumin Level 3.6 g/dL (3.5-5.0); Alkaline Phosphatase 99 U/L (39-117); Anion Gap 11 (12-20); Aspartate Amino Transferase 29 U/L (5-31); Bilirubin Total 0.5 mg/dL (0.0-1.0); Blood Urea Nitrogen 9 mg/dL (9-16); Carbon Dioxide 27 mmol/L (22-29); Chloride 101 mmol/L (96-108); Creatinine Clr Calc Pharmacy 73.5; Estimated Glomerular Filt Rate > 60; Glucose Random 111 mg/dL (60-115); Potassium 4.2 mmol/L (3.3-5.1); Sodium 135 mmol/L (135-145); Total Protein 8.1 g/dL (6.5-8.0)
--- NOTE | 2021-12-03 16:16 | MHC.RECOVSUP ---
Recovery Support note: Patient is a 41 year old [place] Citizen speaking female who presented to [facility] due to SI and recent substance use. 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 Patient was sent to [facility] on 11/26 for EATS however reports she was unable to get through the initial intake due to a tic . Patient reports she feels something is wrong with her head and her heart. Patient reports she can't focus and is having a hard time doing anything. Discussed current plan of having patient evaluated by crisis and assisted patient in retrieving numbers from her phone. Recovery Support Team is available to assist with this patient as needed.
--- NOTE | 2021-12-03 18:57 | PC.NURSE ---
pt sleeping, non labored breathing, pending BHN. BHN referral completed.
[2021-12-03 22:07] LABS: Appearance Urine HAZY; Color Urine YELLOW; Glucose Urine UA NEG (NEG); Leukocyte Esterase Urine 3+ (NEG); Nitrite Urine NEG (NEG); Specific Gravity - Urine 1.015 (1.005-1.025); UACC Culture Trigger YES; Urine Blood TRACE (NEG); Urine Ketones NEG (NEG); Urine Protein NEG (NEG-TRACE)
[2021-12-03 22:12] LABS: Amorphous Sediment Urine 2+ /LPF; Squamous Epithelial Cell Urine 2+ /LPF
[2021-12-03 22:14] LABS: Bacteria Urine TRACE /LPF
[2021-12-03 22:29] LABS: Amphetamine Screen Urine Not Detected (Not Detect); Barbiturates, Urine Not Detected (Not Detect); Benzodiazepines Screen Urine Not Detected (Not Detect); Cannabinoid Screen Urine Not Detected (Not Detect); Cocaine Screen Urine POSITIVE (Not Detect); Fentanyl, urine POSITIVE (Not Detect); Opiate Screen Urine POSITIVE (Not Detect); Phencyclidine Screen Urine Not Detected (Not Detect)
[2021-12-04 00:30] VITALS: BP 139/88; PULSE 84; RESP 16; TEMP 36.8; O2SAT 98
[2021-12-04] MEDS: Cyclobenzaprine HCl 5 MG TABLET PO (00:31)
[2021-12-04] MEDS: Propranolol HCL 20 MG TABLET PO (00:32)
[2021-12-04] MEDS: cloNIDine HCL 0.1 MG TABLET PO (00:32)
[2021-12-04] MEDS: LORazepam 1 MG TABLET PO (01:23)
[2021-12-04] MEDS: Omeprazole 20 MG CAPSULE.DR PO (05:04)
[2021-12-04] MEDS: LORazepam 1 MG TABLET 2 MG PO (05:04)
--- NOTE | 2021-12-04 05:39 | PC.NURSE ---
Patient slept intermittently, Ativan 1 mg at 0123 and Ativan 2 mg po at 0504 administered for comfort, asymptomatic of withdrawal, patient was assessed by N, engaged well, disposition per N is voluntary inpatient bed search, behavior unpredictable with possibility of escalation, VSS, medication compliant, will continue to monitor.
--- NOTE | 2021-12-04 07:12 | PC.NURSE ---
patient appears awake for the day, periodically expressive but redirectable patient appears in no distress
[2021-12-04 07:47] VITALS: BP 149/83; PULSE 76; RESP 14; TEMP 36.5; O2SAT 94
[2021-12-04] MEDS: methADONE HCl 20 MG/2 ML ORAL.CONC 35 MG PO (07:55)
--- NOTE | 2021-12-04 14:12 | MHC.CARE ---
Late entry: CARE Team meets with pt to discuss voluntary inpt admissions, as there is a bed available on the inpt psych unit. Per [facility] assessment which is reviewed, pt presented with vague SI and was made a voluntary bedsearch. Pt declines the bed. She is offered recovery services, but declines. Pt is discharged from the ED.
== END 2021-12-04 12:32 | disposition home or self-care (01) ==
PROVIDERS: Physician Assistant Medical; Emergency Provider Emergency Medicine; PCP Nurse Practitioner Primary Care
DX: R45.851 Suicidal ideations (principal); F19.10 Other psychoactive substance abuse, uncomplicated; J45.909 Unspecified asthma, uncomplicated; F17.210 Nicotine dependence, cigarettes, uncomplicated; Z20.822 Contact with and (suspected) exposure to COVID-19
CPT/HCPCS: 80053; 80307; 81001; 85025; 87086; 87147; 87635; 99284

== ENCOUNTER 2021-12-10 10:21 | Emergency (ER) | payer MEDICAID, SELFPAY ==
--- NOTE | 2021-12-10 | ECG_ITS ---
Test Reason : palpitations Blood Pressure : / mmHG Vent. Rate : 089 BPM Atrial Rate : 089 BPM P-R Int : 132 ms QRS Dur : 080 ms QT Int : 362 ms P-R-T Axes : 074 040 035 degrees QTc Int : 440 ms Normal sinus rhythm Nonspecific T wave abnormality When compared with ECG of 25-NOV-2021 14:01, No significant change was found Referred By: Generic ED Physician Electronically Signed By:JOI FOX MD
--- NOTE | ~2021-12-10 | XR_ITS ---
EXAMINATION: XR CHEST CLINICAL INFORMATION: Chest pain COMPARISON: 11/25/2021 TECHNIQUE: Frontal view of the chest was obtained. FINDINGS: No significant abnormality is noted involving the heart, lungs, mediastinum, bony thorax or soft tissues. XR/XR chest 1V IMPRESSION: Unremarkable examination.
[2021-12-10 10:37] VITALS: BP 125/89; PULSE 87; RESP 18; TEMP 36.4; O2SAT 100; BMI 20.2
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
[2021-12-10 11:41] LABS: MANUAL DIFF FLAG NO
[2021-12-10 11:42] LABS: Basophils Percent Auto 0.4 % (0-2); Eosinophils Absolute Auto 0.1 X10*3/uL (0.0-0.4); Eosinophils Percent Auto 2.3 % (0-4); Hematocrit 35.8 % (37.0-47.0); Hemoglobin 11.2 g/dl (12.0-16.0); Imm Gran Abs Auto 0.01 X10*3/uL (0.00-0.03); Imm Gran Pct Auto 0.2 % (0.0-0.4); Lymphocytes Absolute Auto 2.1 X10*3/uL (1.2-4.9); Lymphocytes Percent Auto 40.6 % (20-40); Mean Corpuscular HGB Conc 31.3 g/dl (31.0-35.0); Mean Corpuscular Hemoglobin 26.2 pg (27.0-33.0); Mean Corpuscular Volume 83.6 fL (80.0-98.0); Mean Platelet Volume 9.8 fL (9.4-12.3); Monocytes Absolute Auto 0.3 X10*3/uL (0.1-1.2); Monocytes Percent Auto 6.4 % (2-11); Neutrophils Absolute Auto 2.6 x10*3/uL (2.0-8.3); Neutrophils Percent Auto 50.1 % (45-73); Platelet Count 380 X10*3/uL (160-400); Red Blood Count 4.28 X10*6/uL (4.20-5.50); Red Cell Distribution Width 17.3 % (11.0-16.0); White Blood Count 5.1 X10*3/uL (4.8-10.8)
[2021-12-10 11:52] LABS: INTERNATIONAL NORM RATIO 1.2 (0.9-1.1); Prothrombin Time 13.7 SEC (9.9-13.0)
[2021-12-10 11:55] LABS: Ethanol < 10 mg/dL
--- NOTE | 2021-12-10 11:57 | PC.NURSE ---
left message for Cara Clarke on her voice message to call back regarding methadone dosing.
[2021-12-10 11:59] LABS: Alanine Aminotransferase 33 U/L (0-31); Alkaline Phosphatase 104 U/L (39-117); Anion Gap 12 (12-20); Aspartate Amino Transferase 46 U/L (5-31); Bilirubin Direct 0.3 mg/dL (0.0-0.5); Bilirubin Total 0.5 mg/dL (0.0-1.0); Blood Urea Nitrogen 6 mg/dL (9-16); Calcium 9.3 mg/dL (8.4-10.2); Carbon Dioxide 28 mmol/L (22-29); Chloride 97 mmol/L (96-108); Creatinine Clr Calc Pharmacy 61.6; Estimated Glomerular Filt Rate > 60; Glucose Random 97 mg/dL (60-115); Lipase 29 U/L (8-78); Magnesium 2.2 mg/dL (1.6-2.6); Potassium 3.8 mmol/L (3.3-5.1); Sodium 133 mmol/L (135-145); Total Protein 8.9 g/dL (6.5-8.0)
[2021-12-10 12:01] LABS: COVID-19 Test Negative (Negative); IDNOW Serial# 16C4AD1C; Troponin-I High Sensitivity < 3.5 ng/L (<3.5-17.0)
[2021-12-10 12:05] LABS: HCG Quantitative < 2 mIU/mL
--- NOTE | 2021-12-10 12:05 | PC.NURSE ---
RECEIVED A CALL FROM [facility], THIS PT IS CALLING THEM TO REPORT NEEDING HELP. SHE IS REQUESTING HER METHADONE. PRIMARY NURSE IS WORKING ON THE VERIFICATION PROCESS FOR DOSING. SHE IS YELLING TO BE PLACED ON THE MONITOR
[2021-12-10 12:15] VITALS: BP 119/74; PULSE 76; RESP 18; TEMP 35.8; O2SAT 97
--- NOTE | 2021-12-10 12:30 | HE.PHANOTE ---
Patient requesting her methadone. Per Yari CHAUDHARY, methadone clinic is closed today. Last time patient was here 6/6 dose was confirm with [facility] as 35 mg daily. If patient is still her tomorrow, RN to follow-up on dose. Kahdijah Ortiz, JaycobD
[2021-12-10] MEDS: methADONE HCl 20 MG/2 ML ORAL.CONC 35 MG PO (12:41)
[2021-12-10 19:38] VITALS: BP 125/85; PULSE 73; RESP 16; O2SAT 99
[2021-12-11 00:50] VITALS: BP 125/81; PULSE 81; RESP 14; TEMP 36.4; O2SAT 98
[2021-12-11 02:40] LABS: Appearance Urine CLEAR; Color Urine YELLOW; Glucose Urine UA NEG (NEG); Leukocyte Esterase Urine NEG (NEG); Nitrite Urine NEG (NEG); PH 7.5 (5.0-8.0); UACC Culture Trigger NO; Urine Blood 1+ (NEG); Urine Ketones NEG (NEG); Urine Protein NEG (NEG-TRACE)
[2021-12-11 02:48] LABS: Squamous Epithelial Cell Urine TRACE /LPF
[2021-12-11 02:49] LABS: Bacteria Urine TRACE /LPF
[2021-12-11 02:56] LABS: Amphetamine Screen Urine Not Detected (Not Detect); Barbiturates, Urine Not Detected (Not Detect); Benzodiazepines Screen Urine Not Detected (Not Detect); Cannabinoid Screen Urine Not Detected (Not Detect); Cocaine Screen Urine POSITIVE (Not Detect); Fentanyl, urine POSITIVE (Not Detect); Opiate Screen Urine POSITIVE (Not Detect); Phencyclidine Screen Urine Not Detected (Not Detect)
[2021-12-11 05:40] VITALS: RESP 20
[2021-12-11 06:00] VITALS: BP 99/70; PULSE 76; RESP 16; TEMP 36.4; O2SAT 98
--- NOTE | 2021-12-11 06:09 | PC.NURSE ---
pt a&o, no sob or chest pain. Pt able to ambulate with a steady gate to the bathroom. Reported to RN
--- NOTE | 2021-12-11 06:12 | PC.NURSE ---
This RN's initial reaction with this patient was while the patient was on her way to the bathroom. This RN offered assistance and patient walked away with a steady gait. Patient was sleeping intermittently throughout the shift, not giving urine, was bladder scanned for 450, patient eventually gave urine, and went back to sleep. RN performed [place] scale, patient denies SI/HI, states I want to be saved, I want help . Patient complaining of weakness, requesting additional bloodwork. Limits set with patient regarding attention seeking behavior. Patient continues to cry and scream out in pain, states that she doesn't want her methadone because it's killing me and nobody is taking care of me , yet walking around the hallways and requiring redirection from multiple staff. This RN offered support on multiple occasions and updated patient on plan, as patient is not on a Section 12 and is currently awaiting an additional N consult. Patient continues to walk around and be rude to staff despite limit setting. Patient eventually attempted to walk out of the ED and stated that she wanted to leave because nobody is paying attention to me here . Patient is alert and oriented and ambulates with a steady gait, eloped from ED at 6:15 with all belongings as witnessed by this RN and Nursing Fluid Dynamicist Ry.
== END 2021-12-11 06:25 | disposition left against medical advice (07) ==
PROVIDERS: Emergency Provider Emergency Medicine; PCP Nurse Practitioner Primary Care
DX: R00.0 Tachycardia, unspecified (principal); R07.89 Other chest pain; F33.1 Major depressive disorder, recurrent, moderate; R45.851 Suicidal ideations; F17.210 Nicotine dependence, cigarettes, uncomplicated; Z71.6 Tobacco abuse counseling; F14.10 Cocaine abuse, uncomplicated; Z20.822 Contact with and (suspected) exposure to COVID-19; Z79.899 Other long term (current) drug therapy
CPT/HCPCS: 36415; 71045; 80048; 80076; 80307; 81001; 82077; 83690; 83735; 84484; 84702; 85025; 85610; 87635; 93005; 99284

== ENCOUNTER 2021-12-24 05:38 | Emergency (ER) | payer MEDICAID, SELFPAY ==
--- NOTE | ~2021-12-24 | XR_ITS ---
EXAMINATION: XR CHEST CLINICAL INFORMATION: Shortness of breath. Anterior chest pain COMPARISON: December 10, 2021 TECHNIQUE: PA view of the chest was obtained. FINDINGS: No significant abnormality is noted involving the heart, lungs, mediastinum, bony thorax or soft tissues. XR/XR chest 1V IMPRESSION: No acute disease.
[2021-12-24 05:44] VITALS: BP 139/98; PULSE 84; RESP 24; TEMP 36.7; O2SAT 97; BMI 20.2
[2021-12-24 08:34] LABS: MANUAL DIFF FLAG NO
[2021-12-24 08:36] LABS: Basophils Percent Auto 0.4 % (0-2); Eosinophils Absolute Auto 0.1 X10*3/uL (0.0-0.4); Hematocrit 37.6 % (37.0-47.0); Hemoglobin 11.5 g/dl (12.0-16.0); Imm Gran Abs Auto 0.01 X10*3/uL (0.00-0.03); Imm Gran Pct Auto 0.2 % (0.0-0.4); Lymphocytes Absolute Auto 2.1 X10*3/uL (1.2-4.9); Lymphocytes Percent Auto 46.1 % (20-40); Mean Corpuscular HGB Conc 30.6 g/dl (31.0-35.0); Mean Corpuscular Hemoglobin 26.4 pg (27.0-33.0); Mean Corpuscular Volume 86.4 fL (80.0-98.0); Mean Platelet Volume 10.7 fL (9.4-12.3); Monocytes Absolute Auto 0.5 X10*3/uL (0.1-1.2); Monocytes Percent Auto 10.9 % (2-11); Neutrophils Absolute Auto 1.9 x10*3/uL (2.0-8.3); Neutrophils Percent Auto 40.4 % (45-73); Platelet Count 230 X10*3/uL (160-400); Red Blood Count 4.35 X10*6/uL (4.20-5.50); Red Cell Distribution Width 17.5 % (11.0-16.0); White Blood Count 4.6 X10*3/uL (4.8-10.8)
[2021-12-24 08:52] LABS: COVID-19 Test Negative (Negative); IDNOW Serial# 16C4AD1C
[2021-12-24 08:54] LABS: Anion Gap 14 (12-20); Blood Urea Nitrogen 5 mg/dL (9-16); Calcium 9.6 mg/dL (8.4-10.2); Carbon Dioxide 30 mmol/L (22-29); Chloride 98 mmol/L (96-108); Creatinine Clr Calc Pharmacy 64.9; Estimated Glomerular Filt Rate > 60; Glucose Random 78 mg/dL (60-115); Potassium 4.1 mmol/L (3.3-5.1); Sodium 138 mmol/L (135-145)
[2021-12-24 08:59] LABS: Troponin-I High Sensitivity < 3.5 ng/L (<3.5-17.0)
== END 2021-12-24 05:40 ==
DX: R07.9 Chest pain, unspecified (principal); Z20.822 Contact with and (suspected) exposure to COVID-19
CPT/HCPCS: 36415; 71045; 80048; 84484; 85025; 87635; 99281; 99283

== ENCOUNTER 2021-12-31 02:50 | Emergency (ER) | payer MEDICAID, SELFPAY ==
--- NOTE | ~2021-12-31 | XR_ITS ---
EXAMINATION: XR CHEST CLINICAL INFORMATION: Lump on left side of the chest COMPARISON: Previous chest x-ray most recent 12/24/2021 TECHNIQUE: 2 views of the chest were obtained. FINDINGS: No significant abnormality is noted involving the heart, lungs, mediastinum, bony thorax or soft tissues. XR/XR chest 2V IMPRESSION: Unremarkable examination.
[2021-12-31 03:25] VITALS: BP 121/73; PULSE 98; RESP 20; TEMP 37.1; O2SAT 97; BMI 20.2
[2021-12-31 04:56] VITALS: BP 125/78; PULSE 97; RESP 18; O2SAT 98
--- NOTE | 2021-12-31 08:36 | ED.GENADULT ---
HPI - General Adult General Chief complaint: General Medical Stated complaint: pyschiatric symptoms, lumps, vaginal bleeding Time Seen by Provider: 12/31/21 08:36 Source: patient Mode of arrival: ambulatory Limitations: no limitations History of Present Illness HPI narrative: Patient is a 41 year old female presenting to the emergency department today with feeling as though she has bumps everywhere and requesting detox. Patient states that lately she feels like there are bumps all over her body and she wants detox. Patient denies any dizziness, lightheadedness, abdominal pain, nausea, vomiting, fever, chills, blurry vision, double vision, loss of vision, chest pain, difficulty breathing, shortness of breath, back pain, night sweats, pain with urination, increased urinary frequency, increased urinary urgency, blood in her urine or stool, syncope or a near syncopal episode, recent trauma or falls, bowel incontinence, bladder incontinence, bowel retention, bladder retention, or any other complaints at this time. Onset (ago): week(s) Severity scale (1-10): 1 Relieving factors: none Exacerbating factors: none Associated symptoms: denies other symptoms Treatments prior to arrival: none Related Data Home Medications Medication Instructions Recorded Confirmed ascorbic acid (vitamin C) 500 mg 1 tab PO DAILY 12/03/21 12/03/21 tablet cholecalciferol (vitamin D3) 50 1 tab PO DAILY 12/03/21 12/03/21 mcg (2,000 unit) tablet clonidine HCl 0.1 mg tablet 1 tab PO BID 12/03/21 12/03/21 cyclobenzaprine 5 mg tablet 1 tab PO TID PRN muscle pain 12/03/21 12/03/21 docusate sodium 100 mg capsule 1 cap PO BID constipation 12/03/21 12/03/21 fluoxetine 10 mg tablet 1 tab PO DAILY 12/03/21 12/03/21 methadone 10 mg/mL oral syringe 35 mg PO DAILY 12/03/21 12/03/21 (FOR ORAL USE ONLY) nicotine (polacrilex) 4 mg gum 1 gum PO Q2H PRN Nicotine Cravings 12/03/21 12/03/21 nicotine 21 mg/24 hr daily 1 patch topical DAILY 12/03/21 12/03/21 transdermal patch pantoprazole 40 mg tablet,delayed 1 tab PO QAM 12/03/21 12/03/21 release propranolol 20 mg tablet 1 tab PO TID PRN anxiety 12/03/21 12/03/21 verapamil 180 mg tablet,extended 1 tab PO DAILY 12/03/21 12/03/21 release Allergies Allergy/AdvReac Type Severity Reaction Status Date / Time naproxen Allergy Intermediate nausea and Verified 11/25/21 11:21 vomiting Motrin Allergy Intermediate nausea and Uncoded 10/25/21 15:21 vomiting Review of Systems Constitutional: Constitutional: Reports no additional constitutional complaints, Denies chills, Denies fever(s) and Denies night sweats Eyes: Eyes: Reports no additional eye complaints, Denies blurry vision, Denies change in vision, Denies diplopia, Denies eye discharge, Denies loss of vision and Denies eye pain ENT: Denies dizziness Cardiovascular: Cardiovascular: Reports no additional cardiovascular complaints, Denies chest pain, Denies lightheadedness, Denies Loss of Consciousness and Denies dyspnea Respiratory: Respiratory: Reports no additional respiratory complaints and Denies dyspnea Gastrointestinal: Gastrointestinal: Reports no additional gastrointestinal complaints, Denies abdominal pain, Denies melena, Denies hematochezia, Denies change in bowel habits and Denies change in stool character Genitourinary: Genitourinary: Denies hematuria, Denies urinary frequency, Denies dysuria, Denies urinary incontinence, Denies urinary hesitancy and Denies urinary urgency Musculoskeletal: Musculoskeletal: Reports no additional musculoskeletal complaints, Denies numbness and Denies tingling Neurologic: Denies dizziness, Denies loss of vision, Denies numbness and Denies tingling Psychiatric: Psychiatric: Reports no additional psychiatric complaints Endocrine: Endocrine: Reports no additional endocrine complaints Hematologic/Lymphatic: Hematologic/Lymphatic: Reports no additional hematologic/lymphatic complaints Allergic/Immunologic: Allergic/Immunologic: Reports no additional allergic/immunologic complaints PMFSH Past Medical History Attestation statement: The following information was validated with the patient. Source: old records reviewed Medical History BRIE positive Anxiety Asthma Dyspnea History of prediabetes History of sleep disturbance Hx of anxiety disorder Hyperlipidemia Opioid use disorder Polysubstance abuse Subcutaneous nodules Surgical History History of colposcopy History of surgery on arm History of tubal ligation Hx of dilation and curettage Hx of excision of mass Social History Social History Alcohol intake: never Patient Tobacco Use Status: Current everyday Tobacco user Tobacco use type: Cigarette Cigarettes Per Day: 20 Substance Use Type: Crack/Cocaine and Heroin Advance Directives: No Advance Directives Information Provided: No Physical Exam ED Vital Signs: Vital Signs - 24 hr 12/31/21 03:25 12/31/21 04:56 Temperature 98.7 F Pulse Rate 98 97 Respiratory Rate 20 18 Blood Pressure 121/73 125/78 Pulse Oximetry 97 98 Oxygen Delivery Method Room Air Room Air BMI result Body Mass Index 20.2 Const General: cooperative, no acute distress, alert and awake Nutritional Appearance: well nourished Orientation/consciousness: patient oriented x3 Limitations: no limitations HENMT Head: Yes normal to inspection and Yes atraumatic Ears: hearing grossly normal bilaterally and external ears normal General nose exam: Normal external nose present, no nasal discharge noted and no epistaxis Face and sinus: Yes normal facial exam, No abrasion and No laceration Mouth: Normal oral and palatal mucosa present, no drooling and no muffled voice Eyes General: appearance normal, both eyes and all related structures Periorbital: periorbital findings normal Eyelids: Yes eyelids normal Conjunctivae: conjunctivae normal Pupils: Equal, round and reactive pupils present EOM: EOMs intact bilaterally Neck Neck: Yes normal visual inspection, Yes full ROM and Yes no lymphadenopathy Chest Chest palpation & inspection: normal inspection of the chest Resp Effort & Inspection: normal respiratory effort and able to speak in complete sentences Auscultation: clear to auscultation bilaterally Cardio Rate: regular rate Rhythm: regular rhythm GI Inspection: Yes normal to inspection Neuro General: patient oriented x3 and moves all extremities Cranial nerves: Yes Equal, round and reactive pupils present Cognition (Neuro): normal cognition Motor exam (neuro): 5/5 motor strength present throughout Sensory Exam: Normal double simultaneous stimulation for sensation Coordination: [id number] test normal Extrem General: Yes normal to inspection, Yes full ROM and Yes capillary refill normal Psych Appearance: grossly normal Mental Status: mental status grossly normal Affect: normal affect Attitude: cooperative Thought process: Normal thought process present Thought content: Normal thought content present Insight: Good insight present (Psych) Medical Decision Making MDM Narrative Medical decision making narrative: Patient is a 41 year old female presenting to the emergency department today requesting detox. Patient's physical exam was unremarkable. Patient's blood work was unremarkable. Patient's urine showed no acute process. I explained my physical exam findings as well as all test results to the patient. I answered all questions asked by the patient. Patient eloped before [facility] could evaluate at her. Differential Diagnosis Differential Diagnosis: detox Medical Records Medical records reviewed: Yes I reviewed the patient's medical records. Lab Data Lab results reviewed: Yes I reviewed the patient's lab results. Result diagrams: 12/31/21 12:37 12/31/21 12:37 Labs: Lab Results 12/31/21 12/31/21 12/31/21 Range/Units 12:37 12:37 13:59 WBC 8.4 (4.8-10.8) X10*3/uL RBC 4.08 L (4.20-5.50) X10*6/uL Hgb 10.9 L (12.0-16.0) g/dl Hct 34.8 L (37.0-47.0) % MCV 85.3 (80.0-98.0) fL MCH 26.7 L (27.0-33.0) pg MCHC 31.3 (31.0-35.0) g/dl RDW 17.4 H (11.0-16.0) % Plt Count 359 D (160-400) X10*3/uL MPV 9.4 (9.4-12.3) fL Immature Gran % (Auto) 0.4 (0.0-0.4) % Neut % (Auto) 72.8 (45-73) % Lymph % (Auto) 22.0 (20-40) % [place] % (Auto) 4.0 (2-11) % Eos % (Auto) 0.4 (0-4) % Baso % (Auto) 0.4 (0-2) % Lymph # (Auto) 1.9 (1.2-4.9) X10*3/uL [place] # (Auto) 0.3 (0.1-1.2) X10*3/uL Eos # (Auto) 0.0 (0.0-0.4) X10*3/uL Baso # (Auto) 0.0 (0.0-0.2) X10*3/uL Abs Immat Gran (auto) 0.03 (0.00-0.03) X10*3/uL Absolute Neuts (auto) 6.1 (2.0-8.3) x10*3/uL Absolute Nucleated RBC 0.000 (0.0-0.012) X10*3/uL Nucleated RBC % (auto) 0.0 (0.0-0.2) /100WBC Sodium 137 (135-145) mmol/L Potassium 4.2 (3.3-5.1) mmol/L Chloride 104 (96-108) mmol/L Carbon Dioxide 28 (22-29) mmol/L Anion Gap 9 L (12-20) BUN 4 L (9-16) mg/dL Creatinine 0.74 (0.5-1.4) mg/dL Estim Creat Clear Calc 67.5 Estimated GFR > 60 Random Glucose 102 (60-115) mg/dL Calcium 9.0 D (8.4-10.2) mg/dL Total Bilirubin 0.3 (0.0-1.0) mg/dL AST 29 (5-31) U/L ALT 19 (0-31) U/L Alkaline Phosphatase 86 (39-117) U/L Total Protein 7.8 (6.5-8.0) g/dL Albumin 3.6 (3.5-5.0) g/dL Urine Color YELLOW Urine Appearance CLEAR Urine pH 8.5 H (5.0-8.0) Ur Specific [place] 1.010 (1.005-1.025) Urine Protein NEG (NEG-TRACE) MG/DL Urine Glucose (UA) NEG (NEG) MG/DL Urine Ketones NEG (NEG) MG/DL Urine Blood NEG (NEG) Urine Nitrite NEG (NEG) Ur Leukocyte Esterase TRACE H (NEG) Urine RBC 1-4 (0) /HPF Urine WBC 0-2 (0-4) /HPF Ur Squamous Epith Cells 2+ /LPF Urine Bacteria TRACE /LPF Salicylates < 5.0 L (15-30) mg/dL Urine Opiates Screen (Not Detect) Urine Fentanyl Screen (Not Detect) Acetaminophen 5 (<30) mcg/mL Ur Barbiturates Screen (Not Detect) Ur Phencyclidine Scrn (Not Detect) Ur Amphetamines Screen (Not Detect) U Benzodiazepines Scrn (Not Detect) Urine Cocaine Screen (Not Detect) U Marijuana (THC) Screen (Not Detect) Ethyl Alcohol < 10 mg/dL 12/31/21 Range/Units 13:59 WBC (4.8-10.8) X10*3/uL RBC (4.20-5.50) X10*6/uL Hgb (12.0-16.0) g/dl Hct (37.0-47.0) % MCV (80.0-98.0) fL MCH (27.0-33.0) pg MCHC (31.0-35.0) g/dl RDW (11.0-16.0) % Plt Count (160-400) X10*3/uL MPV (9.4-12.3) fL Immature Gran % (Auto) (0.0-0.4) % Neut % (Auto) (45-73) % Lymph % (Auto) (20-40) % [place] % (Auto) (2-11) % Eos % (Auto) (0-4) % Baso % (Auto) (0-2) % Lymph # (Auto) (1.2-4.9) X10*3/uL [place] # (Auto) (0.1-1.2) X10*3/uL Eos # (Auto) (0.0-0.4) X10*3/uL Baso # (Auto) (0.0-0.2) X10*3/uL Abs Immat Gran (auto) (0.00-0.03) X10*3/uL Absolute Neuts (auto) (2.0-8.3) x10*3/uL Absolute Nucleated RBC (0.0-0.012) X10*3/uL Nucleated RBC % (auto) (0.0-0.2) /100WBC Sodium (135-145) mmol/L Potassium (3.3-5.1) mmol/L Chloride (96-108) mmol/L Carbon Dioxide (22-29) mmol/L Anion Gap (12-20) BUN (9-16) mg/dL Creatinine (0.5-1.4) mg/dL Estim Creat Clear Calc Estimated GFR Random Glucose (60-115) mg/dL Calcium (8.4-10.2) mg/dL Total Bilirubin (0.0-1.0) mg/dL AST (5-31) U/L ALT (0-31) U/L Alkaline Phosphatase (39-117) U/L Total Protein (6.5-8.0) g/dL Albumin (3.5-5.0) g/dL Urine Color Urine Appearance Urine pH (5.0-8.0) Ur Specific [place] (1.005-1.025) Urine Protein (NEG-TRACE) MG/DL Urine Glucose (UA) (NEG) MG/DL Urine Ketones (NEG) MG/DL Urine Blood (NEG) Urine Nitrite (NEG) Ur Leukocyte Esterase (NEG) Urine RBC (0) /HPF Urine WBC (0-4) /HPF Ur Squamous Epith Cells /LPF Urine Bacteria /LPF Salicylates (15-30) mg/dL Urine Opiates Screen POSITIVE H (Not Detect) Urine Fentanyl Screen POSITIVE H (Not Detect) Acetaminophen (<30) mcg/mL Ur Barbiturates Screen Not Detected (Not Detect) Ur Phencyclidine Scrn Not Detected (Not Detect) Ur Amphetamines Screen Not Detected (Not Detect) U Benzodiazepines Scrn Not Detected (Not Detect) Urine Cocaine Screen POSITIVE H (Not Detect) U Marijuana (THC) Screen Not Detected (Not Detect) Ethyl Alcohol mg/dL Imaging Data Chest x-ray: Attestation: I personally reviewed and interpreted this imaging study as follows: My impression: No acute process. Radiologist's impression: EXAMINATION: XR CHEST CLINICAL INFORMATION: Lump on left side of the chest COMPARISON: Previous chest x-ray most recent 12/24/2021 TECHNIQUE: 2 views of the chest were obtained. FINDINGS: No significant abnormality is noted involving the heart, lungs, mediastinum, bony thorax or soft tissues. XR/XR chest 2V IMPRESSION: Unremarkable examination. Dictated By: Roxanna Martinez MD Signed By: Electronically signed by Roxanna Martinez MD 12/31/21 0908 Discharge Plan Discharge Clinical Impression: Opiate abuse, continuous Patient Disposition: Elopement Instructions: Opioid Use Disorder (ED) Prescriptions: No Action methadone 10 mg/mL Syringe 35 mg PO DAILY clonidine HCl 0.1 mg tablet 1 tab PO BID fluoxetine 10 mg tablet 1 tab PO DAILY verapamil 180 mg tablet extended release 1 tab PO DAILY ascorbic acid (vitamin C) 500 mg tablet 1 tab PO DAILY nicotine (polacrilex) 4 mg gum 1 gum PO Q2H PRN (Reason: Nicotine Cravings) docusate sodium 100 mg capsule 1 cap PO BID propranolol 20 mg tablet 1 tab PO TID PRN (Reason: anxiety) cyclobenzaprine 5 mg tablet 1 tab PO TID PRN (Reason: muscle pain) cholecalciferol (vitamin D3) 50 mcg (2,000 unit) tablet 1 tab PO DAILY pantoprazole 40 mg tablet,delayed release (DR/EC) 1 tab PO QAM nicotine 21 mg/24 hr patch 24 hour 1 patch topical DAILY Interventions: ED Discharge Assessment Last Done: 12/31/21 15:31 Discharge Date/Time: 12/31/21 14:30 Print Language: Togolese
[2021-12-31 12:41] LABS: MANUAL DIFF FLAG NO
[2021-12-31 12:42] LABS: Basophils Percent Auto 0.4 % (0-2); Eosinophils Percent Auto 0.4 % (0-4); Hematocrit 34.8 % (37.0-47.0); Hemoglobin 10.9 g/dl (12.0-16.0); Imm Gran Abs Auto 0.03 X10*3/uL (0.00-0.03); Imm Gran Pct Auto 0.4 % (0.0-0.4); Lymphocytes Absolute Auto 1.9 X10*3/uL (1.2-4.9); Mean Corpuscular HGB Conc 31.3 g/dl (31.0-35.0); Mean Corpuscular Hemoglobin 26.7 pg (27.0-33.0); Mean Corpuscular Volume 85.3 fL (80.0-98.0); Mean Platelet Volume 9.4 fL (9.4-12.3); Monocytes Absolute Auto 0.3 X10*3/uL (0.1-1.2); Neutrophils Absolute Auto 6.1 x10*3/uL (2.0-8.3); Neutrophils Percent Auto 72.8 % (45-73); Platelet Count 359 X10*3/uL (160-400); Red Blood Count 4.08 X10*6/uL (4.20-5.50); Red Cell Distribution Width 17.4 % (11.0-16.0); White Blood Count 8.4 X10*3/uL (4.8-10.8)
[2021-12-31 13:02] LABS: Acetaminophen LAB 5 mcg/mL (<30); Alanine Aminotransferase 19 U/L (0-31); Albumin Level 3.6 g/dL (3.5-5.0); Alkaline Phosphatase 86 U/L (39-117); Anion Gap 9 (12-20); Aspartate Amino Transferase 29 U/L (5-31); Bilirubin Total 0.3 mg/dL (0.0-1.0); Blood Urea Nitrogen 4 mg/dL (9-16); Carbon Dioxide 28 mmol/L (22-29); Chloride 104 mmol/L (96-108); Creatinine Clr Calc Pharmacy 67.5; Estimated Glomerular Filt Rate > 60; Ethanol < 10 mg/dL; Glucose Random 102 mg/dL (60-115); Potassium 4.2 mmol/L (3.3-5.1); Salicylate < 5.0 mg/dL (15-30); Sodium 137 mmol/L (135-145); Total Protein 7.8 g/dL (6.5-8.0)
--- NOTE | 2021-12-31 13:38 | MHC.RECOVSUP ---
Recovery Support note: Patient is a 41 year old Nauruan speaking female who presented to [facility] with multiple complaints. Patient is currently awaiting [facility] evaluation. This typewriter assembler assisted patient's RN in confirming methadone dose. Lexi at [facility] reports patient last dosed yesterday (12/30) at 936 and received 30mg. Verification form completed and faxed to pharmacy. Provider and RN aware. Patient will need last dose letter prior to discharge.
[2021-12-31] MEDS: methADONE HCl 20 MG/2 ML ORAL.CONC 30 MG PO (13:53)
[2021-12-31 14:06] LABS: Appearance Urine CLEAR; Color Urine YELLOW; Glucose Urine UA NEG (NEG); Leukocyte Esterase Urine TRACE (NEG); Nitrite Urine NEG (NEG); PH 8.5 (5.0-8.0); Urine Blood NEG (NEG); Urine Ketones NEG (NEG); Urine Protein NEG (NEG-TRACE)
[2021-12-31 14:15] LABS: Squamous Epithelial Cell Urine 2+ /LPF
[2021-12-31 14:16] LABS: Bacteria Urine TRACE /LPF
[2021-12-31 14:17] LABS: WBC Urine 0-2 /HPF (0-4)
[2021-12-31 14:19] LABS: Amphetamine Screen Urine Not Detected (Not Detect); Barbiturates, Urine Not Detected (Not Detect); Benzodiazepines Screen Urine Not Detected (Not Detect); Cannabinoid Screen Urine Not Detected (Not Detect); Cocaine Screen Urine POSITIVE (Not Detect); Fentanyl, urine POSITIVE (Not Detect); Opiate Screen Urine POSITIVE (Not Detect); Phencyclidine Screen Urine Not Detected (Not Detect)
== END 2021-12-31 14:30 | disposition left against medical advice (07) ==
PROVIDERS: Physician Assistant Medical; Emergency Provider Student in an Organized Health Care Education/Training Program; PCP Nurse Practitioner Primary Care
DX: F11.19 Opioid abuse with unspecified opioid-induced disorder (principal); R22.2 Localized swelling, mass and lump, trunk; F14.10 Cocaine abuse, uncomplicated; F17.210 Nicotine dependence, cigarettes, uncomplicated; Z71.6 Tobacco abuse counseling; Z79.899 Other long term (current) drug therapy
CPT/HCPCS: 36415; 71046; 80053; 80143; 80179; 80307; 81001; 82077; 85025; 99283

== ENCOUNTER 2022-02-10 03:20 | Emergency (ER) | payer MEDICAID, SELFPAY ==
[2022-02-10 03:26] VITALS: BP 138/85; PULSE 100; RESP 22; O2SAT 100; BMI 17.6
--- NOTE | 2022-02-10 03:28 | ED.OVERDOSE ---
HPI - Overdose General Chief Complaint: Overdose Stated Complaint: od Time Seen by Provider: 02/10/22 03:28 Source: EMS Mode of arrival: EMS History of Present Illness HPI Narrative: Patient brought by EMS for overdose on cocaine and Heroin been here multiple times for same was given 2 mg of Narcan intranasally by [facility] on arrival patient was agitated saturating 100% room air blood pressure 138/85 pulse rate 100 Related Data Home Medications Medication Instructions Recorded Confirmed ascorbic acid (vitamin C) 500 mg 1 tab PO DAILY 12/03/21 12/03/21 tablet cholecalciferol (vitamin D3) 50 1 tab PO DAILY 12/03/21 12/03/21 mcg (2,000 unit) tablet clonidine HCl 0.1 mg tablet 1 tab PO BID 12/03/21 12/03/21 cyclobenzaprine 5 mg tablet 1 tab PO TID PRN muscle pain 12/03/21 12/03/21 docusate sodium 100 mg capsule 1 cap PO BID constipation 12/03/21 12/03/21 fluoxetine 10 mg tablet 1 tab PO DAILY 12/03/21 12/03/21 methadone 10 mg/mL oral syringe 35 mg PO DAILY 12/03/21 12/03/21 (FOR ORAL USE ONLY) nicotine (polacrilex) 4 mg gum 1 gum PO Q2H PRN Nicotine Cravings 12/03/21 12/03/21 nicotine 21 mg/24 hr daily 1 patch topical DAILY 12/03/21 12/03/21 transdermal patch pantoprazole 40 mg tablet,delayed 1 tab PO QAM 12/03/21 12/03/21 release propranolol 20 mg tablet 1 tab PO TID PRN anxiety 12/03/21 12/03/21 verapamil 180 mg tablet,extended 1 tab PO DAILY 12/03/21 12/03/21 release Allergies Allergy/AdvReac Type Severity Reaction Status Date / Time naproxen Allergy Intermediate nausea and Verified 11/25/21 11:21 vomiting Motrin Allergy Intermediate nausea and Uncoded 10/25/21 15:21 vomiting Review of Systems Review of Systems: Yes all other systems are reviewed and are negative PMFSH Past Medical History Medical History BRIE positive Anxiety Asthma Dyspnea History of prediabetes History of sleep disturbance Hx of anxiety disorder Hyperlipidemia Opioid use disorder Polysubstance abuse Subcutaneous nodules Surgical History History of colposcopy History of surgery on arm History of tubal ligation Hx of dilation and curettage Hx of excision of mass Social History Social History Alcohol intake: never Patient Tobacco Use Status: Current everyday Tobacco user Tobacco use type: Cigarette Cigarettes Per Day: 20 Substance Use Type: Crack/Cocaine and Heroin Advance Directives: No Advance Directives Information Provided: Yes Physical Exam Vital Signs: Vital Signs: Last Vital Signs Pulse 87 02/10/22 04:00 Resp 16 02/10/22 04:00 BP 134/92 H 02/10/22 04:00 Pulse Ox 100 02/10/22 04:00 O2 Del Method 02/10/22 04:00 BMI result Body Mass Index 17.6 Appearance: Alert. Oriented X3. No acute distress. Eyes: PERRLA, No Nystagmus HEENT: Pharynx normal. Oral Mucosa moist, AT NC Neck: Normal inspection. Neck supple. CVS: Normal heart rate and rhythm. Pulses normal. Respiratory: No respiratory distress. Equal air entry bilateral, no wheezing/rales/rhonchi Abdomen: Soft and nontender. Bowel sounds are present, no mass palpable, no CVA tenderness Skin: Skin warm and dry. Normal skin color. Normal skin turgor. Extremities: No lower extremity edema. No calf tenderness IVDA hardin Neuro: Oriented X 3. No motor deficit. No sensory deficit.No cerebellar signs , cranial nerves II-XII intact MDM - Overdose MDM Narrative Medical decision making narrative: History of cocaine and marijuana and heroin use during stay in the patient's over saturating 100% refused to go to detox discharge patient home* Discharge Plan Discharge Clinical Impression: Drug overdose, Opioid use disorder Patient Disposition: Home, Self-Care Instructions: Opioid Use Disorder (ED) Additional Instructions: Stop using drugs and follow up with detox Prescriptions: No Action methadone 10 mg/mL Syringe 35 mg PO DAILY clonidine HCl 0.1 mg tablet 1 tab PO BID fluoxetine 10 mg tablet 1 tab PO DAILY verapamil 180 mg tablet extended release 1 tab PO DAILY ascorbic acid (vitamin C) 500 mg tablet 1 tab PO DAILY nicotine (polacrilex) 4 mg gum 1 gum PO Q2H PRN (Reason: Nicotine Cravings) docusate sodium 100 mg capsule 1 cap PO BID propranolol 20 mg tablet 1 tab PO TID PRN (Reason: anxiety) cyclobenzaprine 5 mg tablet 1 tab PO TID PRN (Reason: muscle pain) cholecalciferol (vitamin D3) 50 mcg (2,000 unit) tablet 1 tab PO DAILY pantoprazole 40 mg tablet,delayed release (DR/EC) 1 tab PO QAM nicotine 21 mg/24 hr patch 24 hour 1 patch topical DAILY Interventions: ED Discharge Assessment Last Done: 02/10/22 06:29 Discharge Date/Time: 02/10/22 06:29
[2022-02-10 04:00] VITALS: BP 134/92; PULSE 87; RESP 16; O2SAT 100
== END 2022-02-10 06:29 | disposition home or self-care (01) ==
PROVIDERS: Emergency Provider Internal Medicine
DX: T40.5X1A Poisoning by cocaine, accidental (unintentional), initial encounter (principal); Y92.9 Unspecified place or not applicable; F11.10 Opioid abuse, uncomplicated; F17.210 Nicotine dependence, cigarettes, uncomplicated; Z79.899 Other long term (current) drug therapy; Z71.6 Tobacco abuse counseling
CPT/HCPCS: 99283

== ENCOUNTER 2022-03-04 10:22 | Emergency (ER) | payer MEDICAID, SELFPAY ==
--- NOTE | 2022-03-04 10:48 | PC.NURSE ---
PT LEFT THE WR WHEN EMS TOOK HER OFF THEIR STRETCHER
--- NOTE | 2022-03-04 10:53 | PC.NURSE ---
EMS TOLD THIS RN THAT PATIENT DID NOT WANT TO COME TO THE ED RECEIVED UPDRAFT TREATMENT IN AMBULANCE AND SATS 100% VIA NEB AND 98% ON ROOM AIR. PT PLACED IN TRIAGE AND LEFT STATING THAT SHE DID NOT WANT TO STAY
== END 2022-03-04 11:17 | disposition left against medical advice (07) ==
PROVIDERS: Emergency Provider Emergency Medicine
DX: R06.00 Dyspnea, unspecified (principal)

== ENCOUNTER 2022-05-04 22:39 | Inpatient (IN) | payer MEDICAID, SELFPAY ==
--- NOTE | ~2022-05-04 | XR_ITS ---
EXAMINATION: XR ELBOW, RIGHT CLINICAL INFORMATION: Question needle in elbow. COMPARISON: None TECHNIQUE: AP, lateral, and oblique views of the right elbow. FINDINGS: No metallic radiodense foreign bodies are identified. There is soft tissue swelling at the right elbow, most pronounced at the antecubital fossa. Subcutaneous veins edema is noted. No joint effusion. No fracture or malalignment. No appreciable subcutaneous gas. Elbow joint is unremarkable. XR/XR elbow RT min 3V IMPRESSION: No metallic radiodense foreign bodies. Soft tissue swelling and subcutaneous edema at the right elbow, most pronounced at the antecubital fossa.
--- NOTE | ~2022-05-04 | XR_ITS ---
EXAMINATION: XR ANKLE, RIGHT CLINICAL INFORMATION: Abscess. Rule out osteomyelitis. COMPARISON: None TECHNIQUE: AP, lateral, and mortise views of the right ankle. FINDINGS: Soft tissues are swollen circumferentially. No fracture or malalignment. Bone mineralization is normal. No joint effusion. No acute osteolysis. Bones are normal in appearance. No talar osteochondral injuries. XR/XR ankle RT min 3V IMPRESSION: Circumferential soft tissue swelling at the ankle without radiographic findings of osteomyelitis.
[2022-05-04 22:45] VITALS: BP 111/75; PULSE 106; RESP 16; TEMP 38.1; O2SAT 97; BMI 18.1
[2022-05-04 23:18] LABS: Basophils Percent Auto 0.4 % (0-2); Eosinophils Percent Auto 1.5 % (0-4); Hematocrit 27.3 % (37.0-47.0); Hemoglobin 8.7 g/dl (12.0-16.0); Imm Gran Abs Auto 0.01 X10*3/uL (0.00-0.03); Imm Gran Pct Auto 0.4 % (0.0-0.4); Lymphocytes Absolute Auto 0.8 X10*3/uL (1.2-4.9); Lymphocytes Percent Auto 27.6 % (20-40); MANUAL DIFF FLAG SCAN; Mean Corpuscular HGB Conc 31.9 g/dl (31.0-35.0); Mean Corpuscular Hemoglobin 25.7 pg (27.0-33.0); Mean Corpuscular Volume 80.5 fL (80.0-98.0); Mean Platelet Volume 8.8 fL (9.4-12.3); Monocytes Absolute Auto 0.2 X10*3/uL (0.1-1.2); Monocytes Percent Auto 8.8 % (2-11); Neutrophils Absolute Auto 1.7 x10*3/uL (2.0-8.3); Neutrophils Percent Auto 61.3 % (45-73); Platelet Count 372 X10*3/uL (160-400); Red Blood Count 3.39 X10*6/uL (4.20-5.50); Red Cell Distribution Width 15.2 % (11.0-16.0); SCAN SMEAR FLAG 1; White Blood Count 2.7 X10*3/uL (4.8-10.8)
[2022-05-04 23:35] LABS: Lactic Acid 0.8 mmol/L (0.5-2.0)
[2022-05-04 23:38] LABS: SLIDE REVIEW VERIFIED
[2022-05-04 23:40] LABS: Alanine Aminotransferase 51 U/L (0-31); Albumin Level 3.5 g/dL (3.5-5.0); Alkaline Phosphatase 95 U/L (39-117); Anion Gap 15 (12-20); Aspartate Amino Transferase 71 U/L (5-31); Bilirubin Total 0.3 mg/dL (0.0-1.0); Blood Urea Nitrogen 10 mg/dL (9-16); Calcium 8.6 mg/dL (8.4-10.2); Carbon Dioxide 25 mmol/L (22-29); Chloride 91 mmol/L (96-108); Estimated Glomerular Filt Rate > 60; Glucose Random 71 mg/dL (60-115); Potassium 4.2 mmol/L (3.3-5.1); Sodium 127 mmol/L (135-145); Total Protein 8.1 g/dL (6.5-8.0)
--- NOTE | 2022-05-04 23:41 | ED.WOUNDLAC ---
HPI - Wound/Laceration General Chief Complaint: Wound/Laceration Stated Complaint: substance abuse Time Seen by Provider: 05/04/22 23:30 Source: patient Mode of arrival: ambulatory Limitations: no limitations History of Present Illness HPI narrative: This is a 41-year-old female history of polysubstance abuse, GERD, dysphagia, RA, presenting to the emergency department with complaints of abscess to the right ankle, she reports that this has been going on for a week reports subjective fevers and chills, reports she has been taking Bactrim for the past 2 days which she got prescribed at [facility]. She reports it is very painful to the touch. She reports she tried to shoot up to the right ankle but she thinks she may have missed. Also reports that she thinks she may have a needle in her right elbow however unsure. Denies chest pain, shortness of breath, weakness, dizziness, headache, vision changes, abdominal pain, nausea, vomiting. Related Data Home Medications Medication Instructions Recorded Confirmed ascorbic acid (vitamin C) 500 mg 1 tab PO DAILY 12/03/21 12/03/21 tablet cholecalciferol (vitamin D3) 50 1 tab PO DAILY 12/03/21 12/03/21 mcg (2,000 unit) tablet clonidine HCl 0.1 mg tablet 1 tab PO BID 12/03/21 12/03/21 cyclobenzaprine 5 mg tablet 1 tab PO TID PRN muscle pain 12/03/21 12/03/21 docusate sodium 100 mg capsule 1 cap PO BID constipation 12/03/21 12/03/21 fluoxetine 10 mg tablet 1 tab PO DAILY 12/03/21 12/03/21 methadone 10 mg/mL oral syringe 35 mg PO DAILY 12/03/21 12/03/21 (FOR ORAL USE ONLY) nicotine (polacrilex) 4 mg gum 1 gum PO Q2H PRN Nicotine Cravings 12/03/21 12/03/21 nicotine 21 mg/24 hr daily 1 patch topical DAILY 12/03/21 12/03/21 transdermal patch pantoprazole 40 mg tablet,delayed 1 tab PO QAM 12/03/21 12/03/21 release propranolol 20 mg tablet 1 tab PO TID PRN anxiety 12/03/21 12/03/21 verapamil 180 mg tablet,extended 1 tab PO DAILY 12/03/21 12/03/21 release Allergies Allergy/AdvReac Type Severity Reaction Status Date / Time naproxen Allergy Intermediate nausea and Verified 05/04/22 22:50 vomiting Motrin Allergy Intermediate nausea and Uncoded 05/04/22 22:50 vomiting Review of Systems Review of Systems: Constitutional : + Fever, + Chills, Cardiovascular : No Chest Pain, No SOB Respiratory : No Dyspnea Gastrointestinal : No abdominal pain Musculoskeletal : No Joint Swelling Skin : No rash, No skin laceration, + abscess Neuro : No Weakness, No Numbness Psych : No SI/HI Yes all other systems are reviewed and are negative [facility] Past Medical History Attestation statement: The following information was validated with the patient. Source: old records reviewed and nursing notes reviewed Medical History BRIE positive Anxiety Asthma Dyspnea History of prediabetes History of sleep disturbance Hx of anxiety disorder Hyperlipidemia Opioid use disorder Polysubstance abuse Subcutaneous nodules Surgical History History of colposcopy History of surgery on arm History of tubal ligation Hx of dilation and curettage Hx of excision of mass Social History Social History Alcohol intake: never Patient Tobacco Use Status: Current everyday Tobacco user Tobacco use type: Cigarette Cigarettes Per Day: 20 Substance Use Type: Crack/Cocaine and Heroin Advance Directives: No Physical Exam Vital Signs: Vital Signs: Last Vital Signs Temp 100.6 F H 05/04/22 22:45 Pulse 106 H 05/04/22 22:45 Resp 16 05/04/22 22:45 BP 111/75 05/04/22 22:45 Pulse Ox 97 05/04/22 22:45 O2 Del Method 05/04/22 22:45 BMI result Body Mass Index 18.1 Vital signs stable however patient noted to be febrile Appearance: Alert.? Oriented X3.? No acute distress.? Head: Normocephalic, atraumatic, no step-offs or deformities Eyes: Pupils equal, round and reactive to light.? ENT: Pharynx normal.? Neck: Normal inspection.? Neck supple.? CVS: Rapid rate and regular rhythm likely sinus tachycardia? Pulses normal.? Respiratory: No respiratory distress.? Breath sounds normal.? Abdomen: Soft and nontender.? Skin: Skin warm and dry.? Normal skin color.? Normal skin turgor.?+ abscess noted to the medial aspect of right ankle, with overlying erythema, warmth. Fluctuance noted. Normal left ankle. 2+ dorsalis pedis, posterior tibialis and anterior tibialis pulses equal bilateral. Extremities: No lower extremity edema.? No calf ttp. 5/5 strength to bilateral upper and lower extremities Neuro: Oriented X 3.? No motor deficit.? No sensory deficit. CN 2-12 intact Course Reevaluation(s) Reevaluation #1: Patient's CBC with decreased white blood cell count, normocytic anemia noted. Chemistry with a markedly low sodium, receiving IV hydration at this time. Lactic acid negative. Will give fluids, repeat CMP Time: 23:54 Reevaluation #2: I did a fine-needle aspiration to right ankle, obtain some fluid in will send for analysis, minimal amount of purulence expressed. Time: 00:03 MDM - Wound/Laceration MDM Narrative Medical decision making narrative: 2340 41-year-old female presents with worsening abscess despite Bactrim x2 days. Patient has history of IV drug abuse. Physical examination within abscess to the right medial aspect of ankle. Likely abscess with overlying cellulitis. Full range of motion to right ankle, pain-free unlikely septic joint Plan at this time is to obtain basic labs, blood cultures, lactic acid, administer IV fluids and antibiotics. Will obtain x-ray to rule out osteomyelitis. Fluctuance noted will do an incision and drainage in send culture. Will obtain x-ray to rule out foreign body and right elbow Medical Records Attestation: I reviewed the patient's medical records. Lab Data Attestation: I reviewed the patient's lab results. Result diagrams: 05/04/22 23:10 05/04/22 23:10 Labs: Lab Results 05/04/22 05/04/22 05/04/22 Range/Units 23:10 23:10 23:10 WBC 2.7 L (4.8-10.8) X10*3/uL RBC 3.39 L (4.20-5.50) X10*6/uL Hgb 8.7 L D (12.0-16.0) g/dl Hct 27.3 L D (37.0-47.0) % MCV 80.5 (80.0-98.0) fL MCH 25.7 L (27.0-33.0) pg MCHC 31.9 (31.0-35.0) g/dl RDW 15.2 (11.0-16.0) % Plt Count 372 (160-400) X10*3/uL MPV 8.8 L (9.4-12.3) fL Immature Gran % (Auto) 0.4 (0.0-0.4) % Neut % (Auto) 61.3 (45-73) % Lymph % (Auto) 27.6 (20-40) % Archer % (Auto) 8.8 (2-11) % Eos % (Auto) 1.5 (0-4) % Baso % (Auto) 0.4 (0-2) % Lymph # (Auto) 0.8 L (1.2-4.9) X10*3/uL Archer # (Auto) 0.2 (0.1-1.2) X10*3/uL Eos # (Auto) 0.0 (0.0-0.4) X10*3/uL Baso # (Auto) 0.0 (0.0-0.2) X10*3/uL Abs Immat Gran (auto) 0.01 (0.00-0.03) X10*3/uL Absolute Neuts (auto) 1.7 L (2.0-8.3) x10*3/uL Absolute Nucleated RBC 0.000 (0.0-0.012) X10*3/uL Nucleated RBC % (auto) 0.0 (0.0-0.2) /100WBC Smear Tech's Comments VERIFIED Sodium 127 L (135-145) mmol/L Potassium 4.2 (3.3-5.1) mmol/L Chloride 91 L (96-108) mmol/L Carbon Dioxide 25 (22-29) mmol/L Anion Gap 15 (12-20) BUN 10 D (9-16) mg/dL Creatinine 0.80 (0.5-1.4) mg/dL Estim Creat Clear Calc 59.0 Estimated GFR > 60 Random Glucose 71 (60-115) mg/dL Lactic Acid 0.8 (0.5-2.0) mmol/L Calcium 8.6 (8.4-10.2) mg/dL Total Bilirubin 0.3 (0.0-1.0) mg/dL AST 71 H (5-31) U/L ALT 51 H (0-31) U/L Alkaline Phosphatase 95 (39-117) U/L Total Protein 8.1 H (6.5-8.0) g/dL Albumin 3.5 (3.5-5.0) g/dL Critical Care Time Critical Care Time Critical Care Time: No Discharge Plan Discharge Clinical Impression: Abscess, Fever, Cellulitis Patient Disposition: Admitted As Inpatient Prescriptions: No Action methadone 10 mg/mL Syringe 35 mg PO DAILY clonidine HCl 0.1 mg tablet 1 tab PO BID fluoxetine 10 mg tablet 1 tab PO DAILY verapamil 180 mg tablet extended release 1 tab PO DAILY ascorbic acid (vitamin C) 500 mg tablet 1 tab PO DAILY nicotine (polacrilex) 4 mg gum 1 gum PO Q2H PRN (Reason: Nicotine Cravings) docusate sodium 100 mg capsule 1 cap PO BID propranolol 20 mg tablet 1 tab PO TID PRN (Reason: anxiety) cyclobenzaprine 5 mg tablet 1 tab PO TID PRN (Reason: muscle pain) cholecalciferol (vitamin D3) 50 mcg (2,000 unit) tablet 1 tab PO DAILY pantoprazole 40 mg tablet,delayed release (DR/EC) 1 tab PO QAM nicotine 21 mg/24 hr patch 24 hour 1 patch topical DAILY
--- NOTE | 2022-05-04 23:50 | PC.NURSE ---
patient hits sitter a second time MAYELIN smith plan for additional versed for safety.
--- NOTE | 2022-05-05 | ECG_ITS ---
Test Reason : cp Blood Pressure : / mmHG Vent. Rate : 083 BPM Atrial Rate : 083 BPM P-R Int : 140 ms QRS Dur : 078 ms QT Int : 372 ms P-R-T Axes : 067 044 029 degrees QTc Int : 437 ms Normal sinus rhythm Normal ECG When compared with ECG of 10-DEC-2021 10:29, No significant change was found Referred By: Sabine Fu Electronically Signed By:TALAT MONTANEZ MD
[2022-05-05] MEDS: Acetaminophen 325 MG TABLET 975 MG PO (00:07)
[2022-05-05] MEDS: 0.9 % Sodium Chloride 1,000 ML 999 ML IV ×2 (00:07→02:10)
[2022-05-05] MEDS: Piperacillin Sodium/Tazobactam 3.375 GM in 0.9 % Sodium Chloride 50 ML IV (00:07)
[2022-05-05] MEDS: vancomycin HCL 1,000 MG in 0.9 % Sodium Chloride 250 ML 270 MG IV (00:46)
[2022-05-05 01:01] LABS: COVID-19 Test Negative (Negative); IDNOW Serial# 16C4AD1C
[2022-05-05 01:07] LABS: Alanine Aminotransferase 48 U/L (0-31); Albumin Level 3.3 g/dL (3.5-5.0); Alkaline Phosphatase 89 U/L (39-117); Anion Gap 15 (12-20); Aspartate Amino Transferase 72 U/L (5-31); Bilirubin Total 0.3 mg/dL (0.0-1.0); Blood Urea Nitrogen 9 mg/dL (9-16); Calcium 8.2 mg/dL (8.4-10.2); Carbon Dioxide 23 mmol/L (22-29); Chloride 94 mmol/L (96-108); Creatinine Clr Calc Pharmacy 61.3; Estimated Glomerular Filt Rate > 60; Glucose Random 79 mg/dL (60-115); Potassium 4.1 mmol/L (3.3-5.1); Sodium 128 mmol/L (135-145); Total Protein 7.8 g/dL (6.5-8.0)
--- NOTE | 2022-05-05 01:56 | P.HPHOSP_ITS ---
History of Present Illness Date of Service: 05/05/22 Chief Complaint: Right ankle swelling This is a 41-year-old female with a pertinent history of substance use disorder, essential hypertension, mood disorder who presents to the emergency department with complaints of right ankle swelling. Patient states she has noticed progressively worsening swelling of the right ankle. It started when she tried to inject IV drugs in her right ankle. Also has associated warmth, erythema and tenderness. Patient tried p.o. Bactrim for 2 days without any relief. Patient has been having fever and chills for the last 2 days. She last used IV drugs on the day of admission. Admits to using cocaine and heroin on the day of presentation, injected in her upper arms. She denies nausea, vomiting, chest discomfort, palpitations, shortness of breath, abdominal pain, changes in urinary or bowel habits In the ED, I&D was attempted and fluid was sent for culture Review of Systems Constitutional: Constitutional: Reports chills and Reports fever(s) Cardiovascular: Cardiovascular: Reports no additional cardiovascular complaints Respiratory: Respiratory: Reports no additional respiratory complaints Musculoskeletal: Musculoskeletal: Reports arthralgias and Reports joint swelling [facility] Medical History BRIE positive Anxiety Asthma Dyspnea History of prediabetes History of sleep disturbance Hx of anxiety disorder Hyperlipidemia Opioid use disorder Polysubstance abuse Subcutaneous nodules Surgical History History of colposcopy History of surgery on arm History of tubal ligation Hx of dilation and curettage Hx of excision of mass Social History Alcohol intake: never Patient Tobacco Use Status: Current everyday Tobacco user Tobacco use type: Cigarette Cigarettes Per Day: 20 Substance Use Type: Crack/Cocaine and Heroin Advance Directives: No Advance Directives Information Provided: No Meds Allergies Allergy/AdvReac Type Severity Reaction Status Date / Time naproxen Allergy Intermediate nausea and Verified 05/04/22 22:50 vomiting Motrin Allergy Intermediate nausea and Uncoded 05/04/22 22:50 vomiting Active Medications: Current Medications Acetaminophen (Acetaminophen 325 Mg Tablet) 650 mg PO Q6H PRN PRN Reason: Pain, Mild (Pain Scale 1-3) Piperacillin Sod/Tazobactam (Sod 4.5 gm/ Sodium Chloride) 100 mls @ 200 mls/hr IV Q6H [facility] Last Admin: 05/05/22 00:47 Dose: Not Given Melatonin (Melatonin 3 Mg Tablet) 6 mg PO BEDTIME PRN PRN Reason: Insomnia Ondansetron HCl (Ondansetron Hcl 4 Mg/2 Ml Vial) 4 mg IVPUSH Q8H PRN PRN Reason: Nausea and Vomiting Pharmacy Consult (Consult Rx Vancomycin Dosing) 1 each MISCELLANE DAILY PRN PRN Reason: Consult order Pharmacy Consult (Consult Rx Vancomycin Dosing) 1 each MISCELLANE DAILY PRN PRN Reason: Consult order Sodium Chloride (0.9 % Sodium Chloride Flush 3 Ml Syringe) [address] [facility] Home Medications Medication Instructions Recorded Confirmed Last Taken Type ascorbic acid (vitamin C) 500 mg 1 tab PO DAILY 12/03/21 12/03/21 Unknown History tablet cholecalciferol (vitamin D3) 50 1 tab PO DAILY 12/03/21 12/03/21 Unknown History mcg (2,000 unit) tablet clonidine HCl 0.1 mg tablet 1 tab PO BID 12/03/21 12/03/21 Unknown History cyclobenzaprine 5 mg tablet 1 tab PO TID PRN muscle pain 12/03/21 12/03/21 Unknown History docusate sodium 100 mg capsule 1 cap PO BID constipation 12/03/21 12/03/21 Unknown History fluoxetine 10 mg tablet 1 tab PO DAILY 12/03/21 12/03/21 Unknown History methadone 10 mg/mL oral syringe 35 mg PO DAILY 12/03/21 12/03/21 12/03/21 08:00 History (FOR ORAL USE ONLY) nicotine (polacrilex) 4 mg gum 1 gum PO Q2H PRN Nicotine Cravings 12/03/21 12/03/21 Unknown History nicotine 21 mg/24 hr daily 1 patch topical DAILY 12/03/21 12/03/21 Unknown History transdermal patch pantoprazole 40 mg tablet,delayed 1 tab PO QAM 12/03/21 12/03/21 Unknown History release propranolol 20 mg tablet 1 tab PO TID PRN anxiety 12/03/21 12/03/21 Unknown History verapamil 180 mg tablet,extended 1 tab PO DAILY 12/03/21 12/03/21 Unknown History release Physical Exam Vital Signs and Narrative: Vital Signs: Last Vital Signs Temp 100.6 F H 05/04/22 22:45 Pulse 106 H 05/04/22 22:45 Resp 16 05/04/22 22:45 BP 111/75 05/04/22 22:45 Pulse Ox 97 05/04/22 22:45 O2 Del Method 05/04/22 22:45 BMI result Body Mass Index 18.1 Middle-aged female lying in bed in no distress Neck supple, no JVD Tachycardic with regular rhythm, S1-S2 heard Regular breath sounds bilaterally, no wheezing or crackles appreciated Abdomen soft nontender, no guarding, no rigidity Patient is awake, alert and oriented to self, place, time and person ; no focal motor deficit Ext: right ankle in dressing, right upper extremity with subcutaneous nodules, IV hardin seen both arms Psych: Normal mood No pedal edema Results Labs CBC and Chem 7: 05/04/22 23:10 05/05/22 00:09 Labs: Laboratory Results - last 24 hr 05/04/22 05/04/22 05/04/22 23:10 23:10 23:10 MCV 80.5 MCH 25.7 L MCHC 31.9 RDW 15.2 Plt Count 372 MPV 8.8 L Immature Gran % (Auto) 0.4 Neut % (Auto) 61.3 Lymph % (Auto) 27.6 [place] % (Auto) 8.8 Eos % (Auto) 1.5 Baso % (Auto) 0.4 Lymph # (Auto) 0.8 L [place] # (Auto) 0.2 Eos # (Auto) 0.0 Baso # (Auto) 0.0 Abs Immat Gran (auto) 0.01 Absolute Neuts (auto) 1.7 L Absolute Nucleated RBC 0.000 Nucleated RBC % (auto) 0.0 Smear Tech's Comments VERIFIED Anion Gap 15 Estim Creat Clear Calc 59.0 Estimated GFR > 60 Random Glucose 71 Lactic Acid 0.8 Calcium 8.6 Total Bilirubin 0.3 AST 71 H ALT 51 H Alkaline Phosphatase 95 Total Protein 8.1 H Albumin 3.5 COVID-19 (JOE) COVID-19 Clin Com 05/05/22 05/05/22 00:09 00:26 MCV MCH MCHC RDW Plt Count MPV Immature Gran % (Auto) Neut % (Auto) Lymph % (Auto) [place] % (Auto) Eos % (Auto) Baso % (Auto) Lymph # (Auto) [place] # (Auto) Eos # (Auto) Baso # (Auto) Abs Immat Gran (auto) Absolute Neuts (auto) Absolute Nucleated RBC Nucleated RBC % (auto) Smear Tech's Comments Anion Gap 15 Estim Creat Clear Calc 61.3 Estimated GFR > 60 Random Glucose 79 Lactic Acid Calcium 8.2 L Total Bilirubin 0.3 AST 72 H ALT 48 H Alkaline Phosphatase 89 Total Protein 7.8 Albumin 3.3 L COVID-19 (JOE) Negative COVID-19 Clin Com See Note Imaging Radiologist's Impressions: Impressions Ankle X-Ray 05/04/22 23:55 IMPRESSION: Circumferential soft tissue swelling at the ankle without radiographic findings of osteomyelitis. Elbow X-Ray 05/04/22 23:59 IMPRESSION: No metallic radiodense foreign bodies. Soft tissue swelling and subcutaneous edema at the right elbow, most pronounced at the antecubital fossa. Assessment and Plan (1) Sepsis: Status: Acute (2) Abscess: Status: Acute (3) Cellulitis: Status: Acute (4) Normocytic anemia: Status: Acute (5) Polysubstance (including opioids) dependence, daily use: Status: Acute Plan This is a 41-year-old female with a pertinent history of substance use disorder, essential hypertension, mood disorder who presents to the emergency department with complaints of right ankle swelling. Patient states she has noticed progressively worsening swelling of the right ankle. #. Sepsis due to right ankle cellulitis with underlying abscess -Will admit patient and initiate empiric broad-spectrum IV antibiotics. Re suscitated with IV crystalloids in the ER. Blood cultures and lactic acid obtained. Consulting Infectious Disease and General surgery for assistance. #. Substance use disorder - Monitor for withdrawals. Addiction Team and CARE team consulted #. Hyponatremia -likely hypovolemic #. Elevated transaminases -in the setting of sepsis #. ?Needle stuck in right arm -patient thinks she has a needle stuck in a right arm. States needle broke when she was trying to inject IV drugs. Nothing on x-ray. Defer to surgery. #. Essential HTN - hold home p.o. antihypertensives in the setting of sepsis #. Mood disorder -continue home meds #. Normocytic anemia -Hb above transfusion threshold Med rec pending DVT prophylaxis: Hold anticoagulation until surgical evaluation Cardiac diet Full code Admit as inpatient and will require two night minimum hospital stay for IV antibiotics. Quality Stroke Does the patient have a stroke diagnosis?: No VTE Prior VTE?: No VTE Risk Level:: Medical - low VTE Device Contraindication: Treatment Not Indicated VTE Drug Contraindication: Treatment Not Indicated
[2022-05-05 04:00] VITALS: BP 90/51; PULSE 79; RESP 18; TEMP 37.3; O2SAT 98
[2022-05-05 04:04] VITALS: BMI 21.0
[2022-05-05 05:33] LABS: Basophils Percent Auto 0.4 % (0-2); Eosinophils Absolute Auto 0.1 X10*3/uL (0.0-0.4); Eosinophils Percent Auto 4.5 % (0-4); Hematocrit 24.5 % (37.0-47.0); Hemoglobin 7.7 g/dl (12.0-16.0); Imm Gran Abs Auto 0.01 X10*3/uL (0.00-0.03); Imm Gran Pct Auto 0.4 % (0.0-0.4); Lymphocytes Absolute Auto 0.7 X10*3/uL (1.2-4.9); Lymphocytes Percent Auto 29.9 % (20-40); MANUAL DIFF FLAG SCAN; Mean Corpuscular HGB Conc 31.4 g/dl (31.0-35.0); Mean Corpuscular Hemoglobin 25.8 pg (27.0-33.0); Mean Corpuscular Volume 82.2 fL (80.0-98.0); Mean Platelet Volume 8.7 fL (9.4-12.3); Monocytes Absolute Auto 0.3 X10*3/uL (0.1-1.2); Monocytes Percent Auto 13.8 % (2-11); Neutrophils Absolute Auto 1.1 x10*3/uL (2.0-8.3); Platelet Count 287 X10*3/uL (160-400); Red Blood Count 2.98 X10*6/uL (4.20-5.50); Red Cell Distribution Width 15.3 % (11.0-16.0); SCAN SMEAR FLAG 1
[2022-05-05 05:34] LABS: White Blood Count 2.2 X10*3/uL (4.8-10.8)
[2022-05-05 05:50] LABS: Anion Gap 13 (12-20); Blood Urea Nitrogen 9 mg/dL (9-16); Calcium 7.8 mg/dL (8.4-10.2); Carbon Dioxide 23 mmol/L (22-29); Chloride 102 mmol/L (96-108); Creatinine Clr Calc Pharmacy 63.2; Estimated Glomerular Filt Rate > 60; Glucose Random 82 mg/dL (60-115); Potassium 3.9 mmol/L (3.3-5.1); Sodium 134 mmol/L (135-145)
[2022-05-05] MEDS: Piperacillin Sodium/Tazobactam 4.5 GM in 0.9 % Sodium Chloride 100 ML IV ×3 (05:58→18:19)
--- NOTE | 2022-05-05 06:26 | PHA.PROG ---
Admission Date/Time: May 05, 2022 00:35 Indication: Sepsis due to cellulitis, IVDU Weight in k.3 kg Adjusted body weight in Kg: [place] body weight in Kg: Obesity Dosing Indication % IBW: Serum Creatinine - Last 168 Hours 05/04/22 05/05/22 05/05/22 23:10 00:09 05:25 Creatinine 0.80 0.77 0.79 Estimated CrCl and GFR - Last 168 Hours 05/04/22 05/05/22 05/05/22 23:10 00:09 05:25 Estim Creat Clear Calc 59.0 61.3 63.2 Estimated GFR > 60 > 60 > 60 Vancomycin Loading Dose: 1000 mg Current Vancomycin Dosing Regimen: 750 mg Q12H Date and Time for next Vancomycin Level to be drawn: 05/06 @ 1000 Pharmacist Comments on Vancomycin Plan: Patient received vancomycin 1000 mg (21.1 mg/kg) in the ED on 05/05 @ 0049 Maitenance dose vancomycin 750 mg Q12H is scheduled to begin 05/05 @ 1300. Expected AUC 510 with a trough of 15.7. Trough to be drawn prior to 4th dose. Pharmacy will monitor renal function daily hKadijah Ortiz PharmD Vancomycin dosing will take advantage of [employer] as a clinical decision support tool that uses Bayesian modeling to calculate individual patient's pharmacokinetic parameters and forecast the patient's drug concentration time course with the target goal AUC 24 range of 400 - 600 mg/L/hr.
[2022-05-05 08:00] VITALS: BP 96/54; PULSE 80; RESP 16; TEMP 36.9; O2SAT 98
[2022-05-05] MEDS: 0.9 % Sodium Chloride Flush 3 ML SYRINGE IVFLUSH ×2 (08:03→18:19)
[2022-05-05] MEDS: Lactated Ringers 1,000 ML 999 ML IV (08:09)
[2022-05-05] MEDS: Acetaminophen 325 MG TABLET 650 MG PO ×2 (08:17→20:20)
[2022-05-05 08:22] LABS: Lactic Acid 1.1 mmol/L (0.5-2.0)
--- NOTE | 2022-05-05 09:32 | PHA.MEDREC ---
Pharmacy Consult ? Medication Reconciliation Pharmacy has completed the medication reconciliation. Spoke with patient in her room, very drowsy and vague about medications. Patient did state she needs refills on all of her medications. She states she goes to a new methadone clinic on [facility] and her PCP is CANDIDA Willis. Will follow up with [facility] rec on 05/06/22. Also Left message for [facility] regarding methadone dose.
--- NOTE | 2022-05-05 09:42 | P.EN_ITS ---
Event Note Date of Service: 05/05/22 Event Note: patient seen and examined at bedside this morning. She is complaining of pleuritic chest pain worse with deep inspiration, she is also complaining of pain and her right antecubital fossa where she states that and needle left in there. She also complaining of pain in right ankle but reports that pain is slightly better controlled. She has some nausea with no vomiting, no abdominal pain, no diarrhea constipation, no urinary symptoms and no lower extremity ed sharona. I reviewed imaging of the elbow which showed no evidence of metallic radio since foreign bodies, soft tissue swelling and subcutaneous edema at the right elbow, most pronounced at the antecubital fossa. X-ray of the ankle shows circumferential soft tissue swelling without evidence of Osteomyelitis Patient was also noted to have hypotension this morning, 1 L of fluid was given. General surgery is consulted, but awaiting further recommendation. Infectious is also on consult. At this time will continue antibiotics. Monitor BP
[2022-05-05 09:43] VITALS: BP 107/61
--- NOTE | 2022-05-05 10:09 | PM.CNGS ---
History of Present Illness Consult details Consult date: 05/05/22 Narrative: 41-year-old female referred for right ankle cellulitis and abscess. She has a history of polysubstance abuse.She says that she has attempted to use the medial aspect of the left ankle on the malleolus for IV drugs. Noticed swelling and pain. She therefore went to the ER for this. She denies any fever or chills. She does claim that this had been drained already using a needle and states that this seems better. Review of Systems Constitutional: Constitutional: Denies chills and Denies fever(s) Cardiovascular: Cardiovascular: Denies chest pain, Denies dyspnea and Denies dyspnea on exertion Respiratory: Respiratory: Denies cough, Denies dyspnea and Denies dyspnea on exertion Gastrointestinal: Gastrointestinal: Denies hematochezia and Denies change in bowel habits Genitourinary: Genitourinary: Denies hematuria Musculoskeletal: Musculoskeletal: Denies back pain and Denies limited range of motion Neurologic: Denies focal weakness and Denies convulsions Psychiatric: Psychiatric: Denies depression and Denies mood swings PMFSH Past Medical History Medical History BRIE positive Anxiety Asthma Dyspnea History of prediabetes History of sleep disturbance Hx of anxiety disorder Hyperlipidemia Opioid use disorder Polysubstance abuse Subcutaneous nodules Surgical History Surgical History History of colposcopy History of surgery on arm History of tubal ligation Hx of dilation and curettage Hx of excision of mass Social History Social History Household Members: Significant Other Housing: Apartment Do you presently have visiting nurse or other home services: No Alcohol intake: never Patient Tobacco Use Status: Current everyday Tobacco user Tobacco use type: Cigarette Cigarettes Per Day: 2 e-Cigarette/Vaping Use: Currently Using Second Hand Smoke Exposure: No Substance Use Type: Crack/Cocaine, Heroin, IV Drugs, Marijuana and Opiates Meds Allergies Allergy/AdvReac Type Severity Reaction Status Date / Time naproxen Allergy Intermediate nausea and Verified 05/04/22 22:50 vomiting Motrin Allergy Intermediate nausea and Uncoded 05/04/22 22:50 vomiting Active Medications: Current Medications Acetaminophen (Acetaminophen 325 Mg Tablet) 650 mg PO Q6H PRN PRN Reason: Pain, Mild (Pain Scale 1-3) Last Admin: 05/05/22 08:17 Dose: 650 mg Piperacillin Sod/Tazobactam (Sod 4.5 gm/ Sodium Chloride) 100 mls @ 200 mls/hr IV Q6H [facility] Last Infusion: 05/05/22 06:34 Dose: Infused Vancomycin HCl 750 mg/ Sodium (Chloride) 265 mls @ 265 mls/hr IV Q12H [facility] Melatonin (Melatonin 3 Mg Tablet) 6 mg PO BEDTIME PRN PRN Reason: Insomnia Ondansetron HCl (Ondansetron Hcl 4 Mg/2 Ml Vial) 4 mg IVPUSH Q8H PRN PRN Reason: Nausea and Vomiting Pharmacy Consult (Consult Rx Vancomycin Dosing) 1 each MISCELLANE DAILY PRN PRN Reason: Consult order Sodium Chloride (0.9 % Sodium Chloride Flush 3 Ml Syringe) [facility] Last Admin: 05/05/22 08:03 Dose: 3 ml Home Medications Medication Instructions Recorded Confirmed Last Taken Type clonidine HCl 0.1 mg tablet 1 tab PO BID 12/03/21 05/05/22 Unknown History docusate sodium 100 mg capsule 1 cap PO BID constipation 12/03/21 05/05/22 Unknown History fluoxetine 10 mg tablet 1 tab PO DAILY 12/03/21 05/05/22 Unknown History propranolol 20 mg tablet 1 tab PO TID PRN anxiety 12/03/21 05/05/22 Unknown History verapamil 180 mg tablet,extended 1 tab PO DAILY 12/03/21 05/05/22 Unknown History release lisinopril 5 mg tablet 1 tab PO DAILY 05/05/22 05/05/22 Unknown History methadone 10 mg/mL oral concentrate 33 mg PO DAILY 05/05/22 05/05/22 Unknown History Physical Exam Vital Signs: Vital Signs: Last Vital Signs Temp 98.5 F 05/05/22 08:00 Pulse 80 05/05/22 08:00 Resp 16 05/05/22 08:00 BP 107/61 05/05/22 09:43 Pulse Ox 98 05/05/22 08:00 O2 Del Method 05/05/22 08:00 BMI result Body Mass Index 21.0 Const: General: comfortable and no acute distress Orientation/consciousness: patient oriented x3 Neck: Neck: Yes no lymphadenopathy Resp: Auscultation: clear to auscultation bilaterally Cardio: Rhythm: regular rhythm GI: Palpation (GI): Soft to palpation, nontender and no guarding Neuro: General: patient oriented x3 Extrem: Other: Minimal residual induration, near the malleolar aspect of the ankle, mild redness, mild tenderness, no fluctuance, no drainage Results Labs Result diagrams: 05/05/22 05:25 05/05/22 05:25 Labs: Abnormal lab results 05/04/22 05/04/22 05/05/22 Range/Units 23:10 23:10 00:09 WBC 2.7 L (4.8-10.8) X10*3/uL RBC 3.39 L (4.20-5.50) X10*6/uL Hgb 8.7 L D (12.0-16.0) g/dl Hct 27.3 L D (37.0-47.0) % MCH 25.7 L (27.0-33.0) pg MPV 8.8 L (9.4-12.3) fL Worth % (Auto) (2-11) % Eos % (Auto) (0-4) % Lymph # (Auto) 0.8 L (1.2-4.9) X10*3/uL Absolute Neuts (auto) 1.7 L (2.0-8.3) x10*3/uL Sodium 127 L 128 L (135-145) mmol/L Chloride 91 L 94 L (96-108) mmol/L Calcium 8.2 L (8.4-10.2) mg/dL AST 71 H 72 H (5-31) U/L ALT 51 H 48 H (0-31) U/L Total Protein 8.1 H (6.5-8.0) g/dL Albumin 3.3 L (3.5-5.0) g/dL 05/05/22 05/05/22 Range/Units 05:25 05:25 WBC 2.2 L (4.8-10.8) X10*3/uL RBC 2.98 L (4.20-5.50) X10*6/uL Hgb 7.7 L (12.0-16.0) g/dl Hct 24.5 L (37.0-47.0) % MCH 25.8 L (27.0-33.0) pg MPV 8.7 L (9.4-12.3) fL Worth % (Auto) 13.8 H (2-11) % Eos % (Auto) 4.5 H (0-4) % Lymph # (Auto) 0.7 L (1.2-4.9) X10*3/uL Absolute Neuts (auto) 1.1 L (2.0-8.3) x10*3/uL Sodium 134 L (135-145) mmol/L Chloride (96-108) mmol/L Calcium 7.8 L (8.4-10.2) mg/dL AST (5-31) U/L ALT (0-31) U/L Total Protein (6.5-8.0) g/dL Albumin (3.5-5.0) g/dL Short CBC 05/04/22 05/05/22 Range/Units 23:10 05:25 WBC 2.7 L 2.2 L (4.8-10.8) X10*3/uL Hgb 8.7 L D 7.7 L (12.0-16.0) g/dl Hct 27.3 L D 24.5 L (37.0-47.0) % Plt Count 372 287 (160-400) X10*3/uL BMP 05/04/22 05/05/22 05/05/22 23:10 00:09 05:25 Sodium 127 L 128 L 134 L Potassium 4.2 4.1 3.9 Chloride 91 L 94 L 102 Carbon Dioxide 25 23 23 BUN 10 D 9 9 Creatinine 0.80 0.77 0.79 Calcium 8.6 8.2 L 7.8 L Liver Function 05/04/22 05/05/22 Range/Units 23:10 00:09 Total Bilirubin 0.3 0.3 (0.0-1.0) mg/dL AST 71 H 72 H (5-31) U/L ALT 51 H 48 H (0-31) U/L Alkaline Phosphatase 95 89 (39-117) U/L Albumin 3.5 3.3 L (3.5-5.0) g/dL All other labs normal. Imaging Additional studies: Laboratory Results WBC 2.2 X10*3/uL (4.8-10.8) L 05/05/22 05:25 RBC 2.98 X10*6/uL (4.20-5.50) L 05/05/22 05:25 Hgb 7.7 g/dl (12.0-16.0) L 05/05/22 05:25 Hct 24.5 % (37.0-47.0) L 05/05/22 05:25 MCV 82.2 fL (80.0-98.0) 05/05/22 05:25 MCH 25.8 pg (27.0-33.0) L 05/05/22 05:25 MCHC 31.4 g/dl (31.0-35.0) 05/05/22 05:25 RDW 15.3 % (11.0-16.0) 05/05/22 05:25 Plt Count 287 X10*3/uL (160-400) 05/05/22 05:25 MPV 8.7 fL (9.4-12.3) L 05/05/22 05:25 Immature Gran % (Auto) 0.4 % (0.0-0.4) 05/05/22 05:25 Neut % (Auto) 51.0 % (45-73) 05/05/22 05:25 Lymph % (Auto) 29.9 % (20-40) 05/05/22 05:25 Worth % (Auto) 13.8 % (2-11) H 05/05/22 05:25 Eos % (Auto) 4.5 % (0-4) H 05/05/22 05:25 Baso % (Auto) 0.4 % (0-2) 05/05/22 05:25 Lymph # (Auto) 0.7 X10*3/uL (1.2-4.9) L 05/05/22 05:25 Worth # (Auto) 0.3 X10*3/uL (0.1-1.2) 05/05/22 05:25 Eos # (Auto) 0.1 X10*3/uL (0.0-0.4) 05/05/22 05:25 Baso # (Auto) 0.0 X10*3/uL (0.0-0.2) 05/05/22 05:25 Abs Immat Gran (auto) 0.01 X10*3/uL (0.00-0.03) 05/05/22 05:25 Absolute Neuts (auto) 1.1 x10*3/uL (2.0-8.3) L 05/05/22 05:25 Absolute Nucleated RBC 0.000 X10*3/uL (0.0-0.012) 05/05/22 05:25 Nucleated RBC % (auto) 0.0 /100WBC (0.0-0.2) 05/05/22 05:25 Smear Tech's Comments VERIFIED 05/04/22 23:10 Sodium 134 mmol/L (135-145) L 05/05/22 05:25 Potassium 3.9 mmol/L (3.3-5.1) 05/05/22 05:25 Chloride 102 mmol/L (96-108) 05/05/22 05:25 Carbon Dioxide 23 mmol/L (22-29) 05/05/22 05:25 Anion Gap 13 (12-20) 05/05/22 05:25 BUN 9 mg/dL (9-16) 05/05/22 05:25 Creatinine 0.79 mg/dL (0.5-1.4) 05/05/22 05:25 Estim Creat Clear Calc 63.2 05/05/22 05:25 Estimated GFR > 60 05/05/22 05:25 Random Glucose 82 mg/dL (60-115) 05/05/22 05:25 Lactic Acid 1.1 mmol/L (0.5-2.0) 05/05/22 08:00 Calcium 7.8 mg/dL (8.4-10.2) L 05/05/22 05:25 Total Bilirubin 0.3 mg/dL (0.0-1.0) 05/05/22 00:09 AST 72 U/L (5-31) H 05/05/22 00:09 ALT 48 U/L (0-31) H 05/05/22 00:09 Alkaline Phosphatase 89 U/L (39-117) 05/05/22 00:09 Total Protein 7.8 g/dL (6.5-8.0) 05/05/22 00:09 Albumin 3.3 g/dL (3.5-5.0) L 05/05/22 00:09 COVID-19 ([facility]) Negative (Negative) 05/05/22 00:26 COVID-19 Clin Com See Note 05/05/22 00:26 Impressions Ankle X-Ray 05/04/22 23:55 IMPRESSION: Circumferential soft tissue swelling at the ankle without radiographic findings of osteomyelitis. Elbow X-Ray 05/04/22 23:59 IMPRESSION: No metallic radiodense foreign bodies. Soft tissue swelling and subcutaneous edema at the right elbow, most pronounced at the antecubital fossa. Assessment and Plan (1) Cellulitis: Status: Acute She came in because of swelling and pain on the a little aspect of the right foot from IV access for illicit drugs. Current exam does not reveal any drainable abscess. There is no significant induration or fluctuance. I would recommend continuing with IV antibiotics. She warm compresses may help with the swelling and tenderness. She does not appear to be septic at this time. I will follow along while she is in the hospital. Procedures Date of Service Date of Service: 05/05/22
[2022-05-05] MEDS: LORazepam 0.5 MG TABLET PO (11:06)
--- NOTE | 2022-05-05 11:19 | MHC.CM.PN ---
PT IS UPSET ON APPROACH SHE CANNOT GET HER PHONE WORKING SHE REPORTS SHE WILL NOT BE ABLE TO REACH HER TO TELL HIM WHERE SHE IS SHE DECLINES CM OFFER TO CALL HIM PT REPORTS SHE LIVES ALONE AND IS INDEPENDENT SHE DENIES USE OF DME SHE SAYS SHE IS ACTIVE WITH [facility] IN [place] FOR MMTP NO HCP PCP: CANDIDA CARVER PT BECAME MORE UPSET WHEN ASKED ABOUT DC PLANNING STATING SHE CANNOT GO HOME BECAUSE THAT IS WHERE SHE HALLUCINATES SHE SAYS SHE NEEDS PSYCH MEDS AND IS WITHDRAWING MD NOTIFIED VIA GABO
[2022-05-05 11:33] VITALS: BP 97/56; PULSE 86; RESP 18; TEMP 37; O2SAT 99
[2022-05-05 11:56] LABS: Folate 14.2 ng/mL (> or = 4.0); Vitamin B12 414 pg/mL (200-900)
[2022-05-05] MEDS: vancomycin HCL 750 MG in 0.9 % Sodium Chloride 250 ML 265 MG IV (12:08)
[2022-05-05] MEDS: methADONE HCl 20 MG/2 ML ORAL.CONC 35 MG PO (12:08)
[2022-05-05] MEDS: Docusate Sodium 100 MG CAPSULE PO ×2 (12:10→20:14)
[2022-05-05 12:12] LABS: Ferritin 649 ng/mL (10-250)
[2022-05-05 12:25] LABS: Troponin-I High Sensitivity < 3.5 ng/L (<3.5-17.0)
[2022-05-05 16:53] VITALS: BP 109/67; PULSE 78; RESP 18; TEMP 36.6; O2SAT 99
[2022-05-05 19:23] VITALS: BP 99/59; PULSE 83; RESP 20; TEMP 37; O2SAT 96
[2022-05-05] MEDS: cloNIDine HCL 0.1 MG TABLET PO (20:14)
[2022-05-05] MEDS: Melatonin 3 MG TABLET 6 MG PO (20:20)
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
[2022-05-06] VITALS: BP 100/60; PULSE 72; RESP 16; TEMP 36.3; O2SAT 98
[2022-05-06] MEDS: vancomycin HCL 750 MG in 0.9 % Sodium Chloride 250 ML 265 MG IV (00:23)
[2022-05-06] MEDS: 0.9 % Sodium Chloride Flush 3 ML SYRINGE IVFLUSH ×3 (00:29→14:22)
[2022-05-06] MEDS: Piperacillin Sodium/Tazobactam 4.5 GM in 0.9 % Sodium Chloride 100 ML IV ×3 (01:29→14:25)
[2022-05-06] MEDS: Acetaminophen 325 MG TABLET 650 MG PO ×3 (02:33→22:51)
[2022-05-06 03:47] VITALS: BP 117/69; PULSE 75; RESP 16; TEMP 36.3; O2SAT 98
[2022-05-06 05:54] LABS: Creatinine Clr Calc Pharmacy 66.6; Estimated Glomerular Filt Rate > 60
[2022-05-06 07:25] VITALS: BP 122/91; PULSE 85; RESP 18; TEMP 36.3; O2SAT 98
--- NOTE | 2022-05-06 07:40 | PC.NURSE ---
Patient remains alert and oriented, exhibiting some symptoms of withdrawals. repeatedly asked and consumed adequate snacks and fluids overnight and tolerated well. PRN tylenol and heating pads administered to location, for pain management to R lower extremity and partially effective. Tolerated all scheduled IV Antibiotics well without any reaction.
[2022-05-06] MEDS: cloNIDine HCL 0.1 MG TABLET PO ×2 (08:20→20:16)
[2022-05-06] MEDS: lisinopriL 5 MG TABLET PO (08:21)
[2022-05-06] MEDS: methADONE HCl 20 MG/2 ML ORAL.CONC 35 MG PO (08:21)
[2022-05-06] MEDS: Docusate Sodium 100 MG CAPSULE PO ×2 (08:21→20:16)
--- NOTE | 2022-05-06 10:10 | HO.PM.IMPN ---
Subjective Subjective Date of Service: 05/06/22 Interval History: Being followed for right ankle cellulitis, right antecubital fossa pain, patient complaining of withdrawal symptoms with nausea, generalized body aches, chills, denies fever, no vomiting, no diarrhea. Review of Systems CVS no chest pain no palpitation Respiratory no shortness of breath no urgency, no frequency Review of Systems: Yes all other systems are reviewed and are negative Physical Exam Vital Signs: Vital Signs: Last Vital Signs Temp 97.3 F 05/06/22 07:25 Pulse 85 05/06/22 07:25 Resp 18 05/06/22 07:25 BP 122/91 H 05/06/22 07:25 Pulse Ox 98 05/06/22 07:25 O2 Del Method 05/06/22 07:25 BMI result Body Mass Index 21.0 Const: Other: General lying in b ed in no distress Neck supple, no JV D CVS regular rat e rhythm, S1-S2 he stacia RESP Regular b reath sounds bilat erally, no wheezin g or crackles appr eciated Abdomen so ft non tender, no guarding, no rigid ity NEuro awake, alert x 3, no foca l motor deficit Ex t: right ankle no area of fluctuatio n, no induration, right upper extrem ity with no absces s, cord like indur ation Psych: Norm al mood No pedal e mariaelena Objective Data Active Medications Acetaminophen (Acetaminophen 325 Mg Tablet) 650 mg PO Q6H PRN PRN Reason: Pain, Mild (Pain Scale 1-3) Last Admin: 05/06/22 08:39 Dose: 650 mg Documented By: RICHARD Clonidine HCl (Clonidine Hcl 0.1 Mg Tablet) 0.1 mg PO BID [facility]; Protocol Last Admin: 05/06/22 08:20 Dose: 0.1 mg Documented By: RICHARD Docusate Sodium (Docusate Sodium 100 Mg Capsule) 100 mg PO BID [facility] Last Admin: 05/06/22 08:21 Dose: 100 mg Documented By: RICHARD Fluoxetine HCl (Fluoxetine Hcl 10 Mg Capsule) 10 mg PO DAILY [facility] Last Admin: 05/06/22 08:29 Dose: Not Given Documented By: RICHARD Non-Admin Reason: Patient Refused Hydroxyzine HCl (Hydroxyzine Hcl 25 Mg Tablet) 25 mg PO Q8H PRN PRN Reason: anxiety/restlessness Piperacillin Sod/Tazobactam (Sod 4.5 gm/ Sodium Chloride) 100 mls @ 200 mls/hr IV Q6H [facility] Last Infusion: 05/06/22 06:37 Dose: 0 mls/hr Documented By: BELINDA Vancomycin HCl 750 mg/ Sodium (Chloride) 265 mls @ 265 mls/hr IV Q12H [facility] Last Infusion: 05/06/22 01:33 Dose: 0 mls/hr Documented By: BELINDA Lisinopril (Lisinopril 5 Mg Tablet) 5 mg PO DAILY [facility]; Protocol Last Admin: 05/06/22 08:21 Dose: 5 mg Documented By: RICHARD Melatonin (Melatonin 3 Mg Tablet) 6 mg PO BEDTIME PRN PRN Reason: Insomnia Last Admin: 05/05/22 20:20 Dose: 6 mg Documented By: BELINDA Methadone HCl (Methadone Hcl 20 Mg/2 Ml Oral.Conc) 35 mg PO DAILY [facility] Last Admin: 05/06/22 08:21 Dose: 35 mg Documented By: RICHARD Ondansetron HCl (Ondansetron Hcl 4 Mg/2 Ml Vial) 4 mg IVPUSH Q8H PRN PRN Reason: Nausea and Vomiting Pharmacy Consult (Consult Rx Vancomycin Dosing) 1 each MISCELLANE DAILY PRN PRN Reason: Consult order Propranolol HCl (Propranolol Hcl 20 Mg Tablet) 20 mg PO TID PRN; Protocol PRN Reason: anxiety Sodium Chloride (0.9 % Sodium Chloride Flush 3 Ml Syringe) 3 ml IVFLUSH QSHIFT [facility] Last Admin: 05/06/22 10:01 Dose: 3 ml Documented By: RICHARD Labs CBC & Chem 7: 05/05/22 05:25 05/06/22 05:15 Labs: Laboratory Results - last 24 hr 05/05/22 05/05/22 05/05/22 10:35 10:35 11:39 Estim Creat Clear Calc Estimated GFR Ferritin 649 H Troponin I High Sens < 3.5 Vitamin B12 414 Folate 14.2 05/06/22 05:15 Estim Creat Clear Calc 66.6 Estimated GFR > 60 Ferritin Troponin I High Sens Vitamin B12 Folate Microbiology Microbiology Results: Microbiology 05/05/22 01:11 Gram Stain - Final Ankle Right Routine Culture - Preliminary Staphylococcus species 05/04/22 23:10 Blood Culture - Preliminary Blood - Venous No growth after 24 hours. 05/04/22 23:10 Blood Culture - Preliminary Blood - Venous No growth after 24 hours. Assessment and Plan (1) Cellulitis: Status: Acute (2) Normocytic anemia: Status: Acute (3) Polysubstance (including opioids) dependence, daily use: Status: Acute Plan 41-year-old female with a pertinent history of substance use disorder, essential hypertension, mood disorder who presents to the emergency department with complaints of right ankle swelling.? Patient states she has noticed progressively worsening swelling of the right ankle. #. Sepsis due to right ankle cellulitis Noted to have tachycardia and low white cell count 2.7, normal lactic acid Continue IV vancomycin and Zosyn day 2, no underlying abscess noted right antecubital fossa or right ankle, seen by General surgery no I&D required Right wound culture grew Staph follow final c/s, blood cultures x2 negative #. Substance use disorder -? continue methadone and clonidine, complaining of withdrawal symptoms with generalized body ache and chills await Addiction Team immunity #. Hyponatremia sodium improved from 128-134 likely hypovolemic hyponatremia improved #. Elevated transaminases no abdominal pain LFTs remained stable #. ?Needle stuck in right arm x-ray showed no foreign body seen by General surgery no further intervention recommended, has cord-like in duration will place hot compresses likely phlebitis #. Essential HTN as per patient not taking verapamil at home, therefore will discontinue, continue lisinopril and follow BP #. Mood disorder -continue home meds #. Acute on chronic Normocytic anemia hematocrit dropped to 24.5 likely due to IV fluids will repeat CBC if remains low will transfuse question likely due to acute infection, no acute blood loss noted DVT prophylaxis: Early ambulation Full code Patient need continued inpatient hospitalization for IV antibiotics and withdrawal symptoms Quality Stroke Does the patient have a stroke diagnosis?: No VTE Prior VTE?: No VTE Risk Level:: Medical - low VTE Device Contraindication: Treatment Not Indicated VTE Drug Contraindication: Treatment Not Indicated
[2022-05-06 10:34] LABS: Hematocrit 27.5 % (37.0-47.0); Hemoglobin 8.5 g/dl (12.0-16.0); Mean Corpuscular HGB Conc 30.9 g/dl (31.0-35.0); Mean Corpuscular Hemoglobin 25.7 pg (27.0-33.0); Mean Corpuscular Volume 83.1 fL (80.0-98.0); Mean Platelet Volume 9.4 fL (9.4-12.3); Platelet Count 315 X10*3/uL (160-400); Red Blood Count 3.31 X10*6/uL (4.20-5.50); Red Cell Distribution Width 15.7 % (11.0-16.0); White Blood Count 2.6 X10*3/uL (4.8-10.8)
--- NOTE | 2022-05-06 10:45 | PM.PNGS ---
Subjective Subjective Date of Service: 05/06/22 Interval history: No new complaints Physical Exam Vital Signs: Vital Signs: Last Vital Signs Temp 97.3 F 05/06/22 07:25 Pulse 85 05/06/22 07:25 Resp 18 05/06/22 07:25 BP 122/91 H 05/06/22 07:25 Pulse Ox 98 05/06/22 07:25 O2 Del Method 05/06/22 07:25 BMI result Body Mass Index 21.0 Const: General: comfortable and no acute distress Resp: Effort & Inspection: normal respiratory effort Cardio: Rhythm: regular rhythm Extrem: Other: Right ankle induration and redness improved significantly, no fluctuance Right antecubital fossa with cord-like induration, no twins, no redness, consistent with chronic phlebitis Objective Data Active Medications Acetaminophen (Acetaminophen 325 Mg Tablet) 650 mg PO Q6H PRN PRN Reason: Pain, Mild (Pain Scale 1-3) Last Admin: 05/06/22 08:39 Dose: 650 mg Documented By: RICHARD Clonidine HCl (Clonidine Hcl 0.1 Mg Tablet) 0.1 mg PO BID [facility]; Protocol Last Admin: 05/06/22 08:20 Dose: 0.1 mg Documented By: RICHARD Docusate Sodium (Docusate Sodium 100 Mg Capsule) 100 mg PO BID [facility] Last Admin: 05/06/22 08:21 Dose: 100 mg Documented By: RICHARD Fluoxetine HCl (Fluoxetine Hcl 10 Mg Capsule) 10 mg PO DAILY [facility] Last Admin: 05/06/22 08:29 Dose: Not Given Documented By: RICHARD Non-Admin Reason: Patient Refused Hydroxyzine HCl (Hydroxyzine Hcl 25 Mg Tablet) 25 mg PO Q8H PRN PRN Reason: anxiety/restlessness Piperacillin Sod/Tazobactam (Sod 4.5 gm/ Sodium Chloride) 100 mls @ 200 mls/hr IV Q6H [facility] Last Infusion: 05/06/22 06:37 Dose: 0 mls/hr Documented By: BELINDA Vancomycin HCl 750 mg/ Sodium (Chloride) 265 mls @ 265 mls/hr IV Q12H [facility] Last Infusion: 05/06/22 01:33 Dose: 0 mls/hr Documented By: BELINDA Lisinopril (Lisinopril 5 Mg Tablet) 5 mg PO DAILY [facility]; Protocol Last Admin: 05/06/22 08:21 Dose: 5 mg Documented By: RICHARD Melatonin (Melatonin 3 Mg Tablet) 6 mg PO BEDTIME PRN PRN Reason: Insomnia Last Admin: 05/05/22 20:20 Dose: 6 mg Documented By: BELINDA Methadone HCl (Methadone Hcl 20 Mg/2 Ml Oral.Conc) 35 mg PO DAILY [facility] Last Admin: 05/06/22 08:21 Dose: 35 mg Documented By: RICHARD Ondansetron HCl (Ondansetron Hcl 4 Mg/2 Ml Vial) 4 mg IVPUSH Q8H PRN PRN Reason: Nausea and Vomiting Pharmacy Consult (Consult Rx Vancomycin Dosing) 1 each MISCELLANE DAILY PRN PRN Reason: Consult order Propranolol HCl (Propranolol Hcl 20 Mg Tablet) 20 mg PO TID PRN; Protocol PRN Reason: anxiety Sodium Chloride (0.9 % Sodium Chloride Flush 3 Ml Syringe) 3 ml IVFLUSH QSTNFT [facility] Last Admin: 05/06/22 10:01 Dose: 3 ml Documented By: RICHARD Labs CBC & Chem 7: 05/06/22 10:15 05/06/22 05:15 Labs: Laboratory Results - last 24 hr 05/05/22 05/05/22 05/05/22 10:35 10:35 11:39 MCV MCH MCHC RDW Plt Count MPV Absolute Nucleated RBC Nucleated RBC % (auto) Estim Creat Clear Calc Estimated GFR Ferritin 649 H Troponin I High Sens < 3.5 Vitamin B12 414 Folate 14.2 05/06/22 05/06/22 05:15 10:15 MCV 83.1 MCH 25.7 L MCHC 30.9 L RDW 15.7 Plt Count 315 MPV 9.4 Absolute Nucleated RBC 0.000 Nucleated RBC % (auto) 0.0 Estim Creat Clear Calc 66.6 Estimated GFR > 60 Ferritin Troponin I High Sens Vitamin B12 Folate Microbiology Microbiology Results: Microbiology 05/05/22 01:11 Gram Stain - Final Ankle Right Routine Culture - Preliminary Staphylococcus species 05/04/22 23:10 Blood Culture - Preliminary Blood - Venous No growth after 24 hours. 05/04/22 23:10 Blood Culture - Preliminary Blood - Venous No growth after 24 hours. Procedures Date of Service Date of Service: 05/06/22 Progress Note: A&P Assessment and plan (1) Cellulitis: Status: Acute Assessment and Plan: No need for I and D at this time Continue warm compresses to both areas I explained to her that her x-ray images do not reveal any foreign body on the antecubital fossa despite her belief that there was a needle in the area Looks okay to have oral antibiotics Time Spent With Patient Time: Total time spent is greater than 50% in coordination of care (as documented) at patient's floor/unit and/or counseling patient: Quality Stroke Does the patient have a stroke diagnosis?: No VTE Prior VTE?: No VTE Risk Level:: Medical - low VTE Device Contraindication: Treatment Not Indicated VTE Drug Contraindication: Treatment Not Indicated
[2022-05-06 10:56] LABS: Vancomycin Trough 7.4 mcg/mL (10.0-20.0)
[2022-05-06 11:10] VITALS: BMI 21.0
--- NOTE | 2022-05-06 11:29 | HE.PHANOTE ---
VANCO DOSING BASED ON SCR AND TROUGH OF 7.4 DOSE INCREASED TO 1000Q 12 WITH NEXT TROUGH 2200 05/07
[2022-05-06 11:49] VITALS: BP 95/54; PULSE 83; RESP 18; TEMP 36.2; O2SAT 99
--- NOTE | 2022-05-06 12:30 | MHC.CLN ---
NUTRITION LIBERALIZED DIET FROM CARDIAC TO REGULAR. ADDED ENSURE TID (1050 KCALS, 60 G PROTEIN). PATIENT WITH SIGNIFICANT WEIGHT LOSS X 6 MONTHS -13% AND X 1 YEAR -35%. REPORTS PROLONGED POOR PO DUE TO DRUG USE. NUTRITION DX SEVERE MALNUTRITION. SEE CLINICAL NUTRITION ASSESSMENT 05/06/22.
[2022-05-06] MEDS: Gabapentin 100 MG CAPSULE PO ×2 (14:20→20:16)
[2022-05-06] MEDS: vancomycin HCL 1,000 MG in 0.9 % Sodium Chloride 250 ML 270 MG IV (15:01)
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
[2022-05-06 16:00] VITALS: BP 96/58; PULSE 75; RESP 18; TEMP 37.1; O2SAT 97
--- NOTE | 2022-05-06 16:31 | P.CNID_ITS ---
History of Present Illness Data of Consult Service Date: 05/06/22 Requesting physician: Lorenzo Bledsoe Primary Care Provider: Maria Willis NP HPI Reason for consult: ankle discharge,pain She presents with two days right ankle pain She has clear serous drainage in area injected. She also has some elbow discomfort. Review of Systems Review of Systems: Yes all other systems are reviewed and are negative PMFSH Past Medical History Medical History BRIE positive Anxiety Asthma Dyspnea History of prediabetes History of sleep disturbance Hx of anxiety disorder Hyperlipidemia Opioid use disorder Polysubstance abuse Subcutaneous nodules Surgical History Surgical History History of colposcopy History of surgery on arm History of tubal ligation Hx of dilation and curettage Hx of excision of mass Social History Social History Household Members: Significant Other Housing: Apartment Do you presently have visiting nurse or other home services: No Alcohol intake: never Patient Tobacco Use Status: Current everyday Tobacco user Tobacco use type: Cigarette Cigarettes Per Day: 2 e-Cigarette/Vaping Use: Currently Using Second Hand Smoke Exposure: No Substance Use Type: Crack/Cocaine, Heroin, IV Drugs, Marijuana and Opiates service: No Meds Allergies Allergy/AdvReac Type Severity Reaction Status Date / Time naproxen Allergy Intermediate nausea and Verified 05/04/22 22:50 vomiting Motrin Allergy Intermediate nausea and Uncoded 05/04/22 22:50 vomiting Active Medications: Current Medications Acetaminophen (Acetaminophen 325 Mg Tablet) 650 mg PO Q6H PRN PRN Reason: Pain, Mild (Pain Scale 1-3) Last Admin: 05/06/22 08:39 Dose: 650 mg Clonidine HCl (Clonidine Hcl 0.1 Mg Tablet) 0.1 mg PO BID [facility]; Protocol Last Admin: 05/06/22 08:20 Dose: 0.1 mg Docusate Sodium (Docusate Sodium 100 Mg Capsule) 100 mg PO BID [facility] Last Admin: 05/06/22 08:21 Dose: 100 mg Gabapentin (Gabapentin 100 Mg Capsule) 100 mg PO TID [facility] Last Admin: 05/06/22 14:20 Dose: 100 mg Hydroxyzine HCl (Hydroxyzine Hcl 25 Mg Tablet) 25 mg PO Q8H PRN PRN Reason: anxiety/restlessness Piperacillin Sod/Tazobactam (Sod 4.5 gm/ Sodium Chloride) 100 mls @ 200 mls/hr IV Q6H [facility] Last Infusion: 05/06/22 15:16 Dose: Infused Vancomycin HCl 1,000 mg/ (Sodium Chloride) 270 mls @ 270 mls/hr IV Q12H [facility] Last Infusion: 05/06/22 16:13 Dose: Infused Melatonin (Melatonin 3 Mg Tablet) 6 mg PO BEDTIME PRN PRN Reason: Insomnia Last Admin: 05/05/22 20:20 Dose: 6 mg Methadone HCl (Methadone Hcl 20 Mg/2 Ml Oral.Conc) 35 mg PO DAILY [facility] Last Admin: 05/06/22 08:21 Dose: 35 mg Ondansetron HCl (Ondansetron Hcl 4 Mg/2 Ml Vial) 4 mg IVPUSH Q8H PRN PRN Reason: Nausea and Vomiting Paroxetine HCl (Paroxetine Hcl 20 Mg Tablet) 20 mg PO DAILY [facility] Pharmacy Consult (Consult Rx Vancomycin Dosing) 1 each MISCELLANE DAILY PRN PRN Reason: Consult order Propranolol HCl (Propranolol Hcl 20 Mg Tablet) 20 mg PO TID PRN; Protocol PRN Reason: anxiety Sodium Chloride (0.9 % Sodium Chloride Flush 3 Ml Syringe) 3 ml IVFLUSH QSHIFT [facility] Last Admin: 05/06/22 14:22 Dose: 3 ml Home Medications Medication Instructions Recorded Confirmed Last Taken Type clonidine HCl 0.1 mg tablet 1 tab PO BID 12/03/21 05/05/22 Unknown History docusate sodium 100 mg capsule 1 cap PO BID constipation 12/03/21 05/05/22 Unknown History fluoxetine 10 mg tablet 1 tab PO DAILY 12/03/21 05/05/22 Unknown History propranolol 20 mg tablet 1 tab PO TID PRN anxiety 12/03/21 05/05/22 Unknown History verapamil 180 mg tablet,extended 1 tab PO DAILY 12/03/21 05/05/22 Unknown History release lisinopril 5 mg tablet 1 tab PO DAILY 05/05/22 05/05/22 Unknown History methadone 10 mg/mL oral concentrate 33 mg PO DAILY 05/05/22 05/05/22 Unknown History Physical Exam Vital Signs: Vital Signs: Last Vital Signs Temp 98.7 F 05/06/22 16:00 Pulse 75 05/06/22 16:00 Resp 18 05/06/22 16:00 BP 96/58 L 05/06/22 16:00 Pulse Ox 97 05/06/22 16:00 O2 Del Method 05/06/22 16:00 BMI result Body Mass Index 21.0 Const: General: cooperative HEENT: Head: Yes normal to inspection Face and sinus: Yes normal facial exam Mouth: Normal oral and palatal mucosa present Teeth and gingiva: dentition normal Eyes: General: appearance normal, both eyes and all related structures Pupils: Equal, round and reactive pupils present Resp: Effort & Inspection: normal respiratory effort Cardio: Rate: regular rate Rhythm: regular rhythm GI: Palpation (GI): Soft to palpation and nontender : General: Yes no CVA tenderness Back/Spine/Pelvis: Back: no CVA tenderness Skin: General skin exam: no rashes or lesions noted Neuro: General: moves all extremities Cranial nerves: Yes Equal, round and reactive pupils present Extrem: Other: full ROM right ankle, clear drainage medially and healing scaly area elbow improving redness Psych: Appearance: grossly normal Results Labs CBC & Chem 7: 05/06/22 10:15 05/06/22 05:15 Labs: Short CBC 05/06/22 Range/Units 10:15 WBC 2.6 L (4.8-10.8) X10*3/uL Hgb 8.5 L (12.0-16.0) g/dl Hct 27.5 L (37.0-47.0) % Plt Count 315 (160-400) X10*3/uL BMP 05/06/22 05:15 Creatinine 0.75 Microbiology Microbiology Results: Microbiology 05/05/22 01:11 Ankle Right Gram Stain - Final 05/05/22 01:11 Ankle Right Routine Culture - Preliminary Staphylococcus species 05/04/22 23:10 Blood - Venous Blood Culture - Preliminary No growth after 24 hours. 05/04/22 23:10 Blood - Venous Blood Culture - Preliminary No growth after 24 hours. Assessment and Plan (1) Abscess: Status: Acute (2) Sepsis: Status: Acute She has fever now improving. There is no cellulitis at this time or septic joint and has been seen by Surgery and is not bacteremic. She has staph superficial wound. Plan Stop Piperacillin/Tazobactam Would continue Vancomycin pending results of culture. Probably po Doxycycline as outpatient for seven days
[2022-05-06 19:16] VITALS: BP 101/86; PULSE 78; RESP 18; TEMP 37; O2SAT 97
[2022-05-06] MEDS: Nicotine 14 MG PATCH.TD24 TRANSDERMA (20:16)
[2022-05-06] MEDS: hydrOXYzine HCL 25 MG TABLET PO (20:16)
[2022-05-06] MEDS: Melatonin 3 MG TABLET 6 MG PO (20:19)
[2022-05-07] VITALS (7 sets, daily range): BP systolic 98–130; BP diastolic 54–80; PULSE 63–70; RESP 16–20; TEMP 36.2–36.9; O2SAT 97–98
[2022-05-07] MEDS: Propranolol HCL 20 MG TABLET PO (00:52)
[2022-05-07] MEDS: vancomycin HCL 1,000 MG in 0.9 % Sodium Chloride 250 ML 270 MG IV ×2 (00:52→11:05)
[2022-05-07 06:06] LABS: Creatinine Clr Calc Pharmacy 73.4; Estimated Glomerular Filt Rate > 60
[2022-05-07] MEDS: Gabapentin 100 MG CAPSULE PO ×3 (08:07→22:02)
[2022-05-07] MEDS: 0.9 % Sodium Chloride Flush 3 ML SYRINGE IVFLUSH ×3 (08:07→23:46)
[2022-05-07] MEDS: Docusate Sodium 100 MG CAPSULE PO ×2 (08:07→22:03)
[2022-05-07] MEDS: cloNIDine HCL 0.1 MG TABLET PO (08:08)
[2022-05-07] MEDS: PARoxetine HCL 20 MG TABLET PO (08:08)
[2022-05-07] MEDS: Nicotine 14 MG PATCH.TD24 TRANSDERMA (08:09)
[2022-05-07] MEDS: methADONE HCl 20 MG/2 ML ORAL.CONC 35 MG PO (08:09)
[2022-05-07] MEDS: Acetaminophen 325 MG TABLET 650 MG PO ×2 (08:25→22:05)
--- NOTE | 2022-05-07 12:37 | HO.PM.IMPN ---
Subjective Subjective Date of Service: 05/07/22 Interval History: Complaining of generalized body ache, joint pains, no nausea, no vomiting tolerating diet no lightheadedness, no dizziness, no fevers, still concerned about needle broke in forearm. Review of Systems Review of Systems: Yes all other systems are reviewed and are negative Physical Exam Vital Signs: Vital Signs: Last Vital Signs Temp 98.4 F 05/07/22 11: Pulse 65 05/07/22 11:22 Resp 16 05/07/22 11:22 BP 98/54 L 05/07/22 11:22 Pulse Ox 98 05/07/22 11:22 O2 Del Method 05/07/22 11:22 BMI result Body Mass Index 21.0 Const: Other: General lying in bed in no distress Neck supple, no JVD CVS? regular rate rhythm RESP Regular breath sounds bilaterally, no wheezing or crackles appreciated Abdomen soft non tender, noguarding, no rigidity NEuro? awake,alert x 3, no focal motor deficit Ext: right ankle medial malleolus, no area of fluctuation, no induration, no drainage, right upper extremity with no abscess, cord like induration right antecubital fossa Psych: Normal mood No pedal edema Objective Data Active Medications Acetaminophen (Acetaminophen 325 Mg Tablet) 650 mg PO Q6H PRN PRN Reason: Pain, Mild (Pain Scale 1-3) Last Admin: 05/07/22 08:25 Dose: 650 mg Documented By: RICHARD Calcium Carbonate/Cholecalciferol (Calcium + Vitamin D 250 Mg Tablet) 500 mg PO DAILY [facility] Clonidine HCl (Clonidine Hcl 0.1 Mg Tablet) 0.1 mg PO BID [facility]; Protocol Last Admin: 05/07/22 08:08 Dose: 0.1 mg Documented By: RICHARD Docusate Sodium (Docusate Sodium 100 Mg Capsule) 100 mg PO BID [facility] Last Admin: 05/07/22 08:07 Dose: 100 mg Documented By: RICHARD Doxycycline Monohydrate (Doxycycline Monohydrate 100 Mg Capsule) 100 mg PO Q12H [facility] Gabapentin (Gabapentin 100 Mg Capsule) 100 mg PO TID [facility] Last Admin: 05/07/22 08:07 Dose: 100 mg Documented By: RICHARD Hydroxyzine HCl (Hydroxyzine Hcl 25 Mg Tablet) 25 mg PO Q8H PRN PRN Reason: anxiety/restlessness Last Admin: 05/06/22 20:16 Dose: 25 mg Documented By: ANT Magnesium Oxide (Magnesium Oxide 400 Mg Tablet) 400 mg PO DAILY [facility] Melatonin (Melatonin 3 Mg Tablet) 6 mg PO BEDTIME PRN PRN Reason: Insomnia Last Admin: 05/06/22 20:19 Dose: 6 mg Documented By: ANT Methadone HCl (Methadone Hcl 20 Mg/2 Ml Oral.Conc) 35 mg PO DAILY [facility] Last Admin: 05/07/22 08:09 Dose: 35 mg Documented By: RICHARD Nicotine (Nicotine 14 Mg Patch.Td24) 14 mg TRANSDERMA DAILY [facility] Last Admin: 05/07/22 08:09 Dose: 14 mg Documented By: RICHARD Ondansetron HCl (Ondansetron Hcl 4 Mg/2 Ml Vial) 4 mg IVPUSH Q8H PRN PRN Reason: Nausea and Vomiting Paroxetine HCl (Paroxetine Hcl 20 Mg Tablet) 20 mg PO DAILY [facility] Last Admin: 05/07/22 08:08 Dose: 20 mg Documented By: RICHARD Pharmacy Consult (Consult Rx Vancomycin Dosing) 1 each MISCELLANE DAILY PRN PRN Reason: Consult order Propranolol HCl (Propranolol Hcl 20 Mg Tablet) 20 mg PO TID PRN; Protocol PRN Reason: anxiety Last Admin: 05/07/22 00:52 Dose: 20 mg Documented By: CARI Sodium Chloride (0.9 % Sodium Chloride Flush 3 Ml Syringe) 3 ml IVFLUSH QSHIFT [facility] Last Admin: 05/07/22 08:07 Dose: 3 ml Documented By: RICHARD Labs CBC & Chem 7: 05/06/22 10:15 05/07/22 05:29 Labs: Laboratory Results - last 24 hr 05/05/22 05/07/22 05:25 05:29 Smear Path Review SEE NOTE Estim Creat Clear Calc 73.4 Estimated GFR > 60 Microbiology Microbiology Results: Microbiology 05/05/22 01:11 Gram Stain - Final Ankle Right Routine Culture - Final Staphylococcus aureus 05/04/22 23:10 Blood Culture - Preliminary Blood - Venous No growth after 48 hours. 05/04/22 23:10 Blood Culture - Preliminary Blood - Venous No growth after 48 hours. Assessment and Plan (1) Cellulitis: Status: Acute (2) Normocytic anemia: Status: Acute (3) Polysubstance (including opioids) dependence, daily use: Status: Acute Plan 41-year-old female with a pertinent history of substance use disorder, essential hypertension, mood disorder who presents to the emergency department with complaints of right ankle swelling.? Patient states she has noticed progressively worsening swelling of the right ankle. #. Sepsis due to right ankle cellulitis Noted to have tachycardia and low white cell count , normal lactic acid Blood cultures x2 negative, right ankle wound culture grew Staph aureus will DC iv vancomycin place on by mouth doxycycline 100 mg b.i.d. no underlying abscess noted right antecubital fossa or right ankle, seen by General surgery no I&D required #. Substance use disorder -? continue methadone , complaining of withdrawal symptoms with generalized body ache being followed by Addiction Team will discuss discharge planning. #. Hyponatremia sodium improved from 128-134 likely hypovolemic hyponatremia improved #. Elevated transaminases no abdominal pain LFTs remained stable #. ?Needle stuck in right arm x-ray showed no foreign body seen by General surgery no further intervention recommended, has cord-like in duration will place hot compresses likely phlebitis, reassured patient #. Essential HTN noted to have soft blood pressures will discontinue lisinopril and clonidine, patient not taking verapamil at home, continue propranolol prn for now #. Mood disorder -seen by Psychiatry they recommended Paxil 20 mg and gabapentin 100 mg t.i.d. to be gradually up titrated to 300 mg t.i.d. #. Acute on chronic Normocytic anemia hematocrit dropped to 24.5 likely due to IV fluids, since repeat hematocrit improved to 27.5, has normal B12 folate and ferritin , no active bleed noted, will check stool guaiac. DVT prophylaxis: Early ambulation Full code Patient need continued inpatient hospitalization for treatment of cellulitis and withdrawal symptoms Quality Stroke Does the patient have a stroke diagnosis?: No VTE Prior VTE?: No VTE Risk Level:: Medical - low VTE Device Contraindication: Treatment Not Indicated VTE Drug Contraindication: Treatment Not Indicated
[2022-05-07] MEDS: Magnesium Oxide 400 MG TABLET PO (14:03)
[2022-05-07] MEDS: Calcium + Vitamin D 250 MG TABLET 500 MG PO (14:03)
[2022-05-07] MEDS: Doxycycline Monohydrate 100 MG CAPSULE PO ×2 (14:04→23:45)
--- NOTE | 2022-05-07 14:35 | HO.ADDICTPRO ---
Subjective Subjective Date of Service: 05/07/22 Reason For Visit: right ankle swelling Interim History: Patient seen in follow up Similar affect to previous day. Reporting chills and restlessness, asked if she feels they are withdrawal sx and she was unsure, states she uses one bag daily at the most. Discussed options for care following discharge from [facility], patient would prefer admission to [facility] for addiction treatment. Patient reporting concerns--anxiety, paranoia. Questioned whether evaluation for admission may be appropriate, patient open to this. Review of Systems Constitutional: Reports as per HPI Mental Status Exam Mental Status Exam Patient Appearance: Appropriate (very thin appearance) Level of Consciousness: Drowsy Patient Behavior: Guarded and Cooperative Mood Description: Constricted Affect Description: Blunted Judgement: Fair Diagnostics Vital Signs (24Hr): Vital Signs - 24 hr 05/06/22 16:00 05/06/22 19:16 05/07/22 00:00 Temperature 98.7 F 98.6 F 97.5 F Pulse Rate 75 78 70 Respiratory Rate 18 18 18 Blood Pressure 96/58 L 101/86 125/78 Pulse Oximetry 97 97 97 Oxygen Delivery Method Room Air Room Air Room Air 05/07/22 04:00 05/07/22 07:44 05/07/22 11:22 Temperature 97.5 F 97.9 F 98.4 F Pulse Rate 65 63 65 Respiratory Rate 18 20 16 Blood Pressure 130/80 116/71 98/54 L Pulse Oximetry 98 98 98 Oxygen Delivery Method Room Air Room Air Room Air BMI result Body Mass Index 21.0 Labs Results: 05/06/22 10:15 05/07/22 05:29 Labs: Laboratory Results - last 48 hr 05/05/22 05/06/22 05/06/22 05:25 05:15 10:10 WBC RBC Hgb Hct MCV MCH MCHC RDW Plt Count MPV Absolute Nucleated RBC Nucleated RBC % (auto) Smear Path Review SEE NOTE Creatinine 0.75 Estim Creat Clear Calc 66.6 Estimated GFR > 60 Vancomycin Trough 7.4 L 05/06/22 05/07/22 10:15 05:29 WBC 2.6 L RBC 3.31 L Hgb 8.5 L Hct 27.5 L MCV 83.1 MCH 25.7 L MCHC 30.9 L RDW 15.7 Plt Count 315 MPV 9.4 Absolute Nucleated RBC 0.000 Nucleated RBC % (auto) 0.0 Smear Path Review Creatinine 0.68 Estim Creat Clear Calc 73.4 Estimated GFR > 60 Vancomycin Trough Imaging Radiology Impressions: ITS Impressions Ankle X-Ray 05/04/22 23:55 IMPRESSION: Circumferential soft tissue swelling at the ankle without radiographic findings of osteomyelitis. Elbow X-Ray 05/04/22 23:59 IMPRESSION: No metallic radiodense foreign bodies. Soft tissue swelling and subcutaneous edema at the right elbow, most pronounced at the antecubital fossa. Medications Medications Current Medications Acetaminophen (Acetaminophen 325 Mg Tablet) 650 mg PO Q6H PRN PRN Reason: Pain, Mild (Pain Scale 1-3) Last Admin: 05/07/22 08:25 Dose: 650 mg Calcium Carbonate/Cholecalciferol (Calcium + Vitamin D 250 Mg Tablet) 500 mg PO DAILY [facility] Last Admin: 05/07/22 14:03 Dose: 500 mg Docusate Sodium (Docusate Sodium 100 Mg Capsule) 100 mg PO BID [facility] Last Admin: 05/07/22 08:07 Dose: 100 mg Doxycycline Monohydrate (Doxycycline Monohydrate 100 Mg Capsule) 100 mg PO Q12H [facility] Last Admin: 05/07/22 14:04 Dose: 100 mg Gabapentin (Gabapentin 100 Mg Capsule) 100 mg PO TID [facility] Last Admin: 05/07/22 14:04 Dose: 100 mg Hydroxyzine HCl (Hydroxyzine Hcl 25 Mg Tablet) 25 mg PO Q8H PRN PRN Reason: anxiety/restlessness Last Admin: 05/06/22 20:16 Dose: 25 mg Magnesium Oxide (Magnesium Oxide 400 Mg Tablet) 400 mg PO DAILY [facility] Last Admin: 05/07/22 14:03 Dose: 400 mg Melatonin (Melatonin 3 Mg Tablet) 6 mg PO BEDTIME PRN PRN Reason: Insomnia Last Admin: 05/06/22 20:19 Dose: 6 mg Methadone HCl (Methadone Hcl 20 Mg/2 Ml Oral.Conc) 40 mg PO DAILY [facility] Nicotine (Nicotine 14 Mg Patch.Td24) 14 mg TRANSDERMA DAILY [facility] Last Admin: 05/07/22 08:09 Dose: 14 mg Ondansetron HCl (Ondansetron Hcl 4 Mg/2 Ml Vial) 4 mg IVPUSH Q8H PRN PRN Reason: Nausea and Vomiting Paroxetine HCl (Paroxetine Hcl 20 Mg Tablet) 20 mg PO DAILY [facility] Last Admin: 05/07/22 08:08 Dose: 20 mg Pharmacy Consult (Consult Rx Vancomycin Dosing) 1 each MISCELLANE DAILY PRN PRN Reason: Consult order Propranolol HCl (Propranolol Hcl 20 Mg Tablet) 20 mg PO TID PRN; Protocol PRN Reason: anxiety Last Admin: 05/07/22 00:52 Dose: 20 mg Sodium Chloride (0.9 % Sodium Chloride Flush 3 Ml Syringe) 3 ml IVFLUSH QSHIFT [facility] Last Admin: 05/07/22 08:07 Dose: 3 ml Allergies Allergies Allergy/AdvReac Type Severity Reaction Status Date / Time naproxen Allergy Intermediate nausea and Verified 05/04/22 22:50 vomiting Motrin Allergy Intermediate nausea and Uncoded 05/04/22 22:50 vomiting Assessment & Plan Assessment & Plan (1) Opioid use disorder: Status: Acute Code(s): F11.90 - Opioid use, unspecified, uncomplicated Assessment and Plan: methadone dose increased to 40mg QD scheduled clonidine discontinued--patient had PRN propranolol CARE team consult placed to assess for admission (2) Cocaine use disorder: Status: Acute Code(s): F14.10 - Cocaine abuse, uncomplicated I spent ___25___ minutes with the patient and/or on the patient floor today, greater than?50% of which was spent counseling/coordinating care.
[2022-05-07] MEDS: hydrOXYzine HCL 25 MG TABLET PO (22:05)
[2022-05-07] MEDS: Melatonin 3 MG TABLET 6 MG PO (22:05)
[2022-05-07 22:27] LABS: Vancomycin Trough 11.8 mcg/mL (10.0-20.0)
[2022-05-08 04:00] VITALS: BP 110/70; PULSE 71; RESP 18; TEMP 36.6; O2SAT 98
[2022-05-08] MEDS: Acetaminophen 325 MG TABLET 650 MG PO ×2 (04:24→13:12)
[2022-05-08] MEDS: traMADoL HCL 50 MG TABLET PO (05:05)
[2022-05-08 06:53] LABS: Creatinine Clr Calc Pharmacy 79.3; Estimated Glomerular Filt Rate > 60
[2022-05-08 07:43] VITALS: BP 109/69; PULSE 70; RESP 19; TEMP 36.4; O2SAT 99
[2022-05-08] MEDS: Nicotine 14 MG PATCH.TD24 TRANSDERMA (08:37)
[2022-05-08] MEDS: methADONE HCl 20 MG/2 ML ORAL.CONC 40 MG PO (08:37)
[2022-05-08] MEDS: Gabapentin 100 MG CAPSULE PO ×2 (08:37→13:12)
[2022-05-08] MEDS: Magnesium Oxide 400 MG TABLET PO (08:37)
[2022-05-08] MEDS: 0.9 % Sodium Chloride Flush 3 ML SYRINGE IVFLUSH (08:38)
[2022-05-08] MEDS: Docusate Sodium 100 MG CAPSULE PO (08:38)
[2022-05-08] MEDS: Calcium + Vitamin D 250 MG TABLET 500 MG PO (08:38)
[2022-05-08] MEDS: PARoxetine HCL 20 MG TABLET PO (08:38)
[2022-05-08 10:20] LABS: OBS Int Ctl Valid YES; OBS1 NEGATIVE (NEGATIVE)
--- NOTE | 2022-05-08 10:39 | MHC.RECOVRN ---
Met with pt in 359 to check in regarding new dispo and plan for psychiatric admission. Pt sitting in bed, awake, alert, easily engages in conversation, eating breakfast. Pt speaks slowly, depressed affect. Pt concerned regarding methadone dose, had been increased from 35 to 40 mg to address restlessness and pain at bedtime. Pt feels that this is too much and states I'm getting frozen eating my breakfast. Pt reports being at 33 mg while outpatient, had been rounded to 35 mg while at the hospital. Pt feels 35 mg is adequate and would like to remain at that dose. Pt denies other questions or concerns at this time. Discussed with Guerline Carty APRN.
[2022-05-08 11:43] VITALS: BP 106/67; PULSE 70; RESP 18; TEMP 36; O2SAT 98
--- NOTE | 2022-05-08 12:13 | MHC.CLN ---
F/U DIET=REGULAR WITH ENSURE TID (1050 KCALS, 60 G PROTEIN). PATIENT WITH SIGNIFICANT WEIGHT LOSS X 6 MONTHS -13% AND X 1 YEAR -35%. CURRENT INTAKE APPEARS GOOD. CONTINUE REGULAR DIET WITH ENSURE SUPPLEMENT TID.
[2022-05-08] MEDS: Doxycycline Monohydrate 100 MG CAPSULE PO (13:01)
--- NOTE | 2022-05-08 13:06 | MHC.CM.PN ---
PT MEDICALLY CLEAED AND WILL D/C TO [facility], [facility] STAFF FOR TRANSPORT
--- NOTE | 2022-05-08 13:08 | P.DS_ITS ---
DS: Providers Provider Date of Service: 05/08/22 Date of admission: 05/05/22 00:35 Primary care physician: Maria Willis NP Consults: 05/05/22 01:54 Consult to General Surgery Routine Consulting Provider: Case Frias Reason for consultation: right ankle abscess Consult to Infectious Diseases Routine Consulting Provider: Jasmyne Bansal Reason for consultation: right ankle abscess 05/05/22 02:08 Addiction Medicine Routine Consulting Provider: Addiction Covering Reason for consultation: substance use disorder Consult to Care Team Routine Comment: Reason for consultation: substance use disorder 05/05/22 12:12 Consult to Psychiatry Routine Consulting Provider: Psych Covering Reason for consultation: depressed Has provider been notified: No 05/07/22 14:19 Consult to Care Team Routine Comment: Reason for consultation: evaluation for possible BH admission. Patient medically cleared DS: Diagnosis Discharge Diagnosis (1) Opioid use disorder: Status: Acute (2) Cocaine use disorder: Status: Acute DS: Summary Hospital Course Hospital Course: history of presenting illness Date of Service: 05/05/22 Chief Complaint: Right ankle swelling This is a 41-year-old female with a pertinent history of substance use disorder, essential hypertension, mood disorder who presents to the emergency department with complaints of right ankle swelling.? Patient states she has noticed progressively worsening swelling of the right ankle.? It started when she tried to inject IV drugs in her right ankle.? Also has associated warmth, erythema and tenderness.? Patient tried p.o. Bactrim for 2 days without any relief.? Patient has been having fever and chills for the last 2 days.? She last used IV drugs on the day of admission.? Admits to using cocaine and heroin on the day of presentation, injected in her upper arms.? She denies nausea, vomiting, chest discomfort, palpitations, shortness of breath, abdominal pain, changes in urinary or bowel habits In the ED, I&D was attempted and fluid was sent for culture hospital course 41-year-old female with a pertinent history of substance use disorder, essential hypertension, mood disorder who presents to the emergency department with complaints of right ankle swelling.? Patient states she has noticed progressively worsening swelling of the right ankle. #. Sepsis due to right ankle cellulitis on admission patient noted to have tachycardia and low WBC with normal lactic acid patient treated with IV vancomycin and Zosyn, all symptoms of sepsis resolved blood cultures x2 are negative, right ankle wound culture grew Staph aureus therefore IV antibiotic discontinued and patient placed on doxycycline 100 mg twice daily for 1 week as per ID recommendation, currently right ankle, medial malleolus looks stable with no redness, no in duration, no discharge, in regard to right antecubital fossa patient noted to have cord like in duration likely phlebitis, patient concerned about a needle stuck in the right arm x-rays of right elbow showed no foreign body seen by General surgery they recommend no further intervention recommend to apply hot compresses to right antecubital fossa ? #. Substance use disorder/mood disorder ? continue methadone , was followed closely by Addiction Team, dose of methadone increased to 40 mg but patient wishes to remain on methadone 35 mg , now being discharged to for continued monitoring and treatment. seen by Psychiatry they recommended Paxil 20 mg and gabapentin 100 mg t.i.d. to be gradually up titrated to 300 mg t.i.d. further up titrating as per Psychiatry at #. Hyponatremia sodium improved from 128-134 likely hypovolemic hyponatremia improved #. Elevated LFTs, likely due to sepsis, substance abuse repeat LFTs unchanged patient asymptomatic, patient has history of fatty liver recommend follow-up LFTs in 1 week #. Essential HTN noted to have soft blood pressures therefore lisinopril and clonidine discontinued patient not taking verapamil at home ? #. Acute on chronic Normocytic anemia, hematocrit dropped to 24.5 likely due to IV fluids, repeat hematocrit improved to 27.5, has normal B12 folate and ferritin , no active bleed noted,stool guaiac neg. Time Spent with Patient Time attestation: Total time spent providing and/or coordinating discharge services: Discharge coordination time: Greater than 30 minutes Quality: Safe Use of Opioids Does Pt have an Active Cancer Diagnosis on the Problem List?: No Quality: Stroke Does the patient have a stroke diagnosis?: No Physical Exam Vital Signs: Vital Signs: Last Vital Signs Temp 96.8 F 05/08/22 11:43 Pulse 70 05/08/22 11:43 Resp 18 05/08/22 11:43 BP 106/67 05/08/22 11:43 Pulse Ox 98 05/08/22 11:43 O2 Del Method 05/08/22 11:43 BMI result Body Mass Index 21.0 Const: Other: General lying in bed in no distress Neck supple, no JVD CVS? regular rate rhythm RESP Regular breath sounds bilaterally, no wheezing or crackles appreciated Abdomen soft non tender, noguarding, no rigidity Neuro? awake,alert x 3, no focal motor deficit Ext: right ankle medial malleolus, no area of fluctuation, no induration, no drainage, right upper extremity with no abscess, cord like induration right antecubital fossa stable. Psych: Normal mood No pedal edema DS: Data Data Completed and Pending Labs on day of discharge: Laboratory Results - last 24 hr 05/07/22 05/08/22 05/08/22 21:55 05:12 09:15 Creatinine 0.63 Estim Creat Clear Calc 79.3 Estimated GFR > 60 Stool Occult Blood NEGATIVE Vancomycin Trough 11.8 Preliminary micro results at discharge 05/04/22 23:10 Blood Culture - Preliminary Blood - Venous No growth after 48 hours. 05/04/22 23:10 Blood Culture - Preliminary Blood - Venous No growth after 48 hours. Discharge Plan Discharge Anticipated Discharge Date/Time: 05/08/22 13:21 Patient Disposition: Xfer Inpatient Rehab Fac Discharge Diagnosis: sepsis due to right ankle cellulitis polysubstance abuse Referrals: Maria Willis, CONTACT ASSEMBLER [Primary Care Provider] - 1 Week Discharge Medications: New acetaminophen 325 mg Tablet 650 mg PO Q6H PRN (Reason: Pain, Mild (Pain Scale 1-3)) Qty: 30 0RF nicotine 14 mg/24 hr Patch 24 Hour 14 mg transdermal DAILY Qty: 30 0RF melatonin 3 mg Tablet 6 mg PO BEDTIME PRN (Reason: Insomnia) Qty: 30 0RF magnesium oxide 400 mg (241.3 mg magnesium) Tablet 400 mg PO DAILY Qty: 30 0RF doxycycline monohydrate 100 mg Capsule 100 mg PO Q12H Qty: 12 0RF paroxetine HCl 20 mg Tablet 20 mg PO DAILY Qty: 30 0RF docusate sodium 100 mg Capsule 100 mg PO BID Qty: 60 0RF hydroxyzine HCl 25 mg Tablet 25 mg PO Q8H PRN (Reason: Anxiety/Restlessness) Qty: 30 0RF gabapentin 100 mg Capsule 100 mg PO TID Qty: 90 0RF calcium carbonate-vitamin D3 250 mg-3.125 mcg (125 unit) Tablet 500 mg PO DAILY Qty: 30 0RF Continued docusate sodium 100 mg capsule 1 cap PO BID propranolol 20 mg tablet 1 tab PO TID PRN (Reason: anxiety) methadone 10 mg/mL Concentrate 33 mg PO DAILY Rx Instructions: [facility] - [phone] Discontinued clonidine HCl 0.1 mg tablet 1 tab PO BID fluoxetine 10 mg tablet 1 tab PO DAILY verapamil 180 mg tablet extended release 1 tab PO DAILY lisinopril 5 mg tablet 1 tab PO DAILY Discharge Orders: Discharge Order (Routine); Ordered 05/08/22 Ordered By: Lorenzo Bledsoe Diet: Advance to usual diet Activity on Discharge: As tolerated Stand Alone Forms: Patient Portal Discharge page Care Plan Goals: sepsis resolved take by mouth doxycycline 100 mg b.i.d. for 6 more days started on Paxil and gabapentin by Dr. Pollard increased dose of gabapentin gradually currently on 100 mg t.i.d. Health Concerns: take all medications as prescribed Plan of Treatment: being transferred to Assessment: as above Discharge Date/Time: 05/08/22 13:31
[2022-05-08] MEDS: Propranolol HCL 20 MG TABLET PO (13:12)
== END 2022-05-08 13:31 | DRG 720 ==
LOC: HO.ED 23:57 → HO.EDOVER 05-05 00:41 → HO.S3 05-05 02:45
PROVIDERS: Internal Medicine; Physician Assistant; Admitting Provider Student in an Organized Health Care Education/Training Program; Emergency Provider Student in an Organized Health Care Education/Training Program; PCP Nurse Practitioner Primary Care; Visit Provider Hospitalist
DX: A41.9 Sepsis, unspecified organism (principal); E43 Unspecified severe protein-calorie malnutrition; I95.9 Hypotension, unspecified; I80.8 Phlebitis and thrombophlebitis of other sites; L02.415 Cutaneous abscess of right lower limb; E78.5 Hyperlipidemia, unspecified; F11.20 Opioid dependence, uncomplicated; L03.115 Cellulitis of right lower limb; E78.1 Pure hyperglyceridemia; D64.9 Anemia, unspecified; E86.1 Hypovolemia; F32.A Depression, unspecified; Z68.21 Body mass index [BMI] 21.0-21.9, adult; F14.10 Cocaine abuse, uncomplicated; K21.9 Gastro-esophageal reflux disease without esophagitis; B95.61 Methicillin susceptible Staphylococcus aureus infection as the cause of diseases classified elsewhere; F41.0 Panic disorder [episodic paroxysmal anxiety]; F17.210 Nicotine dependence, cigarettes, uncomplicated; Z71.6 Tobacco abuse counseling; Z88.6 Allergy status to analgesic agent; Z20.822 Contact with and (suspected) exposure to COVID-19; Z79.899 Other long term (current) drug therapy
CPT/HCPCS: 36415; 73080; 73610; 80048; 80053; 80202; 82272; 82565; 82607; 82728; 82746; 83605; 84484; 85025; 85027; 87040; 87070; 87077; 87186; 87205; 87635; 93005; 99218; 99285; J2543; J3370

== ENCOUNTER 2022-05-08 13:39 | Inpatient (IN) | payer OTHER, SELFPAY ==
--- NOTE | 2022-05-08 14:30 | MHC.CLN ---
NUTRITION PATIENT KNOWN FROM MED/SURG ADMISSION. ADDING ENSURE TID TO DIET ORDER (PREFERS VANILLA). HAS HX OF SIGNIFICANT WEIGHT LOSS AND POOR PO INTAKE PRIOR TO ADMISSION. SUPPLEMENT PROVIDES ADDITIONAL 1050 KCALS, 60 G PROTEIN.
[2022-05-08] MEDS: Gabapentin 100 MG CAPSULE PO ×2 (14:47→20:50)
[2022-05-08] MEDS: hydrOXYzine HCL 50 MG TABLET PO ×2 (14:47→20:50)
--- NOTE | 2022-05-08 15:48 | PC.NURSE ---
Pt signed 3 day notice up on May 13. UR, SW, and aware.
[2022-05-08 17:01] VITALS: BMI 21.0
[2022-05-08 18:23] VITALS: BP 113/69; PULSE 65; TEMP 36.3; O2SAT 97
[2022-05-08] MEDS: Docusate Sodium 100 MG CAPSULE PO (20:50)
--- NOTE | 2022-05-08 23:19 | PC.ADMIT ---
Patient is a 41 year old single, Sami and Pashto speaking female admitted today at 14:00 via wheelchair from where she was being treated for an infection in her right ankle. Patient admitted due to decline in function, unmanaged anxiety and depression and polysubstance addiction; patient states that she has overdosed twice in the past. Patient is a CV admission on 15 minute checks. Patient was cooperative and forthcoming during admission process but presented as very depressed. Patient denies any SI and will seek help if needed. Patient's main concern is staying clean after discharge and regaining control of life situations including loss of custody of children, loss of job, potential eviction, court case on 05/14 for shoplifting, fiance in [facility]. Patient went to room after admission process was resting quietly.
[2022-05-09] MEDS: Acetaminophen 325 MG TABLET 650 MG PO ×2 (03:59→11:43)
[2022-05-09 08:00] VITALS: BP 125/78; PULSE 67; TEMP 36.6
[2022-05-09] MEDS: Nicotine 14 MG PATCH.TD24 TRANSDERMA (08:42)
[2022-05-09] MEDS: Docusate Sodium 100 MG CAPSULE PO ×2 (08:42→19:27)
[2022-05-09] MEDS: Gabapentin 100 MG CAPSULE PO ×3 (08:42→19:27)
[2022-05-09] MEDS: Calcium + Vitamin D 250 MG TABLET 500 MG PO (08:43)
[2022-05-09] MEDS: Magnesium Oxide 400 MG TABLET PO (08:43)
[2022-05-09] MEDS: PARoxetine HCL 20 MG TABLET PO (08:43)
[2022-05-09] MEDS: hydrOXYzine HCL 50 MG TABLET PO ×3 (08:43→19:27)
[2022-05-09] MEDS: Doxycycline Monohydrate 100 MG CAPSULE PO (08:43)
[2022-05-09] MEDS: methADONE HCl 20 MG/2 ML ORAL.CONC 35 MG PO (08:44)
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
[2022-05-09 17:22] VITALS: BP 115/71; PULSE 72; RESP 16; TEMP 36.9; O2SAT 97
[2022-05-09] MEDS: Doxycycline Monohydrate 100 MG CAPSULE 200 MG PO (19:26)
[2022-05-09] MEDS: QUEtiapine Fumarate 50 MG TABLET PO (19:27)
[2022-05-09] MEDS: Propranolol HCL 20 MG TABLET PO (20:54)
[2022-05-10 08:26] LABS: Estimated Average Glucose 108 mg/dL; Hemoglobin A1c % 5.4 %
[2022-05-10] MEDS: methADONE HCl 20 MG/2 ML ORAL.CONC 35 MG PO (08:36)
[2022-05-10 08:37] LABS: Alanine Aminotransferase 99 U/L (0-31); Alkaline Phosphatase 85 U/L (39-117); Aspartate Amino Transferase 164 U/L (5-31); Bilirubin Direct < 0.2 mg/dL (0.0-0.5); Bilirubin Total 0.2 mg/dL (0.0-1.0); Cholesterol 131 mg/dL; HDL Cholesterol 20 mg/dL; Iron 30 mcg/dL (30-160); LDL Cholesterol Calculated 68 mg/dl; Percent Iron Saturation 9 % (15-50); Total Iron Binding Capacity 328 mcg/dL (228-428); Triglycerides 216 mg/dL; Unsaturated Iron Binding 298 ug/dL
[2022-05-10] MEDS: Calcium + Vitamin D 250 MG TABLET 500 MG PO (08:37)
[2022-05-10] MEDS: Magnesium Oxide 400 MG TABLET PO (08:37)
[2022-05-10] MEDS: Nicotine 14 MG PATCH.TD24 TRANSDERMA (08:37)
[2022-05-10] MEDS: Docusate Sodium 100 MG CAPSULE PO ×2 (08:37→20:30)
[2022-05-10] MEDS: Multivitamin TABLET 1 TAB PO (08:37)
[2022-05-10] MEDS: hydrOXYzine HCL 50 MG TABLET PO ×3 (08:37→20:30)
[2022-05-10] MEDS: Gabapentin 100 MG CAPSULE PO ×3 (08:37→20:31)
[2022-05-10] MEDS: Acetaminophen 325 MG TABLET 650 MG PO (08:43)
[2022-05-10 08:51] LABS: Thyroid Stimulating Hormone 0.65 uIU/mL (0.32-4.0)
[2022-05-10 10:00] VITALS: BP 119/73; PULSE 67; TEMP 36.6
[2022-05-10] MEDS: Doxycycline Monohydrate 100 MG CAPSULE 200 MG PO ×2 (10:19→20:30)
[2022-05-10] MEDS: Propranolol HCL 20 MG TABLET PO (10:24)
[2022-05-10 10:57] LABS: Albumin Level 3.3 g/dL (3.5-5.0)
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
[2022-05-10 18:00] VITALS: BP 95/68; PULSE 82; TEMP 36.2; O2SAT 95
[2022-05-10] MEDS: Melatonin 3 MG TABLET 6 MG PO (20:30)
[2022-05-10] MEDS: QUEtiapine Fumarate 50 MG TABLET PO (20:31)
[2022-05-10 20:34] VITALS: BP 97/59; PULSE 84; O2SAT 98
[2022-05-11 08:00] VITALS: BP 122/68; PULSE 68; TEMP 37.1
[2022-05-11] MEDS: Docusate Sodium 100 MG CAPSULE PO ×2 (08:55→20:23)
[2022-05-11] MEDS: hydrOXYzine HCL 50 MG TABLET PO ×3 (08:55→20:23)
[2022-05-11] MEDS: Acetaminophen 325 MG TABLET 650 MG PO (08:56)
[2022-05-11] MEDS: Calcium + Vitamin D 250 MG TABLET 500 MG PO (08:56)
[2022-05-11] MEDS: Multivitamin TABLET 1 TAB PO (08:56)
[2022-05-11] MEDS: Magnesium Oxide 400 MG TABLET PO (08:56)
[2022-05-11] MEDS: Gabapentin 100 MG CAPSULE PO ×3 (08:56→20:23)
[2022-05-11] MEDS: Doxycycline Monohydrate 100 MG CAPSULE 200 MG PO ×2 (08:57→20:23)
[2022-05-11] MEDS: methADONE HCl 20 MG/2 ML ORAL.CONC 35 MG PO (08:57)
[2022-05-11] MEDS: Nicotine 14 MG PATCH.TD24 TRANSDERMA (09:01)
--- NOTE | 2022-05-11 14:55 | HO.PSYCHPN ---
Subjective Subjective Date of Service: 05/11/22 Reason For Visit: Depression Interim History: Chart reviewed and discussed with nursing. Overall reports feeling that sleep has improved and that she is resting. Still feels down at times. Concerned about her being in detention and having limited contact. Does report feeling bored and hopeful for discharge soon. Energy and appetite okay. No medication questions or concerns Medication Compliance: Yes Side effects from medications: No Attending Groups: No Review of Systems Acute medical concerns: No Review of Systems Review of Systems Unremarkable Mental Status Exam Mental Status Exam Narrative: In room. Appropriately dressed. Engaged. Organized. Endorses feeling less depressed. Affect restricted. No SI. No HI. No agitation or psychosis. Insight and judgment okay Diagnostics Vital Signs (24Hr): Vital Signs - 24 hr 05/10/22 18:00 05/10/22 20:34 05/11/22 08:00 Temperature 97.1 F 98.7 F Pulse Rate 82 84 68 Blood Pressure 95/68 97/59 L 122/68 Pulse Oximetry 95 98 Oxygen Delivery Method Room Air Room Air BMI result Body Mass Index 21.0 Labs Labs: Laboratory Results - last 48 hr 05/10/22 05/10/22 07:50 07:50 Estimat Average Glucose 108 Hemoglobin A1c % 5.4 Iron 30 TIBC 328 % Saturation 9 L Unsat Iron Binding 298 Total Bilirubin 0.2 Direct Bilirubin < 0.2 AST 164 H ALT 99 H Alkaline Phosphatase 85 Total Protein 8.0 Albumin 3.3 L Triglycerides 216 Cholesterol 131 LDL Cholesterol, Calc 68 HDL Cholesterol 20 TSH 0.65 Medications Medications Current Medications Acetaminophen (Acetaminophen 325 Mg Tablet) 650 mg PO Q6H PRN PRN Reason: Pain, Mild (Pain Scale 1-3) Last Admin: 05/11/22 08:56 Dose: 650 mg Calcium Carbonate/Cholecalciferol (Calcium + Vitamin D 250 Mg Tablet) 500 mg PO DAILY ON LICENSE OF [facility] Last Admin: 05/11/22 08:56 Dose: 500 mg Docusate Sodium (Docusate Sodium 100 Mg Capsule) 100 mg PO BID ON LICENSE OF [facility] Last Admin: 05/11/22 08:55 Dose: 100 mg Doxycycline Monohydrate (Doxycycline Monohydrate 100 Mg Capsule) 200 mg PO Q12H ON LICENSE OF [facility] Last Admin: 05/11/22 08:57 Dose: 200 mg Gabapentin (Gabapentin 100 Mg Capsule) 100 mg PO TID ON LICENSE OF [facility] Last Admin: 05/11/22 14:16 Dose: 100 mg Hydroxyzine HCl (Hydroxyzine Hcl 50 Mg Tablet) 50 mg PO TID ON LICENSE OF [facility] Last Admin: 05/11/22 14:16 Dose: 50 mg Magnesium Oxide (Magnesium Oxide 400 Mg Tablet) 400 mg PO DAILY ON LICENSE OF [facility] Last Admin: 05/11/22 08:56 Dose: 400 mg Melatonin (Melatonin 3 Mg Tablet) 6 mg PO BEDTIME PRN PRN Reason: Insomnia Last Admin: 05/10/22 20:30 Dose: 6 mg Methadone HCl (Methadone Hcl 20 Mg/2 Ml Oral.Conc) 35 mg PO DAILY ON LICENSE OF [facility] Last Admin: 05/11/22 08:57 Dose: 35 mg Multivitamins/Vitamin C (Multivitamin Tablet) 1 tab PO DAILY ON LICENSE OF [facility] Last Admin: 05/11/22 08:56 Dose: 1 tab Nicotine (Nicotine 14 Mg Patch.Td24) 14 mg TRANSDERMA DAILY ON LICENSE OF [facility] Last Admin: 05/11/22 09:01 Dose: 14 mg Paroxetine HCl (Paroxetine Hcl 20 Mg Tablet) 20 mg PO DAILY ON LICENSE OF [facility] Last Admin: 05/11/22 10:53 Dose: Not Given Propranolol HCl (Propranolol Hcl 20 Mg Tablet) 20 mg PO TID PRN; Protocol PRN Reason: anxiety Last Admin: 05/10/22 10:24 Dose: 20 mg Quetiapine Fumarate (Quetiapine Fumarate 50 Mg Tablet) 50 mg PO BEDTIME ON LICENSE OF [facility] Last Admin: 05/10/22 20:31 Dose: 50 mg Quetiapine Fumarate (Quetiapine Fumarate 25 Mg Tablet) 25 mg PO BID PRN PRN Reason: anxiety, paranoia Allergies Allergies Allergy/AdvReac Type Severity Reaction Status Date / Time naproxen Allergy Intermediate nausea and Verified 05/04/22 22:50 vomiting Motrin Allergy Intermediate nausea and Uncoded 05/04/22 22:50 vomiting Assessment & Plan Assessment & Plan (1) Depressive disorder: Status: Acute Code(s): F32.A - Depression, unspecified (2) Anxiety disorder, unspecified: Status: Acute Code(s): F41.9 - Anxiety disorder, unspecified (3) Polysubstance (including opioids) dependence, daily use: Status: Acute Code(s): F11.20 - Opioid dependence, uncomplicated; F19.20 - Other psychoactive substance dependence, uncomplicated Plan 41 yo female, history of depression, anxiety, polysubstance dependence who transfers from medicine after treatment for right ankle cellulitis/sepsis and right antecubital injury, both from needle injury. Pt asks to re-establish medication regime for depression, anxiety. She has filed a three day notice of intent. Plan: Lipid panel, A1C, TSH, Iron Profile Seroquel 50 mg hs and 25 mg bid prn Increase Gabapentin to 200 mg tid Afterncare planning-discussed residential care with pt-she will consider but doubts she wants this level of intervention. 05/10/22- Continue current regime TDN 05/13/22 ?Section 35 05/11/2022: No changes to current regimen I spent minutes with the patient and/or on the patient floor today, greater than?50% of which was spent counseling/coordinating care. Reason for contiued inpatient stay Substantial Risk for: rapid decompensation
[2022-05-11 16:41] VITALS: BP 107/69; PULSE 86; RESP 18; TEMP 37; O2SAT 98
[2022-05-11] MEDS: Melatonin 3 MG TABLET 6 MG PO (20:23)
[2022-05-11] MEDS: QUEtiapine Fumarate 50 MG TABLET PO (20:27)
[2022-05-11] MEDS: Propranolol HCL 20 MG TABLET PO (20:28)
--- NOTE | 2022-05-11 22:07 | PC.NURSE ---
Pt. showed TW her right antecubital area which is elevated and discolored, there is no open area and no drainage noted. She stated that she has retained in that space a piece of a broken needle. Reminded her to tell the physician when she sees the covering physician tomorrow.
[2022-05-12 08:00] VITALS: BP 122/83; PULSE 75; TEMP 36.3
[2022-05-12] MEDS: Docusate Sodium 100 MG CAPSULE PO ×2 (09:25→20:29)
[2022-05-12] MEDS: Multivitamin TABLET 1 TAB PO (09:25)
[2022-05-12] MEDS: Doxycycline Monohydrate 100 MG CAPSULE 200 MG PO ×2 (09:25→20:29)
[2022-05-12] MEDS: Calcium + Vitamin D 250 MG TABLET 500 MG PO (09:25)
[2022-05-12] MEDS: Gabapentin 100 MG CAPSULE PO ×3 (09:25→20:29)
[2022-05-12] MEDS: methADONE HCl 20 MG/2 ML ORAL.CONC 35 MG PO (09:26)
[2022-05-12] MEDS: Nicotine 14 MG PATCH.TD24 TRANSDERMA (09:26)
[2022-05-12] MEDS: hydrOXYzine HCL 50 MG TABLET PO ×3 (10:55→20:29)
[2022-05-12] MEDS: Propranolol HCL 20 MG TABLET PO ×2 (10:55→20:30)
[2022-05-12] MEDS: Magnesium Oxide 400 MG TABLET PO (11:19)
--- NOTE | 2022-05-12 12:37 | HO.PSYCHPN ---
Subjective Subjective Date of Service: 05/12/22 Reason For Visit: Depression Interim History: Reports feeling more down today and tearful at times when discussing her whom she misses. Reports he will be released from custodial on 05/23/2022 following 60 days. Is finding it difficult not being able to talk with him and misses his voice. Was writing him a letter. Also misses her children. Is feeling supported on the unit. Remains hopeful for discharge. Energy and appetite okay. No medication questions or concerns Medication Compliance: Yes Side effects from medications: No Attending Groups: Intermittent Review of Systems Acute medical concerns: No Review of Systems Review of Systems Unremarkable Mental Status Exam Mental Status Exam Narrative: In room. Appropriately dressed. Engaged. Organized. Endorses feeling depressed. Affect depressed and tearful today.. No SI. No HI. No agitation or psychosis. Insight and judgment okay Diagnostics Vital Signs (24Hr): Vital Signs - 24 hr 05/11/22 16:41 Temperature 98.6 F Pulse Rate 86 Respiratory Rate 18 Blood Pressure 107/69 Pulse Oximetry 98 BMI result Body Mass Index 21.0 Medications Medications Current Medications Acetaminophen (Acetaminophen 325 Mg Tablet) 650 mg PO Q6H PRN PRN Reason: Pain, Mild (Pain Scale 1-3) Last Admin: 05/11/22 08:56 Dose: 650 mg Calcium Carbonate/Cholecalciferol (Calcium + Vitamin D 250 Mg Tablet) 500 mg PO DAILY [facility] Last Admin: 05/12/22 09:25 Dose: 500 mg Docusate Sodium (Docusate Sodium 100 Mg Capsule) 100 mg PO BID [facility] Last Admin: 05/12/22 09:25 Dose: 100 mg Doxycycline Monohydrate (Doxycycline Monohydrate 100 Mg Capsule) 200 mg PO Q12H [facility] Last Admin: 05/12/22 09:25 Dose: 200 mg Gabapentin (Gabapentin 100 Mg Capsule) 100 mg PO TID [facility] Last Admin: 05/12/22 09:25 Dose: 100 mg Hydroxyzine HCl (Hydroxyzine Hcl 50 Mg Tablet) 50 mg PO TID [facility] Last Admin: 05/12/22 10:55 Dose: 50 mg Magnesium Oxide (Magnesium Oxide 400 Mg Tablet) 400 mg PO DAILY [facility] Last Admin: 05/12/22 11:19 Dose: 400 mg Melatonin (Melatonin 3 Mg Tablet) 6 mg PO BEDTIME PRN PRN Reason: Insomnia Last Admin: 05/11/22 20:23 Dose: 6 mg Methadone HCl (Methadone Hcl 20 Mg/2 Ml Oral.Conc) 35 mg PO DAILY [facility] Last Admin: 05/12/22 09:26 Dose: 35 mg Multivitamins/Vitamin C (Multivitamin Tablet) 1 tab PO DAILY [facility] Last Admin: 05/12/22 09:25 Dose: 1 tab Nicotine (Nicotine 14 Mg Patch.Td24) 14 mg TRANSDERMA DAILY [facility] Last Admin: 05/12/22 09:26 Dose: 14 mg Paroxetine HCl (Paroxetine Hcl 20 Mg Tablet) 20 mg PO DAILY [facility] Last Admin: 05/12/22 11:20 Dose: Not Given Propranolol HCl (Propranolol Hcl 20 Mg Tablet) 20 mg PO TID PRN; Protocol PRN Reason: anxiety Last Admin: 05/12/22 10:55 Dose: 20 mg Quetiapine Fumarate (Quetiapine Fumarate 50 Mg Tablet) 50 mg PO BEDTIME [facility] Last Admin: 05/11/22 20:27 Dose: 50 mg Quetiapine Fumarate (Quetiapine Fumarate 25 Mg Tablet) 25 mg PO BID PRN PRN Reason: anxiety, paranoia Allergies Allergies Allergy/AdvReac Type Severity Reaction Status Date / Time naproxen Allergy Intermediate nausea and Verified 05/04/22 22:50 vomiting Motrin Allergy Intermediate nausea and Uncoded 05/04/22 22:50 vomiting Assessment & Plan Assessment & Plan (1) Depressive disorder: Status: Acute Code(s): F32.A - Depression, unspecified (2) Anxiety disorder, unspecified: Status: Acute Code(s): F41.9 - Anxiety disorder, unspecified (3) Polysubstance (including opioids) dependence, daily use: Status: Acute Code(s): F11.20 - Opioid dependence, uncomplicated; F19.20 - Other psychoactive substance dependence, uncomplicated Plan 41 yo female, history of depression, anxiety, polysubstance dependence who transfers from medicine after treatment for right ankle cellulitis/sepsis and right antecubital injury, both from needle injury. Pt asks to re-establish medication regime for depression, anxiety. She has filed a three day notice of intent. Plan: Lipid panel, A1C, TSH, Iron Profile Seroquel 50 mg hs and 25 mg bid prn Increase Gabapentin to 200 mg tid Afterncare planning-discussed residential care with pt-she will consider but doubts she wants this level of intervention. 05/10/22- Continue current regime TDN 05/13/22 ?Section 35 05/12/2022: No changes to current regimen I spent minutes with the patient and/or on the patient floor today, greater than?50% of which was spent counseling/coordinating care. Reason for contiued inpatient stay Substantial Risk for: inability to function
[2022-05-12 18:00] VITALS: BP 117/74; PULSE 77; RESP 18; TEMP 36.6; O2SAT 100
[2022-05-12] MEDS: QUEtiapine Fumarate 50 MG TABLET PO (20:29)
[2022-05-13 08:40] VITALS: BP 107/73; PULSE 78; RESP 18; TEMP 36.1; O2SAT 99
[2022-05-13] MEDS: Nicotine 14 MG PATCH.TD24 TRANSDERMA (09:09)
[2022-05-13] MEDS: methADONE HCl 20 MG/2 ML ORAL.CONC 35 MG PO (09:10)
[2022-05-13] MEDS: Gabapentin 100 MG CAPSULE PO (09:11)
[2022-05-13] MEDS: Docusate Sodium 100 MG CAPSULE PO (09:11)
[2022-05-13] MEDS: hydrOXYzine HCL 50 MG TABLET PO (09:11)
[2022-05-13] MEDS: Calcium + Vitamin D 250 MG TABLET 500 MG PO (09:11)
[2022-05-13] MEDS: Multivitamin TABLET 1 TAB PO (09:11)
[2022-05-13] MEDS: Magnesium Oxide 400 MG TABLET PO (09:11)
[2022-05-13] MEDS: Doxycycline Monohydrate 100 MG CAPSULE 200 MG PO (10:42)
[2022-05-13] MEDS: Propranolol HCL 20 MG TABLET PO (11:23)
--- NOTE | 2022-05-13 16:46 | P.DS_ITS ---
DS: Providers Provider Date of Service: 05/13/22 Date of admission: 05/08/22 13:39 Date of discharge: 05/13/22 Primary care physician: Unknown Physician Admitting clinician: Vaishnavi Zavala Attending physician on admission: Sujit Parekh Attending physician on discharge: Sujit Parekh Discharging clinician: Vaishnavi Zavala DS: Diagnosis Discharge Diagnosis (1) Depressive disorder: Status: Acute (2) Anxiety disorder, unspecified: Status: Acute (3) Polysubstance (including opioids) dependence, daily use: Status: Acute DS: Medications Discharge Medications Home Medications: Home Medications Medication Instructions Recorded Confirmed propranolol 20 mg tablet 1 tab PO TID PRN anxiety 12/03/21 05/05/22 Previous Rx's Medication Instructions Recorded calcium carbonate 250 mg-vitamin 500 mg PO DAILY #30 tabs 05/08/22 D3 3.125 mcg (125 unit) tablet docusate sodium 100 mg capsule 100 mg PO BID #60 caps 05/08/22 magnesium oxide 400 mg (241.3 mg 400 mg PO DAILY #30 tabs 05/08/22 magnesium) tablet melatonin 3 mg tablet 6 mg PO BEDTIME PRN Insomnia #30 05/08/22 tabs nicotine 14 mg/24 hr daily 14 mg transdermal DAILY #30 ea 05/08/22 transdermal patch paroxetine HCl 20 mg tablet 20 mg PO DAILY #30 tabs 05/08/22 doxycycline monohydrate 100 mg 200 mg PO Q12H #0 caps 05/13/22 capsule gabapentin 100 mg capsule 100 mg PO TID #0 caps 05/13/22 methadone 10 mg/mL oral 35 mg (3.5 mL) PO DAILY #0 mL 05/13/22 concentrate (Methadose) multivitamin (Daily-Tamanna tablet) 1 tab PO DAILY #0 tabs 05/13/22 quetiapine 25 mg tablet 25 mg PO BID PRN anxiety, paranoia 05/13/22 #0 tabs quetiapine 50 mg tablet 50 mg PO BEDTIME #0 tabs 05/13/22 Mental Status Exam Mental Status Exam Patient Appearance: Fatigued Patient Orientation: Person, Place, Time and Situation Level of Consciousness: Alert Patient Behavior: Talkative and Good Eye Contact Mood Description: Depressed and Anxious Affect Description: Flat Patient Cognition Impaired: No Ability to Follow Directions: Good Speech Pattern: Spontaneous Speech and Soft-Spoken Memory Description: Episodic Impaired Hallucinations: Auditory Delusions: Not Present and Paranoid Ideation (reports intermittent) Perceptual Disturbances: Depersonalization and Derealization Thought Process: Rumination Thought Content: positive for Circumstantial, positive for Perseveration, positive for Suicidal Ideation (denies) and positive for Homicidal Ideation (denies) Depressive Symptoms: Increased Anxiety, Difficulty Sleeping, Changes in Appetite, Significant Weight Loss, Feelings of Worthlessness, Hopelessness, Isolating-Friends/Family, Unhappiness, Increased Fatigue and Low Self Esteem Judgement: Fair Data Data Completed and Pending Completed studies during hospitalization [Text1]: 05/10/22 05/10/22 07:50 07:50 Estimat Average Glucose 108 Hemoglobin A1c % 5.4 Iron 30 TIBC 328 % Saturation 9 L Unsat Iron Binding 298 Total Bilirubin 0.2 Direct Bilirubin < 0.2 AST 164 H ALT 99 H Alkaline Phosphatase 85 Total Protein 8.0 Albumin 3.3 L Triglycerides 216 Cholesterol 131 LDL Cholesterol, Calc 68 HDL Cholesterol 20 TSH 0.65 DS: Summary Hospital Course Hospital Course: Admission to adult psychiatry for exacerbation of polysubstance abuse, PTSD, Depression and Anxiety. Gabapentin and Methadone were titrated. Seroquel was initiated. Paxil and Propranolol were continued. Pt presented in a significant state of decline since she was last treated at [facility]. She was reluctant to accept any increase in treatment and signed a three day notice. As a result of the concern her decline in health had initiated, a Section 35 was filed for consideration with [facility]. She was discharged to discuss further treatment with the court. Time spent discussing smoking cessation with patient: 3 to 10 minutes Status at Discharge Functional status at discharge: independent ambulation Overall status at discharge: patient is not back to baseline Time Spent with Patient Time attestation: Total time spent providing and/or coordinating discharge services: Time spent: Greater than 30 minutes Discharge Plan Discharge Anticipated Discharge Date/Time: 05/13/22 12:31 Patient Disposition: Xfer Other Discharge Diagnosis: Polysubstance Dependence PTSD Depression Anxiety Referrals: Physician,Unknown J [Primary Care Provider] - 1 Week Discharge Medications: New multivitamin [Daily-Tamanna] Tablet 1 tab PO DAILY Qty: 0 0RF quetiapine 25 mg Tablet 25 mg PO BID PRN (Reason: anxiety, paranoia) Qty: 0 0RF doxycycline monohydrate 100 mg Capsule 200 mg PO Q12H Qty: 0 0RF gabapentin 100 mg Capsule 100 mg PO TID Qty: 0 0RF methadone [Methadose] 10 mg/mL Concentrate 35 mg PO DAILY Qty: 0 0RF Rx Instructions: Partial Fill upon patient request. quetiapine 50 mg Tablet 50 mg PO BEDTIME Qty: 0 0RF Continued propranolol 20 mg tablet 1 tab PO TID PRN (Reason: anxiety) nicotine 14 mg/24 hr Patch 24 Hour 14 mg transdermal DAILY Qty: 30 0RF melatonin 3 mg Tablet 6 mg PO BEDTIME PRN (Reason: Insomnia) Qty: 30 0RF magnesium oxide 400 mg (241.3 mg magnesium) Tablet 400 mg PO DAILY Qty: 30 0RF paroxetine HCl 20 mg Tablet 20 mg PO DAILY Qty: 30 0RF docusate sodium 100 mg Capsule 100 mg PO BID Qty: 60 0RF calcium carbonate-vitamin D3 250 mg-3.125 mcg (125 unit) Tablet 500 mg PO DAILY Qty: 30 0RF Discontinued docusate sodium 100 mg capsule 1 cap PO BID methadone 10 mg/mL Concentrate 33 mg PO DAILY Rx Instructions: [facility] - [phone] acetaminophen 325 mg Tablet 650 mg PO Q6H PRN (Reason: Pain, Mild (Pain Scale 1-3)) Qty: 30 0RF doxycycline monohydrate 100 mg Capsule 100 mg PO Q12H Qty: 12 0RF hydroxyzine HCl 25 mg Tablet 25 mg PO Q8H PRN (Reason: Anxiety/Restlessness) Qty: 30 0RF gabapentin 100 mg Capsule 100 mg PO TID Qty: 90 0RF Discharge Orders: Discharge Order (Routine); Ordered 05/13/22 Ordered By: Danish Sparks Diet: Advance to usual diet Activity on Discharge: As tolerated Stand Alone Forms: Patient Portal Discharge page Care Plan Goals: Sobriety Mood and behavioral stability Health Concerns: Sobriety Mood and behavioral stability Plan of Treatment: Section 35 Assessment: Section 35 to [facility] for hearing. Discharge Date/Time: 05/13/22 12:16
== END 2022-05-13 12:16 | disposition other institution (70) | DRG 754 ==
PROVIDERS: Admitting Provider Psychiatry & Neurology Psychiatry; Visit Provider Clinical Nurse Specialist Psychiatric/Mental Health, Adult
DX: F32.A Depression, unspecified (principal); R45.851 Suicidal ideations; F41.9 Anxiety disorder, unspecified; F11.20 Opioid dependence, uncomplicated; F17.210 Nicotine dependence, cigarettes, uncomplicated; F19.20 Other psychoactive substance dependence, uncomplicated; Z71.6 Tobacco abuse counseling; Z88.6 Allergy status to analgesic agent; Z79.899 Other long term (current) drug therapy
CPT/HCPCS: 36415; 80061; 80076; 83036; 83540; 84443

== ENCOUNTER 2022-11-02 00:24 | Emergency (ER) | payer MEDICAID, SELFPAY ==
[2022-11-02 00:27] VITALS: BP 140/85; PULSE 114; RESP 20; TEMP 37.2; O2SAT 96; BMI 23.2
--- NOTE | 2022-11-02 02:28 | ED.GENADULT ---
HPI - General Adult General Chief complaint: General Medical Stated complaint: Feels stings over body, insomnia, feels disturbed Time Seen by Provider: 11/02/22 02:17 History of Present Illness HPI narrative: Patient is a 42-year-old female with a history of depression history of anxiety history of polysubstance abuse. Patient is on methadone currently still uses heroin. Came in today complaining of stinging sensation in her arms in the worried that her hair is falling out. Patient denies any fever chills. He is homeless from Street. Related Data Home Medications Medication Instructions Recorded Confirmed propranolol 20 mg tablet 1 tab PO TID PRN anxiety 12/03/21 05/05/22 Previous Rx's Medication Instructions Recorded calcium carbonate 250 mg-vitamin 500 mg PO DAILY #30 tabs 05/08/22 D3 3.125 mcg (125 unit) tablet docusate sodium 100 mg capsule 100 mg PO BID #60 caps 05/08/22 magnesium oxide 400 mg (241.3 mg 400 mg PO DAILY #30 tabs 05/08/22 magnesium) tablet melatonin 3 mg tablet 6 mg PO BEDTIME PRN Insomnia #30 05/08/22 tabs nicotine 14 mg/24 hr daily 14 mg transdermal DAILY #30 ea 05/08/22 transdermal patch paroxetine HCl 20 mg tablet 20 mg PO DAILY #30 tabs 05/08/22 doxycycline monohydrate 100 mg 200 mg PO Q12H #0 caps 05/13/22 capsule gabapentin 100 mg capsule 100 mg PO TID #0 caps 05/13/22 methadone 10 mg/mL oral 35 mg (3.5 mL) PO DAILY #0 mL 05/13/22 concentrate (Methadose) multivitamin (Daily-Tamanna tablet) 1 tab PO DAILY #0 tabs 05/13/22 quetiapine 25 mg tablet 25 mg PO BID PRN anxiety, paranoia 05/13/22 #0 tabs quetiapine 50 mg tablet 50 mg PO BEDTIME #0 tabs 05/13/22 clindamycin HCl 300 mg capsule 300 mg PO Q6H skin infection #30 11/02/22 caps Allergies Allergy/AdvReac Type Severity Reaction Status Date / Time naproxen Allergy Intermediate nausea and Verified 11/02/22 00:33 vomiting Motrin Allergy Intermediate nausea and Uncoded 05/04/22 22:50 vomiting Review of Systems Review of Systems: Positive itchiness in the skin. Complained that her hair is falling out Yes all other systems are reviewed and are negative [facility] Past Medical History Attestation statement: The following information was validated with the patient. Medical History BRIE positive Anxiety Asthma Dyspnea History of prediabetes History of sleep disturbance Hx of anxiety disorder Hyperlipidemia Normocytic anemia Opioid use disorder Polysubstance abuse Subcutaneous nodules Surgical History History of colposcopy History of surgery on arm History of tubal ligation Hx of dilation and curettage Hx of excision of mass Social History Social History Household Members: None Housing: Apartment Do you presently have visiting nurse or other home services: No Alcohol intake: never Patient Tobacco Use Status: Current everyday Tobacco user Tobacco use type: Cigarette Cigarette Packs Per Day: 1 Cigarettes Per Day: 20.0 Years Smoked: 26 e-Cigarette/Vaping Use: Former Use Second Hand Smoke Exposure: No Substance Use Type: Crack/Cocaine and Opiates Advance Directives: No Advance Directives Information Provided: No service: No Sexual orientation: Straight/Heterosexual Physical Exam ED Vital Signs: Vital Signs - 24 hr 11/02/22 00:27 Temperature 99 F Pulse Rate 114 H Respiratory Rate 20 Blood Pressure 140/85 H Pulse Oximetry 96 Oxygen Delivery Method Room Air BMI result Body Mass Index 23.2 Appearance: Alert. Oriented X3. No acute distress. Patient here appears normal. There is no gross Yen site noted. There is no erythema noted. Eyes: Pupils equal, round and reactive to light. ENT: Pharynx normal. No midface tenderness TMs are intact Neck: Normal inspection. Neck supple. No lymph nodes noted. No crepitus CVS: Normal heart rate and rhythm. Pulses normal. Normal S1 and S2 Respiratory: Positive multiple track hardin in upper extremity. With a few that looks red warm to touch. There is no gross fluctuance noted. Abdomen: Soft and nontender. No rigidity. No distention. good BS x4 Skin: Area of redness that is warm to touch not function and bilateral forearm Extremities: No lower extremity edema. Neurovascular intact to all extremities. No Lacerations. No Rash Neuro: Oriented X 3. No motor deficit. No sensory deficit. Moving all extermities. No slurred speech Medical Decision Making Medical Decision Making MDM Narrative: Well appearing no acute distress. Patient does have cellulitis of bilateral forearm. Has a stinging sensation to arms and legs unknown cause. Will require follow-up on an outpatient basis. Long history of polysubstance use no evidence of abscess at this time. Patient told to stop using heroin. States understanding. Being discharged home Differential Diagnosis Differential Diagnoses: The differential diagnosis associated with the presentation includes Abscess, cellulitis, polysubstance abuse Prescription Management I considered prescription management with: Antibiotic Chronic Conditions Polysubstance abuse, rheumatoid arthritis Social Determinants Patient?s care significantly limited by Social Determinants of Health including: Inadequate housing and Unemployment Discharge Plan Discharge Clinical Impression: Cellulitis Patient Disposition: Home, Self-Care Instructions: Cellulitis (DC) Prescriptions: New clindamycin HCl 300 mg capsule 300 mg PO Q6H Qty: 30 0RF No Action propranolol 20 mg tablet 1 tab PO TID PRN (Reason: anxiety) nicotine 14 mg/24 hr Patch 24 Hour 14 mg transdermal DAILY Qty: 30 0RF melatonin 3 mg Tablet 6 mg PO BEDTIME PRN (Reason: Insomnia) Qty: 30 0RF magnesium oxide 400 mg (241.3 mg magnesium) Tablet 400 mg PO DAILY Qty: 30 0RF paroxetine HCl 20 mg Tablet 20 mg PO DAILY Qty: 30 0RF docusate sodium 100 mg Capsule 100 mg PO BID Qty: 60 0RF calcium carbonate-vitamin D3 250 mg-3.125 mcg (125 unit) Tablet 500 mg PO DAILY Qty: 30 0RF multivitamin [Daily-Tamanna] Tablet 1 tab PO DAILY Qty: 0 0RF quetiapine 25 mg Tablet 25 mg PO BID PRN (Reason: anxiety, paranoia) Qty: 0 0RF doxycycline monohydrate 100 mg Capsule 200 mg PO Q12H Qty: 0 0RF gabapentin 100 mg Capsule 100 mg PO TID Qty: 0 0RF methadone [Methadose] 10 mg/mL Concentrate 35 mg PO DAILY Qty: 0 0RF Rx Instructions: Partial Fill upon patient request. quetiapine 50 mg Tablet 50 mg PO BEDTIME Qty: 0 0RF Referrals: Physician,Unknown J [Primary Care Provider] - 11/05/22
[2022-11-02] MEDS: Clindamycin HCL 300 MG CAPSULE PO (02:40)
== END 2022-11-02 03:16 | disposition home or self-care (01) ==
PROVIDERS: Emergency Provider Emergency Medicine Emergency Medical Services
DX: L03.114 Cellulitis of left upper limb (principal); L03.113 Cellulitis of right upper limb; F19.10 Other psychoactive substance abuse, uncomplicated; F11.20 Opioid dependence, uncomplicated; Z79.899 Other long term (current) drug therapy
CPT/HCPCS: 99282; 99283

== ENCOUNTER 2024-01-20 11:49 | Inpatient (IN) | payer MEDICAID, SELFPAY ==
--- NOTE | 2024-01-20 | ECG_ITS ---
Test Reason : QT CHECK Blood Pressure : / mmHG Vent. Rate : 067 BPM Atrial Rate : 067 BPM P-R Int : 148 ms QRS Dur : 088 ms QT Int : 422 ms P-R-T Axes : 064 052 042 degrees QTc Int : 445 ms Normal sinus rhythm Normal ECG When compared with ECG of 05-MAY-2022 09:54, No significant change was found Referred By: Harleen Garcia Electronically Signed By:Herminio Santa
[2024-01-20 12:04] VITALS: BP 156/88; PULSE 83; O2SAT 99
[2024-01-20 12:06] VITALS: BP 135/90; PULSE 75; RESP 18; TEMP 36.8; O2SAT 96; BMI 26.8
[2024-01-20 12:38] LABS: Appearance Urine Cloudy; Color Urine Yellow; Glucose Urine UA Negative (Negative); Leukocyte Esterase Urine Trace (Negative); Nitrite Urine Positive (Negative); Specific Gravity - Urine 1.015 (1.005-1.025); UMIC TRIGGER UACC YES; Urine Blood Negative (Negative); Urine Ketones Negative (Negative); Urine Protein Negative (Neg-Trace)
[2024-01-20 12:42] LABS: Bacteria Urine 4+ (None Seen); Hyaline Casts Urine 0-2 /LPF (0-2); RBC Urine 0-2 /HPF (0-2); UACC Culture Trigger YES
[2024-01-20 12:47] LABS: Amphetamine Screen Urine Not Detected (Not Detect); Barbiturates, Urine Not Detected (Not Detect); Benzodiazepines Screen Urine Not Detected (Not Detect); Buprenorphine Scr Not Detected (Not Detect); Cannabinoid Screen Urine POSITIVE (Not Detect); Cocaine Screen Urine POSITIVE (Not Detect); Fentanyl, urine POSITIVE (Not Detect); Methadone Screen, Urine Positive (Not Detect); Opiate Screen Urine POSITIVE (Not Detect); Oxycodone Screen Urine Not Detected (Not Detect); Phencyclidine Screen Urine Not Detected (Not Detect)
--- NOTE | 2024-01-20 13:02 | MHC.EDTECH ---
venipuncture x1 unsuccessful. Obtained second tech for draw.
--- NOTE | 2024-01-20 14:15 | PC.NURSE ---
Patient difficult stick, multiple EDTs have attempted, provider aware in delay of labs.
[2024-01-20 14:29] LABS: MANUAL DIFF FLAG NO
[2024-01-20 14:32] LABS: Basophils Percent Auto 0.4 % (0-2); Eosinophils Absolute Auto 0.3 X10*3/uL (0.0-0.4); Eosinophils Percent Auto 5.4 % (0-4); Hematocrit 41.3 % (37.0-47.0); Hemoglobin 13.3 g/dl (12.0-16.0); Imm Gran Abs Auto 0.01 X10*3/uL (0.00-0.03); Imm Gran Pct Auto 0.2 % (0.0-0.4); Lymphocytes Absolute Auto 1.7 X10*3/uL (1.2-4.9); Lymphocytes Percent Auto 36.6 % (20-40); Mean Corpuscular HGB Conc 32.2 g/dl (31.0-35.0); Mean Corpuscular Hemoglobin 26.6 pg (27.0-33.0); Mean Corpuscular Volume 82.6 fL (80.0-98.0); Mean Platelet Volume 8.8 fL (9.4-12.3); Monocytes Absolute Auto 0.4 X10*3/uL (0.1-1.2); Monocytes Percent Auto 7.7 % (2-11); Neutrophils Absolute Auto 2.3 x10*3/uL (2.0-8.3); Neutrophils Percent Auto 49.7 % (45-73); Platelet Count 276 X10*3/uL (160-400); Red Cell Distribution Width 16.6 % (11.0-16.0); White Blood Count 4.7 X10*3/uL (4.8-10.8)
[2024-01-20 14:49] LABS: Anion Gap 9 (12-20); Blood Urea Nitrogen 10 mg/dL (9-16); Calcium 9.9 mg/dL (8.4-10.2); Carbon Dioxide 29 mmol/L (22-29); Chloride 101 mmol/L (96-108); Creatinine Clr Calc Pharmacy 75.5; Estimated Glomerular Filt Rate > 60; Ethanol < 10 mg/dL; Glucose Random 101 mg/dL (60-115); Potassium 4.3 mmol/L (3.3-5.1); Sodium 135 mmol/L (135-145)
[2024-01-20 14:52] LABS: Salicylate < 5.0 mg/dL (15-30)
[2024-01-20 14:57] VITALS: BP 121/85; PULSE 71; RESP 12; TEMP 36.1; O2SAT 97
--- NOTE | 2024-01-20 15:05 | ED_ITS ---
HPI - Psych General Chief Complaint: Psychiatric Symptoms Stated Complaint: PSYCH PROBLEM PER EMS Time Seen by Provider: 01/20/24 12:03 Source: patient Limitations: other (Psychosis) History of Present Illness ED Provider: Yasmin Yen PA-C HPI Narrative: 43-year-old female with history of polysubstance abuse, anxiety and depression presents with SI. Patient states she feels as if ?her methadone is not helping her, she last used crack and heroin yesterday. Patient states she does not have a plan for self-harm. Patient also indicates that she is ?seeing and feeling bugs in her hair?. Patient states, ?they are ghost worms, no one else can see them . Patient also denies nausea, diarrhea or abdominal cramping at this time. She does endorse ?body pain?. Related Data Home Medications ?Medication ?Instructions ?Recorded ?Confirmed propranolol 20 mg tablet 1 tab PO TID PRN anxiety 12/03/21 05/05/22 Previous Rx's ?Medication ?Instructions ?Recorded calcium carbonate 250 mg-vitamin 500 mg PO DAILY #30 tabs 05/08/22 D3 3.125 mcg (125 unit) tablet docusate sodium 100 mg capsule 100 mg PO BID #60 caps 05/08/22 magnesium oxide 400 mg (241.3 mg 400 mg PO DAILY #30 tabs 05/08/22 magnesium) tablet melatonin 3 mg tablet 6 mg (2 x 3 mg) PO BEDTIME PRN 05/08/22 Insomnia #30 tabs nicotine 14 mg/24 hr daily 14 mg transdermal DAILY #30 ea 05/08/22 transdermal patch paroxetine HCl 20 mg tablet 20 mg PO DAILY #30 tabs 05/08/22 doxycycline monohydrate 100 mg 200 mg (2 x 100 mg) PO Q12H #0 caps 05/13/22 capsule gabapentin 100 mg capsule 100 mg PO TID #0 caps 05/13/22 methadone 10 mg/mL oral 35 mg (3.5 mL) PO DAILY #0 mL 05/13/22 concentrate (Methadose) multivitamin (Daily-Tamanna tablet) 1 tab PO DAILY #0 tabs 05/13/22 quetiapine 25 mg tablet 25 mg PO BID PRN anxiety, paranoia 05/13/22 #0 tabs quetiapine 50 mg tablet 50 mg PO BEDTIME #0 tabs 05/13/22 clindamycin HCl 300 mg capsule 300 mg PO Q6H skin infection #30 11/02/22 caps Allergies Allergy/AdvReac Type Severity Reaction Status Date / Time naproxen Allergy Intermediate nausea and Verified 01/20/24 12:08 vomiting Motrin Allergy Intermediate nausea and Uncoded 05/04/22 22:50 vomiting Review of Systems 2 Review of Systems: No all other systems are reviewed and are negative Constitutional: Constitutional: Denies fever(s) Cardiovascular: Cardiovascular: Denies chest pain, Reports chest pain at rest and Denies dyspnea Respiratory: Respiratory: Denies dyspnea Gastrointestinal: Gastrointestinal: Denies diarrhea and Denies nausea Musculoskeletal: Musculoskeletal: Reports arthralgias Integumentary/Breasts: Skin/Breast: Denies rash Psychiatric: Psychiatric: Reports tactile hallucinations and Reports suicidal ideation PMFSH Past Medical History Attestation statement: The following information was validated with the patient. Medical History BRIE positive Anxiety Asthma Dyspnea History of prediabetes History of sleep disturbance Hx of anxiety disorder Hyperlipidemia Normocytic anemia Opioid use disorder Polysubstance abuse Subcutaneous nodules Surgical History History of colposcopy History of surgery on arm History of tubal ligation Hx of dilation and curettage Hx of excision of mass Social History Social History Household Members: None Housing: Apartment Do you presently have visiting nurse or other home services: No Alcohol intake: never Patient Tobacco Use Status: Current everyday Tobacco user Tobacco use type: Cigarette Cigarette Packs Per Day: 1 Cigarettes Per Day: 20.0 Years Smoked: 26 Smoked in Last 30 Days: No e-Cigarette/Vaping Use: Former Use Second Hand Smoke Exposure: No Use of substances other than those prescribed or required for medical reasons: Yes Substance Use Type: Crack/Cocaine and Heroin Substance Use Frequency: Chronic Longstanding Advance Directives: No Advance Directives Information Provided: Yes Do you have a plan to hurt others: No Plan service: No Sexual orientation: Straight/Heterosexual Physical Exam 2 Vital Signs: Vital Signs: Last Vital Signs Temp 97.0 F 01/20/24 14:57 Pulse 71 01/20/24 14:57 Resp 12 01/20/24 14:57 BP 121/85 01/20/24 14:57 Pulse Ox 97 01/20/24 14:57 O2 Del Method Room Air 01/20/24 14:57 BMI result Body Mass Index 26.8 Const: Other: Alert, appears older than stated age, Orientation/consciousness: patient oriented x3 Resp: Other: Nonlabored respirations Cardio: Other: Normal peripheral perfusion Skin: Other: No rash, the patient's hair has been shaved, she essentially has a buzz cut, no visible parasites noted Neuro: General: patient oriented x3, no focal motor deficits and CN's II-XI intact bilaterally Psych: Other: Appears depressed, tearful, has both visual and tactile hallucination Course Course Course Narrative: 43-year-old female with history of polysubstance abuse, anxiety and depression presents with SI. Patient states she feels as if ?her methadone is not helping her, she last used crack and heroin yesterday. Patient states she does not have a plan for self-harm. Patient also indicates that she is ?seeing and feeling bugs in her hair?. Patient states, ?they are ghost worms, no one else can see them . Patient also denies nausea, diarrhea or abdominal cramping at this time. She does endorse ?body pain?. Problem: Psychiatric illness and polysubstance abuse History: Per patient I have considered the following differential diagnoses: Decompensated psychiatric illness, SI, HI, drug/alcohol intoxication Plan: The patient is having hallucinations, could be drug-induced unclear at this point. Could be decompensated depression with psychotic features. She will be referred to our behavioral health team. Screening labs including serum ethanol and U tox Are in process. I have independently reviewed the following tests: Labs: No leukocytosis, not anemic, no electrolyte abnormality, urine positive for a urinary tract infection. U tox positive for opiates, methadone, fentanyl, cannabinoid and cocaine, serum ethanol negative We will treat UTI with Keflex Patient remains a physician abscess she is pending her behavioral health assessment. We will place a 1 time dose of Keflex, followed by an order for b.i.d. dosing Medical Decision Making Lab Data 01/20/24 14:26 01/20/24 14:26 Labs: Lab Results 01/20/24 01/20/24 Range/Units 12:29 14:26 WBC 4.7 L (4.8-10.8) X10*3/uL RBC 5.00 D (4.20-5.50) X10*6/uL Hgb 13.3 D (12.0-16.0) g/dl Hct 41.3 D (37.0-47.0) % MCV 82.6 (80.0-98.0) fL MCH 26.6 L (27.0-33.0) pg MCHC 32.2 (31.0-35.0) g/dl RDW 16.6 H (11.0-16.0) % Plt Count 276 (160-400) X10*3/uL MPV 8.8 L (9.4-12.3) fL Immature Gran % (Auto) 0.2 (0.0-0.4) % Neut % (Auto) 49.7 (45-73) % Lymph % (Auto) 36.6 (20-40) % [place] % (Auto) 7.7 (2-11) % Eos % (Auto) 5.4 H (0-4) % Baso % (Auto) 0.4 (0-2) % Lymph # (Auto) 1.7 (1.2-4.9) X10*3/uL [place] # (Auto) 0.4 (0.1-1.2) X10*3/uL Eos # (Auto) 0.3 (0.0-0.4) X10*3/uL Baso # (Auto) 0.0 (0.0-0.2) X10*3/uL Abs Immat Gran (auto) 0.01 (0.00-0.03) X10*3/uL Absolute Neuts (auto) 2.3 (2.0-8.3) x10*3/uL Absolute Nucleated RBC 0.000 (0.0-0.012) X10*3/uL Nucleated RBC % (auto) 0.0 (0.0-0.2) /100WBC Sodium 135 (135-145) mmol/L Potassium 4.3 (3.3-5.1) mmol/L Chloride 101 (96-108) mmol/L Carbon Dioxide 29 (22-29) mmol/L Anion Gap 9 L (12-20) BUN 10 (9-16) mg/dL Creatinine 0.75 (0.5-1.4) mg/dL Estim Creat Clear Calc 75.5 Estimated GFR > 60 Random Glucose 101 (60-115) mg/dL Calcium 9.9 D (8.4-10.2) mg/dL Urine Color Yellow Urine Appearance Cloudy Urine pH 7.0 (5.0-9.0) Ur Specific [place] 1.015 (1.005-1.025) Urine Protein Negative (Neg-Trace) mg/dL Urine Glucose (UA) Negative (Negative) mg/dL Urine Ketones Negative (Negative) mg/dL Urine Blood Negative (Negative) Urine Nitrite Positive H (Negative) Ur Leukocyte Esterase Trace H (Negative) Urine RBC 0-2 (0-2) /HPF Urine WBC 6-10 H (0-5) /HPF Ur Squamous Epith Cells 6-10 (0-2) /HPF Urine Bacteria 4+ (None Seen) Hyaline Casts 0-2 (0-2) /LPF Salicylates < 5.0 L (15-30) mg/dL Urine Opiates Screen POSITIVE H (Not Detect) Ur Buprenorphine Scrn Not Detected (Not Detect) ng/mL Ur Oxycodone Screen Not Detected (Not Detect) ng/mL Urine Methadone Screen Positive H (Not Detect) ng/mL Urine Fentanyl Screen POSITIVE H (Not Detect) Ur Barbiturates Screen Not Detected (Not Detect) Ur Phencyclidine Scrn Not Detected (Not Detect) Ur Amphetamines Screen Not Detected (Not Detect) U Benzodiazepines Scrn Not Detected (Not Detect) Urine Cocaine Screen POSITIVE H (Not Detect) U Marijuana (THC) Screen POSITIVE H (Not Detect) Ethyl Alcohol < 10 mg/dL Discharge Plan Discharge Clinical Impression: Suicidal ideation, UTI (urinary tract infection), Hallucinations, visual, Hallucinations of tactile sensation Patient Disposition: Still a Patient Prescriptions: No Action propranolol 20 mg tablet 1 tab PO TID PRN (Reason: anxiety) nicotine 14 mg/24 hr Patch 24 Hour 14 mg transdermal DAILY Qty: 30 0RF melatonin 3 mg Tablet 6 mg PO BEDTIME PRN (Reason: Insomnia) Qty: 30 0RF magnesium oxide 400 mg (241.3 mg magnesium) Tablet 400 mg PO DAILY Qty: 30 0RF paroxetine HCl 20 mg Tablet 20 mg PO DAILY Qty: 30 0RF docusate sodium 100 mg Capsule 100 mg PO BID Qty: 60 0RF calcium carbonate-vitamin D3 250 mg-3.125 mcg (125 unit) Tablet 500 mg PO DAILY Qty: 30 0RF multivitamin [Daily-Tamanna] Tablet 1 tab PO DAILY Qty: 0 0RF quetiapine 25 mg Tablet 25 mg PO BID PRN (Reason: anxiety, paranoia) Qty: 0 0RF doxycycline monohydrate 100 mg Capsule 200 mg PO Q12H Qty: 0 0RF gabapentin 100 mg Capsule 100 mg PO TID Qty: 0 0RF methadone [Methadose] 10 mg/mL Concentrate 35 mg PO DAILY Qty: 0 0RF Rx Instructions: Partial Fill upon patient request. quetiapine 50 mg Tablet 50 mg PO BEDTIME Qty: 0 0RF clindamycin HCl 300 mg capsule 300 mg PO Q6H Qty: 30 0RF Interventions: [place]-Suicide Risk Severity Scale Last Done: 01/20/24 13:30 Print Language: Spanish
[2024-01-20] MEDS: cephALEXin 500 MG CAPSULE PO (15:45)
--- NOTE | 2024-01-20 15:57 | PC.NURSE ---
Patient to be walked to the Pod by EDT and bob jhaveri RN called, report given, all questions answered.
[2024-01-20] MEDS: Ibuprofen 600 MG TABLET PO (16:27)
[2024-01-20] MEDS: Acetaminophen 325 MG TABLET 975 MG PO (16:27)
[2024-01-20] MEDS: HaloperidoL 5 MG TABLET PO (16:35)
[2024-01-20] MEDS: hydrOXYzine HCL 50 MG TABLET PO (16:35)
[2024-01-20] MEDS: LORazepam 1 MG TABLET PO (17:22)
[2024-01-20 23:27] VITALS: BP 117/81; PULSE 84; RESP 16; TEMP 36.6; O2SAT 99
[2024-01-20] MEDS: cloNIDine HCL 0.1 MG TABLET PO (23:35)
[2024-01-20] MEDS: Acetaminophen 325 MG TABLET 650 MG PO (23:35)
[2024-01-20] MEDS: hydrOXYzine HCL 25 MG TABLET PO (23:35)
[2024-01-20 23:43] VITALS: BMI 24.9
--- NOTE | 2024-01-21 01:41 | PC.ADMIT ---
Yani Monreal is a 43yo female admitted on a CV from [facility] for treatment of acute Psychosis and polysubstance abuse. Pt has history of polysubstance abuse, anxiety, depression with SI. Pt states she feels as if her methadone is not helping her , she last used crack and heroin yesterday. Pt also indicates that she is seeing and feeling bugs in her hair . She states they are ghost worms, no one else can see them . She denies SI, self-harm, nausea, diarrhea or abdominal cramping. On unit admission, Pt is alert and oriented X4, calm and pleasant but appeared to be anxious and falling asleep during admission process. She denies SI/HI/AV/VH, or self-harming behavior but complained of body pains and insomnia, PRN meds administered. Pt signed/filled some release of information forms, statement of understanding form, menu, and belongings inventory done. Skin check done and v/s stable. Treatment plan and safety tools initiated but yet to be signed. Pt did not fill my contact list as she has no phone. Pt TOX screen is positive for opiates, Fentanyl, Cocaine and Cannabinoid. She is placed on COWS Qshift for Opiates withdrawal risks. On 15 minutes check for safety.
[2024-01-21 07:20] VITALS: BP 121/71; PULSE 75; RESP 16; TEMP 36.9; O2SAT 99
[2024-01-21 08:00] VITALS: PULSE 75
[2024-01-21] MEDS: methADONE HCl 20 MG/2 ML ORAL.CONC 35 MG PO (08:08)
[2024-01-21 08:57] LABS: Cholesterol 102 mg/dL (<200); Estimated Average Glucose 114 mg/dL; HDL Cholesterol 23 mg/dL (>40); Hemoglobin A1c % 5.6 % (<6.0); LDL Cholesterol Calculated 56 mg/dL (<100); Triglycerides 119 mg/dL (<150)
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
[2024-01-21] MEDS: cephALEXin 5,000 MG/100 ML BOTTLE 500 MG PO ×2 (10:04→21:45)
[2024-01-21] MEDS: Acetaminophen 325 MG TABLET 650 MG PO (10:04)
[2024-01-21] MEDS: Gabapentin 300 MG CAPSULE PO ×3 (10:33→21:25)
[2024-01-21] MEDS: PARoxetine HCL 20 MG TABLET PO (15:49)
[2024-01-21 20:00] VITALS: BP 125/79; PULSE 76; RESP 16; TEMP 37.1; O2SAT 98
[2024-01-21 21:24] VITALS: BP 120/74
[2024-01-21] MEDS: cloNIDine HCL 0.1 MG TABLET PO (21:24)
[2024-01-21] MEDS: hydrOXYzine HCL 50 MG TABLET PO (21:26)
[2024-01-21] MEDS: Docusate Sodium 100 MG CAPSULE PO (21:26)
[2024-01-22 08:00] VITALS: BP 142/91; PULSE 82; RESP 14; TEMP 36.9; O2SAT 96
[2024-01-22] MEDS: methADONE HCl 20 MG/2 ML ORAL.CONC 35 MG PO (08:05)
[2024-01-22 08:40] VITALS: BP 142/91; PULSE 82; RESP 14; TEMP 36.9; O2SAT 96
[2024-01-22] MEDS: Gabapentin 300 MG CAPSULE PO ×3 (08:49→20:21)
[2024-01-22 08:50] VITALS: BP 142/91
[2024-01-22] MEDS: PARoxetine HCL 20 MG TABLET PO (08:50)
[2024-01-22] MEDS: cloNIDine HCL 0.1 MG TABLET PO ×3 (08:50→20:20)
--- NOTE | 2024-01-22 09:02 | HO.PSYCHPN ---
Subjective Subjective Date of Service: 01/22/24 Reason For Visit: psychotic Subjective Notes: 3 Day Interim History: Reviewed with Dr. Parekh. Keeping to self. Pt reports feeling better ; pt stated, I'm bored. I don't want to go to groups. I just want help getting into some kind of [place] facility . Pt denies SI/HI/VH/AH. medication compliant. 3 day up on 01/26/24. Medication Compliance: Yes Side effects from medications: No Attending Groups: No Review of Systems Constitutional: Reports as per HPI Eyes: Reports as per HPI Reports as per HPI Cardiovascular: Reports as per HPI Respiratory: Reports as per HPI Gastrointestinal: Reports as per HPI Musculoskeletal: Reports as per HPI Skin/Breast: Reports as per HPI Reports as per HPI Psychiatric: Reports as per HPI Endocrine: Reports as per HPI Hematologic/Lymphatic: Reports as per HPI Allergic/Immunologic: Reports as per HPI Mental Status Exam Mental Status Exam Narrative: Pt is alert and oriented; behavior is cooperative and calm; dressed in casual attire; mood is described as better ; eye contact appropriate; Speech is normal rate, volume and not pressured; thought process is organized and goal directed; Thought content is on tx; denies SI/HI/VH/AH. Diagnostics Vital Signs (24Hr): Vital Signs - 24 hr 01/21/24 20:00 01/21/24 21:24 01/22/24 08:00 Temperature 98.8 F 98.5 F Pulse Rate 76 82 Respiratory Rate 16 14 Blood Pressure 125/79 120/74 142/91 H Pulse Oximetry 98 96 Oxygen Delivery Method Room Air Room Air 01/22/24 08:50 Temperature Pulse Rate Respiratory Rate Blood Pressure 142/91 H Pulse Oximetry Oxygen Delivery Method BMI result Body Mass Index 24.9 Labs 01/20/24 14:26 01/20/24 14:26 Labs: Laboratory Results - last 48 hr 01/20/24 01/20/24 01/21/24 12:29 14:26 08:34 WBC 4.7 L RBC 5.00 D Hgb 13.3 D Hct 41.3 D MCV 82.6 MCH 26.6 L MCHC 32.2 RDW 16.6 H Plt Count 276 MPV 8.8 L Immature Gran % (Auto) 0.2 Neut % (Auto) 49.7 Lymph % (Auto) 36.6 [place] % (Auto) 7.7 Eos % (Auto) 5.4 H Baso % (Auto) 0.4 Lymph # (Auto) 1.7 [place] # (Auto) 0.4 Eos # (Auto) 0.3 Baso # (Auto) 0.0 Abs Immat Gran (auto) 0.01 Absolute Neuts (auto) 2.3 Absolute Nucleated RBC 0.000 Nucleated RBC % (auto) 0.0 Sodium 135 Potassium 4.3 Chloride 101 Carbon Dioxide 29 Anion Gap 9 L BUN 10 Creatinine 0.75 Estim Creat Clear Calc 75.5 Estimated GFR > 60 Random Glucose 101 Estimat Average Glucose 114 Hemoglobin A1c % 5.6 Calcium 9.9 D Triglycerides 119 Cholesterol 102 LDL Cholesterol, Calc 56 HDL Cholesterol 23 L Urine Color Yellow Urine Appearance Cloudy Urine pH 7.0 Ur Specific [place] 1.015 Urine Protein Negative Urine Glucose (UA) Negative Urine Ketones Negative Urine Blood Negative Urine Nitrite Positive H Ur Leukocyte Esterase Trace H Urine RBC 0-2 Urine WBC 6-10 H Ur Squamous Epith Cells 6-10 Urine Bacteria 4+ Hyaline Casts 0-2 Salicylates < 5.0 L Urine Opiates Screen POSITIVE H Ur Buprenorphine Scrn Not Detected Ur Oxycodone Screen Not Detected Urine Methadone Screen Positive H Urine Fentanyl Screen POSITIVE H Ur Barbiturates Screen Not Detected Ur Phencyclidine Scrn Not Detected Ur Amphetamines Screen Not Detected U Benzodiazepines Scrn Not Detected Urine Cocaine Screen POSITIVE H U Marijuana (THC) Screen POSITIVE H Ethyl Alcohol < 10 Medications Medications Current Medications Acetaminophen (Acetaminophen 325 Mg Tablet) 650 mg PO Q6H PRN PRN Reason: Headache/Pain Mild Scale (1-3) Last Admin: 01/21/24 10:04 Dose: 650 mg Al Hydroxide/Mg Hydroxide (Magnesium Hydrox/Alum Hydrox 30 Ml Oral.Susp) 30 ml PO Q6H PRN PRN Reason: Heartburn/Nausea Buprenorphine/Naloxone (Buprenorphine/Naloxone 4/1 Mg Film) 1 film SUBLINGUAL Q4H PRN PRN Reason: Opiate Withdrawal Cephalexin HCl (Cephalexin 5,000 Mg/100 Ml Bottle) 500 mg PO BID [facility] Last Admin: 01/21/24 21:45 Dose: 500 mg Clonidine HCl (Clonidine Hcl 0.1 Mg Tablet) 0.1 mg PO TID [facility]; Protocol Last Admin: 01/22/24 08:50 Dose: 0.1 mg Docusate Sodium (Docusate Sodium 100 Mg Capsule) 100 mg PO BEDTIME [facility] Last Admin: 01/21/24 21:26 Dose: 100 mg Gabapentin (Gabapentin 300 Mg Capsule) 300 mg PO TID [facility] Last Admin: 01/22/24 08:49 Dose: 300 mg Hydroxyzine HCl (Hydroxyzine Hcl 50 Mg Tablet) 50 mg PO BID PRN PRN Reason: anxiety Last Admin: 01/21/24 21:26 Dose: 50 mg Magnesium Hydroxide (Milk Of Magnesia 30 Ml Oral.Susp) 30 ml PO DAILY PRN PRN Reason: Constipation Methadone HCl (Methadone Hcl 20 Mg/2 Ml Oral.Conc) 35 mg PO DAILY [facility] Last Admin: 01/22/24 08:05 Dose: 35 mg Nicotine (Nicotine 21 Mg Patch.Td24) 21 mg TRANSDERMA DAILY PRN PRN Reason: smoking cessation Nicotine Polacrilex (Nicotine Polacrilex Lozenge 2 Mg Lozenge) 2 mg BUCCAL Q2H PRN PRN Reason: Nicotine Cravings Olanzapine (Olanzapine 5 Mg Tablet) 5 mg PO TID PRN PRN Reason: agitation Paroxetine HCl (Paroxetine Hcl 20 Mg Tablet) 20 mg PO DAILY [facility] Last Admin: 01/22/24 08:50 Dose: 20 mg Trazodone HCl (Trazodone Hcl 50 Mg Tablet) 50 mg PO BEDTIME MRX1 PRN PRN Reason: Insomnia Allergies Allergies Allergy/AdvReac Type Severity Reaction Status Date / Time naproxen Allergy Intermediate nausea and Verified 01/20/24 12:08 vomiting Motrin Allergy Intermediate nausea and Uncoded 05/04/22 22:50 vomiting Assessment & Plan Assessment & Plan (1) MDD (major depressive disorder), recurrent episode: Status: Acute Code(s): F33.9 - Major depressive disorder, recurrent, unspecified (2) PTSD (post-traumatic stress disorder): Status: Acute Code(s): F43.10 - Post-traumatic stress disorder, unspecified (3) Cocaine use disorder: Status: Acute Code(s): F14.10 - Cocaine abuse, uncomplicated (4) Opioid use disorder: Status: Acute Code(s): F11.90 - Opioid use, unspecified, uncomplicated Plan Patient is a 43 year old female with hx of MDD, PTSD, opioid use d/o, and cocaine use d/o who presented [place] [facility] [place] ambulance from [address] [facility] due to emotional dysregulation and visual/tactile hallucinations of bugs. 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 referral to outpatient prescriber and therapist possible referral to outpatient substance abuse program encourage groups discharge planning 01/21: Keeping to self. Pt reports feeling better ; pt stated, I'm bored. I don't want to go to groups. I just want help getting into some kind of [place] . Pt denies SI/HI/VH/AH. medication compliant. 3 day up on 01/26/24. Patient educated on: diagnosis, medication risk/benefits, substance abuse and therapeutic strategies Informed Consent: understands Reason for continued inpatient stay Substantial Risk for: med/psych decompensation Time Spent With Patient Time: Total time managing care of this patient today _20___ minutes.
[2024-01-22] MEDS: cephALEXin 5,000 MG/100 ML BOTTLE 500 MG PO ×2 (10:33→21:04)
--- NOTE | 2024-01-22 11:25 | HO.ADDICT_ITS ---
History of Present Illness Date of Service: 01/22/24 Chief Complaint: psychotic Reason for Consult: methadone dose titration Sources of Information: patient interviewed and chart reviewed HPI Narrative: Patient is a 43 year old female known to this group underwriter via previous consults while in ED for substance use related reasons. Currently admitted to unit for psychosis. Consult requested to address methadone dose Prior to seeing patient chart review showed patient was ordered methadone 35mg daily. igniter capper called [facility] to discuss patients dose and length in treatment. Per OTP, patient was initiated on treatment 11/28/23 at 45mg. Current dose is 48mg. Per RN methadone dose at 50mg would result in patient presenting as lethargic and sedated. Seen in room 326. SW and igniter capper present for brief interview. Patient reporting she feels good on current dose, unaware that methadone dose was 35mg this morning. However, also reporting that she was feeling tremulous. During admission assessment patient was also reporting that she did not feel current dose was adequate. Discussed adding PRN 5mg methadone dose and increasing dose to 40mg in AM Patient agreeable. Past Psychiatric History: no h/o psych hosps. endorses h/o SA a long time ago, declines to describe method. reports some h/o therapy, none recent or current. denies h/o SIB. endorses trauma Hx. on being asked to specify what type, she responds, all of it. i've been through everything. Review of Systems Constitutional: Reports as per HPI Diagnostics Vital Signs (24Hr): Vital Signs - 24 hr 01/21/24 20:00 01/21/24 21:24 01/22/24 08:00 Temperature 98.8 F 98.5 F Pulse Rate 76 82 Respiratory Rate 16 14 Blood Pressure 125/79 120/74 142/91 H Pulse Oximetry 98 96 Oxygen Delivery Method Room Air Room Air 01/22/24 08:40 01/22/24 08:50 Temperature 98.5 F Pulse Rate 82 Respiratory Rate 14 Blood Pressure 142/91 H 142/91 H Pulse Oximetry 96 Oxygen Delivery Method Room Air BMI result Body Mass Index 24.9 Labs 01/20/24 14:26 01/20/24 14:26 Labs: Laboratory Results - last 48 hr 01/20/24 01/20/24 01/21/24 12:29 14:26 08:34 WBC 4.7 L RBC 5.00 D Hgb 13.3 D Hct 41.3 D MCV 82.6 MCH 26.6 L MCHC 32.2 RDW 16.6 H Plt Count 276 MPV 8.8 L Immature Gran % (Auto) 0.2 Neut % (Auto) 49.7 Lymph % (Auto) 36.6 [place] % (Auto) 7.7 Eos % (Auto) 5.4 H Baso % (Auto) 0.4 Lymph # (Auto) 1.7 [place] # (Auto) 0.4 Eos # (Auto) 0.3 Baso # (Auto) 0.0 Abs Immat Gran (auto) 0.01 Absolute Neuts (auto) 2.3 Absolute Nucleated RBC 0.000 Nucleated RBC % (auto) 0.0 Sodium 135 Potassium 4.3 Chloride 101 Carbon Dioxide 29 Anion Gap 9 L BUN 10 Creatinine 0.75 Estim Creat Clear Calc 75.5 Estimated GFR > 60 Random Glucose 101 Estimat Average Glucose 114 Hemoglobin A1c % 5.6 Calcium 9.9 D Triglycerides 119 Cholesterol 102 LDL Cholesterol, Calc 56 HDL Cholesterol 23 L Urine Color Yellow Urine Appearance Cloudy Urine pH 7.0 Ur Specific [place] 1.015 Urine Protein Negative Urine Glucose (UA) Negative Urine Ketones Negative Urine Blood Negative Urine Nitrite Positive H Ur Leukocyte Esterase Trace H Urine RBC 0-2 Urine WBC 6-10 H Ur Squamous Epith Cells 6-10 Urine Bacteria 4+ Hyaline Casts 0-2 Salicylates < 5.0 L Urine Opiates Screen POSITIVE H Ur Buprenorphine Scrn Not Detected Ur Oxycodone Screen Not Detected Urine Methadone Screen Positive H Urine Fentanyl Screen POSITIVE H Ur Barbiturates Screen Not Detected Ur Phencyclidine Scrn Not Detected Ur Amphetamines Screen Not Detected U Benzodiazepines Scrn Not Detected Urine Cocaine Screen POSITIVE H U Marijuana (THC) Screen POSITIVE H Ethyl Alcohol < 10 Mental Status Exam Mental Status Exam Level of Consciousness: Awake and Alert Patient Behavior: Appropriate, Guarded and Poor Eye Contact Affect Description: Apprehensive Medications Medications Current Medications Acetaminophen (Acetaminophen 325 Mg Tablet) 650 mg PO Q6H PRN PRN Reason: Headache/Pain Mild Scale (1-3) Last Admin: 01/21/24 10:04 Dose: 650 mg Al Hydroxide/Mg Hydroxide (Magnesium Hydrox/Alum Hydrox 30 Ml Oral.Susp) 30 ml PO Q6H PRN PRN Reason: Heartburn/Nausea Cephalexin HCl (Cephalexin 5,000 Mg/100 Ml Bottle) 500 mg PO BID [facility] Last Admin: 01/22/24 10:33 Dose: 500 mg Clonidine HCl (Clonidine Hcl 0.1 Mg Tablet) 0.1 mg PO TID [facility]; Protocol Last Admin: 01/22/24 08:50 Dose: 0.1 mg Docusate Sodium (Docusate Sodium 100 Mg Capsule) 100 mg PO BEDTIME [facility] Last Admin: 01/21/24 21:26 Dose: 100 mg Gabapentin (Gabapentin 300 Mg Capsule) 300 mg PO TID [facility] Last Admin: 01/22/24 08:49 Dose: 300 mg Hydroxyzine HCl (Hydroxyzine Hcl 50 Mg Tablet) 50 mg PO BID PRN PRN Reason: anxiety Last Admin: 01/21/24 21:26 Dose: 50 mg Magnesium Hydroxide (Milk Of Magnesia 30 Ml Oral.Susp) 30 ml PO DAILY PRN PRN Reason: Constipation Methadone HCl (Methadone Hcl 20 Mg/2 Ml Oral.Conc) 35 mg PO DAILY [facility] Last Admin: 01/22/24 08:05 Dose: 35 mg Nicotine (Nicotine 21 Mg Patch.Td24) 21 mg TRANSDERMA DAILY PRN PRN Reason: smoking cessation Nicotine Polacrilex (Nicotine Polacrilex Lozenge 2 Mg Lozenge) 2 mg BUCCAL Q2H PRN PRN Reason: Nicotine Cravings Olanzapine (Olanzapine 5 Mg Tablet) 5 mg PO TID PRN PRN Reason: agitation Paroxetine HCl (Paroxetine Hcl 20 Mg Tablet) 20 mg PO DAILY [facility] Last Admin: 01/22/24 08:50 Dose: 20 mg Trazodone HCl (Trazodone Hcl 50 Mg Tablet) 50 mg PO BEDTIME MRX1 PRN PRN Reason: Insomnia Allergies Allergies Allergy/AdvReac Type Severity Reaction Status Date / Time naproxen Allergy Intermediate nausea and Verified 01/20/24 12:08 vomiting Motrin Allergy Intermediate nausea and Uncoded 05/04/22 22:50 vomiting Assessment & Plan Assessment & Plan (1) Opioid use disorder: Status: Acute Code(s): F11.90 - Opioid use, unspecified, uncomplicated Assessment and Plan: * methadone 5mg daily PRN for withdrawal * methadone increase to 40mg in AM * Can go back to previous dose of 48mg at any time (last dose of 48mg was 01/19) * Discontinued PRN buprenorphine that was previously ordered as this would likely precipitate withdrawal Total time managing care of this patient today __15__ minutes. PMFSH Past Medical History Medical History (Updated 01/21/24 @ 15:45 by Pepper Herrera NP) Opioid use disorder Normocytic anemia History of prediabetes Polysubstance abuse BIRE positive Asthma Dyspnea History of sleep disturbance Hx of anxiety disorder Anxiety Subcutaneous nodules Hyperlipidemia Surgical History Surgical History History of surgery on arm Hx of excision of mass Hx of dilation and curettage History of tubal ligation History of colposcopy Social History Social History Household Members: Spouse and Family Housing: House Do you presently have visiting nurse or other home services: No Alcohol intake: never Patient Tobacco Use Status: Current everyday Tobacco user Tobacco use type: Cigarette Cigarette Packs Per Day: 1 Cigarettes Per Day: 20.0 Years Smoked: 26 Smoked in Last 30 Days: Yes e-Cigarette/Vaping Use: Currently Using Patient Interested in Nicotine Replacement: Yes Patient Given Instructions on How to Stop Smoking: No Second Hand Smoke Exposure: No Use of substances other than those prescribed or required for medical reasons: Yes Substance Use Type: Crack/Cocaine, Heroin, Marijuana and Opiates Substance Use Frequency: Daily Last Used Substance: Just Prior to Admission Currently Displaying Signs/Symptoms of Drug Intoxication Withdrawal: No Any prior treatment program specific to substance use: Yes Have you been hit, kicked, punched, or otherwise hurt by someone within the past year? If so, by whom?: No Do you feel safe in your current relationship?: Yes Is there a partner from a previous relationship who is making you feel unsafe now?: No Are you made to feel afraid or neglected: No Advance Directives: No Advance Directives Information Provided: Yes Do you have thoughts of harming others: None Do you have a plan to hurt others: No Plan Recently lost weight without trying: Yes How much weight loss: 2-13 pounds Eating poorly because of decreased appetite: Yes Nutrition screen score: 4 Nutrition Risks: No Nutritional Risk Patient : No : No Poor oral hygiene: No service: No Sexual orientation: Straight/Heterosexual
[2024-01-22] MEDS: Nicotine 21 MG PATCH.TD24 TRANSDERMA (16:08)
[2024-01-22 19:30] VITALS: BP 105/72; PULSE 92; RESP 16; TEMP 37.3; O2SAT 96
[2024-01-22] MEDS: Acetaminophen 325 MG TABLET 650 MG PO (20:21)
[2024-01-22] MEDS: Docusate Sodium 100 MG CAPSULE PO (20:21)
[2024-01-22] MEDS: hydrOXYzine HCL 50 MG TABLET PO (20:22)
[2024-01-23] MEDS: traZODone HCL 50 MG TABLET PO ×3 (01:42→22:34)
[2024-01-23] MEDS: methADONE HCl 20 MG/2 ML ORAL.CONC 35 MG PO (08:09)
[2024-01-23 08:20] VITALS: BP 102/69; PULSE 86; TEMP 37; O2SAT 97
[2024-01-23] MEDS: Gabapentin 300 MG CAPSULE PO ×3 (08:23→21:25)
[2024-01-23] MEDS: PARoxetine HCL 20 MG TABLET PO (08:24)
[2024-01-23] MEDS: OLANZapine 5 MG TABLET PO (08:24)
[2024-01-23] MEDS: cloNIDine HCL 0.1 MG TABLET PO ×3 (08:24→21:26)
[2024-01-23] MEDS: hydrOXYzine HCL 50 MG TABLET PO ×2 (08:24→21:26)
[2024-01-23] MEDS: cephALEXin 5,000 MG/100 ML BOTTLE 500 MG PO ×2 (08:25→21:19)
--- NOTE | 2024-01-23 09:28 | HO.PSYCHPN ---
Subjective Subjective Date of Service: 01/23/24 Reason For Visit: psychotic Subjective Notes: 3 Day Interim History: Reviewed with Dr. Parekh. Pt reports feeling anxious today; pt stated, I feel home sick. I spoke to my mom and she told me she's proud of me. My plans on staying clean too. I don't want to go to a program after here. I'm going to go back to my mothers house . Pt denies SI/HI/VH/AH. Pt reports sleeping well. Medication Compliance: Yes Side effects from medications: No Attending Groups: No Review of Systems Constitutional: Reports as per HPI Eyes: Reports as per HPI Reports as per HPI Cardiovascular: Reports as per HPI Respiratory: Reports as per HPI Gastrointestinal: Reports as per HPI Musculoskeletal: Reports as per HPI Skin/Breast: Reports as per HPI Reports as per HPI Psychiatric: Reports as per HPI Endocrine: Reports as per HPI Hematologic/Lymphatic: Reports as per HPI Allergic/Immunologic: Reports as per HPI Mental Status Exam Mental Status Exam Narrative: Pt is alert and oriented; behavior is cooperative and calm; dressed in casual attire; mood is described as anxious ; eye contact appropriate; Speech is normal rate, volume and not pressured; thought process is organized and goal directed; Thought content is on tx; denies SI/HI/VH/AH. Diagnostics Vital Signs (24Hr): Vital Signs - 24 hr 01/22/24 19:30 01/23/24 08:20 Temperature 99.2 F 98.6 F Pulse Rate 92 86 Respiratory Rate 16 Blood Pressure 105/72 102/69 Pulse Oximetry 96 97 Oxygen Delivery Method Room Air Room Air BMI result Body Mass Index 24.9 Labs 01/20/24 14:26 01/20/24 14:26 Medications Medications Current Medications Acetaminophen (Acetaminophen 325 Mg Tablet) 650 mg PO Q6H PRN PRN Reason: Headache/Pain Mild Scale (1-3) Last Admin: 01/22/24 20:21 Dose: 650 mg Al Hydroxide/Mg Hydroxide (Magnesium Hydrox/Alum Hydrox 30 Ml Oral.Susp) 30 ml PO Q6H PRN PRN Reason: Heartburn/Nausea Cephalexin HCl (Cephalexin 5,000 Mg/100 Ml Bottle) 500 mg PO BID [facility] Last Admin: 01/23/24 08:25 Dose: 500 mg Clonidine HCl (Clonidine Hcl 0.1 Mg Tablet) 0.1 mg PO TID [facility]; Protocol Last Admin: 01/23/24 08:24 Dose: 0.1 mg Docusate Sodium (Docusate Sodium 100 Mg Capsule) 100 mg PO BEDTIME [facility] Last Admin: 01/22/24 20:21 Dose: 100 mg Gabapentin (Gabapentin 300 Mg Capsule) 300 mg PO TID [facility] Last Admin: 01/23/24 08:23 Dose: 300 mg Hydroxyzine HCl (Hydroxyzine Hcl 50 Mg Tablet) 50 mg PO BID PRN PRN Reason: anxiety Last Admin: 01/23/24 08:24 Dose: 50 mg Magnesium Hydroxide (Milk Of Magnesia 30 Ml Oral.Susp) 30 ml PO DAILY PRN PRN Reason: Constipation Methadone HCl (Methadone Hcl 20 Mg/2 Ml Oral.Conc) 35 mg PO DAILY [facility] Last Admin: 01/23/24 08:09 Dose: 35 mg Nicotine (Nicotine 21 Mg Patch.Td24) 21 mg TRANSDERMA DAILY PRN PRN Reason: smoking cessation Last Admin: 01/22/24 16:08 Dose: 21 mg Nicotine Polacrilex (Nicotine Polacrilex Lozenge 2 Mg Lozenge) 2 mg BUCCAL Q2H PRN PRN Reason: Nicotine Cravings Olanzapine (Olanzapine 5 Mg Tablet) 5 mg PO TID PRN PRN Reason: agitation Last Admin: 01/23/24 08:24 Dose: 5 mg Paroxetine HCl (Paroxetine Hcl 20 Mg Tablet) 20 mg PO DAILY [facility] Last Admin: 01/23/24 08:24 Dose: 20 mg Trazodone HCl (Trazodone Hcl 50 Mg Tablet) 50 mg PO BEDTIME MRX1 PRN PRN Reason: Insomnia Last Admin: 01/23/24 01:42 Dose: 50 mg Allergies Allergies Allergy/AdvReac Type Severity Reaction Status Date / Time naproxen Allergy Intermediate nausea and Verified 01/20/24 12:08 vomiting Motrin Allergy Intermediate nausea and Uncoded 05/04/22 22:50 vomiting Assessment & Plan Assessment & Plan (1) MDD (major depressive disorder), recurrent episode: Status: Acute Code(s): F33.9 - Major depressive disorder, recurrent, unspecified (2) PTSD (post-traumatic stress disorder): Status: Acute Code(s): F43.10 - Post-traumatic stress disorder, unspecified (3) Cocaine use disorder: Status: Acute Code(s): F14.10 - Cocaine abuse, uncomplicated (4) Opioid use disorder: Status: Acute Code(s): F11.90 - Opioid use, unspecified, uncomplicated Plan Patient is a 43 year old female with hx of MDD, PTSD, opioid use d/o, and cocaine use d/o who presented to [facility] via ambulance from [facility] due to emotional dysregulation and visual/tactile hallucinations of bugs. Plan: CV 15 minute safety checks pt signed 3 day notice Continue home medications Start: Paxil 20mg PO daily (pt taken in past) Colace 100mg PO bedtime Addiction consult for recovery agent and possible methadone increase. referral to outpatient prescriber and therapist possible referral to outpatient substance abuse program encourage groups discharge planning 01/21: Keeping to self. Pt reports feeling better ; pt stated, I'm bored. I don't want to go to groups. I just want help getting into some kind of intermediate . Pt denies SI/HI/VH/AH. medication compliant. 3 day up on 01/26/24. 01/22: Pt reports feeling anxious today; pt stated, I feel home sick. I spoke to my mom and she told me she's proud of me. My plans on staying clean too. I don't want to go to a program after here. I'm going to go back to my mothers house . Pt denies SI/HI/VH/AH. Pt reports sleeping well. Continue current tx plan. Patient educated on: diagnosis, medication risk/benefits, substance abuse and therapeutic strategies Reason for continued inpatient stay Substantial Risk for: med/psych decompensation Time Spent With Patient Time: Total time managing care of this patient today _20___ minutes.
[2024-01-23 15:05] VITALS: BP 112/71
[2024-01-23] MEDS: Acetaminophen 325 MG TABLET 650 MG PO ×2 (15:06→21:26)
[2024-01-23] MEDS: Nicotine 21 MG PATCH.TD24 TRANSDERMA (16:39)
[2024-01-23 16:40] VITALS: BP 100/70; PULSE 86
[2024-01-23 19:48] VITALS: BP 100/68; PULSE 95; RESP 16; TEMP 36.6; O2SAT 96
[2024-01-23 21:20] VITALS: PULSE 87
[2024-01-23] MEDS: Docusate Sodium 100 MG CAPSULE PO (21:25)
[2024-01-24] MEDS: Acetaminophen 325 MG TABLET 650 MG PO ×2 (06:35→20:57)
[2024-01-24 08:00] VITALS: BP 108/78; PULSE 89; TEMP 36.8; O2SAT 99
[2024-01-24] MEDS: cloNIDine HCL 0.1 MG TABLET PO ×3 (08:26→20:55)
[2024-01-24] MEDS: PARoxetine HCL 20 MG TABLET PO (08:26)
[2024-01-24] MEDS: Gabapentin 300 MG CAPSULE PO ×2 (08:26→15:26)
[2024-01-24] MEDS: methADONE HCl 20 MG/2 ML ORAL.CONC 40 MG PO (08:27)
[2024-01-24] MEDS: hydrOXYzine HCL 50 MG TABLET PO ×3 (08:29→21:40)
[2024-01-24] MEDS: cephALEXin 5,000 MG/100 ML BOTTLE 500 MG PO ×2 (08:33→21:44)
[2024-01-24] MEDS: Nicotine 21 MG PATCH.TD24 TRANSDERMA (09:40)
[2024-01-24] MEDS: Nicotine Polacrilex Lozenge 2 MG LOZENGE BUCCAL ×2 (09:42→20:58)
--- NOTE | 2024-01-24 09:49 | HO.PSYCHPN ---
Subjective Subjective Date of Service: 01/24/24 Reason For Visit: psychotic Interim History: met with patient. Discussed with Nursing. Overall reports anxiety is high. Thinking about losses in terms of home, children, staying mother's basement with her partner. Having panic attacks. Also trying to focus on moving forward. Slightly less depressed and little brighter. Regarding anxiety will increase hydroxyzine to 50 mg as needed and also increase gabapentin to 400 mg. Was previously on 600 mg. Methadone increased to 40 mg today. Previously on 48 mg. Also experiencing constipation. Review of Systems Review of Systems Constipation Mental Status Exam Mental Status Exam Narrative: pleasant. Engaged. Organized. Some anxiety. No SI. No HI. No agitation. No psychosis. Insight and judgment fair Diagnostics Vital Signs (24Hr): Vital Signs - 24 hr 01/23/24 15:05 01/23/24 16:40 01/23/24 19:48 Temperature 97.8 F Pulse Rate 86 95 Respiratory Rate 16 Blood Pressure 112/71 100/70 100/68 Pulse Oximetry 96 Oxygen Delivery Method Room Air 01/24/24 08:00 Temperature 98.3 F Pulse Rate 89 Respiratory Rate Blood Pressure 108/78 Pulse Oximetry 99 Oxygen Delivery Method Room Air BMI result Body Mass Index 24.9 Labs 01/20/24 14:26 01/20/24 14:26 Medications Medications Current Medications Acetaminophen (Acetaminophen 325 Mg Tablet) 650 mg PO Q6H PRN PRN Reason: Headache/Pain Mild Scale (1-3) Last Admin: 01/24/24 06:35 Dose: 650 mg Al Hydroxide/Mg Hydroxide (Magnesium Hydrox/Alum Hydrox 30 Ml Oral.Susp) 30 ml PO Q6H PRN PRN Reason: Heartburn/Nausea Cephalexin HCl (Cephalexin 5,000 Mg/100 Ml Bottle) 500 mg PO BID [facility] Last Admin: 01/24/24 08:33 Dose: 500 mg Clonidine HCl (Clonidine Hcl 0.1 Mg Tablet) 0.1 mg PO TID [facility]; Protocol Last Admin: 01/24/24 08:26 Dose: 0.1 mg Docusate Sodium (Docusate Sodium 100 Mg Capsule) 100 mg PO BEDTIME [facility] Last Admin: 01/23/24 21:25 Dose: 100 mg Gabapentin (Gabapentin 300 Mg Capsule) 300 mg PO TID [facility] Last Admin: 01/24/24 08:26 Dose: 300 mg Hydroxyzine HCl (Hydroxyzine Hcl 50 Mg Tablet) 50 mg PO BID PRN PRN Reason: anxiety Last Admin: 01/24/24 08:29 Dose: 50 mg Magnesium Hydroxide (Milk Of Magnesia 30 Ml Oral.Susp) 30 ml PO DAILY PRN PRN Reason: Constipation Methadone HCl (Methadone Hcl 20 Mg/2 Ml Oral.Conc) 40 mg PO DAILY [facility] Last Admin: 01/24/24 08:27 Dose: 40 mg Nicotine (Nicotine 21 Mg Patch.Td24) 21 mg TRANSDERMA DAILY PRN PRN Reason: smoking cessation Last Admin: 01/24/24 09:40 Dose: 21 mg Nicotine Polacrilex (Nicotine Polacrilex Lozenge 2 Mg Lozenge) 2 mg BUCCAL Q2H PRN PRN Reason: Nicotine Cravings Last Admin: 01/24/24 09:42 Dose: 2 mg Olanzapine (Olanzapine 5 Mg Tablet) 5 mg PO TID PRN PRN Reason: agitation Last Admin: 01/23/24 08:24 Dose: 5 mg Paroxetine HCl (Paroxetine Hcl 20 Mg Tablet) 20 mg PO DAILY [facility] Last Admin: 01/24/24 08:26 Dose: 20 mg Trazodone HCl (Trazodone Hcl 50 Mg Tablet) 50 mg PO BEDTIME MRX1 PRN PRN Reason: Insomnia Last Admin: 01/23/24 22:34 Dose: 50 mg Allergies Allergies Allergy/AdvReac Type Severity Reaction Status Date / Time naproxen Allergy Intermediate nausea and Verified 01/20/24 12:08 vomiting Motrin Allergy Intermediate nausea and Uncoded 05/04/22 22:50 vomiting Assessment & Plan Assessment & Plan (1) MDD (major depressive disorder), recurrent episode: Status: Acute Code(s): F33.9 - Major depressive disorder, recurrent, unspecified (2) PTSD (post-traumatic stress disorder): Status: Acute Code(s): F43.10 - Post-traumatic stress disorder, unspecified (3) Cocaine use disorder: Status: Acute Code(s): F14.10 - Cocaine abuse, uncomplicated (4) Opioid use disorder: Status: Acute Code(s): F11.90 - Opioid use, unspecified, uncomplicated Plan Patient is a 43 year old female with hx of MDD, PTSD, opioid use d/o, and cocaine use d/o who presented to [facility] via ambulance from [facility] due to emotional dysregulation and visual/tactile hallucinations of bugs. Plan: CV 15 minute safety checks pt signed 3 day notice Continue home medications Start: Paxil 20mg PO daily (pt taken in past) Colace 100mg PO bedtime Addiction consult for personal development coach and possible methadone increase. referral to outpatient prescriber and therapist possible referral to outpatient substance abuse program encourage groups discharge planning 01/21: Keeping to self. Pt reports feeling better ; pt stated, I'm bored. I don't want to go to groups. I just want help getting into some kind of [place] [facility] [place] . Pt denies SI/HI/VH/AH. medication compliant. 3 day up on 01/26/24. 01/22: Pt reports feeling anxious today; pt stated, I feel home sick. I spoke to my mom and she told me she's proud of me. My plans on staying clean too. I don't want to go to a program after here. I'm going to go back to my mothers house . Pt denies SI/HI/VH/AH. Pt reports sleeping well. Continue current tx plan. 01/24/2024:Regarding anxiety will increase hydroxyzine to 50 mg as needed and also increase gabapentin to 400 mg. Was previously on 600 mg. Methadone increased to 40 mg today. Previously on 48 mg. Also experiencing constipation. Reason for continued inpatient stay Substantial Risk for: inability to function Time Spent With Patient Time: Total time managing care of this patient today ____ minutes.
[2024-01-24 15:26] VITALS: BP 112/73
[2024-01-24] MEDS: Gabapentin 100 MG CAPSULE PO (15:50)
[2024-01-24] MEDS: Docusate Sodium 100 MG CAPSULE PO ×2 (15:50→20:56)
[2024-01-24 20:47] VITALS: BP 125/89; PULSE 88; RESP 16; TEMP 37.1; O2SAT 100
[2024-01-24 20:52] VITALS: PULSE 88
[2024-01-24] MEDS: Gabapentin 400 MG CAPSULE PO (20:55)
[2024-01-24] MEDS: Sennosides 8.6 MG TABLET PO (20:56)
[2024-01-24] MEDS: traZODone HCL 50 MG TABLET PO (20:56)
[2024-01-24] MEDS: OLANZapine 5 MG TABLET PO (20:57)
[2024-01-25 08:00] VITALS: BP 116/66; PULSE 79; RESP 16; TEMP 36.8; O2SAT 97
[2024-01-25] MEDS: methADONE HCl 20 MG/2 ML ORAL.CONC 40 MG PO (08:11)
--- NOTE | 2024-01-25 08:39 | HO.PSYCHPN ---
Subjective Subjective Date of Service: 01/25/24 Reason For Visit: psychotic Interim History: met with patient. Discussed with Nursing. Overall reports anxiety is slightly less on hydroxyzine and gabapentin. Less depressed. Sleep okay. Enjoy groups today. Still opiate cravings at times. Will increase methadone to 45 mg has previously on a higher dose in the community and also utilizing opiates in addition. Harm reduction discussed in context of patient being open around likely continued use after discharge.. Medication Compliance: Yes Side effects from medications: No Attending Groups: Yes Review of Systems Acute medical concerns: No Mental Status Exam Mental Status Exam Narrative: pleasant. Engaged. Organized. Less depressed and anxious. No SI. No HI. No agitation. No psychosis. Insight and judgment fair Diagnostics Vital Signs (24Hr): Vital Signs - 24 hr 01/24/24 15:26 01/24/24 20:47 01/25/24 08:00 Temperature 98.7 F 98.2 F Pulse Rate 88 79 Respiratory Rate 16 16 Blood Pressure 112/73 125/89 116/66 Pulse Oximetry 100 97 Oxygen Delivery Method Room Air Room Air BMI result Body Mass Index 24.9 Labs 01/20/24 14:26 01/20/24 14:26 Medications Medications Current Medications Acetaminophen (Acetaminophen 325 Mg Tablet) 650 mg PO Q6H PRN PRN Reason: Headache/Pain Mild Scale (1-3) Last Admin: 01/24/24 20:57 Dose: 650 mg Al Hydroxide/Mg Hydroxide (Magnesium Hydrox/Alum Hydrox 30 Ml Oral.Susp) 30 ml PO Q6H PRN PRN Reason: Heartburn/Nausea Cephalexin HCl (Cephalexin 5,000 Mg/100 Ml Bottle) 500 mg PO BID [facility] Last Admin: 01/24/24 21:44 Dose: 500 mg Clonidine HCl (Clonidine Hcl 0.1 Mg Tablet) 0.1 mg PO TID [facility]; Protocol Last Admin: 01/24/24 20:55 Dose: 0.1 mg Docusate Sodium (Docusate Sodium 100 Mg Capsule) 100 mg PO TID [facility] Last Admin: 01/24/24 20:56 Dose: 100 mg Gabapentin (Gabapentin 400 Mg Capsule) 400 mg PO TID [facility] Last Admin: 01/24/24 20:55 Dose: 400 mg Hydroxyzine HCl (Hydroxyzine Hcl 50 Mg Tablet) 50 mg PO Q6H PRN PRN Reason: anxiety Last Admin: 01/24/24 21:40 Dose: 50 mg Magnesium Hydroxide (Milk Of Magnesia 30 Ml Oral.Susp) 30 ml PO DAILY PRN PRN Reason: Constipation Methadone HCl (Methadone Hcl 20 Mg/2 Ml Oral.Conc) 40 mg PO DAILY [facility] Last Admin: 01/25/24 08:11 Dose: 40 mg Nicotine (Nicotine 21 Mg Patch.Td24) 21 mg TRANSDERMA DAILY PRN PRN Reason: smoking cessation Last Admin: 01/24/24 09:40 Dose: 21 mg Nicotine Polacrilex (Nicotine Polacrilex Lozenge 2 Mg Lozenge) 2 mg BUCCAL Q2H PRN PRN Reason: Nicotine Cravings Last Admin: 01/24/24 20:58 Dose: 2 mg Olanzapine (Olanzapine 5 Mg Tablet) 5 mg PO TID PRN PRN Reason: agitation Last Admin: 01/24/24 20:57 Dose: 5 mg Paroxetine HCl (Paroxetine Hcl 20 Mg Tablet) 20 mg PO DAILY [facility] Last Admin: 01/24/24 08:26 Dose: 20 mg Senna (Sennosides 8.6 Mg Tablet) 8.6 mg PO BEDTIME [facility] Last Admin: 01/24/24 20:56 Dose: 8.6 mg Trazodone HCl (Trazodone Hcl 50 Mg Tablet) 50 mg PO BEDTIME MRX1 PRN PRN Reason: Insomnia Last Admin: 01/24/24 20:56 Dose: 50 mg Allergies Allergies Allergy/AdvReac Type Severity Reaction Status Date / Time naproxen Allergy Intermediate nausea and Verified 01/20/24 12:08 vomiting Motrin Allergy Intermediate nausea and Uncoded 05/04/22 22:50 vomiting Assessment & Plan Assessment & Plan (1) MDD (major depressive disorder), recurrent episode: Status: Acute Code(s): F33.9 - Major depressive disorder, recurrent, unspecified (2) PTSD (post-traumatic stress disorder): Status: Acute Code(s): F43.10 - Post-traumatic stress disorder, unspecified (3) Cocaine use disorder: Status: Acute Code(s): F14.10 - Cocaine abuse, uncomplicated (4) Opioid use disorder: Status: Acute Code(s): F11.90 - Opioid use, unspecified, uncomplicated Plan Patient is a 43 year old female with hx of MDD, PTSD, opioid use d/o, and cocaine use d/o who presented to [facility] via ambulance from [facility] due to emotional dysregulation and visual/tactile hallucinations of bugs. Plan: CV 15 minute safety checks pt signed 3 day notice Continue home medications Start: Paxil 20mg PO daily (pt taken in past) Colace 100mg PO bedtime Addiction consult for head boys golf coach and possible methadone increase. referral to outpatient prescriber and therapist possible referral to outpatient substance abuse program encourage groups discharge planning 01/21: Keeping to self. Pt reports feeling better ; pt stated, I'm bored. I don't want to go to groups. I just want help getting into some kind of intermediate . Pt denies SI/HI/VH/AH. medication compliant. 3 day up on 01/26/24. 01/22: Pt reports feeling anxious today; pt stated, I feel home sick. I spoke to my mom and she told me she's proud of me. My plans on staying clean too. I don't want to go to a program after here. I'm going to go back to my mothers house . Pt denies SI/HI/VH/AH. Pt reports sleeping well. Continue current tx plan. 01/24/2024:Regarding anxiety will increase hydroxyzine to 50 mg as needed and also increase gabapentin to 400 mg. Was previously on 600 mg. Methadone increased to 40 mg today. Previously on 48 mg. Also experiencing constipation. 01/25/2024: Adjust methadone to 45 mg. Otherwise no changes. Reason for continued inpatient stay Substantial Risk for: rapid decompensation Time Spent With Patient Time: Total time managing care of this patient today ____ minutes.
[2024-01-25 08:52] VITALS: BP 166/66
[2024-01-25] MEDS: cloNIDine HCL 0.1 MG TABLET PO ×3 (08:52→20:39)
[2024-01-25] MEDS: Gabapentin 400 MG CAPSULE PO ×3 (08:53→20:39)
[2024-01-25] MEDS: Docusate Sodium 100 MG CAPSULE PO ×3 (08:53→20:39)
[2024-01-25] MEDS: PARoxetine HCL 20 MG TABLET PO (08:53)
[2024-01-25] MEDS: Acetaminophen 325 MG TABLET 650 MG PO ×2 (08:59→18:23)
[2024-01-25] MEDS: cephALEXin 5,000 MG/100 ML BOTTLE 500 MG PO ×2 (09:01→20:39)
[2024-01-25] MEDS: Nicotine 21 MG PATCH.TD24 TRANSDERMA (09:02)
[2024-01-25] MEDS: hydrOXYzine HCL 50 MG TABLET PO ×2 (09:58→18:21)
[2024-01-25 16:26] VITALS: BP 123/84
[2024-01-25 20:00] VITALS: BP 118/82; PULSE 91; RESP 16; TEMP 36.9; O2SAT 98
[2024-01-25 20:39] VITALS: BP 118/82
[2024-01-25] MEDS: traZODone HCL 50 MG TABLET PO (20:39)
[2024-01-25] MEDS: OLANZapine 5 MG TABLET PO (20:39)
[2024-01-25] MEDS: Sennosides 8.6 MG TABLET PO (20:39)
[2024-01-26] MEDS: traZODone HCL 50 MG TABLET PO (01:43)
[2024-01-26] MEDS: Acetaminophen 325 MG TABLET 650 MG PO ×2 (01:43→09:13)
[2024-01-26 07:45] VITALS: BP 100/66; PULSE 89; RESP 16; TEMP 36.9; O2SAT 98
[2024-01-26] MEDS: methADONE HCl 20 MG/2 ML ORAL.CONC 45 MG PO (07:45)
[2024-01-26 08:49] VITALS: BP 129/68
[2024-01-26] MEDS: Docusate Sodium 100 MG CAPSULE PO (08:49)
[2024-01-26] MEDS: Gabapentin 400 MG CAPSULE PO (08:49)
[2024-01-26] MEDS: cloNIDine HCL 0.1 MG TABLET PO (08:49)
[2024-01-26] MEDS: PARoxetine HCL 20 MG TABLET PO (08:49)
[2024-01-26] MEDS: cephALEXin 5,000 MG/100 ML BOTTLE 500 MG PO (09:12)
[2024-01-26] MEDS: Nicotine 21 MG PATCH.TD24 TRANSDERMA (09:12)
--- NOTE | 2024-01-26 09:22 | P.DS_ITS ---
DS: Providers Provider Date of Service: 01/26/24 Date of admission: 01/20/24 20:31 Date of discharge: 01/26/24 Primary care physician: [facility] Admitting clinician: Pepper Herrera Attending physician on admission: Sujit Parekh Consults: 01/21/24 15:24 Addiction Medicine Routine Consulting Provider: Addiction Covering Reason for consultation: pt wants higher methadone/data recovery planner Attending physician on discharge: Sujit Parekh Discharging clinician: Pepper Herrera DS: Diagnosis Discharge Diagnosis (1) MDD (major depressive disorder), recurrent episode: Status: Acute (2) PTSD (post-traumatic stress disorder): Status: Acute (3) Cocaine use disorder: Status: Acute (4) Opioid use disorder: Status: Acute DS: Medications Discharge Medications Home Medications: Home Medications ?Medication ?Instructions ?Recorded ?Confirmed clonidine HCl 0.1 mg tablet 0.1 mg PO TID PRN anxiety 01/20/24 01/20/24 gabapentin 300 mg capsule 300 mg PO TID neuropathic pain 01/20/24 01/20/24 hydroxyzine HCl 25 mg tablet 25 - 50 mg PO BID PRN anxiety 01/20/24 01/20/24 nicotine (polacrilex) 2 mg buccal 2 mg PO Q2H PRN Nicotine Cravings 01/20/24 01/20/24 lozenge nicotine 14 mg/24 hr daily 1 patch topical BEDTIME PRN 01/20/24 01/20/24 transdermal patch Nicotine Cravings Previous Rx's ?Medication ?Instructions ?Recorded methadone 10 mg/mL oral 35 mg (3.5 mL) PO DAILY #0 mL 05/13/22 concentrate (Methadose) Mental Status Exam Mental Status Exam Narrative: Pt is alert and oriented; behavior is cooperative and calm; dressed in casual attire; mood is described as good ; eye contact appropriate; Speech is normal rate, volume and not pressured; thought process is organized and goal directed; Thought content is on tx; denies SI/HI/VH/AH. Data Data Completed and Pending Completed studies during hospitalization [Text1]: 01/20/24 01/20/24 01/21/24 12:29 14:26 08:34 WBC 4.7 L RBC 5.00 D Hgb 13.3 D Hct 41.3 D MCV 82.6 MCH 26.6 L MCHC 32.2 RDW 16.6 H Plt Count 276 MPV 8.8 L Immature Gran % (Auto) 0.2 Neut % (Auto) 49.7 Lymph % (Auto) 36.6 Letcher % (Auto) 7.7 Eos % (Auto) 5.4 H Baso % (Auto) 0.4 Lymph # (Auto) 1.7 Letcher # (Auto) 0.4 Eos # (Auto) 0.3 Baso # (Auto) 0.0 Abs Immat Gran (auto) 0.01 Absolute Neuts (auto) 2.3 Absolute Nucleated RBC 0.000 Nucleated RBC % (auto) 0.0 Sodium 135 Potassium 4.3 Chloride 101 Carbon Dioxide 29 Anion Gap 9 L BUN 10 Creatinine 0.75 Estim Creat Clear Calc 75.5 Estimated GFR > 60 Random Glucose 101 Estimat Average Glucose 114 Hemoglobin A1c % 5.6 Calcium 9.9 D Triglycerides 119 Cholesterol 102 LDL Cholesterol, Calc 56 HDL Cholesterol 23 L Urine Color Yellow Urine Appearance Cloudy Urine pH 7.0 Ur Specific Nathalie 1.015 Urine Protein Negative Urine Glucose (UA) Negative Urine Ketones Negative Urine Blood Negative Urine Nitrite Positive H Ur Leukocyte Esterase Trace H Urine RBC 0-2 Urine WBC 6-10 H Ur Squamous Epith Cells 6-10 Urine Bacteria 4+ Hyaline Casts 0-2 Salicylates < 5.0 L Urine Opiates Screen POSITIVE H Ur Buprenorphine Scrn Not Detected Ur Oxycodone Screen Not Detected Urine Methadone Screen Positive H Urine Fentanyl Screen POSITIVE H Ur Barbiturates Screen Not Detected Ur Phencyclidine Scrn Not Detected Ur Amphetamines Screen Not Detected U Benzodiazepines Scrn Not Detected Urine Cocaine Screen POSITIVE H U Marijuana (THC) Screen POSITIVE H Ethyl Alcohol < 10 01/20/24 Unknown Urine clean catch - Clean Catch Midstream Urine Culture - Final Escherichia coli DS: Summary Hospital Course Hospital Course: Patient is a 43 year old female with hx of MDD, PTSD, opioid use d/o, and cocaine use d/o who presented to [facility] via ambulance from [facility] due to emotional dysregulation and visual/tactile hallucinations of bugs. Per crisis report, patient stated I do not want to and I do not want to hurt others but I feel like I have no reason to be here and that no one really cares for me . Patient reported feeling and seeing parasitic worms. Patient has a history of noncompliance with aftercare appointments and treatment. Patient reports she does not believe her methadone dose alleviates her cravings. Patient is currently homeless and has been living in her mother's basement for the past 3 months. Patient lives with her who also uses substances. Hx of receiving therapy through [facility]. Hx of experiencing hallucinations when using substances. Patient reports she has been using cocaine and heroin daily for the past 2 years; reports 2 accidental overdoses within the past 2 years both requiring Narcan. Had an intake with psychiatrist at [facility] on 01/19/2024 however, missed appointment. Patient has been to detox multiple times. During admission assessment, pt presents alert and oriented, calm, cooperative. Patient stated, I came here to detox from heroin and crack and to see if I can get better meds . Patient reports she has been using a bundle of heroin a day and $80 worth of crack/ cocaine a day. When asked if she would be interested in being referred to a substance abuse program patient stated I'll consider it . Patient reports she would like an increase in her methadone and to speak to a data recovery planner. Addiction consult was placed. Patient reports she does not have any outpatient psychiatric providers and has not been taking any medications since the last time she was hospitalized at [facility] which was in 2021. Patient would like a referral to outpatient psychiatric providers. Patient denies any other psychiatric hospitalizations. Patient reports she can not recall the last time she was sober from substances. Patient was educated regarding mood/hallucinations and substance abuse. Patient denies any history of suicide attempts or self-injurious behavior. Patient denies SI/HI/VH/AH. patient signed 3 day notice. Patient is a 43 year old female with hx of MDD, PTSD, opioid use d/o, and cocaine use d/o who presented to [facility] via ambulance from [facility] due to emotional dysregulation and visual/tactile hallucinations of bugs. Plan: CV 15 minute safety checks pt signed 3 day notice Continue home medications Start: Paxil 20mg PO daily (pt taken in past) Colace 100mg PO bedtime Addiction consult for data recovery planner and possible methadone increase. referral to outpatient prescriber and therapist possible referral to outpatient substance abuse program encourage groups discharge planning Keeping to self. Pt reports feeling better ; pt stated, I'm bored. I don't want to go to groups. I just want help getting into some kind of long-term . Pt denies SI/HI/VH/AH. medication compliant. 3 day up on 01/26/24. Pt reports feeling anxious today; pt stated, I feel home sick. I spoke to my mom and she told me she's proud of me. My plans on staying clean too. I don't want to go to a program after here. I'm going to go back to my mothers house . Pt denies SI/HI/VH/AH. Pt reports sleeping well. Continue current tx plan. Regarding anxiety will increase hydroxyzine to 50 mg as needed and also increase gabapentin to 400 mg. Was previously on 600 mg. Methadone increased to 40 mg today. Previously on 48 mg. Also experiencing constipation. Adjust methadone to 45 mg. Otherwise no changes. Patient reports feeling good today; pt stated, my head feels clear. I'm going to contact my data recovery planner at [facility] and plan on staying clean . Pt denies SI/HI/VH/AH. Pt reports she plans on following up with her outpatient providers. Time spent discussing smoking cessation with patient: 3 to 10 minutes Status at Discharge Cognitive/behavioral status at discharge: Patient was interviewed prior to discharge and found to be fully oriented and without SI or HI. Patient has insight and demonstrates good judgment in terms of wanting to pursue treatment. Patient has a safety plan that includes presenting to the closest ER or calling 911 if feeling unsafe. Functional status at discharge: independent ambulation Overall status at discharge: patient is back to baseline Time Spent with Patient Time attestation: Total time managing care of this patient today _20___ minutes. Time spent: Less than 30 minutes Discharge Plan Discharge Anticipated Discharge Date/Time: 01/26/24 11:00 Patient Disposition: Home, Self-Care Discharge Diagnosis: MDD, PTSD, opioid use d/o, cocaine use d/o Referrals: Therapy & Psychiatry [Other] - 1 Week (*You can present to the clinic above, Friday through Friday from 10am to 12pm, as a walk in once you have insurance in order to obtain outpatient mental health providers. ) [place],[facility] [Primary Care Provider] - 02/10/24 10:30 am (Voicemail left requesting call back for follow up appt to be scheduled. Your follow up appt has been scheduled with Dr. Willis on Friday02-10-24 @ 10:30am at [facility].) Discharge Medications: New clonidine HCl 0.1 mg Tablet 0.1 mg PO TID 30 Days Qty: 90 0RF Protocol: Hold for SBP< HOLD for SBP < : 90 cephalexin 500 mg capsule 500 mg PO BID 4 Days Qty: 8 0RF docusate sodium 100 mg Capsule 100 mg PO BID 30 Days Qty: 60 0RF methadone [Methadose] 10 mg/mL Concentrate 45 mg PO DAILY Qty: 0 0RF Rx Instructions: Partial Fill upon patient request. paroxetine HCl 20 mg Tablet 20 mg PO DAILY 30 Days Qty: 30 0RF hydroxyzine HCl 50 mg Tablet 50 mg PO BID PRN (Reason: anxiety) 30 Days Qty: 60 0RF gabapentin 400 mg Capsule 400 mg PO TID 30 Days Qty: 90 0RF Discontinued methadone [Methadose] 10 mg/mL Concentrate 35 mg PO DAILY Qty: 0 0RF Rx Instructions: Partial Fill upon patient request. clonidine HCl 0.1 mg tablet 0.1 mg PO TID PRN (Reason: anxiety) nicotine 14 mg/24 hr patch 24 hour 1 patch topical BEDTIME PRN (Reason: Nicotine Cravings) gabapentin 300 mg capsule 300 mg PO TID hydroxyzine HCl 25 mg tablet 25 - 50 mg PO BID PRN (Reason: anxiety) nicotine (polacrilex) 2 mg lozenge 2 mg PO Q2H PRN (Reason: Nicotine Cravings) Discharge Orders: Discharge Order (Routine); Ordered 01/26/24 Ordered By: Pepper Herrera Diet: Regular diet Activity on Discharge: As tolerated Stand Alone Forms: Patient Portal Discharge page, Community Support Print Language: Estonian Care Plan Goals: Maintain mood and safe behaviors Take medications as prescribed Continue to pursue sobriety Practice coping skills Continue with outpatient providers and reach out to them as needed Health Concerns: Mood stability and behaviors Sobriety Plan of Treatment: Follow up with your PCP, psychiatric provider and other outpatient providers regarding above concerns Take medications as prescribed Assessment: Patient was interviewed prior to discharge and found to be fully oriented and without SI or HI. Patient has insight and demonstrates good judgment in terms of wanting to pursue treatment. Patient has a safety plan that includes presenting to the closest ER or calling 911 if feeling unsafe. Discharge Date/Time: 01/26/24 11:07
--- NOTE | 2024-01-26 11:30 | PC.NURSE ---
Patient easily engaged. Reports feeling anxious to leave. Mood depressed. Denies SI/HI at this time. Denies perceptual disturbances, no overt psychosis or expressed delusions. Discharge paperwork reviewed, reported understanding. Follow up appointments reviewed patient reports understanding. Belongings taken with patient. Crisis numbers provided.
== END 2024-01-26 11:07 | disposition home or self-care (01) | DRG 751 ==
LOC: HO.ED 16:00 → HO.PADLT16 20:32
PROVIDERS: Physician Assistant Medical; Admitting Provider Psychiatry & Neurology Psychiatry; Emergency Provider Emergency Medicine; Responsible Provider Registered Nurse; Visit Provider Psychiatry & Neurology Psychiatry
DX: F33.9 Major depressive disorder, recurrent, unspecified (principal); F11.20 Opioid dependence, uncomplicated; F14.10 Cocaine abuse, uncomplicated; F43.10 Post-traumatic stress disorder, unspecified; F17.210 Nicotine dependence, cigarettes, uncomplicated; Z71.6 Tobacco abuse counseling; Z79.899 Other long term (current) drug therapy
CPT/HCPCS: 36415; 80048; 80061; 80179; 80307; 81001; 83036; 85025; 87086; 87088; 87186; 93005; 99285; S9485

== ENCOUNTER → 2024-01-20 19:13 | Outpatient (BNV) | payer MEDICAID, SELFPAY | PROVIDERS: Admitting Provider Psychiatry & Neurology Psychiatry; Emergency Provider Emergency Medicine; Responsible Provider Registered Nurse; Visit Provider Internal Medicine Cardiovascular Disease | DX: F11.20 Opioid dependence, uncomplicated (principal) | CPT/HCPCS: 93010 ==

== ENCOUNTER → 2024-01-20 20:31 | Outpatient (BNV) | payer OTHER, SELFPAY | PROVIDERS: Admitting Provider Psychiatry & Neurology Psychiatry; Emergency Provider Emergency Medicine; Responsible Provider Registered Nurse; Visit Provider Registered Nurse | DX: F33.2 Major depressive disorder, recurrent severe without psychotic features (principal); F14.10 Cocaine abuse, uncomplicated; F43.11 Post-traumatic stress disorder, acute; F11.90 Opioid use, unspecified, uncomplicated | CPT/HCPCS: 99231; 99232; 99233 ==

== ENCOUNTER → 2024-01-20 20:31 | Outpatient (BNV) | payer MEDICAID, SELFPAY | PROVIDERS: Admitting Provider Psychiatry & Neurology Psychiatry; Emergency Provider Emergency Medicine; Responsible Provider Registered Nurse; Visit Provider Nurse Practitioner Psychiatric/Mental Health | DX: F11.90 Opioid use, unspecified, uncomplicated (principal) | CPT/HCPCS: 99222 ==

== ENCOUNTER 2024-04-19 18:53 | Emergency (ER) | payer MEDICAID, SELFPAY ==
--- NOTE | 2024-04-19 | ECG_ITS ---
Test Reason : cp Blood Pressure : / mmHG Vent. Rate : 087 BPM Atrial Rate : 087 BPM P-R Int : 140 ms QRS Dur : 088 ms QT Int : 376 ms P-R-T Axes : 060 029 021 degrees QTc Int : 452 ms Normal sinus rhythm Normal ECG When compared with ECG of 20-JAN-2024 19:13, No significant change was found Referred By: Generic ED Physician Electronically Signed By:TRENT COFFEY
[2024-04-19 19:00] VITALS: BP 128/77; BP 133/108; PULSE 108; PULSE 96; RESP 16; TEMP 36.8; O2SAT 98; BMI 29.7
--- NOTE | 2024-04-19 19:20 | PC.NURSE ---
pt reports used earlier and wants to see care team so security is at bedside for exchange architect. pt in agreement.
[2024-04-19 19:29] VITALS: BP 141/93; PULSE 93; RESP 18; TEMP 36.8; O2SAT 99
--- NOTE | 2024-04-19 19:32 | MHC.EDTECH ---
Patient BIBA,changed into crisis attire security at bedside to assist with changeover, belongings list completed and all belongings went to [facility],EKG taken per order and signed by provider,vitals taken,patient ambulated to the bathroom with a steady gait,urine sample collected,labs drawn and sent to lab.call acbrera within reach
[2024-04-19 19:53] LABS: MANUAL DIFF FLAG NO
[2024-04-19 19:54] LABS: Basophils Percent Auto 0.7 % (0-2); Eosinophils Absolute Auto 0.2 X10*3/uL (0.0-0.4); Eosinophils Percent Auto 2.9 % (0-4); Hematocrit 34.5 % (37.0-47.0); Imm Gran Abs Auto 0.02 X10*3/uL (0.00-0.03); Imm Gran Pct Auto 0.4 % (0.0-0.4); Lymphocytes Absolute Auto 1.5 X10*3/uL (1.2-4.9); Lymphocytes Percent Auto 26.2 % (20-40); Mean Corpuscular HGB Conc 31.9 g/dl (31.0-35.0); Mean Corpuscular Volume 84.8 fL (80.0-98.0); Mean Platelet Volume 8.6 fL (9.4-12.3); Monocytes Absolute Auto 0.4 X10*3/uL (0.1-1.2); Monocytes Percent Auto 7.1 % (2-11); Neutrophils Absolute Auto 3.5 x10*3/uL (2.0-8.3); Neutrophils Percent Auto 62.7 % (45-73); Platelet Count 285 X10*3/uL (160-400); Red Blood Count 4.07 X10*6/uL (4.20-5.50); Red Cell Distribution Width 14.8 % (11.0-16.0); White Blood Count 5.5 X10*3/uL (4.8-10.8)
[2024-04-19 19:57] LABS: Appearance Urine Clear; Color Urine Yellow; Glucose Urine UA Negative (Negative); Leukocyte Esterase Urine Trace (Negative); Nitrite Urine Negative (Negative); PH 7.5 (5.0-9.0); UMIC TRIGGER UACC YES; Urine Blood Negative (Negative); Urine Ketones Negative (Negative); Urine Protein Negative (Neg-Trace)
[2024-04-19 20:02] LABS: Bacteria Urine Trace (None Seen); Hyaline Casts Urine 0-2 /LPF (0-2); RBC Urine 0-2 /HPF (0-2); UACC Culture Trigger YES
[2024-04-19 20:06] LABS: Amphetamine Screen Urine Not Detected (Not Detect); Barbiturates, Urine Not Detected (Not Detect); Benzodiazepines Screen Urine Not Detected (Not Detect); Buprenorphine Scr Not Detected (Not Detect); Cannabinoid Screen Urine POSITIVE (Not Detect); Cocaine Screen Urine POSITIVE (Not Detect); Fentanyl, urine POSITIVE (Not Detect); Methadone Screen, Urine Positive (Not Detect); Opiate Screen Urine POSITIVE (Not Detect); Oxycodone Screen Urine Not Detected (Not Detect); Phencyclidine Screen Urine Not Detected (Not Detect)
[2024-04-19 20:07] LABS: Alanine Aminotransferase 52 U/L (0-31); Albumin Level 3.4 g/dL (3.5-5.0); Alkaline Phosphatase 80 U/L (39-117); Anion Gap 13 (12-20); Aspartate Amino Transferase 76 U/L (5-31); Bilirubin Total 0.2 mg/dL (0.0-1.0); Blood Urea Nitrogen 13 mg/dL (9-16); Calcium 8.6 mg/dL (8.4-10.2); Carbon Dioxide 22 mmol/L (22-29); Chloride 104 mmol/L (96-108); Creatinine Clr Calc Pharmacy 83.9; Estimated Glomerular Filt Rate > 60; Glucose Random 119 mg/dL (60-115); Potassium 4.2 mmol/L (3.3-5.1); Sodium 135 mmol/L (135-145); Total Protein 7.8 g/dL (6.5-8.0)
[2024-04-19 20:14] LABS: Troponin-I High Sensitivity < 2.7 ng/L (<3.5-17.0)
--- NOTE | 2024-04-19 21:10 | ED_ITS ---
HPI - General Adult General Chief complaint: General Medical Stated complaint: fever/chills/weakness, UTI, did not finish antibio Time Seen by Provider: 04/19/24 21:01 Source: patient and EMS Mode of arrival: EMS Limitations: no limitations History of Present Illness ED Provider: Dr. Harleen Garcia HPI narrative: Patient comes to the emergency room complaining of subjective fever, chills, body aches. Patient states that she just does not feel well. Patient denies nausea vomiting or diarrhea, denies abdominal pain, no chest pain. Patient admits that she has been using heroin and cocaine. Patient reports increased in depression, denies SI or HI but would like to talk to crisis. Related Data Previous Rx's ?Medication ?Instructions ?Recorded cephalexin 500 mg capsule 500 mg PO BID 4 days #8 caps 01/26/24 clonidine HCl 0.1 mg tablet 0.1 mg PO TID 30 days #90 tabs 01/26/24 docusate sodium 100 mg capsule 100 mg PO BID 30 days #60 caps 01/26/24 gabapentin 400 mg capsule 400 mg PO TID 30 days #90 caps 01/26/24 hydroxyzine HCl 50 mg tablet 50 mg PO BID PRN anxiety 30 days 01/26/24 #60 tabs methadone 10 mg/mL oral 45 mg (4.5 mL) PO DAILY #0 mL 01/26/24 concentrate (Methadose) paroxetine HCl 20 mg tablet 20 mg PO DAILY 30 days #30 tabs 01/26/24 Allergies Allergy/AdvReac Type Severity Reaction Status Date / Time naproxen Allergy Intermediate nausea and Verified 04/19/24 19:02 vomiting Motrin Allergy Intermediate nausea and Uncoded 04/19/24 19:02 vomiting Review of Systems 2 Review of Systems: Constitutional : No Weight loss, complaining of subjective fever, chills, fatigue and generalized malaise ENT/Mouth : No Hearing loss, No Ear Pain, No Nasal Congestion, No Sinus Pain, No Hoarseness, No sore throat, No Rhinorrhea, No Swallowing Difficulty Eyes: No Eye Pain, No Swelling, No Redness, No Foreign Body, No Discharge, No Vision Changes Cardiovascular : No Chest Pain, No SOB, No Dyspnea on Exertion, No Orthopnea, No Edema, No Palpitations Respiratory : No Cough, No Sputum, No Wheezing, No Smoke Exposure, No Dyspnea Gastrointestinal : No Nausea, No Vomiting, No Diarrhea, No Constipation, No abdominal Pain, No Hematochezia, No Melena Genitourinary : no irregular bleeding, No Dysuria, No Urinary Frequency, No Hematuria, No Urinary Incontinence, No Urgency, No Flank Pain, No Urinary Flow Changes, No Hesitancy Musculoskeletal : No joint pain, No Myalgias, No Joint Swelling Skin : No Skin Lesions, No rash Neuro : No Weakness, No Numbness, No Paresthesias, No Loss of Consciousness, No Dizziness, No Headache Psych : No Anxiety/Panic, reports worsening depression, denies SI or HI, admits to polysubstance abuse Heme/Lymph: No Bruising, No Bleeding,No Lymphadenopathy Endocrine : No Polyuria, No Polydipsia, No Temperature Intolerance PMFSH Past Medical History Medical History Opioid use disorder Normocytic anemia History of prediabetes Polysubstance abuse BRIE positive Asthma Dyspnea History of sleep disturbance Hx of anxiety disorder Anxiety Subcutaneous nodules Hyperlipidemia Surgical History History of surgery on arm Hx of excision of mass Hx of dilation and curettage History of tubal ligation History of colposcopy Social History Social History Household Members: Spouse and Family Housing: House Do you presently have visiting nurse or other home services: No Alcohol intake: never Patient Tobacco Use Status: Current everyday Tobacco user Tobacco use type: Cigarette Cigarette Packs Per Day: 1 Cigarettes Per Day: 20.0 Years Smoked: 26 e-Cigarette/Vaping Use: Currently Using Second Hand Smoke Exposure: No Substance Use Type: Crack/Cocaine, Heroin, Marijuana and Opiates Advance Directives: No Advance Directives Information Provided: No service: No Sexual orientation: Straight/Heterosexual Physical Exam ED Vital Signs: Vital Signs - 24 hr 04/19/24 19:00 04/19/24 19:29 04/19/24 21:31 Temperature 98.3 F 98.3 F 98.2 F Pulse Rate 96 93 81 Respiratory Rate 16 18 16 Blood Pressure 133/108 H 141/93 H 124/82 Pulse Oximetry 98 99 98 Oxygen Delivery Method Room Air Room Air Room Air BMI result Body Mass Index 29.7 Const Other: Appearance: Alert. Oriented X3. No acute distress. Eyes: Pupils equal, round and reactive to light. ENT: Pharynx normal. Neck: Normal inspection. Neck supple. No lymph nodes noted. No crepitus CVS: Normal heart rate and rhythm. Pulses normal. Normal S1 and S2 Respiratory: No respiratory distress. Breath sounds normal. No Wheezing. No rales Abdomen: Soft and nontender. No rigidity. No distention. Skin: Skin warm and dry. Normal skin color. Normal skin turgor. Extremities: No lower extremity edema. No Lacerations. No Rash Neuro: Oriented X 3. No motor deficit. No sensory deficit. Moving all extremities. No slurred speech. CN 2 through 12 grossly intact Psych: calm, cooperative, normal affect Medical Decision Making Medical Decision Making [facility] Narrative: My interpretation of labs: At baseline hematology and chemistry, troponin negative. Urine toxicology positive for opiates, methadone, fentanyl, cocaine and THC. Patient denies hematuria or dysuria. Patient's urine analysis looks similar to previous urinalysis. Patient has chronically leukocyte esterase and white blood cells in the urine. Urinalysis negative -serology negative for influenza and COVID -care team consult pending -patient is under physician observation. Patient is not SI or HI, section 12 not indicated at this time -physician observation started at 21:35 -22:20. Patient was evaluated by the care team. Patient was given information, they will work on an outpatient referral to [facility]. Patient agrees with plan. Patient ready for discharge. Differential Diagnosis Differential Diagnoses: The differential diagnosis associated with the presentation includes (Anxiety, depression, polysubstance abuse) Admission/Observation Consideration of admission/observation: Escalation of care including admission/observation considered (Patient is under physician observation waiting to be seen by the care team to determine patient's disposition) Lab Data [facility] Lab Attestation statement: I reviewed the patient's lab results. 04/19/24 19:46 04/19/24 19:46 Labs: Lab Results 04/19/24 04/19/24 04/19/24 Range/Units 19:41 19:42 19:46 WBC 5.5 (4.8-10.8) X10*3/uL RBC 4.07 L (4.20-5.50) X10*6/uL Hgb 11.0 L (12.0-16.0) g/dl Hct 34.5 L (37.0-47.0) % MCV 84.8 (80.0-98.0) fL MCH 27.0 (27.0-33.0) pg MCHC 31.9 (31.0-35.0) g/dl RDW 14.8 (11.0-16.0) % Plt Count 285 (160-400) X10*3/uL MPV 8.6 L (9.4-12.3) fL Immature Gran % (Auto) 0.4 (0.0-0.4) % Neut % (Auto) 62.7 (45-73) % Lymph % (Auto) 26.2 (20-40) % [place] % (Auto) 7.1 (2-11) % Eos % (Auto) 2.9 (0-4) % Baso % (Auto) 0.7 (0-2) % Lymph # (Auto) 1.5 (1.2-4.9) X10*3/uL [place] # (Auto) 0.4 (0.1-1.2) X10*3/uL Eos # (Auto) 0.2 (0.0-0.4) X10*3/uL Baso # (Auto) 0.0 (0.0-0.2) X10*3/uL Abs Immat Gran (auto) 0.02 (0.00-0.03) X10*3/uL Absolute Neuts (auto) 3.5 (2.0-8.3) x10*3/uL Absolute Nucleated RBC 0.000 (0.0-0.012) X10*3/uL Nucleated RBC % (auto) 0.0 (0.0-0.2) /100WBC Sodium 135 (135-145) mmol/L Potassium 4.2 (3.3-5.1) mmol/L Chloride 104 (96-108) mmol/L Carbon Dioxide 22 (22-29) mmol/L Anion Gap 13 (12-20) BUN 13 (9-16) mg/dL Creatinine 0.71 (0.5-1.4) mg/dL Estim Creat Clear Calc 83.9 Estimated GFR > 60 Random Glucose 119 H (60-115) mg/dL Calcium 8.6 D (8.4-10.2) mg/dL Total Bilirubin 0.2 (0.0-1.0) mg/dL AST 76 H (5-31) U/L ALT 52 H (0-31) U/L Alkaline Phosphatase 80 (39-117) U/L Troponin I High Sens < 2.7 (<3.5-17.0) ng/L Total Protein 7.8 (6.5-8.0) g/dL Albumin 3.4 L (3.5-5.0) g/dL Urine Color Yellow Urine Appearance Clear Urine pH 7.5 (5.0-9.0) Ur Specific [place] 1.020 (1.005-1.025) Urine Protein Negative (Neg-Trace) mg/dL Urine Glucose (UA) Negative (Negative) mg/dL Urine Ketones Negative (Negative) mg/dL Urine Blood Negative (Negative) Urine Nitrite Negative (Negative) Ur Leukocyte Esterase Trace H (Negative) Urine RBC 0-2 (0-2) /HPF Urine WBC 11-20 H (0-5) /HPF Ur Squamous Epith Cells 3-5 (0-2) /HPF Urine Bacteria Trace (None Seen) Hyaline Casts 0-2 (0-2) /LPF Urine Test NEGATIVE (NEGATIVE) Urine Opiates Screen POSITIVE H (Not Detect) Ur Buprenorphine Scrn Not Detected (Not Detect) ng/mL Ur Oxycodone Screen Not Detected (Not Detect) ng/mL Urine Methadone Screen Positive H (Not Detect) ng/mL Urine Fentanyl Screen POSITIVE H (Not Detect) Ur Barbiturates Screen Not Detected (Not Detect) Ur Phencyclidine Scrn Not Detected (Not Detect) Ur Amphetamines Screen Not Detected (Not Detect) U Benzodiazepines Scrn Not Detected (Not Detect) Urine Cocaine Screen POSITIVE H (Not Detect) U Marijuana (THC) Screen POSITIVE H (Not Detect) COVID-19 (JOE) (Negative) COVID-19 Clin Com Influenza Type A (TONIA) (Negative) Influenza Type B (TONIA) (Negative) Influenza A & B Note 04/19/24 Range/Units 21:29 WBC (4.8-10.8) X10*3/uL RBC (4.20-5.50) X10*6/uL Hgb (12.0-16.0) g/dl Hct (37.0-47.0) % MCV (80.0-98.0) fL MCH (27.0-33.0) pg MCHC (31.0-35.0) g/dl RDW (11.0-16.0) % Plt Count (160-400) X10*3/uL MPV (9.4-12.3) fL Immature Gran % (Auto) (0.0-0.4) % Neut % (Auto) (45-73) % Lymph % (Auto) (20-40) % [place] % (Auto) (2-11) % Eos % (Auto) (0-4) % Baso % (Auto) (0-2) % Lymph # (Auto) (1.2-4.9) X10*3/uL [place] # (Auto) (0.1-1.2) X10*3/uL Eos # (Auto) (0.0-0.4) X10*3/uL Baso # (Auto) (0.0-0.2) X10*3/uL Abs Immat Gran (auto) (0.00-0.03) X10*3/uL Absolute Neuts (auto) (2.0-8.3) x10*3/uL Absolute Nucleated RBC (0.0-0.012) X10*3/uL Nucleated RBC % (auto) (0.0-0.2) /100WBC Sodium (135-145) mmol/L Potassium (3.3-5.1) mmol/L Chloride (96-108) mmol/L Carbon Dioxide (22-29) mmol/L Anion Gap (12-20) BUN (9-16) mg/dL Creatinine (0.5-1.4) mg/dL Estim Creat Clear Calc Estimated GFR Random Glucose (60-115) mg/dL Calcium (8.4-10.2) mg/dL Total Bilirubin (0.0-1.0) mg/dL AST (5-31) U/L ALT (0-31) U/L Alkaline Phosphatase (39-117) U/L Troponin I High Sens (<3.5-17.0) ng/L Total Protein (6.5-8.0) g/dL Albumin (3.5-5.0) g/dL Urine Color Urine Appearance Urine pH (5.0-9.0) Ur Specific [place] (1.005-1.025) Urine Protein (Neg-Trace) mg/dL Urine Glucose (UA) (Negative) mg/dL Urine Ketones (Negative) mg/dL Urine Blood (Negative) Urine Nitrite (Negative) Ur Leukocyte Esterase (Negative) Urine RBC (0-2) /HPF Urine WBC (0-5) /HPF Ur Squamous Epith Cells (0-2) /HPF Urine Bacteria (None Seen) Hyaline Casts (0-2) /LPF Urine Test (NEGATIVE) Urine Opiates Screen (Not Detect) Ur Buprenorphine Scrn (Not Detect) ng/mL Ur Oxycodone Screen (Not Detect) ng/mL Urine Methadone Screen (Not Detect) ng/mL Urine Fentanyl Screen (Not Detect) Ur Barbiturates Screen (Not Detect) Ur Phencyclidine Scrn (Not Detect) Ur Amphetamines Screen (Not Detect) U Benzodiazepines Scrn (Not Detect) Urine Cocaine Screen (Not Detect) U Marijuana (THC) Screen (Not Detect) COVID-19 (JOE) Negative (Negative) COVID-19 Clin Com See Note Influenza Type A (TONIA) Negative (Negative) Influenza Type B (TONIA) Negative (Negative) Influenza A & B Note See Note Critical Care Time Critical Care Time Critical Care Time: Yes Total Critical Care Time: 30 Attestation: I have personally provided critical care time. Time includes review of lab data, radiology results, discussion with consultants, and monitoring for potential decompensation. Intervention performed as documented. Discharge Plan Discharge Clinical Impression: Depression, Polysubstance abuse, Acute viral syndrome Patient Disposition: Home, Self-Care Instructions: Viral Syndrome (ED), Depression (ED), Polysubstance Abuse (ED) Additional Instructions: Please follow-up with your primary care physician tomorrow. If you have any worsening or new symptoms, please return to the emergency room or call 911 Prescriptions: No Action clonidine HCl 0.1 mg Tablet 0.1 mg PO TID 30 Days Qty: 90 0RF Protocol: Hold for SBP< HOLD for SBP < : 90 cephalexin 500 mg capsule 500 mg PO BID 4 Days Qty: 8 0RF docusate sodium 100 mg Capsule 100 mg PO BID 30 Days Qty: 60 0RF methadone [Methadose] 10 mg/mL Concentrate 45 mg PO DAILY Qty: 0 0RF Rx Instructions: Partial Fill upon patient request. paroxetine HCl 20 mg Tablet 20 mg PO DAILY 30 Days Qty: 30 0RF hydroxyzine HCl 50 mg Tablet 50 mg PO BID PRN (Reason: anxiety) 30 Days Qty: 60 0RF gabapentin 400 mg Capsule 400 mg PO TID 30 Days Qty: 90 0RF Print Language: Austrian
[2024-04-19 21:14] LABS: UPreg QC Valid YES; Urine Pregnancy NEGATIVE (NEGATIVE)
[2024-04-19 21:31] VITALS: BP 124/82; PULSE 81; RESP 16; TEMP 36.8; O2SAT 98
[2024-04-19 22:02] LABS: IDNOW Serial# 152EDE1D; Influenza A Negative (Negative); Influenza B2 Negative (Negative)
[2024-04-19 22:04] LABS: COVID-19 Test Negative (Negative); IDNOW Serial# 08D9AD1C
--- NOTE | 2024-04-19 22:44 | MHC.CARE ---
Pt was referred to CARE team for a consult due to: Pt presented to the ER via EMS reporting fever, chills, body aches and recent cocaine and heroin use with concerns about withdrawals and depression. Pt stated she has been using heroin and cocaine to self medicate and over the past couple days started to experience increased pain and discomfort in her hips, back and stomach which is what brought her to the ER. Pt stated ongoing stress due to living with her mother for the past couple months due to losing her housing. Pt discussed at length her struggles with addiction and lack of current mental health providers. Pt declined any formal referrals to detox but was accepting outpatient referral and information about local detoxes and supports in the area.? Pt is a 43 year old female who appears slightly older than her stated age, she is oriented x4 and cooperative. Eye contact is fair, speech is low in tone and volume and slow in rate, mood was reported as anxious, stating her head feels like slow lately and affect is congruent, Pt presents as tired and groggy. Pt reported her sleep and appetite are poor recently due to her stomach, back and hip pain which started over the past couple of days and are to the point she sleeps sitting up. Pt denied any suicidal or homicidal ideation, intent or plan. Pt did not appear to be responding to internal stimuli and denied any auditory or visual hallucinations. Pt?s insight, judgment and impulse control appear fair. Thought content is clear and thought process is tangential. Disposition was discussed Dr. Harleen Garcia who was in agreement, a referral for [facility] Outpatient will be placed and Pt was provided with Patient Resource Booklet. Pt declined formal detox referral and current presentation does not indicate higher level of care. Pt is future oriented and stated she wants to be able to think about detox prior to looking for placement. Pt?s level of risk to self and others appears low, Pt denied any suicidal ideations, intent or plan and expressed desire to get help for her medical concerns and get information about substance abuse programs in area. Pt will utilize Patient Resource Booklet as needed, local crisis numbers in booklet were reviewed with Pt as well prior to being discharged.
[2024-04-19 22:48] VITALS: BP 124/82; PULSE 81; RESP 16; TEMP 36.8; O2SAT 98
--- NOTE | 2024-04-20 07:58 | MHC.CARE ---
[facility] referral was completed
== END 2024-04-19 22:48 | disposition home or self-care (01) ==
PROVIDERS: Emergency Provider Emergency Medicine; PCP Nurse Practitioner Primary Care
DX: F32.A Depression, unspecified (principal); F19.10 Other psychoactive substance abuse, uncomplicated; B34.9 Viral infection, unspecified; Z03.818 Encounter for observation for suspected exposure to other biological agents ruled out; J45.909 Unspecified asthma, uncomplicated; E78.5 Hyperlipidemia, unspecified; F17.210 Nicotine dependence, cigarettes, uncomplicated; F11.20 Opioid dependence, uncomplicated; Z79.899 Other long term (current) drug therapy
CPT/HCPCS: 36415; 80053; 80307; 81001; 81025; 84484; 85025; 87086; 87088; 87186; 87502; 87635; 93005; 99284

== ENCOUNTER → 2024-04-19 19:16 | Outpatient (BNV) | payer MEDICAID, SELFPAY | PROVIDERS: Emergency Provider Emergency Medicine; PCP Nurse Practitioner Primary Care; Visit Provider Internal Medicine | DX: R07.9 Chest pain, unspecified (principal) | CPT/HCPCS: 93010 ==

== ENCOUNTER 2024-07-01 12:05 | Outpatient (REF) | payer MEDICAID, SELFPAY ==
[2024-07-01 13:22] LABS: MANUAL DIFF FLAG NO
[2024-07-01 13:28] LABS: Basophils Absolute Auto 0.1 X10*3/uL (0.0-0.2); Eosinophils Absolute Auto 0.4 X10*3/uL (0.0-0.4); Eosinophils Percent Auto 6.7 % (0-4); Hematocrit 36.6 % (37.0-47.0); Hemoglobin 11.5 g/dl (12.0-16.0); Imm Gran Abs Auto 0.01 X10*3/uL (0.00-0.03); Imm Gran Pct Auto 0.2 % (0.0-0.4); Lymphocytes Absolute Auto 1.9 X10*3/uL (1.2-4.9); Lymphocytes Percent Auto 36.3 % (20-40); Mean Corpuscular HGB Conc 31.4 g/dl (31.0-35.0); Mean Corpuscular Hemoglobin 25.5 pg (27.0-33.0); Mean Corpuscular Volume 81.2 fL (80.0-98.0); Mean Platelet Volume 9.3 fL (9.4-12.3); Monocytes Absolute Auto 0.5 X10*3/uL (0.1-1.2); Monocytes Percent Auto 9.5 % (2-11); Neutrophils Absolute Auto 2.4 x10*3/uL (2.0-8.3); Neutrophils Percent Auto 46.3 % (45-73); Platelet Count 323 X10*3/uL (160-400); Red Blood Count 4.51 X10*6/uL (4.20-5.50); Red Cell Distribution Width 15.3 % (11.0-16.0); White Blood Count 5.3 X10*3/uL (4.8-10.8)
[2024-07-01 13:45] LABS: Estimated Average Glucose 128 mg/dL; Hemoglobin A1C 130.8353 umol/L; Hemoglobin A1c % 6.1 % (<6.0); Total Hemoglobin (HGBA1C) 3001.8126 umol/L
[2024-07-01 13:53] LABS: C Reactive Protein 0.23 mg/dL (< or = 0.50); Cholesterol 94 mg/dL (<200); HDL Cholesterol 28 mg/dL (>40); Iron 87 mcg/dL (30-160); LDL Cholesterol Calculated 55 mg/dL (<100); Percent Iron Saturation 26 % (15-50); Total Iron Binding Capacity 335 mcg/dL (228-428); Triglycerides 58 mg/dL (<150); Unsaturated Iron Binding 248 ug/dL
[2024-07-01 14:04] LABS: Erythrocyte Sedimentation Rate 26 MM/HR (0-20)
[2024-07-01 14:12] LABS: TSH reflex Free T4 0.82 uIU/mL (0.32-4.0)
[2024-07-01 18:05] LABS: Appearance Urine Turbid; Color Urine Yellow; Glucose Urine UA Negative (Negative); Leukocyte Esterase Urine Small (1+) (Negative); Nitrite Urine Negative (Negative); PH 5.5 (5.0-9.0); Specific Gravity - Urine 1.025 (1.005-1.025); UMIC TRIGGER UACC YES; Urine Blood Negative (Negative); Urine Ketones Negative (Negative); Urine Protein Trace mg/dL (Neg-Trace)
[2024-07-01 18:13] LABS: Bacteria Urine 1+ (None Seen); Hyaline Casts Urine 0-2 /LPF (0-2); RBC Urine 0-2 /HPF (0-2); UACC Culture Trigger YES
[2024-07-04 13:18] LABS: HCV Log PCR 5.92 Log IU/mL (NOT DETECTED); HepC Viral Load 840000 IU/mL (NOT DETECTED)
[2024-07-06 21:13] LABS: Cyclic Citrullinated Peptide <16 UNITS
== END 2024-07-01 12:06 | disposition home or self-care (01) ==
LOC: HO.HHCL 12:05
PROVIDERS: Visit Provider Nurse Practitioner Primary Care
DX: M25.50 Pain in unspecified joint (principal); R76.8 Other specified abnormal immunological findings in serum; N92.0 Excessive and frequent menstruation with regular cycle; R79.82 Elevated C-reactive protein (CRP); R73.01 Impaired fasting glucose; R30.0 Dysuria
CPT/HCPCS: 36415; 80061; 81001; 83036; 83540; 84443; 85025; 85652; 86140; 86200; 87086; 87088; 87186; 87522

== ENCOUNTER 2025-01-14 16:03 | Outpatient (REF) | payer MEDICAID, SELFPAY | END 2025-01-14 16:04 | disposition home or self-care (01) | LOC: HO.HHCLNP 16:03 | PROVIDERS: Visit Provider Family Medicine | DX: R30.0 Dysuria (principal) | CPT/HCPCS: 87086 ==

== ENCOUNTER 2025-03-18 16:08 | Outpatient (REF) | payer MEDICAID, SELFPAY | END 2025-03-18 16:09 | disposition home or self-care (01) | LOC: HO.HHCLNP 16:08 | PROVIDERS: Visit Provider Family Medicine | DX: N30.01 Acute cystitis with hematuria (principal) | CPT/HCPCS: 87086; 87088; 87186 ==

== ENCOUNTER 2025-05-25 16:49 | Outpatient (REF) | payer MEDICAID, SELFPAY ==
--- OUTSIDE RECORDS SUMMARY | 2025-05-25 11:00 | XMS_ITS | Encounter Summary ---
Author Organization [employer] Address [address] [place] [address] [address] [place] [address] Care Team Providers Care Banquet Bartender Name Role Phone Alba Maria DAHL Primary Care Provider [phone] Reason for Referral * Consultation (Routine) - Authorized Specialty Diagnoses / Procedures Referred By Contac t Referred To Contact Family Medicine Diagnoses Chronic hepatitis C without hepatic coma (HCC) Kendall Foster MD [address] [place] [id number] Phone: tel: fax: Referral ID Status Reason Start Date Expiration Date Visits Requested Visits Authorized [id number] Authorized Specialty Services Required 05/25/2025 05/25/2026 1 1 Reason for Visit * Reason Comments Conjunctivitis Encounter Details Date Type Department Care Team ([facility] st Contact Info) Description 05/25/2025 11:00 AM EST Office Visit [facility] [address] [place] [address] [phone] Kendall Foster MD [address] [place] [address] [phone] Cellulitis of right upper eyelid (Primary Dx); Dysuria; Rash; Chronic hepatitis C without hepatic coma (HCC); Vision decreased Social History Tobacco Use Types Packs/Day Years Used Date Smoking Tobacco: Some Days Cigarettes Passive Smoke Exposure: Current Smokeless Tobacco: Never Depression Answer Date Recorded Patient Health Questionnaire-9 Score 27 07/01/2024 Patient Health Questionnaire-9 Score 27 07/01/2024 Last PHQ-9: Questionnaire Data Not on file 0 07/01/2024 Housing Stability Answer Date Recorded What is your housing situation today? I do not have housing (Staying with others, in a hotel, in a group home, living outside on the street, on a beach, in a car, or in a park 07/01/[address] you li ve. Do you have problems with any of the following? None of the above 07/01/2024 Food Insecurity Answer Date Recorded Within the past 12 months, y ou worried that your food would run out before you got money to buy more: Sometimes True 2024 Within the past 12 months,th e food you bought just didn't last and you didn't have enough money to get more: Sometimes True 07/01/2024 Transportation Answer Date Recorded In the past 12 months, has l ack of transportation kept you from medical appts, meetings, work or from getting things needed for daily living? Yes, it has kept me from non-medical meetings, work, or getting things that I need 07/01/2024 Utilities Answer Date Recorded In the past 12 months, has t he electric, gas, oil or water company threatened to shut off services in your home? No 07/01/2024 Depression Answer Date Recorded Patient Health Questionnaire-2 Score 6 07/01/2024 Internet Access Answer Date Recorded Internet Access Q1 No 07/01/2024 Internet Access Q2 Not on file 07/01/2024 Comments Unknown Sex and Gender Information Value Date Recorded Sex Assigned at Female 04/22/2022 10:14 AM EDT Legal Sex Female 10:14 AM EDT Gender Identity Female 04/22/2022 10:14 AM EDT Sexual Orientation Straight 04/22/2022 10 :14 AM EDT documented as of this encounter Last Filed Vital Signs Vital Sign Reading Time Taken Comments Blood Pressure 114/79 05/25/2025 11:33 AM EST Pulse 80 05/25/2025 11:33 AM EST Temperature 37.2 C (98.9 F) 05/25/2025 11:33 AM EST Respiratory Rate 20 05/25/2025 11:33 AM EST Oxygen Saturation 97% 05/25/2025 11:33 AM EST Inhaled Oxygen Concentration - - Weight 63.2 kg (139 lb 6.4 oz) 05/25/2025 11:33 AM EST Height - - Body Mass Index 28.16 03/18/2025 9:23 AM EDT documented in this encounter Progress Notes * Kendall Foster MD - 05/25/2025 11:00 AM EST Subjective Patient ID: Yani Monreal is a 44 y.o. female. HPI 2 years ago Eliana states that she put a damaged contact lens in her right eye, and since then hashad recurrent styes and worsening vision. Several days ago she noticed another right upper lateral eyelid stye, and she picks at the skin. No drainage, fever. States used to wear eyeglasses, last saw eye provider several years ago. Also has recurrence of herpes rash on left buttock, requesting refill of Valtrex which she states has helped in past Also has recurrence of urinary urgency. Denies fever, chills, n/v, vaginal discharge, abdominal or flank pain. Last Hep C viral kuas=[id number] on 07/01/2024. Lives with , daughter sister. Homeless, stays at mother's. Not employed. LMP=3 weeks ago. Smokes 5 cigarettes, has NRT. In methadone program. Patient Active Problem List Diagnosis Date Noted Atopic dermatitis 03/17/2024 Drug-induced constipation 03/17/2024 Opioid withdrawal ([facility]/HCC) ([facility]) 03/17/2024 Cocaine use 01/20/2024 Anxiety 01/20/2024 Active intravenous drug use 01/20/2024 Opioid abuse ([facility]) 03/05/2022 Difficulty swallowing 03/05/2022 Neck pain 07/11/2017 Acute back pain with sciatica 02/18/2017 Depressive disorder 11/17/2012 Chronic pain 11/17/2012 The following portions of the chart were reviewed this encounter and updated as appropriate: Review of Systems Constitutional: Negative for fever. Eyes: Positive for pain and visual disturbance. Negative for discharge. Respiratory: Negative for shortness of breath. Cardiovascular: Negative for chest pain. Gastrointestinal: Negative for abdominal pain. Genitourinary: Positive for dysuria and urgency. Skin: Positive for rash. Neurological: Negative for headaches. Objective Physical Exam Exam conducted with a final inspector paper present. Constitutional: Appearance: Normal appearance. HENT: Nose: Nose normal. Mouth/Throat: Mouth: Mucous membranes are moist. Pharynx: Oropharynx is clear. Eyes: Extraocular Movements: Extraocular movements intact. Conjunctiva/sclera: Conjunctivae normal. Pupils: Pupils are equal, round, and reactive to light. Comments: Right upper eyelid: Erythema, swelling, tenderness over lateral portion of eyelid with excoriated skin at base of eyelashes. Cardiovascular: Rate and Rhythm: Normal rate and regular rhythm. Heart sounds: No murmur heard. Pulmonary: Effort: Pulmonary effort is normal. Breath sounds: Normal breath sounds. Musculoskeletal: General: Normal range of motion. Cervical back: No tenderness. Skin: Findings: No rash. Comments: Nematology Teacher: Katherine Elier. Exam of the left buttock reveals several excoriated small round areas on erythematous base. Neurological: Mental Status: She is alert. Gait: Gait is intact. Psychiatric: Mood and Affect: Mood normal. Behavior: Behavior normal. Procedures Assessment/Plan Diagnoses and all orders for this visit: Cellulitis of right upper eyelid Advised avoiding picking eyelid skin. Use warm compresses. Prescribed Polytrim eyedrops and doxycycline. Referred to [facility] vision center. Vision decreased Referred to [facility] vision center as above. Dysuria Urine C&S pending. Return to clinic if not improving - Culture, Urine, Routine - POCT urinalysis dipstick manually resulted (CPT 32790) Rash Possible recurrent herpes simplex. Prescribed Valtrex. Return to clinic if not improving Chronic hepatitis C without hepatic coma (HCC) Yani agreed to referral to [facility] hepatitis C team. Last positive hep C viral load Other orders - doxycycline (Vibramycin) 100 MG capsule; Take 1 capsule (100 mg) by mouth 2 times daily for 7 days. Take with at least 8 ounces (large glass) of water, do not lie down for 30 minutes after - trimethoprim-polymyxin b (Polytrim) ophthalmic solution; Administer 1 drop into both eyes 4 timesdaily for 7 days. - valACYclovir (Valtrex) 1 g tablet; Take 2 tablets (2,000 mg) by mouth 2 times daily for 1 day. - Clotrimazole 2 % vaginal cream; Insert 1 Applicatorful into the vagina at bedtime for 3 days. documented in this encounter Plan of Treatment Upcoming Encounters Date Type Department Care Team (Late st Contact Info) Description 05/26/2025 11:15 AM EST Office Visit [facility] MEDICINE [address] [place] [address] Claribel Rausch NP [address] [place] [address] Scheduled Orders Name Type Priority Associated Diagnoses Orde r Schedule Culture, Urine, Routine Microbiology Routine Dysuria Ordered: 05/25/2025 Scheduled Referrals Name Type Priority Associated Diagnoses Order Schedule Referral to [facility] Infectious Disease (HIV & Hep C) Outpatient Referral Routine Chronic hepatitis C without hepatic coma (HCC) Expected: 05/25/2025 (Approximate), Expires: 05/25/2026 documented as of this encounter Procedures Procedure Name Priority Date/Time Associated Diagnosis Comments POCT URINALYSIS DIPSTICK Routine 05/25/2025 1:29 PM EST Dysuria documented in this encounter Results * (ABNORMAL) POCT urinalysis dipstick manually resulted (CPT 32738) (05/25/2025 1:29 PM EST) Color, UA Yellow Clarity, UA Clear Glucose, UA Negative Bilirubin, UA Negative Ketones, UA Negative Spec Grav, UA 1.015 Blood, UA Positive(A) Negative, None Detected pH, UA 7.0 Protein, UA Negative Urobilinogen, UA 0.2 Leukocytes, UA Trace Negative, Rare, Trace, 1+ (17), 2+ (35), 3+ (70), Trace (15) Nitrite, UA Negative Negative, None Detected Urine (Urine, Random) 05/25/2025 1:29 PM EST Kendall Foster MD POINT OF CARE TEST ENTER/EDIT OR DERABLES Final Result documented in this encounter Visit Diagnoses Diagnosis Cellulitis of right upper eyelid- Primary Dysuria Rash Rash and other nonspecific skin eruption Chronic hepatitis C without hepatic coma (HCC) Vision decreased Unspecified visual loss documented in this encounter Additional Health Concerns Assessment Noted Time PHQ-9 Depression Total Score: 27 025 11:54 AM EST documented as of this encounter Care Teams Banquet Bartender Relationship Specialty Start Date End Date Maria Willis ANP [address] [place] [address] PCP - General Family Medicine 02/08/21 documented as of this encounter
--- OUTSIDE RECORDS SUMMARY | 2025-05-25 19:03 | XMS_ITS | Encounter Summary ---
Author Organization [employer] Address [address] [facility] [address] [place] [address] Care Team Providers Care Meal Cook Name Role Phone Maria Willis Primary Care Provider [phone] Encounter Details Date Type Department Care Team (Latest Contact Info) Description 05/25/2025 Travel Social History Tobacco Use Types Packs/Day Years [...] with others, in a hotel, in a senior care, living outside on the street, on a [...] AM EDT documented as of this encounter Plan of Treatment Upcoming Encounters Date Type Department Care Team (Late st Contact Info) Description 05/26/2025 11:15 AM EST Office Visit [facility] MED[facility] [address] [place] [address] Claribel Rausch NP [address] [place] [address] documented as of this encounter Visit Diagnoses Not on filedocumented in this encounter Additional Health Concerns Assessment Noted Time PHQ-9 Depression Total Score: 27 025 11:54 AM EST documented as of this encounter Care Teams Meal Cook Relationship Specialty Start Date End Date Maria Willis ANP [address] [place] [address] PCP - General Family Medicine 02/08/21 documented as of this encounter
--- OUTSIDE RECORDS SUMMARY | 2025-05-25 19:03 | XMS_ITS | Encounter Summary ---
Author Organization [employer] Address [address] [place] [address] [address] [place] [address] Care Team Providers Care Infrastructure Administrator Name Role Phone Maria Willis Primary Care Provider [phone] Reason for Visit * Reason Onset Date Comments comp appt 11/04/2024 Encounter Details Date Type Department Care Team ([facility] st Contact Info) Description 11/04/2024 Telephone C ADULT DENTAL [address] [place] [address] Dayron Angulo DDS [address] [place] [address] comp appt Social History Tobacco Use Types Packs/Day Years Used Date Smoking Tobacco: Some Days Cigarettes Smokeless Tobacco: Never Depression Answer Date Recorded Patient Health Questionnaire-9 Score 27 07/01/2024 Patient Health Questionnaire-9 Score 27 07/01/2024 Last PHQ-9: Questionnaire Data Not on file 0 07/01/2024 Housing Stability Answer Date Recorded What is your housing situation today? I do not have housing (Staying with others, in a hotel, in a alf, living outside on the street, on a [...] AM EDT documented as of this encounter Miscellaneous Notes * Telephone Encounter - Catherine Sparrow - 11/04/2024 3:37 PM EDT Patient checking in on the status of a comp appt. On waiting list since 12/2023 documented in this encounter Plan of Treatment Upcoming Encounters Date Type Department Care Team (Late st Contact Info) Description 05/26/2025 11:15 AM EST Office Visit [facility] MEDICINE [address] [place] [address] Claribel Rausch NP [address] [place] [address] documented as of this encounter Visit Diagnoses Not on filedocumented in this encounter Additional Health Concerns Assessment Noted Time PHQ-9 Depression Total Score: 27 025 11:54 AM EST documented as of this encounter Care Teams Infrastructure Administrator Relationship Specialty Start Date End Date Maria Willis ANP [address] [place] [address] PCP - General Family Medicine 02/08/21 documented as of this encounter
--- OUTSIDE RECORDS SUMMARY | 2025-05-25 19:03 | XMS_ITS | Clinical Summary ---
Author Organization [employer] Address [address] [place] [address] [address] [place] [address] Care Team Providers Care Securities Sales Associate Name Role Phone Alba Maria DAHL Primary Care Provider [phone] Allergies No known active allergies Medications * This document contains information received from the source organization and may not represent a complete record from that organization. Multiple Vitamin (multivitamin) tabletIndication s:Healthcare maintenance Take 1 tablet by mouth in the morning. 90 tablet 08/30/19 23 Active methadone (Dolophine) 10 MG/5ML solution Take 45 mg by mouth Once per day. Active gabapentin (Neurontin) 300 MG capsule Take 1 capsule by mouth 3 times daily. 12/11/19 24 Active nicotine (Nicoderm, Step 2) 14 MG/24HR patch APPLY 1 PATCH TOPICALLY TO THE SKIN IN THE MORNING DO NOT SMOKE WHILE USING PATCH REMOVE AT BEDTIME 01/20/20 24 Active nicotine polacrilex (Commit) 2 MG lozenge HOLD 1 LOZENGE IN MOUTH EVERY 2 HOURS NEEDED 01/20/20 24 Active docusate sodium (Colace) 100 MG capsuleIndicatio ns:Constipation, unspecified constipation type take 1 capsule by oral route bid as needed for constipation 180 capsule 3 05/06/2025 8:32 AM EST 07/01/19 25 Active naloxone (Narcan) 4 mg/0.1 mL nasal spray FOR SUSPECTED OPIOID OVERDOSE. SPRAY 0.1mL IN ONE NOSTRIL. REPEAT IN ALTERNATE NOSTRIL 2-3 MINUTES IF NEEDED. SEEK MEDICAL ATTENTION IMMEDIATELY EVEN IF PATIENT RESPONDS. 2 each 2 12/11/19 25 Active hydrOXYzine HCl (Atarax) 50 MG tabletIndication s:Anxiety TAKE 1 TABLET BY MOUTH EVERY 8 HOURS NEEDED FOR ANXIETY 90 tablet 1 05/06/2025 8:32 AM EST 04/12/20 25 Active cloNIDine (Catapres) 0.1 MG tabletIndication s:Anxiety TAKE 1 TABLET BY MOUTH THREE TIMES DAILY 90 tablet 1 05/06/2025 8:32 AM EST 04/12/20 25 Active PARoxetine (Paxil) 20 MG tabletIndication s:Anxiety,Depres sive disorder TAKE 1 TABLET BY MOUTH EVERY DAY 30 tablet 1 05/06/2025 8:32 AM EST 04/12/20 25 Active doxycycline (Vibramycin) 100 MG capsule Take 1 capsule (100 mg) by mouth 2 times daily for 7 days. Take with at least 8 ounces (large glass) of water, do not lie down for 30 minutes after 14 capsule 05/25/20 25 Active trimethoprim-gloria ymyxin b (Polytrim) ophthalmic solution Administer 1 drop into both eyes 4 times daily for 7 days. 10 mL 05/25/20 25 Active valACYclovir (Valtrex) 1 g tablet Take 2 tablets (2,000 mg) by mouth 2 times daily for 1 day. 4 tablet 05/25/20 25 Active Clotrimazole 2 % vaginal cream Insert 1 Applicatorful into the vagina at bedtime for 3 days. 21 g 05/25/20 25 025 Active Active Problems Problem Noted Date Diagnosed Date Atopic dermatitis 03/17/2024 Drug-induced constipation 03/17/2024 Opioid withdrawal (CMS/HCC) 03/17/2024 Cocaine use 01/20/2024 Anxiety 01/20/2024 Active intravenous drug use 01/20/2024 Opioid abuse 03/05/2022 Difficulty swallowing 03/05/2022 Neck pain 07/11/2017 Acute back pain with sciatica 02/18/2017 Depressive disorder 11/17/2012 Chronic pain 11/17/2012 Encounters Date Type Department Care Team Description 05/25/2025 11:00 AM EST Office Visit [facility] [address] [place] [phone] Kendall Foster MD Cellulitis of right upper eyelid (Primary Dx); Dysuria; Rash; Chronic hepatitis C without hepatic coma (HCC); Vision decreased 05/25/2025 Travel 04/10/2025 Refill [facility] [address] [place] [address] Maria Willis ANP Anxiety; Depressive disorder 03/18/2025 9:40 AM EDT Office Visit [facility] [address] [place] [address] Ry Collins MD Acute cystitis with hematuria (Primary Dx); Hordeolum externum of right upper eyelid; Parasitosis 03/18/2025 Travel from Last 3 Months Immunizations Immunization Administration Dates Next Due DTP 1979,1979,1979 DTaP 08/18/1984,04/21/1981 Hep B, Adolescent or Pediatric 05/01/1998 IPV 04/21/1981, 0,1979,08/24 Influenza Injectable Quadriv alant Preservative Free IIV4 MDCK 07/07/2018,02/19/2017 Influenza injectable quadriv alent preservative free 03/29/2020,05/07/2019 Influenza, IIV3, injectable 06/29/2015 Influenza, intradermal, quad rivalent, preservative free 06/29/2015 Influenza, seasonal, injecta ble, preservative free 07/01/2024 MMR 10/31/1980 Pneumococcal Polysaccharide PPSV23 08/29/2011 TD (adult), 2 Lf tetanus tox oid, preservative free, adsorbed 06/07/1996 Tdap 07/01/2024,08/29/2011 Social History Tobacco Use Types Packs/Day Years Used Date Smoking Tobacco: Some Days Cigarettes Passive Smoke Exposure: Current Smokeless Tobacco: Never Tobacco Cessation:Ready to Q uit: Not Asked; Counseling Given: Not Answered Depression Answer Date Recorded Patient Health Questionnaire-9 Score 27 07/01/2024 Patient Health Questionnaire-9 Score 27 07/01/2024 Last PHQ-9: Questionnaire Data Not on file 0 07/01/2024 Housing Stability Answer Date Recorded What is your housing situation today? I do not have housing (Staying with others, in a hotel, in a senior living, living outside on the street, on a [...] Orientation Straight 04/22/2022 10 :14 AM EDT Last Filed Vital Signs Vital Sign Reading Time Taken Comments Blood Pressure 114/79 05/25/2025 11:33 AM EST Pulse 80 05/25/2025 11:33 AM EST Temperature 37.2 C (98.9 F) 05/25/2025 11:33 AM EST Respiratory Rate 20 05/25/2025 11:33 AM EST Oxygen Saturation 97% 05/25/2025 11:33 AM EST Inhaled Oxygen Concentration - - Weight 63.2 kg (139 lb 6.4 oz) 05/25/2025 11:33 AM EST Height 149.9 cm (4' 11 ) 03/18/2025 9:23 AM EDT Body Mass Index 28.16 03/18/2025 9:23 AM EDT Plan of Treatment Upcoming Encounters Date Type Department Care Team (Late st Contact Info) Description 05/26/2025 11:15 AM EST Office Visit [facility] [address] [place] [address] Claribel Rausch NP [address] [place] [address] Health Maintenance Due Date Last Done Comments CT Colonography 1979 Colonoscopy 1979 Colorectal Cancer Screening 1979 FIT DNA/Cologuard 1979 FIT 1979 FOBT 1979 Sigmoidoscopy 1979 Disability Screening 1979 Family Planning (PISQ) 1994 HPV Vaccines (1 - 3-dose series) 1994 Hepatitis B Vaccines (2 of 3 - 3-dose series) 05/29/1998 05/01/1998 Hepatitis A Vaccines (1 of 2 - Risk 2-dose series) 1998 Pap Smear 2000 Cervical Cancer Screening 2009 HPV/Cotest 2009 Pneumococcal Vaccine: Pediatrics (0 to 5 Years) and At-Risk Patients (6 to 49) Years (2 of 2 - PCV) 08/28/2012 08/29/2011 Mammogram 2019 Depression Monitoring 12/29/2024 07/01/2024, 025 COVID-19 Vaccine ( season) 2025 10/18/2022, 02/12/2021, 12/28/2020 Influenza Vaccine (#1) 2025 , 03/29/2020, 05/07/2019, Additional history exists Alcohol/Substance Use Screening 07/01/2025 07/01/2024 Diabetes: Hemoglobin A1C 07/01/2025 07/01/2024, 02/22 SDOH Screening 07/01/2025 07/01/2024 Tobacco Screening 05/25/2026 05/25/2025 Zoster Vaccines (1 of 2) 2029 Lipid Panel 07/01/2029 07/01/2024, 03/20/2020 DTaP/Tdap/Td Vaccines (8 - Td or Tdap) 07/01/2034 07/01/2024, 08/29/2011, 06/07/1996, Additional history exists RSV Patients and Patients Aged 60 years or older (1 - 1-dose 75+ series) 2054 IPV Vaccines Completed 04/21/1981, 11/22, 1979, Additional history exists HIV Screening Completed 09/27/2021, 0412/2021, 08/09/2021, Additional history exists HIB Vaccines Aged Out No longer eligi ble based on patient's age to complete this topic Meningococcal B Vaccine Aged Out No l onger eligible based on patient's age to complete this topic Meningococcal Vaccine Aged Out No sonia merline eligible based on patient's age to complete this topic RSV under 20 months Aged Out No longe r eligible based on patient's age to complete this topic Rotavirus Vaccines Aged Out No longer eligible based on patient's age to complete this topic Procedures Procedure Name Priority Date/Time Associated Diagnosis Comments POCT URINALYSIS DIPSTICK Routine 05/25/2025 1:29 PM EST Dysuria POCT URINALYSIS DIPSTICK Routine 03/18/2025 10:04 AM EDT Acute cystitis with hematuria CULTURE, URINE, ROUTINE Routine 03/18/2025 9:30 AM EDT Acute cystitis with hematuria HEMOGLOBIN A1C Routine 07/01/2024 12:07 PM EST Impaired fasting glucose LIPID PANEL, STANDARD Routine 07/01/2024 12:07 PM EST Impaired fasting glucose ZZZ HISTORICAL HIV 1 RNA, QUANTITATIVE REAL TIME PCR Routine 09/27/2021 4:37 PM EDT from Last 3 Months or Most Recently Relevant to Health Maintenance Results * (ABNORMAL) POCT urinalysis dipstick manually resulted (CPT 37215) (05/25/2025 1:29 PM EST) Only the most recent of2 resultswithin the time period is included. Color, UA Yellow Clarity, UA Clear Glucose, [...] CARE TEST ENTER/EDIT OR DERABLES Final Result * Culture, Urine, Routine (03/18/2025 9:30 AM EDT) Urine Urine specimen obtained by clean catch procedure / Unknown 03/18/2025 9:30 AM EDT 03/18/2025 4:09 PM EDT Comment:UACC Narrative [facility] - 03/20/2025 7:48 AM EDT Escherichia coli Quant > 100,000 cfu/mL Escherichia coli: Ampicillin >=32(R) Escherichia coli: Cefazolin (Urine) 8(S) Escherichia coli: Cefepime <=0.12(S) Escherichia coli: Ceftriaxone <=0.25(S) Escherichia coli: Ciprofloxacin <=0.06(S) Escherichia coli: Gentamicin <=1(S) Escherichia coli: Nitrofurantoin <=16(S) Escherichia coli: Trimethoprim/Sulfamethoxazole <=20(S) Specimen Source: Urine clean catch Ry Collins MD LAB MICROBIOLOGY - GENERAL ORDER RAGHAVENDRA Final Result [facility] [address] [place] [phone] * (ABNORMAL) Hemoglobin A1c (07/01/2024 12:07 PM EST) Hemoglobin A1c 6.1(H) <6.0 % [facility] Comment:Hemoglobin A1C Refer ence Range Adults: 4.8 - 6.0 % Non diabetic: < 6.0 % Goal: < 7.0 %Additional Action Suggested: > 8.0 %Note: Hemoglobin A1c results are invalid for patients with abnormal amounts of HbF. Blood transfusions may impact the HbA1c concentration in the patient sample. Estimated Average Glucose 128 mg/dL [facility] Comment:eAG = Estimated ave rage glucose which is %A1C expressed asaverage glucose, using the formula of the J2R-IvyrpilMrbuxed Glucose study (ADAG), Diabetes Care, Vol.31,#8,Jan. 2007 Blood Venous blood specimen / Unknown 07/01/2024 12:07 PM EST 07/01/2024 1:16 PM EST Maria Willis [facility] BLOOD ORDERABLES Final Resul t Performing Organization Address [facility] Co de Phone Number [facility] [address] [place] [address] [phone] * (ABNORMAL) Lipid Panel, Standard (07/01/2024 12:07 PM EST) Triglycerides 58 <150 mg/dL [facility] Comment:Desirable Triglyceri de: less than 150 mg/dLBorderline High Triglyceride 150-199 mg/dLHigh Triglyceride: 200-499 mg/dLVery High Triglyceride: greater than or equal to 5OO mg/dL Cholesterol 94 <200 mg/dL [facility] Comment:Desirable Cholestero l: less than 200 mg/dLBorderline High Cholesterol: 200-239 mg/dLHigh Cholesterol: greater than 239 mg/dL LDL Cholesterol Calculated 55 <100 mg/dL [facility] Comment:Desirable LDL: less than 100 mg/dLNear Optimal/Above Optimal LDL: 110- 129 mg/dLBorderline High LDL: 130-159 mg/dLHigh LDL: 160-189 mg/dLVery High LDL: greater than or equal to 190 mg/dL HDL Cholesterol 28(L) >40 mg/dL [facility] Comment:Desirable HDL: great er than 40 mg/dL Note: This HDL assay may give artificially low results in patients with liver disease. Blood Venous blood specimen / Unknown 07/01/2024 12:07 PM EST 07/01/2024 1:16 PM EST us Maria Willis ANP LAB BLOOD ORDERABLES Final Resul t [facility] [address] [place] [address] [phone] * HIV 1 RNA, QUANTITATIVE REAL TIME PCR (09/27/2021 4:37 PM EDT) HIV 1 RNA, QN PCR NOT DETECTED NOT DETECTED copies/mL [facility] HIV 1 RNA, QN PCR NOT DETECTED NOT DETECTED Log copies/mL [facility] Comment: This test was performed using Real-Time Polymerase Chain Reaction. Reportable Range: 20 copies/mL to 10,000,000 copies/mL (1.30 log copies/mL to 7.00 log copies/mL). 09/27/2021 4:37 PM EDT Lindsey Dozier MD HISTORICAL/NON ORDERABLE LABS Final Result [facility] [address] from Last 3 Months or Most Recently Relevant to Health Maintenance Insurance [address] [address] C3 Care Teams Securities Sales Associate Relationship Specialty Start Date End Date Maria Willis ANP [address] [place] [phone] PCP - General Family Medicine 02/08/21
== END 2025-05-25 16:50 | disposition home or self-care (01) ==
LOC: HO.HHCLNP 16:49
PROVIDERS: Visit Provider Emergency Medicine
DX: R30.0 Dysuria (principal)
CPT/HCPCS: 87086; 87088; 87186